=== PATIENT | female | born 1945 | race Two or more races ===

== ENCOUNTER 2016-07-13 00:54 | Emergency (ER) | payer OTHER ==
[2016-07-13 01:06] VITALS: BMI 33.8
[2016-07-13] MEDS ORDERED: VALSARTAN 40 MG TABLET (FP) PO ONE (01:26)
--- NOTE | 2016-07-13 01:29 | PDOC ---
History of Present Illness - General History Source: Patient Exam Limitations: No Limitations - History of Present Illness Initial Comments: 07/13/16 01:42 The patient is a 70 year old female, with a significant past medical history of AFib(on metoprolol and eliquis), hypertension, hyperlipidemia, non-insulin dependent diabetes mellitus, rheumatoid arthritis, and lupus, who presents to the emergency department complaining of dizziness since earlier today. The patient reports her blood pressure has been fluctuating for several days, because she is missing one of her hypertension medications. 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 She states she returned to her PCP, who prescribed her a second medication, which again was not covered by her insurance. The patient reports she is otherwise compliant with her other medications. The patient reports a decrease in appetite. She reports chest tightness and palpitations, but denies diaphoresis or shortness of breath. The patient reports warmness to her feet bilaterally. The patient states she lives at home alone. The patient denies any fever, chills, cough, or headache. The patient denies any nausea, vomiting, diarrhea, constipation, or changes in urination patterns. Allergies: None reported. Past Surgical History: Tubal ligation. Social History: Non-smoker. Denies alcohol or drug use. <Radha Quiroz - Last Filed: 07/13/16 01:44> <Radha Edwards - Last Filed: 07/13/16 23:36> - General Stated Complaint: BLOOD PRESSURE Time Seen by Provider: 07/13/16 01:11 Past History <Radha Quiroz - Last Filed: 07/13/16 01:44> - Past Medical History Cardiac Disorders: Yes (palpitations) Diabetes: Yes HTN: Yes Hypercholesterolemia: Yes - Surgical History Abdominal Surgery: Yes (TUBAL LIGATION) - Immunization History Td Vaccination: Yes Immunization Up to Date: Yes - Psycho/Social/Smoking Cessation Hx Anxiety: No Suicidal Ideation: No Smoking Status: No Smoking History: Never smoked Years of Tobacco Use: 0 Have you smoked in the past 12 months: No Number of Cigarettes Smoked Daily: 0 Cigars Per Day: 0 Hx Alcohol Use: No Drug/Substance Use Hx: No Substance Use Type: None Hx Substance Use Treatment: No <Radha Edwards - Last Filed: 07/13/16 23:36> - Past Medical History Allergies/Adverse Reactions: Allergies Allergy/AdvReac Type Severity Reaction Status Date / Time No Known Allergies Allergy Verified 07/13/16 01:03 Home Medications: Ambulatory Orders Acetaminophen [Tylenol .Extra-Strength -] 500 mg PO Q8H PRN 10/03/15 Albuterol Sulfate Inhaler - [Ventolin HFA Inhaler -] 1 - 2 inh PO QID 10/03/15 Apixaban [Eliquis] 5 mg PO BID 10/03/15 Atorvastatin Ca [Lipitor] 20 mg PO DAILY 10/03/15 Folic Acid 1 mg PO DAILY 10/03/15 Hydrochlorothiazide [Hctz -] 25 mg PO DAILY 10/03/15 Metoprolol Succinate [Toprol Xl] 100 mg PO DAILY 10/03/15 Propafenone HCl [Rythmol Sr] 225 mg PO BID 10/03/15 Sitagliptin Phos/Metformin HCl [Janumet 50-1,000 mg Tablet] 1 each PO BID Fluticasone Prop 0.05% Nasal [Flonase -] 1 - 2 spray NS DAILY 07/13/16 Hypromellose 0.5% Opth Soln [Artificial Tears] 1 drop OU TID 07/13/16 Meclizine HCl [Antivert -] 25 mg PO QID #32 tablet 07/13/16 Meclizine HCl [Antivert -] 25 mg PO TID PRN #20 tablet 07/13/16 Methotrexate [Mexate -] 50 mg IM Q7D 07/13/16 Prednisone 5 mg PO DAILY 07/13/16 Ranitidine [Zantac -] 150 mg PO BID 07/13/16 Valsartan [Diovan] 160 mg PO DAILY #30 tablet 07/13/16 Review of Systems - Review of Systems Able to Perform ROS?: Yes Comments:: 07/13/16 01:42 GENERAL/CONSTITUTIONAL: No fever or chills. No weakness. HEAD, EYES, EARS, NOSE AND THROAT: No change in vision. No ear pain or discharge. No sore throat. CARDIOVASCULAR: +Chest tightness, +palpitations. No shortness of breath. RESPIRATORY: No cough, wheezing, or hemoptysis. GASTROINTESTINAL: No nausea, vomiting, diarrhea or constipation. GENITOURINARY: No dysuria, frequency, or change in urination. MUSCULOSKELETAL: No joint or muscle swelling or pain. No neck or back pain. SKIN: No rash NEUROLOGIC: +Dizziness. No headache, vertigo, loss of consciousness, or change in strength/sensation. ENDOCRINE: +Decreased appetite. No increased thirst. No abnormal weight change. HEMATOLOGIC/LYMPHATIC: No anemia, easy bleeding, or history of blood clots. ALLERGIC/IMMUNOLOGIC: No hives or skin allergy. <Radha Quiroz - Last Filed: 07/13/16 01:44> *Physical Exam - Vital Signs Last Vital Signs Temp Pulse Resp BP Pulse Ox 98.3 F 83 18 170/81 99 07/13/16 01:00 07/13/16 01:00 07/13/16 01:00 07/13/16 01:00 07/13/16 01:00 - Physical Exam Comments: 07/13/16 01:42 GENERAL: Awake, alert, and fully oriented, in no acute distress HEAD: No signs of trauma EYES: PERRLA, EOMI, sclera anicteric, conjunctiva clear ENT: Auricles normal inspection, hearing grossly normal, nares patent, oropharynx clear without exudates. Moist mucosa NECK: Normal ROM, supple, no lymphadenopathy, JVD, or masses LUNGS: Breath sounds equal, clear to auscultation bilaterally. No wheezes, and no crackles HEART: Atrial fibrillation. Regular rhythm, normal S1 and S2, no murmurs, rubs or gallops ABDOMEN: Soft, nontender, normoactive bowel sounds. No guarding, no rebound. No masses EXTREMITIES: Normal range of motion, no edema. No clubbing or cyanosis. No cords, erythema, or tenderness NEUROLOGICAL: Cranial nerves II through XII grossly intact. Normal speech, normal gait SKIN: Warm, Dry, normal turgor, no rashes or lesions noted. <Radha Quiroz - Last Filed: 07/13/16 01:44> - Vital Signs Last Vital Signs Temp Pulse Resp BP Pulse Ox 98.3 F 83 18 170/81 99 07/13/16 01:00 07/13/16 01:00 07/13/16 01:00 07/13/16 01:00 07/13/16 01:00 <Radha Edwards - Last Filed: 07/13/16 23:36> ED Treatment Course - Medications Given in the ED: ED Medications Discontinued Medications Generic Name Dose Route Start Last Admin Trade Name Mine PRN Reason Stop Dose Admin Valsartan 160 mg 07/13/16 01:31 07/13/16 01:33 Diovan - PO 07/13/16 01:32 160 mg ONCE ONE Administration <Radha Quiroz - Last Filed: 07/13/16 01:44> - LABORATORY CBC & Chemistry Diagram: 07/13/16 04:40 07/13/16 06:00 <Radha Edwards - Last Filed: 07/13/16 23:36> Medical Decision Making - Medical Decision Making 07/13/16 23:24 Pt comes with dizziness. She states that her BP is high because she ran out of one of her meds. Her PMD switched her to another medication however her health insurance wouldn't cover it; another med was prescribed, but he health insurance wouldn't cover that either. Pt has a normal exam. She has a normal EKG and normal labs and cardiac enzymes. She will be discharged home; awaiting her family to pick her up. <Radha Edwards - Last Filed: 07/13/16 23:36> *DC/Admit/Observation/Transfer - Attestations Scribe Attestion: 07/13/16 01:43 Documentation prepared by Radha Quiroz, acting as medical information specialist for Radha Edwards MD. <Radha Quiroz - Last Filed: 07/13/16 01:44> - Discharge Dispostion Admit: No <Radha Edwards - Last Filed: 07/13/16 23:36> Diagnosis at time of Disposition: Nausea, Dizziness - Discharge Dispostion Disposition: HOME Condition at time of disposition: Improved - Prescriptions Prescriptions: Meclizine HCl [Antivert -] 25 mg PO TID PRN #20 tablet PRN Reason: Vertigo Meclizine HCl [Antivert -] 25 mg PO QID #32 tablet Valsartan [Diovan] 160 mg PO DAILY #30 tablet - Referrals Referrals: Arun Roberson MD [Staff Physician] - - Patient Instructions Printed Discharge Instructions: Combating Dizziness in Older Adults, DI for Nausea -- Adult, DI for Vertigo
[2016-07-13] MEDS ORDERED: VALSARTAN 160 MG TABLET (UD) PO ONE (01:31)
[2016-07-13] MEDS ORDERED: VALSARTAN 80 MG TABLET (UD) ONE (01:40)
[2016-07-13] MEDS ORDERED: MAG HYDROX/AL HYDROX/SIMETH 30 ML UNIT-DOSE CUP PO ONE (03:58)
[2016-07-13] MEDS ORDERED: FAMOTIDINE 20 MG/50 ML IVPB 50 ML IVPB ONE ×2 (03:58→04:42)
[2016-07-13] MEDS ORDERED: MAG HYDROX/AL HYDROX/SIMETH 30 ML UNIT-DOSE CUP ONE (04:24)
[2016-07-13 05:09] LABS: BASOPHIL 0.6 % (0-2.0); MCH 31.7 pg (25.7-33.7); MCHC 33.5 g/dl (32.0-36.0); MEAN CELL VOLUME 94.5 fl (80-96); MEAN PLT VOLUME 6.6 fl (7.5-11.1); NEUTROPHILS 53.9 % (42.8-82.8); PLATELET COUNT 278 K/MM3 (134-434); RDW 17.2 % (11.6-15.6); WHITE BLOOD COUNT 7.5 K/mm3 (4.0-10.0)
[2016-07-13 06:45] LABS: ALBUMIN 3.4 g/dl (3.4-5.0); ANION GAP 12 (8-16); BILIRUBIN,TOTAL 0.2 mg/dL (0.2-1.0); CALCIUM 8.6 mg/dL (8.5-10.1); CO2 27 mmol/L (21-32); CREATININE 0.7 mg/dL (0.55-1.02); GLUCOSE,RANDOM 98 mg/dL (74-106); SGOT/AST 13 U/L (15-37); SGPT/ALT 27 U/L (12-78); TOT PROT 6.6 g/dl (6.4-8.2)
[2016-07-13 06:47] LABS: ALK PHOS 85 U/L (45-117); TROPONIN I < 0.02 ng/ml (0.00-0.05)
[2016-07-13] MEDS ORDERED: METOCLOPRAMIDE HCL INJECTION 10 MG/2 ML VIAL IVPUSH ONE (07:40)
[2016-07-13] MEDS ORDERED: MECLIZINE HCL 25 MG TABLET (FP) PO ONE (07:40)
[2016-07-13] MEDS ORDERED: MECLIZINE HCL 25 MG TABLET (FP) ONE (07:47)
[2016-07-13] MEDS ORDERED: METOCLOPRAMIDE HCL INJECTION 10 MG/2 ML VIAL ONE (07:47)
[2016-07-13 08:04] VITALS: TEMP 98.1
--- NOTE | 2016-07-13 09:24 | PDOC ---
*Physical Exam - Vital Signs Last Vital Signs Temp Pulse Resp BP Pulse Ox 98.1 F 72 18 146/78 98 07/13/16 08:01 07/13/16 08:01 07/13/16 08:01 07/13/16 08:01 07/13/16 08:01 ED Treatment Course - LABORATORY CBC & Chemistry Diagram: 07/13/16 04:40 07/13/16 06:00 - ADDITIONAL ORDERS Additional order review: Laboratory Results 07/13/16 07/13/16 07/13/16 06:00 05:40 04:40 Sodium 134 L Cancelled Cancelled Potassium 3.8 Cancelled Cancelled Chloride 95 L Cancelled Cancelled Carbon Dioxide 27 Cancelled Cancelled Anion Gap 12 Cancelled Cancelled BUN 11 Cancelled Cancelled Creatinine 0.7 Cancelled Cancelled Creat Clearance w eGFR > 60 Cancelled Cancelled Random Glucose 98 D Cancelled Cancelled Calcium 8.6 Cancelled Cancelled Total Bilirubin 0.2 D Cancelled Cancelled AST 13 L D Cancelled Cancelled ALT 27 D Cancelled Cancelled Alkaline Phosphatase 85 Cancelled Cancelled Creatine Kinase 43 Cancelled Cancelled Troponin I < 0.02 Cancelled Cancelled Total Protein 6.6 Cancelled Cancelled Albumin 3.4 Cancelled Cancelled 07/13/16 04:40 RBC 3.93 MCV 94.5 MCHC 33.5 RDW 17.2 H MPV 6.6 L Neutrophils % 53.9 Lymphocytes % 30.6 Monocytes % 12.9 H Eosinophils % 2.0 D Basophils % 0.6 - Medications Given in the ED: ED Medications Discontinued Medications Generic Name Dose Route Start Last Admin Trade Name Mine PRN Reason Stop Dose Admin Al Hydroxide/Mg Hydroxide 30 ml 07/13/16 03:58 07/13/16 04:32 Mylanta Oral Suspension - PO 07/13/16 03:59 30 ml ONCE ONE Administration Famotidine/Sodium Chloride 50 mls @ 100 mls/hr 07/13/16 03:58 07/13/16 04:40 Pepcid 20 Mg Premixed Ivpb - IVPB 07/13/16 04:27 100 mls/hr ONCE ONE Administration Meclizine HCl 25 mg 07/13/16 07:40 07/13/16 07:54 Antivert - PO 07/13/16 07:41 25 mg ONCE ONE Administration Metoclopramide HCl 10 mg 07/13/16 07:40 07/13/16 07:54 Reglan Injection - IVPUSH 07/13/16 07:41 10 mg ONCE ONE Administration Valsartan 40 mg 07/13/16 01:26 07/13/16 01:54 Diovan - PO 07/13/16 01:27 Not Given ONCE ONE Valsartan 160 mg 07/13/16 01:31 07/13/16 01:33 Diovan - PO 07/13/16 01:32 160 mg ONCE ONE Administration Medical Decision Making - Medical Decision Making 07/13/16 09:23 pt still feeling dizzy and nauseus when i reassessed her at 7am - pt was given meclizine and zofran and feels significantly better. pt states she has a hx of vertigo, but doesnt have her meclizine. will send an rx to her pharmacy will have pt fu with pmd and neurology return precautions were discussed I discussed the physical exam findings, ancillary test results and final diagnoses with the patient. I answered all of the patient's questions. The patient was satisfied with the care received and felt comfortable with the discharge plan and treatment plan. The patient will call their primary care physician within 24 hours to arrange follow-up and will return to the Emergency Department with any new, persistent or worsening symptoms. *DC/Admit/Observation/Transfer Diagnosis at time of Disposition: Nausea, Dizziness - Discharge Dispostion Disposition: HOME Condition at time of disposition: Improved - Prescriptions Prescriptions: Meclizine HCl [Antivert -] 25 mg PO TID PRN #20 tablet PRN Reason: Vertigo Meclizine HCl [Antivert -] 25 mg PO QID #32 tablet Valsartan [Diovan] 160 mg PO DAILY #30 tablet - Referrals Referrals: Arun Roberson MD [Staff Physician] - - Patient Instructions Printed Discharge Instructions: Combating Dizziness in Older Adults, DI for Vertigo, DI for Nausea -- Adult - Post Discharge Activity
[2016-07-13 09:48] VITALS: BP 144/64; PULSE 74
--- NOTE | 2016-07-13 14:43 | EKG ---
Test Reason : Blood Pressure : / mmHG Vent. Rate : 069 BPM Atrial Rate : 069 BPM P-R Int : 224 ms QRS Dur : 092 ms QT Int : 390 ms P-R-T Axes : 050 009 051 degrees QTc Int : 417 ms SINUS RHYTHM WITH SINUS ARRHYTHMIA WITH 1ST DEGREE A-V BLOCK MODERATE VOLTAGE CRITERIA FOR LVH, MAY BE NORMAL VARIANT NONSPECIFIC T WAVE ABNORMALITY ABNORMAL ECG WHEN COMPARED WITH ECG OF 03-OCT-2015 07:41, NO SIGNIFICANT CHANGE WAS FOUND Confirmed by HOWARD NUÑEZ MD ([id number]) on 07/13/2016 2:43:06 PM Referred By: Confirmed By:HOWARD NUÑEZ MD
== END 2016-07-13 09:48 | disposition home or self-care (01) ==
LOC: JER 00:54
PROC: 3E033GC Introduction of Other Therapeutic Substance into Peripheral Vein, Percutaneous Approach (ICD-10-PCS; principal; 2016-07-13)
DX: R42 Dizziness and giddiness (principal); R11.0 Nausea
CPT/HCPCS: 36415; 71020-TC; 80053; 82550; 84484; 85025; 93005; 93010; 96365; 96375; 99285-25

== ENCOUNTER 2016-09-13 16:05 | Observation (INO) | payer OTHER ==
[2016-09-13] MEDS ORDERED: ASPIRIN 81 MG CHEWABLE TABLETS PO ONE (16:43)
[2016-09-13] MEDS ORDERED: ASPIRIN 81 MG CHEWABLE TABLETS ONE (16:48)
[2016-09-13 16:58] LABS: BASOPHIL 0.7 % (0-2.0); EOSINOPHIL 1.7 % (0-4.5); MCH 31.2 pg (25.7-33.7); MCHC 33.1 g/dl (32.0-36.0); MEAN CELL VOLUME 94.3 fl (80-96); MEAN PLT VOLUME 7.2 fl (7.5-11.1); NEUTROPHILS 54.2 % (42.8-82.8); PLATELET COUNT 323 K/MM3 (134-434); RDW 16.8 % (11.6-15.6); WHITE BLOOD COUNT 7.3 K/mm3 (4.0-10.0)
[2016-09-13 17:22] LABS: INR 1.12 (0.82-1.09); PROTHROMBIN TIME (PATIENT) 12.4 SEC (9.98-11.88)
[2016-09-13 17:31] LABS: ALBUMIN 3.8 g/dl (3.4-5.0); ANION GAP 17 (8-16); BILIRUBIN,TOTAL 0.3 mg/dL (0.2-1.0); CALCIUM 9.1 mg/dL (8.5-10.1); CO2 24 mmol/L (21-32); COCKROFT - GAULT 101.7365; CREATININE 0.7 mg/dL (0.55-1.02); GLUCOSE,RANDOM 115 mg/dL (74-106); SGPT/ALT 37 U/L (12-78); TOT PROT 7.3 g/dl (6.4-8.2)
[2016-09-13 17:34] LABS: ALK PHOS 108 U/L (45-117); TROPONIN I < 0.02 ng/ml (0.00-0.05)
--- NOTE | 2016-09-13 17:39 | PDOC ---
History of Present Illness <Chuy Ortega - Last Filed: 09/13/16 19:03> - General History Source: Patient Exam Limitations: No Limitations <Sarbjit Davis - Last Filed: 09/16/16 07:31> - General Chief Complaint: Chest Pain Stated Complaint: Blood Pressure Problem Time Seen by Provider: 09/13/16 16:27 - History of Present Illness Initial Comments: 09/13/16 17:40 71y F hx of htn, hl, dm, palpitations,presents to the ED with complaing of chest pain, shortness of breath intermittently for the past 5 days. Pt endorses the sypmtoms when she is moving around/ambulating. The pain is subseternal, nonradiating. Pt deneis any current pain. Pt also endorses feeling mild headache and dizziness. {t denies any diaphoresis, orthopnea, fver/chills, cough, diarrhea, melena, dysuria. Allergies: None Past surgical history: Tubal ligation Social history: She denies alcohol, tobacco and drug use PCP - Dr. Henry Flores Set Staff Fitter - Dr. Sidra Butler (Sarbjit Davis) Past History <Chuy Ortega - Last Filed: 09/13/16 19:03> - Past Medical History Cardiac Disorders: Yes (palpitations) Diabetes: Yes HTN: Yes Hypercholesterolemia: Yes - Surgical History Abdominal Surgery: Yes (TUBAL LIGATION) - Immunization History Td Vaccination: Yes Immunization Up to Date: Yes - Psycho/Social/Smoking Cessation Hx Anxiety: No Suicidal Ideation: No Smoking Status: No Smoking History: Former smoker Years of Tobacco Use: 0 Have you smoked in the past 12 months: No Number of Cigarettes Smoked Daily: 0 Cigars Per Day: 0 Information on smoking cessation initiated: No Hx Alcohol Use: No Drug/Substance Use Hx: No Substance Use Type: None Hx Substance Use Treatment: No <Sarbjit Davis - Last Filed: 09/16/16 07:31> - Past Medical History Allergies/Adverse Reactions: Allergies Allergy/AdvReac Type Severity Reaction Status Date / Time No Known Allergies Allergy Verified 09/13/16 16:14 Home Medications: Ambulatory Orders Acetaminophen [Tylenol .Extra-Strength -] 500 mg PO Q8H PRN 10/03/15 Albuterol Sulfate Inhaler - [Ventolin HFA Inhaler -] 1 - 2 inh PO QID 10/03/15 Apixaban [Eliquis] 5 mg PO BID 10/03/15 Atorvastatin Ca [Lipitor] 20 mg PO DAILY 10/03/15 Folic Acid 1 mg PO DAILY 10/03/15 Hydrochlorothiazide [Hctz -] 25 mg PO DAILY 10/03/15 Metoprolol Succinate [Toprol Xl] 100 mg PO BID 10/03/15 Propafenone HCl [Rythmol Sr] 225 mg PO BID 10/03/15 Sitagliptin Phos/Metformin HCl [Janumet 50-1,000 mg Tablet] 1 each PO BID Fluticasone Prop 0.05% Nasal [Flonase -] 1 - 2 spray NS DAILY 07/13/16 Hypromellose 0.5% Opth Soln [Artificial Tears] 1 drop OU TID 07/13/16 Ranitidine [Zantac -] 150 mg PO BID 07/13/16 Valsartan [Diovan] 160 mg PO DAILY #30 tablet 07/13/16 Meclizine HCl [Antivert -] 25 mg PO TID 09/13/16 Methotrexate Sodium/Pf [Methotrexate 50 mg/2 ml Vial] 25 mg IJ Q7D 09/13/16 Cardiac Specific PMH - Complaint Specific PMHX Abdominal Aortic Aneurysm: No Cardiac Arrhythmia: No Cardiac Stent: No Pacemaker: No Pulmonary Embolus: No Valvular Heart Disease: No Peripheral Vascular Disease: No <Sarbjit Davis - Last Filed: 09/16/16 07:31> Review of Systems <Chuy Ortega - Last Filed: 09/13/16 19:03> - Review of Systems Able to Perform ROS?: Yes <Sarbjit Davis - Last Filed: 09/16/16 07:31> - Review of Systems Comments:: 09/13/16 18:49 Constitutional - no reported Fever, Chills, HEENT: no reported vision changes, sore throat Respiratory: no reported cough, hemoptysis Cardiac: +chest pain, sob,light headedness, no reported palpitations, leg swelling Abd/GI: no reported abd pain, nausea, vomiting, blood per rectum, melena, diarrhea : no reported dysuria, frequency, discharge Musculskelatal - no reported back pain, joint swelling skin - no reported bruising, erythema, rash neurological: +headache, no reported numbness, focal weakness, tingling, ataxia , hematologic: no reported anemia, easy bruising, easy bleeding (Sarbjit Davis) *Physical Exam <Chuy Ortega - Last Filed: 09/13/16 19:03> <Sarbjit Davis - Last Filed: 09/16/16 07:31> - Vital Signs Last Vital Signs Temp Pulse Resp BP Pulse Ox 97.6 F 72 18 152/71 95 09/16/16 06:00 09/16/16 06:00 09/16/16 06:00 09/16/16 06:00 09/15/16 21:00 - Physical Exam Comments: 09/13/16 18:50 GENERAL: The patient is awake, alert, and fully oriented, Nontoxic - in no acute distress. HEAD: Normocephalic, atraumatic. EYES: extraocular movements intact, sclera anicteric, conjunctiva clear. ENT: Normal voice, Moist mucous membranes. NECK: Normal range of motion, supple LUNGS: Breath sounds equal, clear to auscultation bilaterally. No wheezes, no rhonchi, no rales. HEART: Regular rate and rhythm, normal S1 and S2 without murmur, rub or gallop. ABDOMEN: Soft, nontender, normoactive bowel sounds. No guarding, no rebound. . No CVA tenderness EXTREMITIES: Normal range of motion, no edema. No clubbing or cyanosis. No cords, erythema, or tenderness. NEUROLOGICAL: No facial assymetry, Normal speech, PSYCH: Normal mood, normal affect. SKIN: Warm, Dry, normal turgor, (Sarbjit Davis) Heart Score/ECG Review <Chuy Ortega - Last Filed: 09/13/16 19:03> - History History: Slightly suspicious - Electrocardiogram EKG: Non specific repolarization disturbance - Age Age: >/= 65 - Risk Factors Risk Factors Heart Score: Yes Hx Hypercholesterolemia, Yes Hx Hypertension, Yes Hx Diabetes Based on the list above the patient has:: >/=3 risk factors or Hx atherosclerotic disease - Troponin Troponin: </= normal limit - Score Heart Score - Total: 5 <Sarbjit Davis - Last Filed: 09/16/16 07:31> - ECG Impressions Comment:: 09/13/16 18:50 Twelve-lead EKG was performed and reviewed by me. There is normal sinus rhythm with a normal rate. Rate of 78 The axis is normal. First degree AV block Nonspecific T wave abnormality (Sarbjit Davis) ED Treatment Course - LABORATORY CBC & Chemistry Diagram: 09/13/16 16:45 09/13/16 16:45 <Chuy Ortega - Last Filed: 09/13/16 19:03> - LABORATORY CBC & Chemistry Diagram: 09/14/16 05:00 09/15/16 06:15 <RyanSarbjit - Last Filed: 09/16/16 07:31> - ADDITIONAL ORDERS Additional order review: 09/13/16 16:45 RBC 3.81 MCV 94.3 MCHC 33.1 RDW 16.8 H MPV 7.2 L Neutrophils % 54.2 Lymphocytes % 30.8 Monocytes % 12.6 H Eosinophils % 1.7 Basophils % 0.7 - RADIOLOGY Radiology Studies Ordered: Category Date Time Status CHEST X-RAY PORTABLE* [RAD] Stat Radiology 09/13/16 16:43 Completed Radiograph Interpretation: 09/13/16 19:04 EXAM#: TYPE/EXAM: RESULT: [id number] RAD/CHEST X-RAY PORTABLE* Shortness of breath. Portable chest x-ray semierect Since prior chest x-ray dated 07/13/2016, the cardiac silhouette remains slightly enlarged with mild unfolding of the aortic arch, mild elevation of the right hemidiaphragm and mild hilar increased lung markings. No focal infiltrates identified. Mediastinum and visualized osseous structures appear intact Impression: No significant interval change or acute lung disease is present Reported By: Chanda Guajardo MD 09/13/16 [id number] (Chuy Ortega) - Medications Given in the ED: ED Medications Discontinued Medications Generic Name Dose Route Start Last Admin Trade Name Freq PRN Reason Stop Dose Admin Aspirin 162 mg 09/13/16 16:43 09/13/16 16:51 Asa - PO 09/13/16 16:44 162 mg ONCE ONE Administration Non-Formulary Medication 1 each 09/13/16 22:00 09/13/16 23:31 Sitagliptin Phos/Metformin Hcl [Janumet 50-1,000 Mg Tablet] PO Not Given BID [facility] Medical Decision Making <Chuy Ortega - Last Filed: 09/13/16 19:03> <Sarbjit Davis - Last Filed: 09/16/16 07:31> - Medical Decision Making 09/13/16 17:39 71y F hx of htn, hl, dm, presents with intermitent cp x 5 days associated with some sob, lightheadedness pts exam unremarkable ekg unchnged from prior trop neg x 1 HEART score 5 will observe the pt for further risk stratification of ACS 09/13/16 20:[address] graham will observe in telemetry Case discussed in detail with admitting physician including history, physical exam and ancillary studies. Admitting physician has assumed care for the patient, will follow all pending diagnostics and will complete the evaluation and treatment. (Sarbjit Davis) *DC/Admit/Observation/Transfer <Chuy Ortega - Last Filed: 09/13/16 19:03> - Discharge Dispostion Admit: Yes <Sarbjit Davis - Last Filed: 09/16/16 07:31> Diagnosis at time of Disposition: Chest pain Qualifiers: Chest pain type: unspecified Qualified Code(s): R07.9 - Chest pain, unspecified - Referrals - Attestations Scribe Attestion: Documentation prepared by Chuy Ortega, acting as adjunct faculty for medical terminology for Sarbjit Davis MD. (Chuy Ortega)
[2016-09-13 17:57] LABS: SGOT/AST 26 U/L (15-37)
[2016-09-13 21:35] LABS: URINE APPEARANCE CLEAR; URINE BILIRUBIN NEGATIVE (NEGATIVE); URINE BLOOD 1+ (NEGATIVE); URINE COLOR STRAW; URINE GLUCOSE (UA) NEGATIVE (NEGATIVE); URINE KETONE NEGATIVE (NEGATIVE); URINE LEUK ESTERASE NEGATIVE (NEGATIVE); URINE NITRITE NEGATIVE (NEGATIVE); URINE PROTEIN NEGATIVE (NEGATIVE); URINE UROBILINOGEN NEGATIVE E.U./dl (0.2-1.0)
[2016-09-13 21:36] LABS: URINE BACTERIA RARE /hpf (NONE SEEN); URINE MUCUS RARE; URINE RBC 1 /hpf (0-3); URINE WBC <1 /hpf (3-5)
--- NOTE | 2016-09-13 21:54 | HP ---
CHIEF COMPLAINT: Intermittent chest pain and shortness of breath for 5 days PCP: Henry Flores Credit Control Officer: Dr. Sidra Butler HISTORY OF PRESENT ILLNESS: This is a 71 year old pashto speaking woman with h /o HTN, HLD, NIDDM, vertigo and PAF who presents with on and off sub-sternal chest pain over the past 5 days. The pain has quick onset to a level of 8 out of 10 lasting for "15 seconds to 2 minutes" then resolving without intervention. The patient denies any precipitating factors with onset, but is reproducible with light palpation. Pain is associated with nausea but she denies vomiting. She reports a dry non-productive cough for 1 week. She reports global headache with dizziness which she states is similar in nature to her vertigo and is relieved with meclizine. ER course was notable for: (1) Chest pain (2) Shortness of breath (3) Trop #1 <0.02 Recent Travel: denies PAST MEDICAL HISTORY: HTN, HLD, NIDDM, vertigo and ?arrythmia PAST SURGICAL HISTORY: tubal ligation Social History: Smoking: denies Alcohol: denies Drugs: denies Allergies No Known Allergies Allergy (Verified 09/13/16 16:14) HOME MEDICATIONS: Home Medications 3 Medication Instructions Recorded Acetaminophen [Tylenol 500 mg PO Q8H PRN 10/03/15 .Extra-Strength -] Albuterol Sulfate Inhaler - 1 - 2 inh PO QID 10/03/15 [Ventolin HFA Inhaler -] Apixaban [Eliquis] 5 mg PO BID 10/03/15 Atorvastatin Ca [Lipitor] 20 mg PO DAILY 10/03/15 Folic Acid 1 mg PO DAILY 10/03/15 Hydrochlorothiazide [Hctz -] 25 mg PO DAILY 10/03/15 Metoprolol Succinate [Toprol Xl] 100 mg PO BID 10/03/15 Propafenone HCl [Rythmol Sr] 225 mg PO BID 10/03/15 Sitagliptin Phos/Metformin HCl 1 each PO BID 10/03/15 [Janumet 50-1,000 mg Tablet] Fluticasone Prop 0.05% Nasal 1 - 2 spray NS DAILY 07/13/16 [Flonase -] Hypromellose 0.5% Opth Soln 1 drop OU TID 07/13/16 [Artificial Tears] Ranitidine [Zantac -] 150 mg PO BID 07/13/16 Valsartan [Diovan] 160 mg PO DAILY #30 tablet 07/13/16 Meclizine HCl [Antivert -] 25 mg PO TID 09/13/16 Methotrexate Sodium/Pf 25 mg IJ Q7D 09/13/16 [Methotrexate 50 mg/2 ml Vial] REVIEW OF SYSTEMS CONSTITUTIONAL: Absent: fever, chills, diaphoresis, generalized weakness, malaise, loss of appetite, weight change HEENT: rhinorrhea Absent: nasal congestion, throat pain, throat swelling, difficulty swallowing, mouth swelling, ear pain, eye pain, visual changes CARDIOVASCULAR: chest pain Absent: syncope, palpitations, irregular heart rate, lightheadedness, peripheral edema RESPIRATORY: dry non-productive cough for 1 week, shortness of breath Absent: dyspnea with exertion, orthopnea, wheezing, stridor, hemoptysis GASTROINTESTINAL: nausea Absent: abdominal pain, abdominal distension, vomiting, diarrhea, constipation, melena, hematochezia GENITOURINARY: Absent: dysuria, frequency, urgency, hesitancy, hematuria, flank pain, genital pain MUSCULOSKELETAL: Absent: myalgia, arthralgia, joint swelling, back pain, neck pain SKIN: Absent: rash, itching, pallor HEMATOLOGIC/IMMUNOLOGIC: Absent: easy bleeding, easy bruising, lymphadenopathy, frequent infections ENDOCRINE: Absent: unexplained weight gain, unexplained weight loss, heat intolerance, cold intolerance NEUROLOGIC: headache, dizziness Absent: focal weakness or paresthesias, unsteady gait, seizure, mental status changes, bladder or bowel incontinence PSYCHIATRIC: Absent: anxiety, depression, suicidal or homicidal ideation, hallucinations. PHYSICAL EXAMINATION Vital Signs - 24 hr 3 09/13/16 09/13/16 09/13/16 16:15 17:17 17:51 Temperature 98.3 F Pulse Rate 77 Pulse Rate [ 76 Apical] Respiratory 20 17 Rate Blood Pressure 179/84 Blood Pressure [Left Arm] Blood Pressure 154/76 [Right Arm] O2 Sat by Pulse 100 100 100 Oximetry (%) 3 09/13/16 19:10 Temperature 98.2 F Pulse Rate Pulse Rate [ 75 Apical] Respiratory 16 Rate Blood Pressure Blood Pressure 147/74 [Left Arm] Blood Pressure [Right Arm] O2 Sat by Pulse 99 Oximetry (%) GENERAL: Awake, alert, and fully oriented, in no acute distress. HEAD: Normal with no signs of trauma. EYES: Pupils equal, round and reactive to light, extraocular movements intact, sclera anicteric, conjunctiva clear. No lid lag. EARS, NOSE, THROAT: Ears normal, nares patent, oropharynx clear without exudates. Moist mucous membranes. Inflamed nasal turbinates. Cobblestoning present in oropharynx. NECK: Normal range of motion, supple without lymphadenopathy, JVD, or masses. LUNGS: Breath sounds equal, clear to auscultation bilaterally. No wheezes, and no crackles. No accessory muscle use. HEART: Regular rate and rhythm, normal S1 and S2 without murmur, rub or gallop. ABDOMEN: Soft, nontender, not distended, normoactive bowel sounds, no guarding, no rebound, no masses. No hepatomegaly or splenomegaly. MUSCULOSKELETAL: Normal range of motion at all joints. No bony deformities or tenderness. No CVA tenderness. UPPER EXTREMITIES: 2+ pulses, warm, well-perfused. No cyanosis. No clubbing. No peripheral edema. LOWER EXTREMITIES: 2+ pulses, warm, well-perfused. No calf tenderness. No peripheral edema. NEUROLOGICAL: Cranial nerves II-XII intact. Normal speech. Normal gait. PSYCHIATRIC: Cooperative. Good eye contact. Appropriate mood and affect. SKIN: Warm, dry, normal turgor, no rashes or lesions noted, normal capillary refill. Laboratory Results - last 24 hr 3 09/13/16 09/13/16 09/13/16 16:45 16:45 16:45 WBC 7.3 RBC 3.81 Hgb 11.9 Hct 35.9 MCV 94.3 MCHC 33.1 RDW 16.8 H Plt Count 323 MPV 7.2 L Neutrophils % 54.2 Lymphocytes % 30.8 Monocytes % 12.6 H Eosinophils % 1.7 Basophils % 0.7 INR 1.12 Sodium Potassium Chloride Carbon Dioxide Anion Gap BUN Creatinine Creat Clearance w eGFR Random Glucose Calcium Total Bilirubin AST ALT Alkaline Phosphatase Creatine Kinase Troponin I B-Natriuretic Peptide Total Protein Albumin Urine Color Urine Appearance Urine pH Urine Protein Urine Glucose (UA) Urine Ketones Urine Blood Urine Nitrite Urine Bilirubin Urine Urobilinogen Ur Leukocyte Esterase Urine RBC Urine WBC Ur Epithelial Cells Urine Bacteria Urine Mucus Blood Type O NEGATIVE Antibody Screen Negative 3 09/13/16 09/13/16 16:45 17:42 WBC RBC Hgb Hct MCV MCHC RDW Plt Count MPV Neutrophils % Lymphocytes % Monocytes % Eosinophils % Basophils % INR Sodium 132 L Potassium 4.5 Chloride 91 L Carbon Dioxide 24 Anion Gap 17 H BUN 7 D Creatinine 0.7 Creat Clearance w eGFR > 60 Random Glucose 115 H Calcium 9.1 Total Bilirubin 0.3 D AST 26 D ALT 37 D Alkaline Phosphatase 108 D Creatine Kinase 76 Troponin I < 0.02 B-Natriuretic Peptide 15.44 Total Protein 7.3 Albumin 3.8 Urine Color Straw Urine Appearance Clear Urine pH 6.0 Urine Protein Negative Urine Glucose (UA) Negative Urine Ketones Negative Urine Blood 1+ H Urine Nitrite Negative Urine Bilirubin Negative Urine Urobilinogen Negative Ur Leukocyte Esterase Negative Urine RBC 1 Urine WBC <1 Ur Epithelial Cells Rare Urine Bacteria Rare Urine Mucus Rare Blood Type Antibody Screen ASSESSMENT/PLAN: A: This is a 71 year old Lithuanian speaking woman with h/o HTN, HLD, NIDDM, vertigo and PAF who presents with on and off sub-sternal chest pain over the past 5 days. The pain has quick onset to a level of 8 out of 10 lasting for "15 seconds to 2 minutes" then resolving without intervention. The patient denies any precipitating factors with onset, but is reproducible with light palpation. Pain is associated with nausea but she denies vomiting. EKG- SR with 1 degree AV block. HEART Score-5. She reports a dry non-productive cough for 1 week. She reports global headache with dizziness which she states is similar in nature to her vertigo and is relieved with meclizine. P: ACS -serial troponin -ASA 81mg qd -telemetry monitoring HTN -continue home HCTZ, Toprol XL, Diovan Vertigo -continue home meclizine NIDDM -FS QACHS -continue home Janumet hyperlipidemia -continue home atorvastatin PAF -continue propafenone, Eliquis GI ppx -Zantac 150mg qd F/E/N -diabetic/low NA diet Dispo: This patient needs observation at present. Code Status: FULL Visit type - Emergency Visit Emergency Visit: Yes ED Registration Date: 09/13/16 Care time: The patient presented to the Emergency Department on the above date and was hospitalized for further evaluation of their emergent condition. - New Patient This patient is new to me today: Yes Date on this admission: 09/14/16 - Critical Care Critical Care patient: No
[2016-09-13] MEDS ORDERED: ALBUTEROL SO4 6.7 GM HFA INHALER IH PRN ×2 (21:58→22:13)
[2016-09-13] MEDS ORDERED: PROPAFENONE HCL 225 MG PO SCH (22:00)
[2016-09-13] MEDS ORDERED: PATIENT'S OWN MEDICATION (NON-FORMULARY) (Sitagliptin Phos/Metformin Hcl [Janumet 50-1,000 PO SCH (22:00)
[2016-09-13] MEDS: MECLIZINE HCL 25 MG TABLET (FP) PO SCH (23:29)
[2016-09-13] MEDS: ATORVASTATIN CA 20 MG TABLET (FP) PO SCH (23:29)
[2016-09-13] MEDS: METOPROLOL SUCCINATE 100 MG TAB.SR.24H (FP) PO SCH (23:29)
[2016-09-13] MEDS: APIXABAN 5 MG TABLET PO SCH (23:29)
[2016-09-13] MEDS: RANITIDINE HCL 150 MG TABLET (FP) PO SCH (23:29)
[2016-09-14] LABS: TROPONIN I < 0.02 ng/ml (0.00-0.05)
[2016-09-14 02:38] VITALS: BMI 34.0
[2016-09-14 06:04] LABS: BASOPHIL 0.7 % (0-2.0); EOSINOPHIL 1.5 % (0-4.5); MCH 30.9 pg (25.7-33.7); MCHC 32.9 g/dl (32.0-36.0); MEAN CELL VOLUME 93.8 fl (80-96); NEUTROPHILS 53.4 % (42.8-82.8); PLATELET COUNT 299 K/MM3 (134-434); RDW 17.3 % (11.6-15.6); WHITE BLOOD COUNT 6.4 K/mm3 (4.0-10.0)
[2016-09-14] MEDS: metFORMIN HCL 500 MG TABLET (FP) PO SCH ×2 (06:23→17:25)
[2016-09-14] MEDS: MECLIZINE HCL 25 MG TABLET (FP) PO SCH ×3 (06:23→21:28)
[2016-09-14] MEDS: sitaGLIPtin PHOSPHATE 50 MG TABLET PO SCH ×2 (06:23→17:25)
[2016-09-14 06:38] LABS: ANION GAP 12 (8-16); CALCIUM 8.9 mg/dL (8.5-10.1); CO2 25 mmol/L (21-32); COCKROFT - GAULT 89.9725; CREATININE 0.8 mg/dL (0.55-1.02); GLUCOSE,RANDOM 109 mg/dL (74-106); TROPONIN I < 0.02 ng/ml (0.00-0.05)
--- NOTE | 2016-09-14 08:40 | CON.CARD ---
Consult Consult Specialty:: Cardiology Referred by:: Diaz Reason for Consultation:: JERNIGAN and chest pain - History of Present Illness Chief Complaint: JERNIGAN and chest tightness History of Present Illness: 71F with HTN, non-obstructive CAD, DM, PAF, diastolic dysfx, HTN, RA, reported SLE diagnosed on skin biopsy admitted with dry cough, JERNIGAN and substernal chest pressure x 1-2 days. Denies palps Denies fever or chills No edema. On Eliquis chronically for PAF. Had cath 2014 at [place] which was non-obstructive (by report and review old chart ). Multiple negative stress tests here 2013, 2014. Cardiac enzymes are negative x3 and Tele has shown NSR. - History Source History Provided By: Patient (in [place]ots[place]) - Past Medical History Cardio/Vascular: Yes: AFIB, CAD (non-obs CAD on cardiac cath 2012), HTN, Hyperlipdemia ...: No Rheumatology: Yes: Lupus (reports SLE on skin biopsy of face several years ago) , Rheumatoid Arthritis Endocrine: Yes: Diabetes Mellitus - Past Surgical History Past Surgical History: Yes: None - Alcohol/Substance Use Hx Alcohol Use: No History of Substance Use: reports: None - Smoking History Smoking history: Former smoker Have you smoked in the past 12 months: No Aproximately how many cigarettes per day: 0 - Social History ADL: Independent History of Recent Travel: No Home Medications - Allergies Allergies/Adverse Reactions: Allergies Allergy/AdvReac Type Severity Reaction Status Date / Time No Known Allergies Allergy Verified 09/13/16 16:14 - Home Medications Home Medications: Ambulatory Orders Acetaminophen [Tylenol .Extra-Strength -] 500 mg PO Q8H PRN 10/03/15 Albuterol Sulfate Inhaler - [Ventolin HFA Inhaler -] 1 - 2 inh PO QID 10/03/15 Apixaban [Eliquis] 5 mg PO BID 10/03/15 Atorvastatin Ca [Lipitor] 20 mg PO DAILY 10/03/15 Folic Acid 1 mg PO DAILY 10/03/15 Hydrochlorothiazide [Hctz -] 25 mg PO DAILY 10/03/15 Metoprolol Succinate [Toprol Xl] 100 mg PO BID 10/03/15 Propafenone HCl [Rythmol Sr] 225 mg PO BID 10/03/15 Sitagliptin Phos/Metformin HCl [Janumet 50-1,000 mg Tablet] 1 each PO BID Fluticasone Prop 0.05% Nasal [Flonase -] 1 - 2 spray NS DAILY 07/13/16 Hypromellose 0.5% Opth Soln [Artificial Tears] 1 drop OU TID 07/13/16 Ranitidine [Zantac -] 150 mg PO BID 07/13/16 Valsartan [Diovan] 160 mg PO DAILY #30 tablet 07/13/16 Meclizine HCl [Antivert -] 25 mg PO TID 09/13/16 Methotrexate Sodium/Pf [Methotrexate 50 mg/2 ml Vial] 25 mg IJ Q7D 09/13/16 Family Disease History - Family Disease History Family Disease History: Heart Disease: Father (heart problem, not clear) Review of Systems Findings/Remarks: see HPI - Review of Systems HENT: denies: No Symptoms, Difficult Swallowing, Ear Discharge, Ear Pain, Epistaxis, Gingival Bleeding, Hearing Loss, Mouth Swelling, Nasal Congestion, Ocular Prosthesis, Throat Pain, Toothache, Ringing in Ears, Other Cardiovascular: reports: Chest Pain, Shortness of Breath Respiratory: reports: Exercise Intolerance, SOB on Exertion Genitourinary: denies: No Symptoms, Burning, Discharge, Dysuria, Flank Pain, Frequency, Hematuria, Incontinence, Lesions, Menses, Pain, Testicular Mass, Testicular Pain, Testicular Swelling, Urgency, Vaginal Bleeding, Other Musculoskeletal: denies: No Symptoms, Back Pain, Crepitus, Decreased ROM, Extremity Pain, Joint Pain, Joint Swelling, Muscle Pain, Muscle Cramps, Muscle Weakness, Other Integumentary: denies: No Symptoms, Blister, Bruising, Change in Color, Eczema, Erythema, Incision, Lesions, Lump, Pallor, Pruritis, Rash, Wound, Other Neurological: denies: No Symptoms, Change in LOC, Change in Speech, Confusion, Dizziness, Headache, Incoordination, Numbness, Parasthesia, Pre-Existing Deficit , Seizure, Syncope, Tremors, Unsteady Gait, Weakness, Other Endocrine: denies: No Symptoms, Excessive Sweating, Flushing, Increased Hunger, Increased Thirst, Intolerance to Cold, Intolerance to Heat, Unexplained Weight Gain, Unexplained Weight Loss, Other Psychiatric: denies: No Symptoms, Altered Sleep Pattern, Anxiety, Depression, Hallucinations, Panic, Paranoia, Suicidal, Other - Risk Factors Known Risk Factors: Yes: Diabetes Mellitus, Hypercholesterolemia, Hypertension Vital Signs: Vital Signs Temperature 97.8 F 09/14/16 05:00 Pulse Rate 78 09/14/16 05:00 Respiratory Rate 20 09/14/16 05:00 Blood Pressure 142/65 09/14/16 05:00 O2 Sat by Pulse Oximetry (%) 100 09/14/16 05:00 Constitutional: Yes: No Distress, Calm Eyes: Yes: Conjunctiva Clear, EOM Intact HENT: Yes: Atraumatic, Normocephalic Neck: Yes: Supple, Trachea Midline Respiratory: Yes: CTA Bilaterally (no wheezing or rales) Gastrointestinal: Yes: Soft, Abdomen, Obese Cardiovascular: Yes: Regular Rate and Rhythm JVD: No Carotid Bruit: No PMI: Non-Displaced Heart Sounds: Yes: S1, S2 (RRR, no murmurs) Musculoskeletal: Yes: WNL Extremities: Yes: WNL Peripheral Pulses WNL: Yes Neurological: Yes: Alert, Oriented ...Motor Strength: WNL Psychiatric: Yes: Alert, Oriented - Other Data Labs, Other Data: CBC, BMP 09/14/16 05:00 09/14/16 05:00 INR, PTT INR 1.12 (0.82-1.09) 09/13/16 16:45 Troponin, BNP 09/13/16 09/14/16 23:00 05:00 Troponin I < 0.02 < 0.02 Troponin, BNP 09/13/16 09/14/16 23:00 05:00 Troponin I < 0.02 < 0.02 Laboratory Tests 03/26/14 03/27/14 03/27/14 07:30 06:00 06:00 WBC 7.3 Hgb 11.1 Hct Plt Count 267 D-Dimer < 200 Sodium Potassium 4.0 BUN 16 D Creatinine 0.7 Creatine Kinase Troponin I Total LDL Cholesterol 61 Urine pH Urine Blood Urine Nitrite Urine Bilirubin Urine Urobilinogen Ur Leukocyte Esterase Urine RBC Urine WBC 09/13/16 09/13/16 09/13/16 16:45 17:42 23:00 WBC Hgb Hct Plt Count D-Dimer Sodium Potassium BUN Creatinine Creatine Kinase 76 Troponin I < 0.02 < 0.02 Total LDL Cholesterol Urine pH 6.0 Urine Blood 1+ H Urine Nitrite Negative Urine Bilirubin Negative Urine Urobilinogen Negative Ur Leukocyte Esterase Negative Urine RBC 1 Urine WBC <1 09/14/16 09/14/16 05:00 05:00 WBC 6.4 Hgb Hct 35.3 Plt Count 299 D-Dimer Sodium 134 L Potassium 4.4 BUN 8 Creatinine 0.8 Creatine Kinase Troponin I < 0.02 Total LDL Cholesterol Urine pH Urine Blood Urine Nitrite Urine Bilirubin Urine Urobilinogen Ur Leukocyte Esterase Urine RBC Urine WBC NSR 78bpm, 1st degree AV block NSST changes Echo: Pending Stress Echo: Report Reviewed Prior Cardiac Procedures: Cardiac Catheterization (non-obstructive 2014) Ejection Fraction %: LVEF > or = 40 % Imaging - Results Chest X-ray: Report Reviewed, Image Reviewed EKG: Image Reviewed Problem List - Problems (1) Dyspnea Assessment/Plan: -differential includes diastolic dysfunction, PAF w/ RVR, COPD, ILD due to RA/ SLE -repeat echo to assess LV and check for PHTN -Tele -Pulmonary evaluation Code(s): R06.00 - DYSPNEA, UNSPECIFIED Qualifiers: Dyspnea type: dyspnea on exertion Qualified Code(s): R06.09 - Other forms of dyspnea (2) Chest pain of uncertain etiology Assessment/Plan: -History of non-obstuctive CAD and several normal stress tests, last 2 years ago -Cardiac enzymes now negative -Echo to assess pericardium, r/o effusion -To repeat stress MIBI on Friday -ASA 81mg daily Code(s): R07.89 - OTHER CHEST PAIN (3) CAD (coronary artery disease) Assessment/Plan: -reports non-obstx CAD several years ago on cath at [place] -Would try to obtain report if possible -ASA daily -Tele -To repeat stress test Code(s): I25.10 - ATHSCL HEART DISEASE OF [place] CORONARY ARTERY W/O ANG PCTRS Qualifiers: Coronary Disease-Associated Artery/Lesion type: [place] artery [place] vs. transplanted heart: [place] heart Associated angina: without angina Qualified Code(s): I25.10 - Atherosclerotic heart disease of [place] coronary artery without angina pectoris (4) Atrial fibrillation Assessment/Plan: -In sinus -Continue Eliquis -Continue metoprolol and propafenone -Tele Code(s): I48.91 - UNSPECIFIED ATRIAL FIBRILLATION (5) Rheumatoid arthritis Assessment/Plan: -Pulmonary eval to assess for COPD vs ILD vs bronchitis/URI Code(s): M06.9 - RHEUMATOID ARTHRITIS, UNSPECIFIED (6) Lupus Assessment/Plan: -Echo to assess for PHTN, Pulmonary eval as above Code(s): M32.9 - SYSTEMIC LUPUS ERYTHEMATOSUS, UNSPECIFIED Qualifiers: Systemic lupus erythematosus type: other Systemic lupus erythematosus organ involvement: unspecified Qualified Code(s): M32.8 - Other forms of systemic lupus erythematosus
[2016-09-14] MEDS: ASPIRIN COATED 81 MG TABLET.EC PO SCH (09:59)
[2016-09-14] MEDS: APIXABAN 5 MG TABLET PO SCH ×2 (09:59→21:28)
[2016-09-14] MEDS: FOLIC ACID 1 MG TABLET (FP) PO SCH (09:59)
[2016-09-14] MEDS: METOPROLOL SUCCINATE 100 MG TAB.SR.24H (FP) PO SCH ×2 (09:59→21:28)
[2016-09-14] MEDS: RANITIDINE HCL 150 MG TABLET (FP) PO SCH ×2 (09:59→21:28)
[2016-09-14] MEDS: HYDROCHLOROTHIAZIDE 25 MG TABLET (FP) PO SCH (09:59)
[2016-09-14] MEDS: VALSARTAN 160 MG TABLET (UD) PO SCH (09:59)
--- NOTE | 2016-09-14 12:02 | CON.PULM ---
Consult Consult Specialty:: PULMONARY Referred by:: Dr. Thacker Reason for Consultation:: chest pain, cough - History of Present Illness Chief Complaint: chest pain History of Present Illness: 71yo female with h/o HTN, DM, paroxysmal atrial fibrillation, rheumatoid arthritis, SLE via skin biopsy, CAD who presents with chest pain x 5 days. She states the symptoms started with the weather change. Chest pain described as pressure like nonradiating. Also with nonproductive cough but no wheezing. She is a remote smoker, denies any history of asthma or COPD. She is on anticoagulation for her PAF which she is compliant with. - History Source History Provided By: Patient, Medical Record Limitations to Obtaining History: Language Barrier - Past Medical History Cardio/Vascular: Yes: AFIB, CAD (non-obs CAD on cardiac cath 2012), HTN, Hyperlipdemia ...: No Rheumatology: Yes: Lupus (reports SLE on skin biopsy of face several years ago) , Rheumatoid Arthritis Endocrine: Yes: Diabetes Mellitus - Past Surgical History Past Surgical History: Yes: None - Alcohol/Substance Use Hx Alcohol Use: No History of Substance Use: reports: None - Smoking History Smoking history: Former smoker Have you smoked in the past 12 months: No Aproximately how many cigarettes per day: 0 - Social History ADL: Independent History of Recent Travel: No Home Medications - Allergies Allergies/Adverse Reactions: Allergies Allergy/AdvReac Type Severity Reaction Status Date / Time No Known Allergies Allergy Verified 09/13/16 16:14 - Home Medications Home Medications: Ambulatory Orders Acetaminophen [Tylenol .Extra-Strength -] 500 mg PO Q8H PRN 10/03/15 Albuterol Sulfate Inhaler - [Ventolin HFA Inhaler -] 1 - 2 inh PO QID 10/03/15 Apixaban [Eliquis] 5 mg PO BID 10/03/15 Atorvastatin Ca [Lipitor] 20 mg PO DAILY 10/03/15 Folic Acid 1 mg PO DAILY 10/03/15 Hydrochlorothiazide [Hctz -] 25 mg PO DAILY 10/03/15 Metoprolol Succinate [Toprol Xl] 100 mg PO BID 10/03/15 Propafenone HCl [Rythmol Sr] 225 mg PO BID 10/03/15 Sitagliptin Phos/Metformin HCl [Janumet 50-1,000 mg Tablet] 1 each PO BID Fluticasone Prop 0.05% Nasal [Flonase -] 1 - 2 spray NS DAILY 07/13/16 Hypromellose 0.5% Opth Soln [Artificial Tears] 1 drop OU TID 07/13/16 Ranitidine [Zantac -] 150 mg PO BID 07/13/16 Valsartan [Diovan] 160 mg PO DAILY #30 tablet 07/13/16 Meclizine HCl [Antivert -] 25 mg PO TID 09/13/16 Methotrexate Sodium/Pf [Methotrexate 50 mg/2 ml Vial] 25 mg IJ Q7D 09/13/16 Family Disease History - Family Disease History Family Disease History: Heart Disease: Father (heart problem, not clear) Review of Systems - Review of Systems Constitutional: reports: Weakness. denies: Chills, Fever Eyes: denies: Recent Change in Vision HENT: denies: Nasal Congestion, Throat Pain Neck: denies: Stiffness, Tenderness Cardiovascular: reports: Chest Pain, Shortness of Breath. denies: Edema, Palpitations Respiratory: reports: Cough. denies: Hemoptysis, Wheezing Gastrointestinal: denies: Abdominal Pain, Nausea, Vomiting Genitourinary: denies: Dysuria, Hematuria Neurological: denies: Dizziness, Headache Physical Exam Vital Sings: Vital Signs Temperature 97.8 F 09/14/16 05:00 Pulse Rate 78 09/14/16 05:00 Respiratory Rate 20 09/14/16 05:00 Blood Pressure 142/65 09/14/16 05:00 O2 Sat by Pulse Oximetry (%) 100 09/14/16 05:00 Constitutional: Yes: No Distress, Calm Eyes: Yes: Conjunctiva Clear, EOM Intact HENT: Yes: Atraumatic, Normocephalic Neck: Yes: Supple, Trachea Midline Cardiovascular: Yes: Regular Rate and Rhythm Respiratory: Yes: Regular, CTA Bilaterally ...Clubbing: No Gastrointestinal: Yes: Normal Bowel Sounds, Soft. No: Tenderness Edema: No Neurological: Yes: Alert, Oriented Labs: CBC, BMP 09/14/16 05:00 09/14/16 05:00 Imaging - Results Chest X-ray: Report Reviewed, Image Reviewed (no acute infiltrates) Problem List - Problems (1) CAD (coronary artery disease) Code(s): I25.10 - ATHSCL HEART DISEASE OF [place] CORONARY ARTERY W/O ANG PCTRS Qualifiers: Coronary Disease-Associated Artery/Lesion type: [place] artery [place] vs. transplanted heart: [place] heart Associated angina: without angina Qualified Code(s): I25.10 - Atherosclerotic heart disease of [place] coronary artery without angina pectoris (2) Chest pain Code(s): R07.9 - CHEST PAIN, UNSPECIFIED Qualifiers: Chest pain type: unspecified Qualified Code(s): R07.9 - Chest pain, unspecified (3) Lupus Code(s): M32.9 - SYSTEMIC LUPUS ERYTHEMATOSUS, UNSPECIFIED Qualifiers: Systemic lupus erythematosus type: other Systemic lupus erythematosus organ involvement: unspecified Qualified Code(s): M32.8 - Other forms of systemic lupus erythematosus (4) DM Diabetes mellitus type 2 Code(s): E11.9 - TYPE 2 DIABETES MELLITUS WITHOUT COMPLICATIONS (5) Hyperlipidemia Code(s): E78.5 - HYPERLIPIDEMIA, UNSPECIFIED (6) Hypertension Code(s): I10 - ESSENTIAL (PRIMARY) HYPERTENSION (7) PAF (paroxysmal atrial fibrillation) Code(s): I48.0 - PAROXYSMAL ATRIAL FIBRILLATION (8) Rheumatoid arthritis Code(s): M06.9 - RHEUMATOID ARTHRITIS, UNSPECIFIED Assessment/Plan Chest Pain CAD Paroxysmal Atrial Fibrillation h/o Lupus h/o Rheumatoid Arthritis Remote Smoker - lung exam clear and CXR with mild hilar fullness, will get CT chest noncontrast as pt with history of SLE and RA which are associated with interstitial lung diseases - PE less likely as pt compliant with her anticoagulation - cardiac work up in progress - f/u echocardiogram to assess LVEF, RVSP Thank you for this consult Fabian Osei MD
--- NOTE | 2016-09-14 16:35 | PN ---
Progress Note (short form) - Note Progress Note: Subjective: The patient was seen and examined at the bedside she has no complaints at this time. Current Medications Generic Name Dose Route Start Last Admin Trade Name Freq PRN Reason Stop Dose Admin Acetaminophen 500 mg 09/13/16 21:58 Tylenol - PO Q8H PRN PAIN Albuterol Sulfate 2 puff 09/13/16 21:58 Ventolin Hfa Inhaler - IH Q6H PRN WHEEZING Albuterol Sulfate 1 puff 09/13/16 22:13 Ventolin Hfa Inhaler - IH Q6H PRN WHEEZING Apixaban 5 mg 09/13/16 22:00 09/14/16 09:59 Eliquis - PO 5 mg BID BHARATHI Administration Aspirin 81 mg 09/14/16 10:00 09/14/16 09:59 Ecotrin - PO 81 mg DAILY BHARATHI Administration Atorvastatin Calcium 20 mg 09/13/16 22:00 09/13/16 23:29 Lipitor - PO 20 mg HS BHARATHI Administration Folic Acid 1 mg 09/14/16 10:00 09/14/16 09:59 Folic Acid - PO 1 mg DAILY BHARATHI Administration Hydrochlorothiazide 25 mg 09/14/16 10:00 09/14/16 09:59 Hctz - PO 25 mg DAILY BHARATHI Administration Meclizine HCl 25 mg 09/13/16 22:00 09/14/16 06:23 Antivert - PO 25 mg TID BHARATHI Administration Metformin HCl 1,000 mg 09/14/16 07:00 09/14/16 06:23 Glucophage - PO 1,000 mg BIDI BHARATHI Administration Metoprolol Succinate 100 mg 09/13/16 22:00 09/14/16 09:59 Toprol Xl - PO 100 mg BID BHARATHI Administration Non-Formulary Medication 1 drop 09/13/16 22:00 Hypromellose 0.5% Opth Soln [Artificial Tears] OU TID BHARATHI Non-Formulary Medication 225 mg 09/13/16 22:00 Propafenone Hcl [Rythmol Sr] PO BID BHARATHI Ranitidine HCl 150 mg 09/13/16 22:00 09/14/16 09:59 Zantac - PO 150 mg BID BHARATHI Administration Sitagliptin Phosphate 50 mg 09/14/16 07:00 09/14/16 06:23 Januvia - PO 50 mg BIDI BHARATHI Administration Valsartan 160 mg 09/14/16 10:00 09/14/16 09:59 Diovan - PO 160 mg DAILY BHARATHI Administration Objective: Vital Signs Period Temp Pulse Resp BP Sys/Grady Pulse Ox Last 24 Hr 97.8 F-98.2 F 74-78 16-20 108-154/64-76 99-100 Physical Exam: General: NAD, A&Ox3 Lungs: CTA bilaterally Heart: RRR, S1S2 Abd: Soft, non-tender, non-distended. Normoactive bowel sounds Ext: Warm, well-perfused. 2+ DP/PT bilaterally Neuro: CN 1-12 intact CBCD WBC 6.4 K/mm3 (4.0-10.0) 09/14/16 05:00 RBC 3.76 M/mm3 (3.60-5.2) 09/14/16 05:00 Hgb 11.6 GM/dL (10.7-15.3) 09/14/16 05:00 Hct 35.3 % (32.4-45.2) 09/14/16 05:00 MCV 93.8 fl (80-96) 09/14/16 05:00 MCHC 32.9 g/dl (32.0-36.0) 09/14/16 05:00 RDW 17.3 % (11.6-15.6) H 09/14/16 05:00 Plt Count 299 K/MM3 (134-434) 09/14/16 05:00 MPV 7.0 fl (7.5-11.1) L 09/14/16 05:00 CMP Sodium 134 mmol/L (136-145) L 09/14/16 05:00 Potassium 4.4 mmol/L (3.5-5.1) 09/14/16 05:00 Chloride 97 mmol/L (98-107) L 09/14/16 05:00 Carbon Dioxide 25 mmol/L (21-32) 09/14/16 05:00 Anion Gap 12 (8-16) 09/14/16 05:00 BUN 8 mg/dL (7-18) 09/14/16 05:00 Creatinine 0.8 mg/dL (0.55-1.02) 09/14/16 05:00 Creat Clearance w eGFR > 60 (>60) 09/13/16 16:45 Random Glucose 109 mg/dL (74-106) H 09/14/16 05:00 Calcium 8.9 mg/dL (8.5-10.1) 09/14/16 05:00 Total Bilirubin 0.3 mg/dL (0.2-1.0) D 09/13/16 16:45 AST 26 U/L (15-37) D 09/13/16 16:45 ALT 37 U/L (12-78) D 09/13/16 16:45 Alkaline Phosphatase 108 U/L (45-117) D 09/13/16 16:45 Total Protein 7.3 g/dl (6.4-8.2) 09/13/16 16:45 Albumin 3.8 g/dl (3.4-5.0) 09/13/16 16:45 CARDIAC ENZYMES Creatine Kinase 56 IU/L (26-192) 09/13/16 23:00 Troponin I < 0.02 ng/ml (0.00-0.05) 09/14/16 05:00 Assessment: This is a 71 year old female with PMHx of HTN, non-obstructive CAD, DM, paroxysmal a.fib (on Eliquis), diastolic dysfunction, RA, SLE (on skin biopsy), who presented to the ED with dry cough, dyspnea on exertion, and substernal chest pressure x1-2 days. Plan: 1) Cardiology: Chest pressure - Continue cardiac monitoring - Trop x3 negative - F/u ECHO - F/u stress MIBI Friday - Attempt to obtain cath report from [facility] CAD - Hx of non-obstructive CAD on cardiac cath at [facility] 2015 - ASA daily HTN - Continue Diovan - Continue Hctz - Continue Toprol XL Paroxysmal A.fib - Currently in sinus rhythm - Continue Eliquis - Appreciate cardiology consult 2) Pulmonary: Dyspnea - ECHO to assess for pulmonary HTN - F/u chest CT to assess for interstitial lung disease - Duonebs prn - Will need outpatient PFTs - Appreciate pulmonary consult 3) Immuno: RA, lupus - F/u chest CT 4) Endocrine: DM - Continue home medications - BGM ACHS - ISS ACHS 5) F/E/N: - Sodium controlled, diabetic diet - Monitor electrolytes 6) Prophylaxis: - On Eliquis 7) Dispo: - Once condition improves CODE STATUS: FULL CODE Visit type - Emergency Visit Emergency Visit: Yes ED Registration Date: 09/13/16 Care time: The patient presented to the Emergency Department on the above date and was hospitalized for further evaluation of their emergent condition. - New Patient This patient is new to me today: Yes Date on this admission: 09/15/16 - Critical Care Critical Care patient: No
[2016-09-14] MEDS: ACETAMINOPHEN 500 MG TABLET (FP) PO PRN (17:31)
[2016-09-14] MEDS: ATORVASTATIN CA 20 MG TABLET (FP) PO SCH (21:28)
[2016-09-15] MEDS: MECLIZINE HCL 25 MG TABLET (FP) PO SCH ×3 (06:34→21:19)
--- NOTE | 2016-09-15 08:31 | PN ---
Progress Note, Physician Chief Complaint: no complaints in NSR - Current Medication List Current Medications: Active Medications Acetaminophen (Tylenol -) 500 mg PO Q8H PRN PRN Reason: PAIN Last Admin: 09/14/16 17:31 Dose: 500 mg Albuterol Sulfate (Ventolin Hfa Inhaler -) 2 puff IH Q6H PRN PRN Reason: WHEEZING Albuterol Sulfate (Ventolin Hfa Inhaler -) 1 puff IH Q6H PRN PRN Reason: WHEEZING Apixaban (Eliquis -) 5 mg PO BID [facility] Last Admin: 09/14/16 21:28 Dose: 5 mg Aspirin (Ecotrin -) 81 mg PO DAILY [facility] Last Admin: 09/14/16 09:59 Dose: 81 mg Atorvastatin Calcium (Lipitor -) 20 mg PO HS [facility] Last Admin: 09/14/16 21:28 Dose: 20 mg Folic Acid (Folic Acid -) 1 mg PO DAILY [facility] Last Admin: 09/14/16 09:59 Dose: 1 mg Hydrochlorothiazide (Hctz -) 25 mg PO DAILY [facility] Last Admin: 09/14/16 09:59 Dose: 25 mg Meclizine HCl (Antivert -) 25 mg PO TID [facility] Last Admin: 09/15/16 06:34 Dose: 25 mg Metformin HCl (Glucophage -) 1,000 mg PO BIDI [facility] Last Admin: 09/14/16 17:25 Dose: 1,000 mg Metoprolol Succinate (Toprol Xl -) 100 mg PO BID [facility] Last Admin: 09/14/16 21:28 Dose: 100 mg Non-Formulary Medication (Hypromellose 0.5% Opth Soln [Artificial Tears]) 1 drop OU TID [facility] Non-Formulary Medication (Propafenone Hcl [Rythmol Sr]) 225 mg PO BID [facility] Ranitidine HCl (Zantac -) 150 mg PO BID [facility] Last Admin: 09/14/16 21:28 Dose: 150 mg Sitagliptin Phosphate (Januvia -) 50 mg PO BIDI [facility] Last Admin: 09/14/16 17:25 Dose: 50 mg Valsartan (Diovan -) 160 mg PO DAILY [facility] Last Admin: 09/14/16 09:59 Dose: 160 mg - Objective Vital Signs: Vital Signs Temperature 97.8 F 09/15/16 06:00 Pulse Rate 70 09/15/16 06:00 Respiratory Rate 20 09/15/16 06:00 Blood Pressure 123/59 09/15/16 06:00 O2 Sat by Pulse Oximetry (%) 100 09/14/16 22:00 Constitutional: Yes: No Distress, Calm Eyes: Yes: Conjunctiva Clear, EOM Intact Neck: Yes: Supple Cardiovascular: Yes: Regular Rate and Rhythm Respiratory: Yes: CTA Bilaterally Gastrointestinal: Yes: Soft, Abdomen, Obese Edema: No Neurological: Yes: Alert, Oriented Labs: CBC, BMP 09/14/16 05:00 09/15/16 06:15 INR, PTT INR 1.12 (0.82-1.09) 09/13/16 16:45 Laboratory Tests 09/13/16 09/14/16 09/14/16 23:00 05:00 05:00 WBC 6.4 Hct 35.3 Plt Count 299 Sodium Potassium BUN Creatinine Troponin I < 0.02 < 0.02 09/15/16 06:15 WBC Hct Plt Count Sodium 135 L Potassium 4.5 BUN 12 D Creatinine 0.6 D Troponin I - ....Imaging EKG: Image Reviewed Problem List - Problems (1) Dyspnea Code(s): R06.00 - DYSPNEA, UNSPECIFIED Qualifiers: Dyspnea type: dyspnea on exertion Qualified Code(s): R06.09 - Other forms of dyspnea (2) Chest pain of uncertain etiology Code(s): R07.89 - OTHER CHEST PAIN (3) CAD (coronary artery disease) Code(s): I25.10 - ATHSCL HEART DISEASE OF [place] CORONARY ARTERY W/O ANG PCTRS Qualifiers: Coronary Disease-Associated Artery/Lesion type: [place] artery [place] vs. transplanted heart: [place] heart Associated angina: without angina Qualified Code(s): I25.10 - Atherosclerotic heart disease of [place] coronary artery without angina pectoris (4) Atrial fibrillation Code(s): I48.91 - UNSPECIFIED ATRIAL FIBRILLATION (5) Rheumatoid arthritis Code(s): M06.9 - RHEUMATOID ARTHRITIS, UNSPECIFIED (6) Lupus Code(s): M32.9 - SYSTEMIC LUPUS ERYTHEMATOSUS, UNSPECIFIED Qualifiers: Systemic lupus erythematosus type: other Systemic lupus erythematosus organ involvement: unspecified Qualified Code(s): M32.8 - Other forms of systemic lupus erythematosus Assessment/Plan Problem List - Problems (1) Dyspnea Assessment/Plan: -differential includes diastolic dysfunction, PAF w/ RVR, COPD, ILD due to RA/ SLE -repeat echo to assess LV and check for PHTN -Tele for 24 more hours then d/c if remains NSR -Pulmonary evaluation appreciated, await Chest CT result Code(s): R06.00 - DYSPNEA, UNSPECIFIED Qualifiers: Dyspnea type: dyspnea on exertion Qualified Code(s): R06.09 - Other forms of dyspnea (2) Chest pain of uncertain etiology Assessment/Plan: -History of non-obstuctive CAD and several normal stress tests, last 2 years ago -Cardiac enzymes negative -Echo to assess pericardium, r/o effusion -To repeat stress MIBI on Friday and if normal, can be discharged from CV standpoint. -ASA 81mg daily Code(s): R07.89 - OTHER CHEST PAIN (3) CAD (coronary artery disease) Assessment/Plan: -reports non-obstx CAD several years ago on cath at [place] -Would try to obtain report if possible -ASA daily -Tele -To repeat stress test as above. Code(s): I25.10 - ATHSCL HEART DISEASE OF [place] CORONARY ARTERY W/O ANG PCTRS Qualifiers: Coronary Disease-Associated Artery/Lesion type: redding artery [place] vs. transplanted heart: redding heart Associated angina: without angina Qualified Code(s): I25.10 - Atherosclerotic heart disease of [place] coronary artery without angina pectoris (4) Atrial fibrillation Assessment/Plan: -In sinus -Continue Eliquis -Continue metoprolol and propafenone -Tele for 24 more hours, can be d/c'd in AM if remains NSR Code(s): I48.91 - UNSPECIFIED ATRIAL FIBRILLATION (5) Rheumatoid arthritis Assessment/Plan: -Pulmonary eval to assess for COPD vs ILD vs bronchitis/URI: chest CT pending Code(s): M06.9 - RHEUMATOID ARTHRITIS, UNSPECIFIED (6) Lupus Assessment/Plan: -Echo to assess for PHTN, Pulmonary eval as above Code(s): M32.9 - SYSTEMIC LUPUS ERYTHEMATOSUS, UNSPECIFIED Qualifiers: Systemic lupus erythematosus type: other Systemic lupus erythematosus organ involvement: unspecified Qualified Code(s): M32.8 - Other forms of systemic lupus erythematosus
[2016-09-15] MEDS: sitaGLIPtin PHOSPHATE 50 MG TABLET PO SCH ×2 (08:45→17:10)
[2016-09-15] MEDS: APIXABAN 5 MG TABLET PO SCH ×2 (09:12→21:19)
[2016-09-15] MEDS: METOPROLOL SUCCINATE 100 MG TAB.SR.24H (FP) PO SCH ×2 (09:12→21:19)
[2016-09-15] MEDS: metFORMIN HCL 500 MG TABLET (FP) PO SCH ×2 (09:12→17:10)
[2016-09-15] MEDS: HYDROCHLOROTHIAZIDE 25 MG TABLET (FP) PO SCH (09:12)
[2016-09-15] MEDS: ASPIRIN COATED 81 MG TABLET.EC PO SCH (09:12)
[2016-09-15] MEDS: RANITIDINE HCL 150 MG TABLET (FP) PO SCH ×2 (09:12→21:19)
[2016-09-15] MEDS: VALSARTAN 160 MG TABLET (UD) PO SCH (09:12)
[2016-09-15] MEDS: FOLIC ACID 1 MG TABLET (FP) PO SCH (09:12)
--- NOTE | 2016-09-15 12:54 | PN ---
Progress Note (short form) - Note Progress Note: PULMONARY Denies chest pain. Some shortness of breath. CT chest done yesterday showing mild emphysematous changes but without evidence of interstitial lung disease. Last Vital Signs Temp Pulse Resp BP Pulse Ox 98.1 F 78 20 132/63 100 09/15/16 10:00 09/15/16 10:00 09/15/16 10:00 09/15/16 10:00 09/15/16 10:00 Gen: NAD at rest Heart: RRR Lung: distant breath sounds Abd: soft, nontender Ext: no edema CBC, BMP 09/14/16 05:00 09/15/16 06:15 Active Medications Acetaminophen (Tylenol -) 500 mg PO Q8H PRN PRN Reason: PAIN Last Admin: 09/14/16 17:31 Dose: 500 mg Albuterol Sulfate (Ventolin Hfa Inhaler -) 2 puff IH Q6H PRN PRN Reason: WHEEZING Albuterol Sulfate (Ventolin Hfa Inhaler -) 1 puff IH Q6H PRN PRN Reason: WHEEZING Apixaban (Eliquis -) 5 mg PO BID [facility] Last Admin: 09/15/16 09:12 Dose: 5 mg Aspirin (Ecotrin -) 81 mg PO DAILY [facility] Last Admin: 09/15/16 09:12 Dose: 81 mg Atorvastatin Calcium (Lipitor -) 20 mg PO HS [facility] Last Admin: 09/14/16 21:28 Dose: 20 mg Folic Acid (Folic Acid -) 1 mg PO DAILY [facility] Last Admin: 09/15/16 09:12 Dose: 1 mg Hydrochlorothiazide (Hctz -) 25 mg PO DAILY [facility] Last Admin: 09/15/16 09:12 Dose: 25 mg Meclizine HCl (Antivert -) 25 mg PO TID [facility] Last Admin: 09/15/16 06:34 Dose: 25 mg Metformin HCl (Glucophage -) 1,000 mg PO BIDI [facility] Last Admin: 09/15/16 09:12 Dose: 1,000 mg Metoprolol Succinate (Toprol Xl -) 100 mg PO BID [facility] Last Admin: 09/15/16 09:12 Dose: 100 mg Non-Formulary Medication (Hypromellose 0.5% Opth Soln [Artificial Tears]) 1 drop OU TID [facility] Non-Formulary Medication (Propafenone Hcl [Rythmol Sr]) 225 mg PO BID [facility] Ranitidine HCl (Zantac -) 150 mg PO BID [facility] Last Admin: 09/15/16 09:12 Dose: 150 mg Sitagliptin Phosphate (Januvia -) 50 mg PO BIDI [facility] Last Admin: 09/15/16 08:45 Dose: 50 mg Valsartan (Diovan -) 160 mg PO DAILY [facility] Last Admin: 09/15/16 09:12 Dose: 160 mg A/P Chest Pain resolved CAD Paroxysmal Atrial Fibrillation h/o Lupus h/o Rheumatoid Arthritis Remote Smoker - cardiac work up in progress - f/u echocardiogram to assess LVEF, RVSP - will start trial of nebulized bronchodilators - outpt PFTs Problem List - Problems (1) CAD (coronary artery disease) Code(s): I25.10 - ATHSCL HEART DISEASE OF [place] CORONARY ARTERY W/O ANG PCTRS Qualifiers: Coronary Disease-Associated Artery/Lesion type: [place] artery [place] vs. transplanted heart: [place] heart Associated angina: without angina Qualified Code(s): I25.10 - Atherosclerotic heart disease of [place] coronary artery without angina pectoris (2) Chest pain Code(s): R07.9 - CHEST PAIN, UNSPECIFIED Qualifiers: Chest pain type: unspecified Qualified Code(s): R07.9 - Chest pain, unspecified (3) Lupus Code(s): M32.9 - SYSTEMIC LUPUS ERYTHEMATOSUS, UNSPECIFIED Qualifiers: Systemic lupus erythematosus type: other Systemic lupus erythematosus organ involvement: unspecified Qualified Code(s): M32.8 - Other forms of systemic lupus erythematosus (4) DM Diabetes mellitus type 2 Code(s): E11.9 - TYPE 2 DIABETES MELLITUS WITHOUT COMPLICATIONS (5) Hyperlipidemia Code(s): E78.5 - HYPERLIPIDEMIA, UNSPECIFIED (6) Hypertension Code(s): I10 - ESSENTIAL (PRIMARY) HYPERTENSION (7) PAF (paroxysmal atrial fibrillation) Code(s): I48.0 - PAROXYSMAL ATRIAL FIBRILLATION (8) Rheumatoid arthritis Code(s): M06.9 - RHEUMATOID ARTHRITIS, UNSPECIFIED
[2016-09-15] MEDS: ALBUTEROL SO4 2.5/IPRATROPIUM 0.5 INH SOL 3 ML VIAL.NEB. NEB SCH ×2 (13:48→22:49)
[2016-09-15] MEDS: ARTIFICIAL TEARS (POLYVINYL ALCOHOL 1.4%) OPTH DROPS OU SCH ×4 (14:50→21:23)
--- NOTE | 2016-09-15 16:05 | PN ---
Progress Note (short form) - Note Progress Note: Subjective: The patient was seen and examined at the bedside she has no complaints at this time. Current Medications Generic Name Dose Route Start Last Admin Trade Name Mine PRN Reason Stop Dose Admin Acetaminophen 500 mg 09/13/16 21:58 09/14/16 17:31 Tylenol - PO 500 mg Q8H PRN Administration PAIN Albuterol Sulfate 2 puff 09/13/16 21:58 Ventolin Hfa Inhaler - IH Q6H PRN WHEEZING Albuterol/Ipratropium 1 amp 09/15/16 14:00 09/15/16 13:48 Duoneb - NEB 1 amp TIDR BHARATHI Administration Apixaban 5 mg 09/13/16 22:00 09/15/16 09:12 Eliquis - PO 5 mg BID BHARATHI Administration Artificial Tears 1 drop 09/13/16 22:00 09/15/16 14:50 Artificial Tears OU 1 drop TID BHARATHI Administration Aspirin 81 mg 09/14/16 10:00 09/15/16 09:12 Ecotrin - PO 81 mg DAILY BHARATHI Administration Atorvastatin Calcium 20 mg 09/13/16 22:00 09/14/16 21:28 Lipitor - PO 20 mg HS BHARATHI Administration Folic Acid 1 mg 09/14/16 10:00 09/15/16 09:12 Folic Acid - PO 1 mg DAILY BHARATHI Administration Hydrochlorothiazide 25 mg 09/14/16 10:00 09/15/16 09:12 Hctz - PO 25 mg DAILY BHARATHI Administration Meclizine HCl 25 mg 09/13/16 22:00 09/15/16 14:40 Antivert - PO 25 mg TID BHARATHI Administration Metformin HCl 1,000 mg 09/14/16 07:00 09/15/16 09:12 Glucophage - PO 1,000 mg BIDI BHARATHI Administration Metoprolol Succinate 100 mg 09/13/16 22:00 09/15/16 09:12 Toprol Xl - PO 100 mg BID BHARATHI Administration Non-Formulary Medication 225 mg 09/13/16 22:00 Propafenone Hcl [Rythmol Sr] PO BID BHARATHI Ranitidine HCl 150 mg 09/13/16 22:00 09/15/16 09:12 Zantac - PO 150 mg BID BHARATHI Administration Sitagliptin Phosphate 50 mg 09/14/16 07:00 09/15/16 08:45 Januvia - PO 50 mg BIDI BHARATHI Administration Valsartan 160 mg 09/14/16 10:00 09/15/16 09:12 Diovan - PO 160 mg DAILY BHARATHI Administration Objective: Vital Signs Period Temp Pulse Resp BP Sys/Grady Pulse Ox Last 24 Hr 97.8 F-98.1 F 70-79 18-20 116-150/58-76 100-100 Physical Exam: General: NAD, A&Ox3 Lungs: CTA bilaterally Heart: RRR, S1S2 Abd: Soft, non-tender, non-distended. Normoactive bowel sounds Ext: Warm, well-perfused. 2+ DP/PT bilaterally Neuro: CN 1-12 intact CBCD WBC 6.4 K/mm3 (4.0-10.0) 09/14/16 05:00 RBC 3.76 M/mm3 (3.60-5.2) 09/14/16 05:00 Hgb 11.6 GM/dL (10.7-15.3) 09/14/16 05:00 Hct 35.3 % (32.4-45.2) 09/14/16 05:00 MCV 93.8 fl (80-96) 09/14/16 05:00 MCHC 32.9 g/dl (32.0-36.0) 09/14/16 05:00 RDW 17.3 % (11.6-15.6) H 09/14/16 05:00 Plt Count 299 K/MM3 (134-434) 09/14/16 05:00 MPV 7.0 fl (7.5-11.1) L 09/14/16 05:00 CMP Sodium 135 mmol/L (136-145) L 09/15/16 06:15 Potassium 4.5 mmol/L (3.5-5.1) 09/15/16 06:15 Chloride 96 mmol/L (98-107) L 09/15/16 06:15 Carbon Dioxide 30 mmol/L (21-32) 09/15/16 06:15 Anion Gap 9 (8-16) 09/15/16 06:15 BUN 12 mg/dL (7-18) D 09/15/16 06:15 Creatinine 0.6 mg/dL (0.55-1.02) D 09/15/16 06:15 Creat Clearance w eGFR > 60 (>60) 09/13/16 16:45 Random Glucose 89 mg/dL (74-106) 09/15/16 06:15 Calcium 8.8 mg/dL (8.5-10.1) 09/15/16 06:15 Total Bilirubin 0.3 mg/dL (0.2-1.0) D 09/13/16 16:45 AST 26 U/L (15-37) D 09/13/16 16:45 ALT 37 U/L (12-78) D 09/13/16 16:45 Alkaline Phosphatase 108 U/L (45-117) D 09/13/16 16:45 Total Protein 7.3 g/dl (6.4-8.2) 09/13/16 16:45 Albumin 3.8 g/dl (3.4-5.0) 09/13/16 16:45 CARDIAC ENZYMES Creatine Kinase 56 IU/L (26-192) 09/13/16 23:00 Troponin I < 0.02 ng/ml (0.00-0.05) 09/14/16 05:00 Assessment: This is a 71 year old female with PMHx of HTN, non-obstructive CAD, DM, paroxysmal a.fib (on Eliquis), diastolic dysfunction, RA, SLE (on skin biopsy), who presented to the ED with dry cough, dyspnea on exertion, and substernal chest pressure x1-2 days. Plan: 1) Cardiology: Chest pressure - Trop x3 negative - F/u ECHO - F/u stress MIBI Friday - Attempt to obtain cath report from [facility] CAD - Hx of non-obstructive CAD on cardiac cath at [facility] 2015 - ASA daily HTN - Continue Diovan - Continue Hctz - Continue Toprol XL Paroxysmal A.fib - Currently in sinus rhythm - Continue Eliquis - Per cards, can d/c tele tomorrow if remains in NSR - Appreciate cardiology consult 2) Pulmonary: Dyspnea - ECHO to assess for pulmonary HTN - CT chest with mild emphysematous changes, without evidence of interstitial lung disease - Duonebs prn - Will need outpatient PFTs - Appreciate pulmonary consult 3) Immuno: RA, lupus - Chest CT as above 4) Endocrine: DM - Continue home medications - BGM ACHS - ISS ACHS 5) F/E/N: - Sodium controlled, diabetic diet - Monitor electrolytes 6) Prophylaxis: - On Eliquis 7) Dispo: - Once condition improves CODE STATUS: FULL CODE Visit type - Emergency Visit Emergency Visit: Yes ED Registration Date: 09/13/16 Care time: The patient presented to the Emergency Department on the above date and was hospitalized for further evaluation of their emergent condition. - New Patient This patient is new to me today: No - Critical Care Critical Care patient: No
[2016-09-15] MEDS: ACETAMINOPHEN 500 MG TABLET (FP) PO PRN (17:08)
[2016-09-15] MEDS ORDERED: MAG HYDROX/AL HYDROX/SIMETH 30 ML UNIT-DOSE CUP PO PRN (19:09)
[2016-09-15] MEDS: ATORVASTATIN CA 20 MG TABLET (FP) PO SCH (21:19)
[2016-09-16] MEDS: metFORMIN HCL 500 MG TABLET (FP) PO SCH (06:09)
[2016-09-16] MEDS: sitaGLIPtin PHOSPHATE 50 MG TABLET PO SCH (06:09)
[2016-09-16] MEDS: MECLIZINE HCL 25 MG TABLET (FP) PO SCH ×2 (06:09→16:25)
[2016-09-16] MEDS: ARTIFICIAL TEARS (POLYVINYL ALCOHOL 1.4%) OPTH DROPS OU SCH ×2 (06:10→13:39)
[2016-09-16] MEDS: ALBUTEROL SO4 2.5/IPRATROPIUM 0.5 INH SOL 3 ML VIAL.NEB. NEB SCH ×2 (06:59→14:19)
[2016-09-16 08:40] VITALS: BP 137/77; PULSE 80; TEMP 98.2
[2016-09-16] MEDS: METOPROLOL SUCCINATE 100 MG TAB.SR.24H (FP) PO SCH (08:40)
[2016-09-16] MEDS: VALSARTAN 160 MG TABLET (UD) PO SCH (08:40)
[2016-09-16] MEDS: APIXABAN 5 MG TABLET PO SCH (08:40)
[2016-09-16] MEDS ORDERED: DEXTROSE 5% IVPB ONE (10:30)
[2016-09-16] MEDS ORDERED: WATER IVPB ONE (10:30)
[2016-09-16] MEDS ORDERED: DIPYRIDAMOLE STRESS TEST IVPB ONE (10:30)
--- NOTE | 2016-09-16 10:55 | PN ---
Progress Note, Physician History of Present Illness: seen and examined today in nad. no overnight events. no new complaints. - Current Medication List Current Medications: Active Medications Acetaminophen (Tylenol -) 500 mg PO Q8H PRN PRN Reason: PAIN Last Admin: 09/15/16 17:08 Dose: 500 mg Al Hydroxide/Mg Hydroxide (Mylanta Oral Suspension -) 30 ml PO Q6H PRN PRN Reason: DYSPEPSIA Albuterol Sulfate (Ventolin Hfa Inhaler -) 2 puff IH Q6H PRN PRN Reason: WHEEZING Albuterol/Ipratropium (Duoneb -) 1 amp NEB TIDR [facility] Last Admin: 09/16/16 06:59 Dose: Not Given Apixaban (Eliquis -) 5 mg PO BID [facility] Last Admin: 09/15/16 21:19 Dose: 5 mg Artificial Tears (Artificial Tears) 1 drop OU TID [facility] Last Admin: 09/16/16 06:10 Dose: 1 drop Aspirin (Ecotrin -) 81 mg PO DAILY [facility] Last Admin: 09/15/16 09:12 Dose: 81 mg Atorvastatin Calcium (Lipitor -) 20 mg PO HS [facility] Last Admin: 09/15/16 21:19 Dose: 20 mg Folic Acid (Folic Acid -) 1 mg PO DAILY [facility] Last Admin: 09/15/16 09:12 Dose: 1 mg Hydrochlorothiazide (Hctz -) 25 mg PO DAILY [facility] Last Admin: 09/15/16 09:12 Dose: 25 mg Meclizine HCl (Antivert -) 25 mg PO TID [facility] Last Admin: 09/16/16 06:09 Dose: Not Given Metformin HCl (Glucophage -) 1,000 mg PO BIDI [facility] Last Admin: 09/16/16 06:09 Dose: Not Given Metoprolol Succinate (Toprol Xl -) 100 mg PO BID [facility] Last Admin: 09/15/16 21:19 Dose: 100 mg Non-Formulary Medication (Propafenone Hcl [Rythmol Sr]) 225 mg PO BID [facility] Ranitidine HCl (Zantac -) 150 mg PO BID [facility] Last Admin: 09/15/16 21:19 Dose: 150 mg Sitagliptin Phosphate (Januvia -) 50 mg PO BIDI [facility] Last Admin: 09/16/16 06:09 Dose: Not Given Valsartan (Diovan -) 160 mg PO DAILY [facility] Last Admin: 09/15/16 09:12 Dose: 160 mg - Objective Vital Signs: Vital Signs Temperature 98.2 F 09/16/16 08:39 Pulse Rate 80 09/16/16 08:39 Respiratory Rate 18 09/16/16 08:40 Blood Pressure 137/77 09/16/16 08:39 O2 Sat by Pulse Oximetry (%) 95 09/16/16 08:40 Constitutional: Yes: No Distress, Calm, Obese Eyes: Yes: Conjunctiva Clear, EOM Intact, PERRL HENT: Yes: Atraumatic, Normocephalic Neck: Yes: Supple, Trachea Midline Cardiovascular: Yes: Regular Rate and Rhythm, S1, S2. No: Bradycardia, Tachycardia, Pulse Irregular, Bruit, JVD, Gallop, Murmur, Rub, S3, S4, Varicosities Respiratory: Yes: Regular, CTA Bilaterally. No: Rales, Rhonchi, Wheezes Gastrointestinal: Yes: Normal Bowel Sounds, Soft. No: Distention, Tenderness Musculoskeletal: Yes: WNL Extremities: Yes: WNL Edema: No Peripheral Pulses WNL: Yes Peripheral Pulses: Left Doralis Pedis: 2+, Right Dorsalis Pedis: 2+ Integumentary: Yes: WNL Neurological: Yes: Alert, Oriented, Cran Nerves II-XII Intact Psychiatric: Yes: Alert, Oriented Labs: CBC, BMP 09/14/16 05:00 09/15/16 06:15 INR, PTT INR 1.12 (0.82-1.09) 09/13/16 16:45 - ....Imaging Chest X-ray: Report Reviewed, Image Reviewed EKG: Report Reviewed, Image Reviewed Other: Report Reviewed, Image Reviewed (tele-nsr, no events) Assessment/Plan SOB-multiple possible etiologies including diastolic CHF, PAF w/ RVR, COPD, ILD due to RA/SLE -echo reviewed, normal LV systolic function, Grade I diastolic dysfunction, mild MR, mod TR, mild PAH, no pericardial effusion -no events on tele overnight, has remained NSR -pt overall euvolemic on exam, does not require diuresis at this point -f/up nuclear stress test today, if no sig ischemia pt would be acceptable for discharge home -Pulmonary evaluated and chest CT done-nonspecific Chest pain-atypical -H/o non-obstructive CAD (cardiac cath [facility] [place] several years ago) and normal stress tests in the past, last 2 years ago -Cardiac enzymes wnl -Echo as above, no sig abnormalities -f/up nuclear stress test today, if no sig ischemia pt would be acceptable for discharge home -ASA 81mg daily Atrial fibrillation-paroxysmal -has remained in NSR here -Cont Eliquis -Cont metoprolol and propafenone -ok to dc tele at this point -outpatient f/up Rheumatoid arthritis and Lupus -Pulm f/up to assess for COPD vs ILD vs bronchitis/URI -CT chest reported -mild PAH on echo
--- NOTE | 2016-09-16 12:54 | EKG ---
Test Reason : Blood Pressure : / mmHG Vent. Rate : 078 BPM Atrial Rate : 078 BPM P-R Int : 218 ms QRS Dur : 092 ms QT Int : 394 ms P-R-T Axes : 054 012 056 degrees QTc Int : 449 ms SINUS RHYTHM WITH SINUS ARRHYTHMIA WITH 1ST DEGREE A-V BLOCK NONSPECIFIC T WAVE ABNORMALITY ABNORMAL ECG WHEN COMPARED WITH ECG OF 13-JUL-2016 02:32, NO SIGNIFICANT CHANGE WAS FOUND Confirmed by COURT MULLINS, MIRANDA ([id number]) on 09/16/2016 12:53:56 PM Referred By: Confirmed By:MIRANDA YUN MD
[2016-09-16] MEDS: ASPIRIN COATED 81 MG TABLET.EC PO SCH (13:34)
[2016-09-16] MEDS: HYDROCHLOROTHIAZIDE 25 MG TABLET (FP) PO SCH (13:34)
[2016-09-16] MEDS: FOLIC ACID 1 MG TABLET (FP) PO SCH (13:34)
[2016-09-16] MEDS: RANITIDINE HCL 150 MG TABLET (FP) PO SCH (13:34)
--- NOTE | 2016-09-16 16:59 | DS ---
Physical Exam: SUBJECTIVE: Patient seen and examined at bedside. Has no complaints. Feels well. Denies chest pain. OBJECTIVE: Vital Signs Period Temp Pulse Resp BP Sys/Grady Pulse Ox Last 24 Hr 97.6 F-98.9 F 72-82 18-20 118-152/58-88 95-95 PHYSICAL EXAM GENERAL: The patient is awake, alert, and fully oriented, in no acute distress. LUNGS: Breath sounds equal, clear to auscultation bilaterally, no wheezes, no crackles, no accessory muscle use. HEART: Regular rate and rhythm, S1, S2 without murmur, rub or gallop. ABDOMEN: Soft, nontender, nondistended, normoactive bowel sounds, no guarding, no rebound, no hepatosplenomegaly, no masses. EXTREMITIES: 2+ pulses, warm, well-perfused, no edema. NEUROLOGICAL: Cranial nerves II through XII grossly intact. Normal speech, gait not observed. CBCD WBC 6.4 K/mm3 (4.0-10.0) 09/14/16 05:00 RBC 3.76 M/mm3 (3.60-5.2) 09/14/16 05:00 Hgb 11.6 GM/dL (10.7-15.3) 09/14/16 05:00 Hct 35.3 % (32.4-45.2) 09/14/16 05:00 MCV 93.8 fl (80-96) 09/14/16 05:00 MCHC 32.9 g/dl (32.0-36.0) 09/14/16 05:00 RDW 17.3 % (11.6-15.6) H 09/14/16 05:00 Plt Count 299 K/MM3 (134-434) 09/14/16 05:00 MPV 7.0 fl (7.5-11.1) L 09/14/16 05:00 CMP Sodium 135 mmol/L (136-145) L 09/15/16 06:15 Potassium 4.5 mmol/L (3.5-5.1) 09/15/16 06:15 Chloride 96 mmol/L (98-107) L 09/15/16 06:15 Carbon Dioxide 30 mmol/L (21-32) 09/15/16 06:15 Anion Gap 9 (8-16) 09/15/16 06:15 BUN 12 mg/dL (7-18) D 09/15/16 06:15 Creatinine 0.6 mg/dL (0.55-1.02) D 09/15/16 06:15 Creat Clearance w eGFR > 60 (>60) 09/13/16 16:45 Calcium 8.8 mg/dL (8.5-10.1) 09/15/16 06:15 Total Bilirubin 0.3 mg/dL (0.2-1.0) D 09/13/16 16:45 AST 26 U/L (15-37) D 09/13/16 16:45 ALT 37 U/L (12-78) D 09/13/16 16:45 Alkaline Phosphatase 108 U/L (45-117) D 09/13/16 16:45 Total Protein 7.3 g/dl (6.4-8.2) 09/13/16 16:45 Albumin 3.8 g/dl (3.4-5.0) 09/13/16 16:45 HOSPITAL COURSE: Date of Admission:09/13/16 Date of Discharge: 09/16/16 71 year-old female with PMHx of HTN, non-obstructive CAD, DM, paroxysmal a.fib ( on Eliquis), diastolic dysfunction, RA, SLE (on skin biopsy), who presented to the ED with dry cough, dyspnea on exertion, and substernal chest pressure x1-2 days. Chest pressure/pain - Trop x3 negative - Echo: LV systolic function normal, Grade I diastolic dysfunction; RV normal; mild MR, moderate TR, mild pHTN, mild PI; according to reading municipal services manager possible echodensity on aortic valve; discussed with Dr. Phoenix, he has reviewed, does not think significant finding, no signs or symptoms of endocarditis - Stress MIBI negative study - ASA daily HTN - BP well-controlled - continued Diovan, HCTZ, Toprol XL Paroxysmal A.fib - remained in sinus rhythm during hospital stay - continued metoprolol and propafenone - Continued Eliquis Dyspnea - CT chest showed mild emphysematous changes, without evidence of interstitial lung disease - Duonebs prn - Will need outpatient PFTs RA, lupus - Chest CT as above NIDDM - Continued home medications - [facility] ACHS - ISS ACHS Minutes to complete discharge: 35 Discharge Summary Reason For Visit: CHEST PAIN Current Active Problems Atrial fibrillation (Acute) CAD (coronary artery disease) (Acute) Chest pain (Acute) Chest pain of uncertain etiology (Acute) Dyspnea (Acute) Lupus (Acute) Condition: Improved - Instructions Diet, Activity, Other Instructions: You should take a baby aspirin (81mg) every day. A prescription has been sent to your pharmacy if you need it. You should follow up with your primary care provider and with your municipal services manager within 1-2 weeks of your discharge. Return to the emergency department for any new or worsening symptoms. Referrals: Henry Flores MD [Primary Care Provider] - Apollo Thacker MD [Staff Physician] - Disposition: HOME - Home Medications Comprehensive Discharge Medication List: Ambulatory Orders Acetaminophen [Tylenol .Extra-Strength -] 500 mg PO Q8H PRN 10/03/15 Albuterol Sulfate Inhaler - [Ventolin HFA Inhaler -] 1 - 2 inh PO QID 10/03/15 Apixaban [Eliquis] 5 mg PO BID 10/03/15 Atorvastatin Ca [Lipitor] 20 mg PO DAILY 10/03/15 Folic Acid 1 mg PO DAILY 10/03/15 Hydrochlorothiazide [Hctz -] 25 mg PO DAILY 10/03/15 Metoprolol Succinate [Toprol Xl] 100 mg PO BID 10/03/15 Propafenone HCl [Rythmol Sr] 225 mg PO BID 10/03/15 Sitagliptin Phos/Metformin HCl [Janumet 50-1,000 mg Tablet] 1 each PO BID Fluticasone Prop 0.05% Nasal [Flonase -] 1 - 2 spray NS DAILY 07/13/16 Hypromellose 0.5% Opth Soln [Artificial Tears] 1 drop OU TID 07/13/16 Ranitidine [Zantac -] 150 mg PO BID 07/13/16 Valsartan [Diovan] 160 mg PO DAILY #30 tablet 07/13/16 Meclizine HCl [Antivert -] 25 mg PO TID 09/13/16 Methotrexate Sodium/Pf [Methotrexate 50 mg/2 ml Vial] 25 mg IJ Q7D 09/13/16 Aspirin Coated [Ecotrin -] 81 mg PO DAILY #30 tab 09/16/16 This patient is new to me today: Yes Date on this admission: 09/17/16 Emergency Visit: Yes ED Registration Date: 09/13/16 Care time: The patient presented to the Emergency Department on the above date and was hospitalized for further evaluation of their emergent condition. Critical Care patient: No - Discharge Referral Referred to [facility] No
== END 2016-09-16 17:45 | disposition home or self-care (01) ==
LOC: JER 16:05 → JERBED 19:29 → J4S 22:04
PROVIDERS: ADMIT Internal Medicine; ATTEND Nurse Practitioner Acute Care
PROC: 3E033GC Introduction of Other Therapeutic Substance into Peripheral Vein, Percutaneous Approach (ICD-10-PCS; principal; 2016-09-13)
PROC: 3E0F7GC Introduction of Other Therapeutic Substance into Respiratory Tract, Via Natural or Artificial Opening (ICD-10-PCS; 2016-09-13)
DX: R07.89 Other chest pain (principal); I48.0 Paroxysmal atrial fibrillation; I10 Essential (primary) hypertension; I25.10 Atherosclerotic heart disease of native coronary artery without angina pectoris; R06.00 Dyspnea, unspecified; E78.5 Hyperlipidemia, unspecified; E11.9 Type 2 diabetes mellitus without complications; R00.2 Palpitations; M06.9 Rheumatoid arthritis, unspecified; M32.9 Systemic lupus erythematosus, unspecified; Z79.01 Long term (current) use of anticoagulants; Z79.82 Long term (current) use of aspirin; Z87.891 Personal history of nicotine dependence
CPT/HCPCS: 36415; 71010-TC; 71250-TC; 78452-TC; 80048; 80053; 81003; 81015; 82550; 83880; 84484; 85025; 85610; 86850; 86900; 86901; 93005; 93010; 93017; 93306-TC; 94640; 99285-25; A9502; G0378; J1245

== ENCOUNTER 2017-02-09 04:46 | Emergency (ER) | payer OTHER ==
[2017-02-09 05:31] VITALS: BP 148/77; PULSE 79; TEMP 98.3; BMI 31.8
--- NOTE | 2017-02-09 05:40 | PDOC ---
History of Present Illness - General Chief Complaint: Blood Pressure Problem Stated Complaint: HTN Time Seen by Provider: 02/09/17 05:22 History Source: Patient Exam Limitations: No Limitations - History of Present Illness Initial Comments: 02/09/17 07:17 The patient is a 71 year old female with a significant past medical history of HTN, AFIB, CAD, HLD, DM who presents to the ED with complaints of feeling unwell including symptoms of generalized weakness, lightheadedness. She states she checked her blood pressure and it was 175/104 and she called EMS. The pt also endorses a mild cough for the past several days associated with chest tg= itness whenshe is coughing. the pt denies and exertional cp/sob, diaphoresis. Denies fever or chills. Denies nausea, vomiting, or diarrhea. Denies shortness of breath. Denies dysuria or change in urinary output. Denies any other symptoms. she is currently asypmtomatic Past History - Past Medical History Allergies/Adverse Reactions: Allergies Allergy/AdvReac Type Severity Reaction Status Date / Time No Known Allergies Allergy Verified 02/09/17 05:27 Home Medications: Ambulatory Orders Acetaminophen [Tylenol .Extra-Strength -] 500 mg PO Q8H PRN 10/03/15 Albuterol Sulfate Inhaler - [Ventolin HFA Inhaler -] 1 - 2 inh PO QID 10/03/15 Apixaban [Eliquis] 5 mg PO BID 10/03/15 Atorvastatin Ca [Lipitor] 20 mg PO DAILY 10/03/15 Folic Acid 1 mg PO DAILY 10/03/15 Metoprolol Succinate [Toprol Xl] 100 mg PO DAILY 10/03/15 Propafenone HCl [Rythmol Sr] 225 mg PO BID 10/03/15 Sitagliptin Phos/Metformin HCl [Janumet 50-1,000 mg Tablet] 1 each PO BID Fluticasone Prop 0.05% Nasal [Flonase -] 1 - 2 spray NS DAILY 07/13/16 Hypromellose 0.5% Opth Soln [Artificial Tears] 1 drop OU TID 07/13/16 Ranitidine [Zantac -] 150 mg PO BID 07/13/16 Valsartan [Diovan] 160 mg PO DAILY #30 tablet 03/11/17 Meclizine HCl [Antivert -] 25 mg PO TID 09/13/16 Methotrexate Sodium/Pf [Methotrexate 50 mg/2 ml Vial] 25 mg IJ Q7D 09/13/16 Aspirin Coated [Ecotrin -] 81 mg PO DAILY #30 tab 09/16/16 Calcium Carbonate/Vitamin D3 [Calcium 600 + Vit D Tablet] 1 each PO DAILY Furosemide [Lasix -] 20 mg PO BID 02/09/17 Anemia: No Asthma: No Cancer: No Cardiac Disorders: Yes (palpitations) CVA: No COPD: No CHF: No Dementia: No Diabetes: Yes GI Disorders: No Disorders: No HTN: Yes Hypercholesterolemia: Yes Liver Disease: No Seizures: No Thyroid Disease: No Other medical history: Osteoporosis, vertigo - Surgical History Abdominal Surgery: Yes (TUBAL LIGATION) Appendectomy: No Cardiac Surgery: No Cholecystectomy: No Lung Surgery: No Neurologic Surgery: No Orthopedic Surgery: No - Immunization History Td Vaccination: Yes Immunization Up to Date: Yes - Suicide/Smoking/Psychosocial Hx Smoking Status: No Smoking History: Never smoked Years of Tobacco Use: 0 Have you smoked in the past 12 months: No Number of Cigarettes Smoked Daily: 0 Cigars Per Day: 0 Information on smoking cessation initiated: No Hx Alcohol Use: No Drug/Substance Use Hx: No Substance Use Type: None Hx Substance Use Treatment: No Review of Systems - Review of Systems Able to Perform ROS?: Yes Comments:: 02/09/17 07:18 CONSTITUTIONAL: + generalized weakness No reported: Fever, Chills, Diaphoresis, Malaise, Loss of Appetite HEENT: No reported: Rhinorrhea, Nasal Congestion, Throat Pain, Throat Swelling, Difficulty Swallowing, Mouth Swelling, Ear Pain, Eye Pain, Visual Changes CARDIOVASCULAR: + chest pain, palpitations No reported: Syncope, Irregular Heart Rate, Lightheadedness, Peripheral Edema RESPIRATORY: + cough No reported: Shortness of Breath, SOB with Exertion, Orthopnea, Wheezing, Stridor, Hemoptysis GASTROINTESTINAL: + nausea No reported: Abdominal pain, Abdominal Distension, Vomiting, Diarrhea, Constipation, Melena, Hematochezia GENITOURINARY: No reported: Dysuria, Frequency, Urgency, Hesitancy, Flank Pain, Genital Pain MUSCULOSKELETAL: No reported: Myalgia, Arthralgia, Joint Swelling, Back pain, Neck Pain SKIN: No reported: Rash, Itching, Pallor HEMEATOLOGIC/IMMUNOLOGIC: No reported: Easy Bleeding, Easy Bruising, Lymphadenopathy, Frequent infections ENDOCRINE: No reported: Unexplained Weight Gain, Unexplained Weight Loss, Heat Intolerance , Cold Intolerance NEUROLOGIC: + lightheadedness No reported: Headache, Focal Weakness, Paresthesias, Vertigo, Unsteady Gait, Seizure, Mental Status Changes, Incontinence PSYCHIATRIC: No reported: Anxiety, Depression *Physical Exam - Vital Signs Last Vital Signs Temp Pulse Resp BP Pulse Ox 98.3 F 79 18 148/77 100 02/09/17 05:27 02/09/17 05:27 02/09/17 05:27 02/09/17 05:27 02/09/17 05:27 - Physical Exam Comments: 02/09/17 07:18 GENERAL: The patient is awake, alert, and fully oriented, Nontoxic - in no acute distress, obese. HEAD: Normocephalic, atraumatic. EYES: extraocular movements intact, sclera anicteric, conjunctiva clear. ENT: Normal voice, Moist mucous membranes. NECK: Normal range of motion, supple LUNGS: Breath sounds equal, clear to auscultation bilaterally. No wheezes, no rhonchi, no rales. HEART: Regular rate and rhythm, without murmur, rub or gallop. ABDOMEN: Soft, nontender, normoactive bowel sounds. No guarding, no rebound.No CVA tenderness EXTREMITIES: Normal range of motion, no edema. No clubbing or cyanosis. No cords, erythema, or tenderness. NEUROLOGICAL: No facial assymetry, Normal speech, PSYCH: Normal mood, normal affect. SKIN: Warm, Dry, normal turgor, Heart Score/ECG Review - ECG Impressions Comment:: 02/09/17 06:40 Twelve-lead EKG was performed and reviewed by me. There is normal sinus rhythm with a normal rate. Rate of 73 The axis is normal. CO interval of 220 There is normal R wave progression There are no ST or T wave abnormalities. ED Treatment Course - LABORATORY CBC & Chemistry Diagram: 02/09/17 06:00 02/09/17 06:00 Medical Decision Making - Medical Decision Making suspect the pts symptoms are secondary to anxiety about her bp labs, xray are all negative ekg unremarakble pt feeling asypmtomatic pt was discharged to fu with pmd I discussed the physical exam findings, ancillary test results and final diagnoses with the patient. I answered all of the patient's questions. The patient was satisfied with the care received and felt comfortable with the discharge plan and treatment plan. The patient will call their primary care physician within 24 hours to arrange follow-up and will return to the Emergency Department with any new, persistent or worsening symptoms. A portion of this note was documented by scribe services under my direction. I have reviewed the details of the note, within reason, and agree with the documentation with the following case summary and management plan written by me *DC/Admit/Observation/Transfer Diagnosis at time of Disposition: Hypertension Qualifiers: Hypertension type: essential hypertension Qualified Code(s): I10 - Essential ( primary) hypertension - Discharge Dispostion Admit: No - Referrals Referrals: Henry Flores MD [Primary Care Provider] - - Patient Instructions Printed Discharge Instructions: DI for High Blood Pressure Additional Instructions: Vuelva al departamento de emergencia inmediatamente con CUALQUIER nuevo, persistente o empeorando sntomas. Debe llamar y hacer el seguimiento con bailey mdico maana para phill evaluacin ms detallada de owen sntomas. Los resultados fueron discutidos con usted. Por favor , asegrese de que bailey mdico revise los resultados de bailey evaluacin de emergencia. Si usted tuvo alguna radiografa erickson bailey visita, fue jade preliminarmente por m mismo, un radilogo lo revisar y si hay algn hallazgo adicional le llamaremos. Return to the emergency department immediately with ANY new, persistent or worsening symptoms. You MUST call and follow up with your doctor tomorrow for further evaluation of your symptoms. Results were discussed with you. Please make sure your doctor reviews the results of your emergency evaluation. If you had any xrays during your visit, it was read preliminarily by myself, a Radiologist will review it and if there are any additional findings we will call you. Print Language: WALLISIAN
[2017-02-09] MEDS ORDERED: ASPIRIN 81 MG CHEWABLE TABLETS PO ONE (05:41)
[2017-02-09] MEDS ORDERED: ASPIRIN 81 MG CHEWABLE TABLETS ONE (05:47)
[2017-02-09 06:09] LABS: BASOPHIL 1.3 % (0-2.0); EOSINOPHIL 4.9 % (0-4.5); MCH 30.3 pg (25.7-33.7); MCHC 32.6 g/dl (32.0-36.0); MEAN CELL VOLUME 92.9 fl (80-96); NEUTROPHILS 56.6 % (42.8-82.8); PLATELET COUNT 299 K/MM3 (134-434); RDW 16.7 % (11.6-15.6); WHITE BLOOD COUNT 6.2 K/mm3 (4.0-10.0)
[2017-02-09 06:23] LABS: INR 1.18 (0.82-1.09)
[2017-02-09 06:32] LABS: ALBUMIN 3.8 g/dl (3.4-5.0); ANION GAP 8 (8-16); BILIRUBIN,TOTAL 0.2 mg/dL (0.2-1.0); CALCIUM 9.3 mg/dL (8.5-10.1); CO2 29 mmol/L (21-32); CREATININE 0.9 mg/dL (0.55-1.02); GLUCOSE,RANDOM 112 mg/dL (74-106); SGOT/AST 27 U/L (15-37); SGPT/ALT 35 U/L (12-78); TOT PROT 7.4 g/dl (6.4-8.2)
[2017-02-09 06:34] LABS: ALK PHOS 112 U/L (45-117); CPK 76 IU/L (26-192); TROPONIN I < 0.02 ng/ml (0.00-0.05)
--- NOTE | 2017-02-09 15:46 | EKG ---
Test Reason : Blood Pressure : / mmHG Vent. Rate : 073 BPM Atrial Rate : 073 BPM P-R Int : 220 ms QRS Dur : 082 ms QT Int : 396 ms P-R-T Axes : 060 005 034 degrees QTc Int : 436 ms SINUS RHYTHM WITH APCs VS SINUS ARRTHYMIA WITH 1ST DEGREE A-V BLOCK MODERATE VOLTAGE CRITERIA FOR LVH, MAY BE NORMAL VARIANT BORDERLINE ECG WHEN COMPARED WITH ECG OF 13-SEP-2016 16:17, T WAVES ARE NOW UPRIGHT IN V2-V3 CLINICAL CORRELATION IS RECOMMENDED Confirmed by ARNOLD GREEN MD ([id number]) on 02/09/2017 3:45:52 PM Referred By: Confirmed By:ARNOLD GREEN MD
== END 2017-02-09 07:30 | disposition home or self-care (01) ==
LOC: JER 04:46
DX: I10 Essential (primary) hypertension (principal); I48.91 Unspecified atrial fibrillation; I25.10 Atherosclerotic heart disease of native coronary artery without angina pectoris; E78.5 Hyperlipidemia, unspecified; E11.9 Type 2 diabetes mellitus without complications; M81.0 Age-related osteoporosis without current pathological fracture; Z79.01 Long term (current) use of anticoagulants; Z79.82 Long term (current) use of aspirin; Z79.84 Long term (current) use of oral hypoglycemic drugs
CPT/HCPCS: 36415; 71010-TC; 80053; 84484; 85025; 85610; 93005; 93010; 99283-25

== ENCOUNTER 2018-03-04 07:11 | Observation (INO) | payer OTHER ==
[2018-03-04 07:58] VITALS: BMI 32.8
--- NOTE | 2018-03-04 08:32 | PDOC ---
History of Present Illness - General History Source: Patient, Chief Technologist Used Exam Limitations: No Limitations - History of Present Illness Initial Comments: 03/04/18 09:55 The patient is a 72 year old female, with a significant PMH of diabetes, HTN and HDL, who presents to the emergency department via EMS with coughing and congestion for the past 9 days. The patient states she was prescribed antibiotic from her PCP for 5 days (currently on her 3rd day) but symptoms worsened today. The patient states this morning she felt diaphoretic when she went to use the bathroom. She states she went back to bed and found herself on the floor when she woke up. The patient denies shortness of breath, headache and dizziness. Denies fever, chills, nausea, vomit, diarrhea and constipation. Denies dysuria, frequency, urgency and hematuria. Allergies: NKDA Past surgical history: Tubal Ligation Social history: None reported PCP: Henry Flores <Nikolai Baumann - Last Filed: 03/04/18 09:59> <Jeremy Barr - Last Filed: 03/04/18 16:07> - General Chief Complaint: Injury Stated Complaint: FALL,CHEST PAIN Time Seen by Provider: 03/04/18 08:31 Past History <Nikolai Baumann - Last Filed: 03/04/18 09:59> - Past Medical History Anemia: No Asthma: No Cancer: No Cardiac Disorders: Yes (palpitations) CVA: No COPD: No CHF: No Dementia: No Diabetes: Yes GI Disorders: No Disorders: No HTN: Yes Hypercholesterolemia: Yes Liver Disease: No Seizures: No Thyroid Disease: No - Surgical History Abdominal Surgery: Yes (TUBAL LIGATION) Appendectomy: No Cardiac Surgery: No Cholecystectomy: No Lung Surgery: No Neurologic Surgery: No Orthopedic Surgery: No - Immunization History Td Vaccination: Yes Immunization Up to Date: Yes - Suicide/Smoking/Psychosocial Hx Smoking Status: No Smoking History: Never smoked Years of Tobacco Use: 0 Have you smoked in the past 12 months: No Number of Cigarettes Smoked Daily: 0 Cigars Per Day: 0 Information on smoking cessation initiated: No Hx Alcohol Use: No Drug/Substance Use Hx: No Substance Use Type: None Hx Substance Use Treatment: No <Jeremy Barr - Last Filed: 03/04/18 16:07> - Past Medical History Allergies/Adverse Reactions: Allergies Allergy/AdvReac Type Severity Reaction Status Date / Time No Known Allergies Allergy Verified 03/04/18 07:53 Home Medications: Ambulatory Orders Acetaminophen [Tylenol .Extra-Strength -] 500 mg PO Q8H PRN 10/03/15 Albuterol Sulfate Inhaler - [Ventolin HFA Inhaler -] 1 - 2 inh PO QID 10/03/15 Apixaban [Eliquis] 5 mg PO BID 10/03/15 Atorvastatin Ca [Lipitor] 20 mg PO HS 10/03/15 Folic Acid 1 mg PO DAILY 10/03/15 Metoprolol Succinate [Toprol Xl] 100 mg PO DAILY 10/03/15 Hypromellose 0.5% Opth Soln [Artificial Tears] 1 drop OU TID 07/13/16 Ranitidine [Zantac -] 150 mg PO BID 07/13/16 Meclizine HCl [Antivert -] 25 mg PO TID 09/13/16 Methotrexate Sodium/Pf [Methotrexate 50 mg/2 ml Vial] 25 mg IJ WE 09/13/16 Calcium Carbonate/Vitamin D3 [Calcium 600 + Vit D Tablet] 1 each PO DAILY Furosemide [Lasix -] 20 mg PO DAILY 02/09/17 Aspirin Coated [Ecotrin -] 81 mg PO HS 03/04/18 Metformin HCl [Metformin HCl ER] 1,000 mg PO BID 03/04/18 Sitagliptin Phosphate [Januvia] 100 mg PO DAILY 03/04/18 Review of Systems - Review of Systems Able to Perform ROS?: Yes Comments:: 03/04/18 09:55 CONSTITUTIONAL: No fever, no chills, no fatigue EYES: No visual changes ENT: No ear pain, no sore throat CARDIOVASCULAR: No chest pain, no palpitations RESPIRATORY:+cough, +congestion GI: No abdominal pain, no nausea, no vomiting, no constipation, no diarrhea GENITOURINARY: No dysuria, no frequency, no hematuria MUSKULOSKELETAL: No back pain, no joint pain, no myalgias SKIN: No rash NEURO: No headache <Nikolai Baumann - Last Filed: 03/04/18 09:59> *Physical Exam - Vital Signs Last Vital Signs Temp Pulse Resp BP Pulse Ox 97.6 F 67 16 157/87 98 03/04/18 07:11 03/04/18 07:11 03/04/18 07:11 03/04/18 07:11 03/04/18 07:45 - Physical Exam Comments: 03/04/18 09:55 CONSTITUTIONAL: Well-appearing; well-nourished; in no apparent distress HEAD: Normocephalic; atraumatic EYES: PERRL; EOM intact ENMT: External appears normal; normal oropharynx NECK: Supple; non-tender; no cervical lymphadenopathy CARD: Normal S1, S2; no murmurs, rubs, or gallops RESP: +diffuse rhonchi ABD: Soft, non-distended; non-tender; no palpable organomegaly, no palpable hernias EXT: Normal ROM in all four extremities; non-tender to palpation; distal pulses intact SKIN: Warm, dry, no rash NEURO: No focal neurological deficiencies. <Nikolai Baumann - Last Filed: 03/04/18 09:59> - Vital Signs Last Vital Signs Temp Pulse Resp BP Pulse Ox 97.6 F 67 16 157/87 100 03/04/18 07:11 03/04/18 07:11 03/04/18 07:11 03/04/18 07:11 03/04/18 07:11 <Jeremy Barr - Last Filed: 03/04/18 16:07> ED Treatment Course - LABORATORY CBC & Chemistry Diagram: 03/04/18 10:25 03/04/18 10:25 <Jeremy Barr - Last Filed: 03/04/18 16:07> Medical Decision Making - Medical Decision Making 03/04/18 16:05 Patient is a 2-year-old female with history of diabetes, hypertension and hyperlipidemia presents to the ER after an unwitnessed syncopal episode. In the ER, patient is awake and alert, hemodynamically stable, without focal neurological deficits. EKG shows no evidence of acute ischemia, first-degree AV block is noted as well as LVH. Chest x-ray revealed no evidence of cardiomegaly. CT of head shows no evidence of acute intracranial pathology. He sees/CMP within normal limit. I suspect patient's syncope is likely related to dehydration and persistent acute bronchitis symptoms which were treated with a 5 days course of Zithromax. Patient is received IV fluids with mild improvement in level of her symptoms. Will place on telemetry of for further evaluation. <Jeremy Barr - Last Filed: 03/04/18 16:07> *DC/Admit/Observation/Transfer - Attestations Scribe Attestion: 03/04/18 09:56 Documentation prepared by Nikolai Baumann, acting as medical billing and coding instructor for Jeremy Barr MD. <Nikolai Baumann - Last Filed: 03/04/18 09:59> - Discharge Dispostion Decision to Admit order: Yes - Attestations Physician Attestion: 03/04/18 16:04 The documentation was prepared by the scribe under my direct supervision. I have reviewed the documentation which correctly represents the findings, medical decision-making and critical action taken by me. <eJremy Barr - Last Filed: 03/04/18 16:07> Diagnosis at time of Disposition: Syncope Qualifiers: Syncope type: unspecified Qualified Code(s): R55 - Syncope and collapse - Discharge Dispostion Condition at time of disposition: Fair - Referrals Referrals: Henry Flores MD [Primary Care Provider] - - Patient Instructions - Post Discharge Activity
[2018-03-04] MEDS ORDERED: SODIUM CHLORIDE 500 ML IV STA ×2 (09:00→14:53)
[2018-03-04 10:39] LABS: BASO % 0.8 % (0-2.0); EOS % 0.6 % (0-4.5); HEMATOCRIT 34.7 % (32.4-45.2); HEMOGLOBIN 11.2 GM/dL (10.7-15.3); MCH 28.8 pg (25.7-33.7); MCHC 32.3 g/dl (32.0-36.0); MEAN PLT VOLUME 7.1 fl (7.5-11.1); MONO % 10.8 % (3.8-10.2); NEUT % 50.8 % (42.8-82.8); PLATELET COUNT 290 K/MM3 (134-434); RDW 18.6 % (11.6-15.6); WHITE BLOOD COUNT 6.3 K/mm3 (4.0-10.0)
[2018-03-04 10:41] LABS: URINE APPEARANCE CLEAR; URINE BILIRUBIN NEGATIVE (<2.0 mg/dL); URINE COLOR LTYELLOW; URINE GLUCOSE (UA) NEGATIVE (NEGATIVE); URINE KETONE NEGATIVE (NEGATIVE); URINE LEUK ESTERASE NEGATIVE (NEGATIVE); URINE NITRITE NEGATIVE (NEGATIVE); URINE PROTEIN 1+ (NEGATIVE); URINE UROBILINOGEN NEGATIVE mg/dL (0.2-1.0)
[2018-03-04 10:43] LABS: EPI CELLS RARE /HPF (FEW); URINE HYALINE CAST 1 /lpf; URINE MUCUS RARE
[2018-03-04 10:50] LABS: INR 1.12 (0.83-1.09); PROTHROMBIN TIME (PATIENT) 13.2 SEC (9.7-13.0)
--- NOTE | 2018-03-04 11:31 | EKG ---
Test Reason : Blood Pressure : / mmHG Vent. Rate : 075 BPM Atrial Rate : 075 BPM P-R Int : 224 ms QRS Dur : 086 ms QT Int : 408 ms P-R-T Axes : 047 003 043 degrees QTc Int : 455 ms SINUS RHYTHM WITH SINUS ARRHYTHMIA WITH 1ST DEGREE A-V BLOCK MODERATE VOLTAGE CRITERIA FOR LVH, MAY BE NORMAL VARIANT NONSPECIFIC T WAVE ABNORMALITY ABNORMAL ECG WHEN COMPARED WITH ECG OF 09-FEB-2017 06:18, NO SIGNIFICANT CHANGE WAS FOUND Confirmed by RAYO HUMPHRIES MD ([id number]) on 03/04/2018 11:31:40 AM Referred By: Confirmed By:RAYO HUMPHRIES MD
[2018-03-04 11:41] LABS: ALBUMIN 4.1 g/dl (3.4-5.0); ALK PHOS 101 U/L (45-117); ANION GAP 10 MMOL/L (8-16); BILIRUBIN,TOTAL 0.5 mg/dL (0.2-1); BLOOD UREA NITROGEN 11 mg/dL (7-18); CALCIUM 9.3 mg/dL (8.5-10.1); CHLORIDE 99 mmol/L (98-107); CO2 26 mmol/L (21-32); CREATININE 0.7 mg/dL (0.55-1.3); GLUCOSE,RANDOM 114 mg/dL (74-106); POTASSIUM 5.7 mmol/L (3.5-5.1); SGOT/AST 43 U/L (15-37); SGPT/ALT 33 U/L (13-61); SODIUM 135 mmol/L (136-145)
[2018-03-04] MEDS ORDERED: ALBUTEROL SO4 2.5/IPRATROPIUM 0.5 INH SOL 3 ML VIAL.NEB. NEB ONE ×2 (14:47→14:53)
--- NOTE | 2018-03-04 15:40 | HP ---
CHIEF COMPLAINT: syncope, weakness PCP: Dr. Flores, not on staff HISTORY OF PRESENT ILLNESS: Patient is a 72 year old female with a significant past medical history of hypertension, HLD, dm II, non-obstructive CAD, paroxysmal a.fib (on Eliquis) diastolic dysfunction, RA, lupus, obstructive sleep apnea. She presents to the ED via EMS for general malaise, coughing with congestion, fatigue and syncope. She was prescribed Zithromax by her PCP for her symptoms and took the antibiotic as prescribed (currently on her 3rd day) but symptoms worsen today. She reports that today at 0630a.m. she ambulated to the bathroom and when she returned to her room, she slipped and "blacked out". When she woke up she found her self on the floor. She has a life alert button but when she tried to press it, it did not activate. She does not recall if she felt lightheaded prior to the fall or if she felt dizzy. After she got up she tested her blood sugar and reports it as being normal, but does not recall what the reading was. She recalls very little on the events of the fall at home and she lives alone. The patient denies shortness of breath, headache and dizziness. Denies fever, chills, nausea, vomit, diarrhea and constipation. Denies dysuria, frequency, urgency and hematuria. ER course was notable for: (1) ekg: sinus arrythmia, aV block (2) (3) Recent Travel: PAST MEDICAL HISTORY: Hypertension Non-obstructive CAD Hyperlipidemia Paroxysmal atrial fibrillation PVCs Diastolic dysfunction Type 2 diabetes mellitus Rheumatoid arthritis Lupus Obstructive sleep apnea PAST SURGICAL HISTORY: Social History: Smoking: denies Alcohol: denies Drugs: denies Family History: Allergies No Known Allergies Allergy (Verified 03/04/18 07:53) HOME MEDICATIONS: Home Medications Medication Instructions Recorded Acetaminophen [Tylenol 500 mg PO Q8H PRN 10/03/15 .Extra-Strength -] Albuterol Sulfate Inhaler - 1 - 2 inh PO QID 10/03/15 [Ventolin HFA Inhaler -] Apixaban [Eliquis] 5 mg PO BID 10/03/15 Atorvastatin Ca [Lipitor] 20 mg PO HS 10/03/15 Folic Acid 1 mg PO DAILY 10/03/15 Metoprolol Succinate [Toprol Xl] 100 mg PO DAILY 10/03/15 Hypromellose 0.5% Opth Soln 1 drop OU TID 07/13/16 [Artificial Tears] Ranitidine [Zantac -] 150 mg PO BID 07/13/16 Meclizine HCl [Antivert -] 25 mg PO TID 09/13/16 Methotrexate Sodium/Pf 25 mg IJ WE 09/13/16 [Methotrexate 50 mg/2 ml Vial] Calcium Carbonate/Vitamin D3 1 each PO DAILY 02/09/17 [Calcium 600 + Vit D Tablet] Furosemide [Lasix -] 20 mg PO DAILY 02/09/17 Aspirin Coated [Ecotrin -] 81 mg PO HS 03/04/18 Metformin HCl [Metformin HCl ER] 1,000 mg PO BID 03/04/18 Sitagliptin Phosphate [Januvia] 100 mg PO DAILY 03/04/18 PHYSICAL EXAMINATION Vital Signs - 24 hr 03/04/18 03/04/18 03/04/18 07:11 07:30 07:45 Temperature 97.6 F Pulse Rate 67 Pulse Rate [ 78 Apical] Respiratory 16 21 H Rate Blood Pressure 157/87 Blood Pressure 157/87 [Right Arm] O2 Sat by Pulse 100 99 98 Oximetry (%) 03/04/18 03/04/18 03/04/18 08:00 08:30 09:00 Temperature Pulse Rate Pulse Rate [ 78 77 80 Apical] Respiratory 21 H 18 19 Rate Blood Pressure Blood Pressure 137/75 138/69 139/70 [Right Arm] O2 Sat by Pulse 96 96 100 Oximetry (%) 03/04/18 03/04/18 09:30 14:00 Temperature Pulse Rate Pulse Rate [ 79 92 H Apical] Respiratory 20 18 Rate Blood Pressure Blood Pressure 131/71 131/67 [Right Arm] O2 Sat by Pulse 99 97 Oximetry (%) GENERAL: Awake, alert, and fully oriented, in no acute distress. HEAD: Normal with no signs of trauma. EYES: Pupils equal, round and reactive to light, extraocular movements intact, sclera anicteric, conjunctiva clear. No lid lag. EARS, NOSE, THROAT: Ears normal, nares patent, oropharynx clear without exudates. Moist mucous membranes. NECK: Normal range of motion, supple without lymphadenopathy, JVD, or masses. LUNGS: congestion on bilateral lungs, Right > left. HEART: Regular rate and rhythm ABDOMEN: Soft, nontender, not distended, normoactive bowel sounds, no guarding, no rebound, no masses. No hepatomegaly or splenomegaly. MUSCULOSKELETAL: Normal range of motion at all joints. No bony deformities or tenderness. No CVA tenderness. UPPER EXTREMITIES: No peripheral edema. LOWER EXTREMITIES: No peripheral edema. NEUROLOGICAL: Normal speech. walks with cane. PSYCHIATRIC: Cooperative. Good eye contact. Appropriate mood and affect. SKIN: Warm, dry, normal turgor, no rashes or lesions noted, normal capillary refill. Laboratory Results - last 24 hr 03/04/18 03/04/18 03/04/18 09:00 10:25 10:25 WBC 6.3 RBC 3.90 Hgb 11.2 Hct 34.7 MCV 89.0 MCH 28.8 MCHC 32.3 RDW 18.6 H Plt Count 290 MPV 7.1 L Absolute Neuts (auto) 3.2 Neutrophils % 50.8 Lymphocytes % 37.0 D Monocytes % 10.8 H Eosinophils % 0.6 D Basophils % 0.8 Nucleated RBC % 0 PT with INR 13.20 H INR 1.12 H Sodium Potassium Chloride Carbon Dioxide Anion Gap BUN Creatinine Creat Clearance w eGFR Random Glucose Calcium Total Bilirubin AST ALT Alkaline Phosphatase Creatine Kinase Troponin I Total Protein Albumin Urine Color Ltyellow Urine Appearance Clear Urine pH 6.0 Ur Specific [place] 1.013 Urine Protein 1+ H Urine Glucose (UA) Negative Urine Ketones Negative Urine Blood Negative Urine Nitrite Negative Urine Bilirubin Negative Urine Urobilinogen Negative Ur Leukocyte Esterase Negative Urine WBC (Auto) 1 Urine RBC (Auto) <1 Ur Epithelial Cells Rare Hyaline Casts 1 Urine Mucus Rare 03/04/18 10:25 WBC RBC Hgb Hct MCV MCH MCHC RDW Plt Count MPV Absolute Neuts (auto) Neutrophils % Lymphocytes % Monocytes % Eosinophils % Basophils % Nucleated RBC % PT with INR INR Sodium 135 L Potassium 5.7 H Chloride 99 Carbon Dioxide 26 Anion Gap 10 BUN 11 Creatinine 0.7 Creat Clearance w eGFR > 60 Random Glucose 114 H Calcium 9.3 Total Bilirubin 0.5 AST 43 H ALT 33 Alkaline Phosphatase 101 Creatine Kinase 118 Troponin I < 0.02 Total Protein 8.0 Albumin 4.1 Urine Color Urine Appearance Urine pH Ur Specific [place] Urine Protein Urine Glucose (UA) Urine Ketones Urine Blood Urine Nitrite Urine Bilirubin Urine Urobilinogen Ur Leukocyte Esterase Urine WBC (Auto) Urine RBC (Auto) Ur Epithelial Cells Hyaline Casts Urine Mucus ASSESSMENT/PLAN: Patient is a 72 year old female with a significant past medical history of hypertension, HLD, dm II, non-obstructive CAD, paroxysmal a.fib (on Eliquis) diastolic dysfunction, RA, lupus, obstructive sleep apnea. She presents to the ED via EMS for general malaise, coughing with congestion, fatigue and syncope. ----- syncope with collapse URI HLD Hypertension dm II, non-obstructive CAD paroxysmal a.fib (on Eliquis) diastolic dysfunction RA lupus obstructive sleep apnea ------ Neuro: Syncope, s/p fall Possible vasovagal episode. Monitor vitals, labs. orthostatics. Patient reports to have LOC loss. Multiple causes of syncope: orthostatic, hypoglycemia, ACS, possible infection. Will order: - carotid doppler - echo - bgms ac/hs - lipid panel - hma1c - orthostatics - pancultured in ED. Fall No signs of injury or rhahabo, cpk stable. Physical therapy ordered Patient ambulates with a cane Fall risk Endocrine: Diabetes: bgms ac/hs, Novolog SS Card: Proxysymal afib. On eliquis. Rate controlled on metoprolol. Monitor on tele. Trend troponins. echo ordered. Cardiology consulted. Hypertension: controlled. continue home medications. Diastolic dysfunction. monitor intake and output. will order bnp. Pulm: Obstructive sleep apnea Possible URI Congested on exam. rule out for influenza/flu. No signs of infection but has rales on bilateral lungs R>L. Recently on antibiotics. Will start antibiotics and consulted pulm. for further recommendations. fen PO adequate monitor electrolytes low salt diet prophy on eliquis full code Visit type - Emergency Visit Emergency Visit: Yes ED Registration Date: 03/04/18 Care time: The patient presented to the Emergency Department on the above date and was hospitalized for further evaluation of their emergent condition. - New Patient This patient is new to me today: Yes Date on this admission: 03/04/18 - Critical Care Critical Care patient: No
[2018-03-04] MEDS ORDERED: SODIUM CHLORIDE 1,000 ML IV SCH ×2 (19:30→21:30)
[2018-03-04] MEDS ORDERED: INSULIN (NOVOLOG) ASPART 100 UNITS/ML 10ML VIAL ONE (21:19)
[2018-03-04] MEDS: ASPIRIN COATED 81 MG TABLET.EC PO SCH (21:29)
[2018-03-04] MEDS: MECLIZINE HCL 25 MG TABLET (FP) PO SCH (21:29)
[2018-03-04] MEDS: APIXABAN 5 MG TABLET PO SCH (21:29)
[2018-03-04] MEDS: INSULIN SLIDING SCALE (NOVOLOG) 1 VIAL SQ SCH (21:29)
[2018-03-04] MEDS: ALBUTEROL SO4 2.5/IPRATROPIUM 0.5 INH SOL 3 ML VIAL.NEB. NEB PRN (21:30)
[2018-03-04] MEDS: ATORVASTATIN CA 20 MG TABLET (FP) PO SCH (21:32)
[2018-03-05] MEDS: INSULIN SLIDING SCALE (NOVOLOG) 1 VIAL SQ SCH ×4 (06:18→21:34)
[2018-03-05] MEDS: MECLIZINE HCL 25 MG TABLET (FP) PO SCH ×3 (06:24→21:33)
[2018-03-05] MEDS: sitaGLIPtin PHOSPHATE 100 MG TABLET (FP) PO SCH (06:24)
[2018-03-05] MEDS: ALBUTEROL SO4 2.5/IPRATROPIUM 0.5 INH SOL 3 ML VIAL.NEB. NEB PRN (06:55)
[2018-03-05] MEDS ORDERED: AZITHROMYCIN IVPB 500 MG/250 ML BAG IVPB SCH (10:00)
--- NOTE | 2018-03-05 10:03 | CONSULT ---
Consultation: REQUESTING PROVIDER: MELITA Masterson CONSULT REQUEST: We have been asked to medically evaluate this patient for Pulmonology Evaluation. HISTORY OF PRESENT ILLNESS: 72 yo Female with PMH HTN, HLD, paroxysmal a-fib on Eliquis, Diastolic CHF, RA, Lupus, LUISITO, admitted with complaint of malaise, cough productive for white sputum, and syncopal episode/fall. She states that yesterday she fell and passed out. She is unable to give many specific details about the incident. She states that she checked her blood sugar at home which was normal. She denies any fevers, though she does state chills which are present in her legs which come and go. Pt states she has history of sleep apnea and has a machine that she uses at home. She does not know the settings of the machine. REVIEW OF SYSTEMS: CONSTITUTIONAL: malaise, Absent: fever, chills, diaphoresis, generalized weakness, loss of appetite, weight change HEENT: Absent: rhinorrhea, nasal congestion, throat pain, throat swelling, difficulty swallowing, mouth swelling, ear pain, eye pain, visual changes CARDIOVASCULAR: syncope Absent: chest pain, , palpitations, irregular heart rate, lightheadedness, peripheral edema RESPIRATORY: cough Absent:, shortness of breath, dyspnea with exertion, orthopnea, wheezing, stridor, hemoptysis GASTROINTESTINAL: Absent: abdominal pain, abdominal distension, nausea, vomiting, diarrhea, constipation, melena, hematochezia GENITOURINARY: Absent: dysuria, frequency, urgency, hesitancy, hematuria, flank pain, genital pain MUSCULOSKELETAL: Absent: myalgia, arthralgia, joint swelling, back pain, neck pain SKIN: Absent: rash, itching, pallor HEMATOLOGIC/IMMUNOLOGIC: Absent: easy bleeding, easy bruising, lymphadenopathy, frequent infections ENDOCRINE: Absent: unexplained weight gain, unexplained weight loss, heat intolerance, cold intolerance NEUROLOGIC: Absent: headache, focal weakness or paresthesias, dizziness, unsteady gait, seizure, mental status changes, bladder or bowel incontinence PSYCHIATRIC: Absent: anxiety, depression, suicidal or homicidal ideation, hallucinations. PHYSICAL EXAMINATION Vital Signs - 24 hr 03/04/18 03/04/18 03/04/18 14:00 16:07 18:56 Temperature Pulse Rate Pulse Rate [ 92 H 86 Apical] Pulse Rate [ Left side Sitting] Pulse Rate [ Left side Standing] Pulse Rate [ Left side Supine] Respiratory 18 18 Rate Blood Pressure Blood Pressure [Left side Sitting] Blood Pressure [Left side Standing] Blood Pressure [Left side Supine] Blood Pressure 131/67 129/65 [Right Arm] O2 Sat by Pulse 97 97 98 Oximetry (%) 03/04/18 03/05/18 03/05/18 21:07 02:00 06:00 Temperature 99 F 98.8 F 98 F Pulse Rate 97 H 79 73 Pulse Rate [ Apical] Pulse Rate [ Left side Sitting] Pulse Rate [ Left side Standing] Pulse Rate [ Left side Supine] Respiratory 18 18 18 Rate Blood Pressure 133/77 122/65 144/78 Blood Pressure [Left side Sitting] Blood Pressure [Left side Standing] Blood Pressure [Left side Supine] Blood Pressure [Right Arm] O2 Sat by Pulse Oximetry (%) 03/05/18 03/05/18 08:25 08:35 Temperature 98.1 F Pulse Rate 73 Pulse Rate [ Apical] Pulse Rate [ 73 Left side Sitting] Pulse Rate [ 81 Left side Standing] Pulse Rate [ 74 Left side Supine] Respiratory 18 Rate Blood Pressure 150/71 Blood Pressure 150/71 [Left side Sitting] Blood Pressure 138/75 [Left side Standing] Blood Pressure 148/73 [Left side Supine] Blood Pressure [Right Arm] O2 Sat by Pulse Oximetry (%) GENERAL: A&O, no acute distress HEAD: Normocephalic, atraumatic. EYES: PERRL, no scleral icterus EARS, NOSE, THROAT: oropharynx clear without exudates. Moist mucous membranes. NECK: supple without lymphadenopathy LUNGS: CTA b/l, no crackles or wheezes HEART: Regular rate and rhythm, normal S1 and S2 without murmur ABDOMEN: Soft, nontender to palpation, normoactive bowel sounds Laboratory Results - last 24 hr 03/04/18 03/04/18 03/04/18 09:00 10:25 10:25 WBC 6.3 RBC 3.90 Hgb 11.2 Hct 34.7 MCV 89.0 MCH 28.8 MCHC 32.3 RDW 18.6 H Plt Count 290 MPV 7.1 L Absolute Neuts (auto) 3.2 Neutrophils % 50.8 Lymphocytes % 37.0 D Monocytes % 10.8 H Eosinophils % 0.6 D Basophils % 0.8 Nucleated RBC % 0 PT with INR 13.20 H INR 1.12 H Sodium Potassium Chloride Carbon Dioxide Anion Gap BUN Creatinine Creat Clearance w eGFR POC Glucometer Random Glucose Calcium Total Bilirubin AST ALT Alkaline Phosphatase Creatine Kinase Troponin I B-Natriuretic Peptide Total Protein Albumin Urine Color Ltyellow Urine Appearance Clear Urine pH 6.0 Ur Specific [place] 1.013 Urine Protein 1+ H Urine Glucose (UA) Negative Urine Ketones Negative Urine Blood Negative Urine Nitrite Negative Urine Bilirubin Negative Urine Urobilinogen Negative Ur Leukocyte Esterase Negative Urine WBC (Auto) 1 Urine RBC (Auto) <1 Ur Epithelial Cells Rare Hyaline Casts 1 Urine Mucus Rare 03/04/18 03/04/18 03/04/18 10:25 20:00 20:00 WBC RBC Hgb Hct MCV MCH MCHC RDW Plt Count MPV Absolute Neuts (auto) Neutrophils % Lymphocytes % Monocytes % Eosinophils % Basophils % Nucleated RBC % PT with INR INR Sodium 135 L Potassium 5.7 H 4.3 Chloride 99 Carbon Dioxide 26 Anion Gap 10 BUN 11 Creatinine 0.7 Creat Clearance w eGFR > 60 POC Glucometer Random Glucose 114 H Calcium 9.3 Total Bilirubin 0.5 AST 43 H ALT 33 Alkaline Phosphatase 101 Creatine Kinase 118 Troponin I < 0.02 < 0.02 B-Natriuretic Peptide Total Protein 8.0 Albumin 4.1 Urine Color Urine Appearance Urine pH Ur Specific [place] Urine Protein Urine Glucose (UA) Urine Ketones Urine Blood Urine Nitrite Urine Bilirubin Urine Urobilinogen Ur Leukocyte Esterase Urine WBC (Auto) Urine RBC (Auto) Ur Epithelial Cells Hyaline Casts Urine Mucus 03/04/18 03/04/18 03/04/18 20:00 21:11 21:30 WBC RBC Hgb Hct MCV MCH MCHC RDW Plt Count MPV Absolute Neuts (auto) Neutrophils % Lymphocytes % Monocytes % Eosinophils % Basophils % Nucleated RBC % PT with INR INR Sodium Potassium Chloride Carbon Dioxide Anion Gap BUN Creatinine Creat Clearance w eGFR POC Glucometer 168 Random Glucose Calcium Total Bilirubin AST ALT Alkaline Phosphatase Creatine Kinase 74 Troponin I B-Natriuretic Peptide 11.9 Total Protein Albumin Urine Color Urine Appearance Urine pH Ur Specific [place] Urine Protein Urine Glucose (UA) Urine Ketones Urine Blood Urine Nitrite Urine Bilirubin Urine Urobilinogen Ur Leukocyte Esterase Urine WBC (Auto) Urine RBC (Auto) Ur Epithelial Cells Hyaline Casts Urine Mucus 03/05/18 05:36 WBC RBC Hgb Hct MCV MCH MCHC RDW Plt Count MPV Absolute Neuts (auto) Neutrophils % Lymphocytes % Monocytes % Eosinophils % Basophils % Nucleated RBC % PT with INR INR Sodium Potassium Chloride Carbon Dioxide Anion Gap BUN Creatinine Creat Clearance w eGFR POC Glucometer 112 Random Glucose Calcium Total Bilirubin AST ALT Alkaline Phosphatase Creatine Kinase Troponin I B-Natriuretic Peptide Total Protein Albumin Urine Color Urine Appearance Urine pH Ur Specific [place] Urine Protein Urine Glucose (UA) Urine Ketones Urine Blood Urine Nitrite Urine Bilirubin Urine Urobilinogen Ur Leukocyte Esterase Urine WBC (Auto) Urine RBC (Auto) Ur Epithelial Cells Hyaline Casts Urine Mucus Active Medications Generic Name Dose Route Start Last Admin Trade Name Freq PRN Reason Stop Dose Admin Albuterol/Ipratropium 1 amp 03/04/18 21:23 03/05/18 06:55 Duoneb - NEB 1 amp Q6H PRN Administration SHORTNESS OF BREATH Apixaban 5 mg 03/04/18 22:00 03/04/18 21:29 Eliquis - PO 5 mg BID BHARATHI Administration Aspirin 81 mg 03/04/18 22:00 03/04/18 21:29 Ecotrin - PO 81 mg HS BHARATHI Administration Atorvastatin Calcium 20 mg 03/04/18 22:00 03/04/18 21:32 Lipitor - PO 20 mg HS BHARATHI Administration Furosemide 20 mg 03/05/18 10:00 Lasix - PO DAILY [facility] Azithromycin 500 mg in 250 mls @ 250 mls/hr 03/05/18 10:00 Zithromax 500mg Ivpb (Pre-Docked) IVPB DAILY [facility] Sodium Chloride 1,000 mls @ 50 mls/hr 03/04/18 21:30 03/04/18 21:30 Normal Saline - IV 03/05/18 21:27 50 mls/hr ASDIR BHARATHI Administration Insulin Aspart 1 vial 03/04/18 22:00 03/05/18 06:18 Novolog Vial Sliding Scale - SQ Not Given ACHS [facility] Protocol Meclizine HCl 25 mg 03/04/18 22:00 03/05/18 06:24 Antivert - PO 25 mg TID BHARATHI Administration Metoprolol Succinate 100 mg 03/05/18 10:00 Toprol Xl - PO DAILY BHARATHI Sitagliptin Phosphate 100 mg 03/05/18 07:00 03/05/18 06:24 Januvia - PO 100 mg 0700 BHARATHI Administration ASSESSMENT/PLAN: 72 yo Female with PMH HTN, HLD, paroxysmal a-fib on Eliquis, Diastolic CHF, RA, Lupus, LUISITO, admitted with complaint of malaise, cough productive for white sputum, and syncopal episode/fall. Cough productive for white/yellow sputum -likely Viral URI vs Bronchitis -Flu swab negative -CXR noted without any signs of infiltrate or blunted angles -DuoNebs PRN -Azithromycin 500 mg IV Day 4, continue for one more day, total 5 day course LUISITO -Pt with known history of LUISITO as outpatient, uses CPAP at night -Does not know her settings -Instructed her to have her personal machine brought in for use at night -Should follow up with her outpatient sleep management on DC Fall/Syncope -Possibly due to dehydration vs infection -CK normal, no concern for rhabdo at this time -Head CT negative for acute fracture or bleed -Carotid Doppler -consider ECHO -Cardiology consulted -BGM normal as per patient NIDDM -BGMs -Insulin sliding scale -Januvia 100 mg PO Daily Paroxysmal A-fib -Rate controlled on Toprol XL 100 mg PO Daily -Eliquis 5 mg PO BID Diastolic CHF -Grade I diastolic dysfxn on ECHO in 2017 -Currently stable on home Lasix 20 mg PO -Not acutely fluid overloaded at this time DVT Prophylaxis -Eliquis 5 mg PO BID FEN -Fluids: NS @ 50 cc/hr -Electrolytes: Monitor and correct as needed -Nutrition: Diabetic Diet Dispo: We will continue to follow the patient. Thank you for this consultative opportunity. Visit type - Emergency Visit Emergency Visit: Yes ED Registration Date: 03/04/18 Care time: The patient presented to the Emergency Department on the above date and was hospitalized for further evaluation of their emergent condition. - New Patient This patient is new to me today: Yes Date on this admission: 03/05/18 - Critical Care Critical Care patient: No
[2018-03-05 10:10] LABS: BASO % 0.4 % (0-2.0); EOS % 0.9 % (0-4.5); HEMATOCRIT 31.6 % (32.4-45.2); HEMOGLOBIN 9.9 GM/dL (10.7-15.3); LYMPH % 36.2 % (8-40); MCH 28.2 pg (25.7-33.7); MCHC 31.5 g/dl (32.0-36.0); MEAN CELL VOLUME 89.5 fl (80-96); MEAN PLT VOLUME 6.6 fl (7.5-11.1); MONO % 10.3 % (3.8-10.2); NEUT % 52.2 % (42.8-82.8); PLATELET COUNT 272 K/MM3 (134-434); RBC 3.53 M/mm3 (3.60-5.2); RDW 18.6 % (11.6-15.6); WHITE BLOOD COUNT 7.1 K/mm3 (4.0-10.0)
[2018-03-05] MEDS: FUROSEMIDE 20 MG TABLET (FP) PO SCH (10:30)
[2018-03-05] MEDS: APIXABAN 5 MG TABLET PO SCH ×2 (10:30→21:33)
[2018-03-05 10:37] LABS: ALBUMIN 3.6 g/dl (3.4-5.0); ALK PHOS 98 U/L (45-117); ANION GAP 11 MMOL/L (8-16); BILIRUBIN,TOTAL 0.3 mg/dL (0.2-1); BLOOD UREA NITROGEN 12 mg/dL (7-18); CHLORIDE 104 mmol/L (98-107); CHOLESTEROL 79 mg/dL (50-200); CO2 24 mmol/L (21-32); CREATININE 0.7 mg/dL (0.55-1.3); GLUCOSE,RANDOM 193 mg/dL (74-106); HDL CHOLESTEROL 38 mg/dL (40-60); MAGNESIUM 1.9 mg/dL (1.8-2.4); SGOT/AST 19 U/L (15-37); SGPT/ALT 25 U/L (13-61); SODIUM 138 mmol/L (136-145); TOT PROT 6.9 g/dl (6.4-8.2); TRIGLYCERIDES 85 mg/dL (0-150)
--- NOTE | 2018-03-05 12:25 | ECHO ---
Name: ASAD SANDERS Exam:Adult Echocardiogram Study Date: 03/05/2018 08:42 AM Age: 72 yrs Reason For Study: SYNCOPE Height: 63 in Weight: 185 lb BSA: 1.9 m2 MMode/2D Measurements & Calculations IVSd: 0.91 cm Ao root diam: 2.5 cm LVIDd: 4.3 cm LA dimension: 3.3 cm LVIDs: 2.8 cm LVPWd: 0.87 cm EDV(Teich): 84.3 ml TAPSE: 2.3 cm ESV(Teich): 29.4 ml RV S Ravi: 10.9 cm/sec Doppler Measurements & Calculations MV E max ravi: 54.8 cm/sec Ao V2 max: 159.6 cm/sec MV A max ravi: 71.1 cm/sec Ao max P.2 mmHg MV E/A: 0.77 MV dec time: 0.18 sec LV V1 max P.3 mmHg TR max ravi: 240.5 cm/sec LV V1 max: 103.7 cm/sec TR max P.2 mmHg PI end-d ravi: 91.8 cm/sec Med Peak E' Ravi: 5.8 cm/sec Med E/e': 9.5 Lat Peak E' Ravi: 8.0 cm/sec Lat E/e': 6.8 Procedure A complete two-dimensional transthoracic echocardiogram was performed (2D, M-mode, Doppler and color flow Doppler). Left Ventricle The left ventricular size, thickness and function are normal. The left ventricular ejection fraction is normal. Ejection Fraction = 60-65%. The left ventricular wall motion is normal. Right Ventricle The right ventricle is normal in size and function. Atria Normal left and right atrial size and function. Mitral Valve There is no mitral regurgitation noted. Tricuspid Valve There is moderate tricuspid regurgitation. Right ventricular systolic pressure is normal. Aortic Valve The aortic valve is trileaflet. No hemodynamically significant valvular aortic stenosis. No aortic regurgitation is present. Pulmonic Valve Trace pulmonic valvular regurgitation. Great Vessels The aortic root is normal size. Pericardium/Pleura There is no pericardial effusion. Interpretation Summary The left ventricular size, thickness and function are normal The right ventricle is normal in size and function. There is moderate tricuspid regurgitation. Trace pulmonic valvular regurgitation. MD Lisandro Brito 03/05/2018 12:24 PM
[2018-03-05 13:56] LABS: URINE APPEARANCE CLEAR; URINE BILIRUBIN NEGATIVE (<2.0 mg/dL); URINE COLOR STRAW; URINE GLUCOSE (UA) NEGATIVE (NEGATIVE); URINE KETONE NEGATIVE (NEGATIVE); URINE LEUK ESTERASE TRACE (NEGATIVE); URINE NITRITE NEGATIVE (NEGATIVE); URINE PROTEIN NEGATIVE (NEGATIVE); URINE UROBILINOGEN NEGATIVE mg/dL (0.2-1.0)
[2018-03-05 13:59] LABS: EPI CELLS RARE /HPF (FEW); URINE MUCUS RARE
--- NOTE | 2018-03-05 14:00 | CON.CARD ---
Consult Consult Specialty:: Cardiology Referred by:: ronald fallon Reason for Consultation:: lethargy. afib - History of Present Illness Chief Complaint: lethargy History of Present Illness: 72 year old female with a pmhx of htn, hld, dm, nonobs CAD (last NST 09/13/16 no ischemia), paroxysmal afib on apixaban, chronic diastolic dysfunction, RA, lupus , and LUISITO presenting with lethargy. As per patient and family, has had a cough and phlegm last several days and was prescribed azithromycin by PMD. Symptoms worsened and felt more lethargic. Reports this morning when returning from bathroom she slipped and fell. Unclear if LOC. Recalls little of the event. Decreased PO intake recently. No f/c/s. No n/v/d. EKG: sinus rhythm at 75bpm, pr 224ms, sinus arrhythmia, lvh with nonspecific t wave abnormalities Echocardiogram 03/05/18: normal LVEF and moderate TR CT head no acute m/s/b. - History Source History Provided By: Patient, Family Member, Medical Record - Past Medical History Cardio/Vascular: Yes: AFIB, CAD (non-obs CAD on cardiac cath 2012), HTN, Hyperlipdemia ...: No Rheumatology: Yes: Lupus (reports SLE on skin biopsy of face several years ago) , Rheumatoid Arthritis Endocrine: Yes: Diabetes Mellitus - Past Surgical History Past Surgical History: Yes: None - Alcohol/Substance Use Hx Alcohol Use: No History of Substance Use: reports: None - Smoking History Smoking history: Never smoked Have you smoked in the past 12 months: No Aproximately how many cigarettes per day: 0 - Social History ADL: Independent History of Recent Travel: No Home Medications - Allergies Allergies/Adverse Reactions: Allergies Allergy/AdvReac Type Severity Reaction Status Date / Time No Known Allergies Allergy Verified 03/04/18 07:53 - Home Medications Home Medications: Ambulatory Orders Acetaminophen [Tylenol .Extra-Strength -] 500 mg PO Q8H PRN 10/03/15 Albuterol Sulfate Inhaler - [Ventolin HFA Inhaler -] 1 - 2 inh PO QID 10/03/15 Apixaban [Eliquis] 5 mg PO BID 10/03/15 Atorvastatin Ca [Lipitor] 20 mg PO HS 10/03/15 Folic Acid 1 mg PO DAILY 10/03/15 Metoprolol Succinate [Toprol Xl] 100 mg PO DAILY 10/03/15 Hypromellose 0.5% Opth Soln [Artificial Tears] 1 drop OU TID 07/13/16 Ranitidine [Zantac -] 150 mg PO BID 07/13/16 Meclizine HCl [Antivert -] 25 mg PO TID 09/13/16 Methotrexate Sodium/Pf [Methotrexate 50 mg/2 ml Vial] 25 mg IJ WE 09/13/16 Calcium Carbonate/Vitamin D3 [Calcium 600 + Vit D Tablet] 1 each PO DAILY Furosemide [Lasix -] 20 mg PO DAILY 02/09/17 Aspirin Coated [Ecotrin -] 81 mg PO HS 03/04/18 Metformin HCl [Metformin HCl ER] 1,000 mg PO BID 03/04/18 Sitagliptin Phosphate [Januvia] 100 mg PO DAILY 03/04/18 Family Disease History - Family Disease History Family Disease History: Heart Disease: Father (heart problem, not clear) Vital Signs: Vital Signs Temperature 98.1 F 03/05/18 08:25 Pulse Rate 73 03/05/18 08:35 Respiratory Rate 18 03/05/18 08:25 Blood Pressure 150/71 03/05/18 08:35 O2 Sat by Pulse Oximetry (%) 99 03/05/18 09:00 Constitutional: Yes: No Distress Neck: Yes: Supple Respiratory: Yes: CTA Bilaterally Gastrointestinal: Yes: Normal Bowel Sounds, Soft Cardiovascular: Yes: Regular Rate and Rhythm JVD: No Carotid Bruit: No PMI: Non-Displaced Heart Sounds: Yes: S1, S2 Murmur: No: Systolic Murmur Edema: No - Other Data Labs, Other Data: CBC, BMP 03/05/18 09:50 03/05/18 09:50 INR, PTT INR 1.12 (0.83-1.09) H 03/04/18 10:25 Troponin, BNP 03/04/18 03/04/18 20:00 21:30 Troponin I < 0.02 B-Natriuretic Peptide 11.9 Troponin, BNP 03/04/18 03/04/18 20:00 21:30 Troponin I < 0.02 B-Natriuretic Peptide 11.9 Imaging - Results Chest X-ray: Report Reviewed EKG: Image Reviewed Problem List - Problems (1) Atrial fibrillation Code(s): I48.91 - UNSPECIFIED ATRIAL FIBRILLATION Assessment/Plan 72 year old female with a pmhx of htn, hld, dm, nonobs CAD (last NST 09/13/16 no ischemia), paroxysmal afib on apixaban, chronic diastolic dysfunction, RA, lupus , and LUISITO presenting with lethargy. As per patient and family, has had a cough and phlegm last several days and was prescribed azithromycin by PMD. Symptoms worsened and felt more lethargic. Reports this morning when returning from bathroom she slipped and fell. Unclear if LOC. Recalls little of the event. Decreased PO intake recently. No f/c/s. No n/v/d. EKG: sinus rhythm at 75bpm, pr 224ms, sinus arrhythmia, lvh with nonspecific t wave abnormalities Echocardiogram 03/05/18: normal LVEF and moderate TR CT head no acute m/s/b. 1) Afib with ?syncope -unclear if true syncope event Symptoms this past week unlikely to be related to cardiac condition. Likely pulmonary process/possible viral/dehydration On abx as per primary team. -No hypotension and HR wnl during admission/ER stay EKG no acute events and sinus rhythm. Echo with normal LVEF and no significant valve disease. Continue home apixaban and metoprolol. H/h dropped but possibly due to s/p IVF' s would monitor. Monitor on tele for 24 hours.
--- NOTE | 2018-03-05 14:31 | PN ---
Teaching Attending Note Name of Resident: Jose Antonio Yu ATTENDING PHYSICIAN STATEMENT I saw and evaluated the patient. I reviewed the resident's note and discussed the case with the resident. I agree with the resident's findings and plan as documented. SUBJECTIVE: In brief. 72 F, HTN, HLD, Paroxysmal AFib on Eliquis, Diastolic CHF, RA, Lupus , and LUISITO on CPAP QHS (details of severity and CPAP are not known to the patient ). Few days of viral type illness. as apparently taking Zithromax at home x 4 days. Admitted via the ER due to near syncopal episode / fall. Details are limited and non-specific. No recent travel history or sick contacts. CT: (2017): mild emphysema / chronic appearing infiltrates/ atelectatic changes at the lung bases Intake & Output 03/02/18 03/03/18 03/04/18 03/05/18 23:59 23:59 23:59 23:59 Intake Total 620 1220 Balance 620 1220 Weight 185 lb 0.01 oz Last Vital Signs Temp Pulse Resp BP Pulse Ox 98.1 F 73 18 150/71 99 03/05/18 08:25 03/05/18 08:35 03/05/18 08:25 03/05/18 08:35 03/05/18 09:00 Active Medications Albuterol/Ipratropium (Duoneb -) 1 amp NEB Q6H PRN PRN Reason: SHORTNESS OF BREATH Last Admin: 03/05/18 06:55 Dose: 1 amp Apixaban (Eliquis -) 5 mg PO BID [facility] Last Admin: 03/05/18 10:30 Dose: 5 mg Aspirin (Ecotrin -) 81 mg PO HS [facility] Last Admin: 03/04/18 21:29 Dose: 81 mg Atorvastatin Calcium (Lipitor -) 20 mg PO HS [facility] Last Admin: 03/04/18 21:32 Dose: 20 mg Furosemide (Lasix -) 20 mg PO DAILY [facility] Last Admin: 03/05/18 10:30 Dose: 20 mg Azithromycin (Zithromax 500mg Ivpb (Pre-Docked)) 500 mg in 250 mls @ 250 mls/ hr IVPB DAILY [facility] Last Admin: 03/05/18 10:30 Dose: 250 mls/hr Insulin Aspart (Novolog Vial Sliding Scale -) 1 vial SQ ACHS [facility]; Protocol Last Admin: 03/05/18 11:31 Dose: 2 units Meclizine HCl (Antivert -) 25 mg PO TID [facility] Last Admin: 03/05/18 13:48 Dose: 25 mg Metoprolol Succinate (Toprol Xl -) 100 mg PO DAILY [facility] Last Admin: 03/05/18 10:30 Dose: 100 mg Sitagliptin Phosphate (Januvia -) 100 mg PO 0700 [facility] Last Admin: 03/05/18 06:24 Dose: 100 mg PHYSICAL EXAMINATION GENERAL: Awake and alert, NAD HEAD: Normocephalic, atraumatic. EYES: PERRL, no scleral icterus EARS, NOSE, THROAT: oropharynx clear without exudates. Moist mucous membranes. NECK: supple without lymphadenopathy LUNGS: Clear to auscultation HEART: Regular rate and rhythm, normal S1 and S2 without murmur ABDOMEN: Soft, nontender to palpation, normoactive bowel sounds EXT: No edema [place]ARE CASTER: Non-focal Laboratory Results - last 24 hr 03/04/18 03/04/18 03/04/18 09:00 10:25 10:25 WBC 6.3 RBC 3.90 Hgb 11.2 Hct 34.7 MCV 89.0 MCH 28.8 MCHC 32.3 RDW 18.6 H Plt Count 290 MPV 7.1 L Absolute Neuts (auto) 3.2 Neutrophils % 50.8 Lymphocytes % 37.0 D Monocytes % 10.8 H Eosinophils % 0.6 D Basophils % 0.8 Nucleated RBC % 0 PT with INR 13.20 H INR 1.12 H Sodium Potassium Chloride Carbon Dioxide Anion Gap BUN Creatinine Creat Clearance w eGFR POC Glucometer Random Glucose Calcium Total Bilirubin AST ALT Alkaline Phosphatase Creatine Kinase Troponin I B-Natriuretic Peptide Total Protein Albumin Urine Color Ltyellow Urine Appearance Clear Urine pH 6.0 Ur Specific [place] 1.013 Urine Protein 1+ H Urine Glucose (UA) Negative Urine Ketones Negative Urine Blood Negative Urine Nitrite Negative Urine Bilirubin Negative Urine Urobilinogen Negative Ur Leukocyte Esterase Negative Urine WBC (Auto) 1 Urine RBC (Auto) <1 Ur Epithelial Cells Rare Hyaline Casts 1 Urine Mucus Rare 03/04/18 03/04/18 03/04/18 10:25 20:00 20:00 WBC RBC Hgb Hct MCV MCH MCHC RDW Plt Count MPV Absolute Neuts (auto) Neutrophils % Lymphocytes % Monocytes % Eosinophils % Basophils % Nucleated RBC % PT with INR INR Sodium 135 L Potassium 5.7 H 4.3 Chloride 99 Carbon Dioxide 26 Anion Gap 10 BUN 11 Creatinine 0.7 Creat Clearance w eGFR > 60 POC Glucometer Random Glucose 114 H Calcium 9.3 Total Bilirubin 0.5 AST 43 H ALT 33 Alkaline Phosphatase 101 Creatine Kinase 118 Troponin I < 0.02 < 0.02 B-Natriuretic Peptide Total Protein 8.0 Albumin 4.1 Urine Color Urine Appearance Urine pH Ur Specific [place] Urine Protein Urine Glucose (UA) Urine Ketones Urine Blood Urine Nitrite Urine Bilirubin Urine Urobilinogen Ur Leukocyte Esterase Urine WBC (Auto) Urine RBC (Auto) Ur Epithelial Cells Hyaline Casts Urine Mucus 03/04/18 03/04/18 03/04/18 20:00 21:11 21:30 WBC RBC Hgb Hct MCV MCH MCHC RDW Plt Count MPV Absolute Neuts (auto) Neutrophils % Lymphocytes % Monocytes % Eosinophils % Basophils % Nucleated RBC % PT with INR INR Sodium Potassium Chloride Carbon Dioxide Anion Gap BUN Creatinine Creat Clearance w eGFR POC Glucometer 168 Random Glucose Calcium Total Bilirubin AST ALT Alkaline Phosphatase Creatine Kinase 74 Troponin I B-Natriuretic Peptide 11.9 Total Protein Albumin Urine Color Urine Appearance Urine pH Ur Specific [place] Urine Protein Urine Glucose (UA) Urine Ketones Urine Blood Urine Nitrite Urine Bilirubin Urine Urobilinogen Ur Leukocyte Esterase Urine WBC (Auto) Urine RBC (Auto) Ur Epithelial Cells Hyaline Casts Urine Mucus 03/05/18 05:36 WBC RBC Hgb Hct MCV MCH MCHC RDW Plt Count MPV Absolute Neuts (auto) Neutrophils % Lymphocytes % Monocytes % Eosinophils % Basophils % Nucleated RBC % PT with INR INR Sodium Potassium Chloride Carbon Dioxide Anion Gap BUN Creatinine Creat Clearance w eGFR POC Glucometer 112 Random Glucose Calcium Total Bilirubin AST ALT Alkaline Phosphatase Creatine Kinase Troponin I B-Natriuretic Peptide Total Protein Albumin Urine Color Urine Appearance Urine pH Ur Specific [place] Urine Protein Urine Glucose (UA) Urine Ketones Urine Blood Urine Nitrite Urine Bilirubin Urine Urobilinogen Ur Leukocyte Esterase Urine WBC (Auto) Urine RBC (Auto) Ur Epithelial Cells Hyaline Casts Urine Mucus ASSESSMENT/PLAN: Near Syncope: etiology to be determined: Maybe due to Viral Syndrome Resolving Acute Bronchitis Diastolic CHF RA Lupus OSAS on CPAP Would not give more Zmax: should follow EKG: (QTc 455msec) O2 as needed Fall precautions BD [place] PRN No smoking Cardiology consult was called Patient advised to have her family to bring in her own CPAP for use while admitted as she does not know the details of her CPAP settings Will follow Thank you. Dr Yo
--- NOTE | 2018-03-05 16:01 | PN ---
Physical Exam: SUBJECTIVE: Patient seen and examined at the bedside. sitting up eating lunch, in no acute distress. states she is having intermittent dizzines. OBJECTIVE: will start on antivert Vital Signs Period Temp Pulse Resp BP Sys/Grady Pulse Ox Last 24 Hr 98 F-99 F 73-97 18-18 122-150/65-78 97-99 GENERAL: Awake, alert, and fully oriented, in no acute distress. HEAD: Normal with no signs of trauma. EYES: Pupils equal, round and reactive to light, extraocular movements intact, sclera anicteric, conjunctiva clear. No lid lag. EARS, NOSE, THROAT: Ears normal, nares patent, oropharynx clear without exudates. Moist mucous membranes. NECK: Normal range of motion, supple without lymphadenopathy, JVD, or masses. LUNGS: congestion on bilateral lungs, Right > left. HEART: Regular rate and rhythm ABDOMEN: Soft, nontender, not distended, normoactive bowel sounds, no guarding, no rebound, no masses. No hepatomegaly or splenomegaly. MUSCULOSKELETAL: Normal range of motion at all joints. No bony deformities or tenderness. No CVA tenderness. UPPER EXTREMITIES: No peripheral edema. LOWER EXTREMITIES: No peripheral edema. NEUROLOGICAL: Normal speech. walks with cane. PSYCHIATRIC: Cooperative. Good eye contact. Appropriate mood and affect. SKIN: Warm, dry, normal turgor, no rashes or lesions noted, normal capillary refill. Laboratory Results - last 24 hr 03/04/18 03/04/18 03/04/18 20:00 20:00 20:00 WBC RBC Hgb Hct MCV MCH MCHC RDW Plt Count MPV Absolute Neuts (auto) Neutrophils % Lymphocytes % Monocytes % Eosinophils % Basophils % Nucleated RBC % Sodium Potassium 4.3 Chloride Carbon Dioxide Anion Gap BUN Creatinine Creat Clearance w eGFR POC Glucometer Random Glucose Hemoglobin A1c % Calcium Magnesium Total Bilirubin AST ALT Alkaline Phosphatase Creatine Kinase 74 Troponin I < 0.02 B-Natriuretic Peptide Total Protein Albumin Triglycerides Cholesterol Total LDL Cholesterol HDL Cholesterol Urine Color Urine Appearance Urine pH Ur Specific [place] Urine Protein Urine Glucose (UA) Urine Ketones Urine Blood Urine Nitrite Urine Bilirubin Urine Urobilinogen Ur Leukocyte Esterase Urine WBC (Auto) Urine RBC (Auto) Ur Epithelial Cells Urine Mucus 03/04/18 03/04/18 03/05/18 21:11 21:30 05:36 WBC RBC Hgb Hct MCV MCH MCHC RDW Plt Count MPV Absolute Neuts (auto) Neutrophils % Lymphocytes % Monocytes % Eosinophils % Basophils % Nucleated RBC % Sodium Potassium Chloride Carbon Dioxide Anion Gap BUN Creatinine Creat Clearance w eGFR POC Glucometer 168 112 Random Glucose Hemoglobin A1c % Calcium Magnesium Total Bilirubin AST ALT Alkaline Phosphatase Creatine Kinase Troponin I B-Natriuretic Peptide 11.9 Total Protein Albumin Triglycerides Cholesterol Total LDL Cholesterol HDL Cholesterol Urine Color Urine Appearance Urine pH Ur Specific [place] Urine Protein Urine Glucose (UA) Urine Ketones Urine Blood Urine Nitrite Urine Bilirubin Urine Urobilinogen Ur Leukocyte Esterase Urine WBC (Auto) Urine RBC (Auto) Ur Epithelial Cells Urine Mucus 03/05/18 03/05/18 03/05/18 09:50 09:50 09:50 WBC 7.1 RBC 3.53 L Hgb 9.9 L Hct 31.6 L MCV 89.5 MCH 28.2 MCHC 31.5 L RDW 18.6 H Plt Count 272 MPV 6.6 L Absolute Neuts (auto) 3.7 Neutrophils % 52.2 Lymphocytes % 36.2 Monocytes % 10.3 H Eosinophils % 0.9 Basophils % 0.4 Nucleated RBC % 0 Sodium 138 Potassium 4.0 Chloride 104 Carbon Dioxide 24 Anion Gap 11 BUN 12 Creatinine 0.7 Creat Clearance w eGFR > 60 POC Glucometer Random Glucose 193 H Hemoglobin A1c % 7.9 H Calcium 9.0 Magnesium 1.9 Total Bilirubin 0.3 AST 19 ALT 25 Alkaline Phosphatase 98 Creatine Kinase Troponin I B-Natriuretic Peptide Total Protein 6.9 Albumin 3.6 Triglycerides 85 Cholesterol 79 Total LDL Cholesterol 34 HDL Cholesterol 38 L Urine Color Urine Appearance Urine pH Ur Specific [place] Urine Protein Urine Glucose (UA) Urine Ketones Urine Blood Urine Nitrite Urine Bilirubin Urine Urobilinogen Ur Leukocyte Esterase Urine WBC (Auto) Urine RBC (Auto) Ur Epithelial Cells Urine Mucus 03/05/18 03/05/18 11:05 11:30 WBC RBC Hgb Hct MCV MCH MCHC RDW Plt Count MPV Absolute Neuts (auto) Neutrophils % Lymphocytes % Monocytes % Eosinophils % Basophils % Nucleated RBC % Sodium Potassium Chloride Carbon Dioxide Anion Gap BUN Creatinine Creat Clearance w eGFR POC Glucometer 183 Random Glucose Hemoglobin A1c % Calcium Magnesium Total Bilirubin AST ALT Alkaline Phosphatase Creatine Kinase Troponin I B-Natriuretic Peptide Total Protein Albumin Triglycerides Cholesterol Total LDL Cholesterol HDL Cholesterol Urine Color Straw Urine Appearance Clear Urine pH 6.0 Ur Specific [place] 1.006 L Urine Protein Negative Urine Glucose (UA) Negative Urine Ketones Negative Urine Blood Negative Urine Nitrite Negative Urine Bilirubin Negative Urine Urobilinogen Negative Ur Leukocyte Esterase Trace Urine WBC (Auto) 3 Urine RBC (Auto) <1 Ur Epithelial Cells Rare Urine Mucus Rare Active Medications Generic Name Dose Route Start Last Admin Trade Name Mine PRN Reason Stop Dose Admin Albuterol/Ipratropium 1 amp 03/04/18 21:23 03/05/18 06:55 Duoneb - NEB 1 amp Q6H PRN Administration SHORTNESS OF BREATH Apixaban 5 mg 03/04/18 22:00 03/05/18 10:30 Eliquis - PO 5 mg BID BHARATHI Administration Aspirin 81 mg 03/04/18 22:00 03/04/18 21:29 Ecotrin - PO 81 mg HS BHARATHI Administration Atorvastatin Calcium 20 mg 03/04/18 22:00 03/04/18 21:32 Lipitor - PO 20 mg HS BHARATHI Administration Furosemide 20 mg 03/05/18 10:00 03/05/18 10:30 Lasix - PO 20 mg DAILY BHARATHI Administration Insulin Aspart 1 vial 03/04/18 22:00 03/05/18 11:31 Novolog Vial Sliding Scale - SQ 2 units ACHS BHARATHI Administration Protocol Meclizine HCl 25 mg 03/04/18 22:00 03/05/18 13:48 Antivert - PO 25 mg TID BHARATHI Administration Metoprolol Succinate 100 mg 03/05/18 10:00 03/05/18 10:30 Toprol Xl - PO 100 mg DAILY BHARATHI Administration Sitagliptin Phosphate 100 mg 03/05/18 07:00 03/05/18 06:24 Januvia - PO 100 mg 0700 BHARATHI Administration ASSESSMENT/PLAN: Patient is a 72 year old female with a significant past medical history of hypertension, HLD, dm II, non-obstructive CAD, paroxysmal a.fib (on Eliquis) diastolic dysfunction, RA, lupus, obstructive sleep apnea. She presents to the ED via EMS for general malaise, coughing with congestion, fatigue and syncope. ----- syncope with collapse URI HLD Hypertension dm II, non-obstructive CAD paroxysmal a.fib (on Eliquis) diastolic dysfunction RA lupus obstructive sleep apnea ------ Neuro: Syncope, s/p fall Possible vasovagal episode. Head ct negative. denies any other injury, pain. Monitor vitals, labs. orthostatics. Patient reports to have LOC loss. She is not orthostatic, bgms are stable. Troponins negative, Carotid doppler pending. Echo shows moderate TR. Fall No signs of injury or rhahabo, cpk stable. Physical therapy ordered Patient ambulates with a cane Fall risk Endocrine: Diabetes: bgms ac/hs, Novolog SS - bgms stable. Card: Proxysymal afib. On eliquis. Rate controlled on metoprolol. Monitor on tele. Cardiology consulted and following. Hypertension: controlled. continue home medications. not orthostatics on vitals done here. Diastolic dysfunction. monitor intake and output. will order bnp. Pulm: Obstructive sleep apnea Possible URI Congested on exam. ruled out for influenza/flu. No signs of infection but has rales on bilateral lungs R>L. azithomycin d/c by pulm. fen PO adequate monitor electrolytes low salt diet prophy on eliquis full code Visit type - Emergency Visit Emergency Visit: Yes ED Registration Date: 03/04/18 Care time: The patient presented to the Emergency Department on the above date and was hospitalized for further evaluation of their emergent condition. - New Patient This patient is new to me today: No - Critical Care Critical Care patient: No - Discharge Referral Referred to [facility] No
[2018-03-05] MEDS ORDERED: PT OWN MED DRAWER 7, Y5N ONE (21:11)
[2018-03-05] MEDS: ASPIRIN COATED 81 MG TABLET.EC PO SCH (21:33)
[2018-03-05] MEDS: ATORVASTATIN CA 20 MG TABLET (FP) PO SCH (21:33)
[2018-03-06] MEDS: MECLIZINE HCL 25 MG TABLET (FP) PO SCH ×2 (05:50→15:25)
[2018-03-06] MEDS: sitaGLIPtin PHOSPHATE 100 MG TABLET (FP) PO SCH (06:06)
[2018-03-06] MEDS: INSULIN SLIDING SCALE (NOVOLOG) 1 VIAL SQ SCH ×2 (06:06→12:19)
[2018-03-06 07:40] LABS: ALBUMIN 3.6 g/dl (3.4-5.0); ALK PHOS 88 U/L (45-117); ANION GAP 10 MMOL/L (8-16); BILIRUBIN,TOTAL 0.3 mg/dL (0.2-1); BLOOD UREA NITROGEN 13 mg/dL (7-18); CALCIUM 8.9 mg/dL (8.5-10.1); CHLORIDE 104 mmol/L (98-107); CO2 24 mmol/L (21-32); CREATININE 0.8 mg/dL (0.55-1.3); GLUCOSE,RANDOM 138 mg/dL (74-106); MAGNESIUM 2.2 mg/dL (1.8-2.4); POTASSIUM 4.1 mmol/L (3.5-5.1); SGOT/AST 24 U/L (15-37); SGPT/ALT 24 U/L (13-61); SODIUM 139 mmol/L (136-145); TOT PROT 6.9 g/dl (6.4-8.2)
[2018-03-06] MEDS: FUROSEMIDE 20 MG TABLET (FP) PO SCH (09:51)
[2018-03-06] MEDS: APIXABAN 5 MG TABLET PO SCH (09:51)
[2018-03-06 09:53] LABS: BASO % 0.5 % (0-2.0); EOS % 2.7 % (0-4.5); HEMATOCRIT 32.9 % (32.4-45.2); HEMOGLOBIN 10.3 GM/dL (10.7-15.3); LYMPH % 54.4 % (8-40); MCH 28.1 pg (25.7-33.7); MCHC 31.3 g/dl (32.0-36.0); MEAN CELL VOLUME 89.8 fl (80-96); MEAN PLT VOLUME 7.2 fl (7.5-11.1); MONO % 12.9 % (3.8-10.2); NEUT % 29.5 % (42.8-82.8); PLATELET COUNT 328 K/MM3 (134-434); RBC 3.66 M/mm3 (3.60-5.2); RDW 18.9 % (11.6-15.6); WHITE BLOOD COUNT 5.4 K/mm3 (4.0-10.0)
[2018-03-06] MEDS ORDERED: GABAPENTIN 100 MG CAPSULE (FP) PO SCH (10:00)
--- NOTE | 2018-03-06 13:19 | PN ---
Progress Note (short form) - Note Progress Note: PULMONARY NO CP/NO SOB VSS/AFEBRILE ANICTERIC CHEST CLEAR S1S2 SINUS BS+ OBESE NO EDEMA LABS/MEDS/NOTES REVIEWED NL CT BRAIN/NL CAROTIDS/NO INFILTRATE ON CXR STABLE ON ORAL MEDICATION NO OBJECTION TO CONTINUING WORKUP AN OUTPATIENT Renny CHEEK MD
--- NOTE | 2018-03-06 14:38 | DS ---
Physical Exam: SUBJECTIVE: Patient seen and examined OBJECTIVE: Vital Signs Period Temp Pulse Resp BP Sys/Grady Pulse Ox Last 24 Hr 97.6 F-98.3 F 65-82 18-18 118-151/60-88 98-100 PHYSICAL EXAM GENERAL: The patient is awake, alert, and fully oriented, in no acute distress. HEAD: Normal with no signs of trauma. EYES: PERRL, extraocular movements intact, sclera anicteric, conjunctiva clear. ENT: Ears normal, nares patent, oropharynx clear without exudates, moist mucous membranes. NECK: Trachea midline, full range of motion, supple. LUNGS: Breath sounds equal, clear to auscultation bilaterally, no wheezes, no crackles, no accessory muscle use. HEART: Regular rate and rhythm, S1, S2 without murmur, rub or gallop. ABDOMEN: Soft, nontender, nondistended, normoactive bowel sounds, no guarding, no rebound, no hepatosplenomegaly, no masses. EXTREMITIES: 2+ pulses, warm, well-perfused, no edema. NEUROLOGICAL: Cranial nerves II through XII grossly intact. Normal speech, gait not observed. PSYCH: Normal mood, normal affect. SKIN: Warm, dry, normal turgor, no rashes or lesions noted. LABS Laboratory Results - last 24 hr 03/05/18 03/05/18 03/06/18 16:40 21:01 05:16 WBC RBC Hgb Hct MCV MCH MCHC RDW Plt Count MPV Absolute Neuts (auto) Neutrophils % Lymphocytes % Monocytes % Eosinophils % Basophils % Nucleated RBC % Sodium Potassium Chloride Carbon Dioxide Anion Gap BUN Creatinine Creat Clearance w eGFR POC Glucometer 119 121 112 Random Glucose Calcium Magnesium Total Bilirubin AST ALT Alkaline Phosphatase Total Protein Albumin 03/06/18 03/06/18 03/06/18 05:30 05:30 12:17 WBC 5.4 RBC 3.66 Hgb 10.3 L Hct 32.9 MCV 89.8 MCH 28.1 MCHC 31.3 L RDW 18.9 H Plt Count 328 D MPV 7.2 L Absolute Neuts (auto) 1.6 Neutrophils % 29.5 L D Lymphocytes % 54.4 H D Monocytes % 12.9 H Eosinophils % 2.7 D Basophils % 0.5 Nucleated RBC % 0 Sodium 139 Potassium 4.1 Chloride 104 Carbon Dioxide 24 Anion Gap 10 BUN 13 Creatinine 0.8 Creat Clearance w eGFR > 60 POC Glucometer 117 Random Glucose 138 H Calcium 8.9 Magnesium 2.2 Total Bilirubin 0.3 AST 24 ALT 24 Alkaline Phosphatase 88 Total Protein 6.9 Albumin 3.6 HOSPITAL COURSE: Patient is a 72 year old female with a significant past medical history of hypertension, HLD, dm II, non-obstructive CAD, paroxysmal a.fib (on Eliquis) diastolic dysfunction, RA, lupus, obstructive sleep apnea. She presents to the ED via EMS for general malaise, coughing with congestion, fatigue and syncope. Neuro: Syncope, s/p fall. Possible vasovagal episode. Stable ambulation with PT during hospitalization. Head ct negative. denies any other injury, pain. Vitals stable, not orthostatic. Patient denies any further dizziness or lightheadness. Troponins negative Carotid doppler without significant findings, small plaques. Echo shows moderate TR. Fall No signs of injury or rhahabo, cpk stable. Physical therapy ordered Patient ambulates with a cane Fall risk Endocrine: Diabetes: bgms ac/hs, Novolog SS - bgms stable. Card: Proxysymal afib. On eliquis. Rate controlled on metoprolol. Monitor on tele. Patient had 6 runs of vtach today, vitals remained stable. and she remained asymptomatic. continue metoprolol. will need outpatient follow up with cardiology in 2 weeks. She has a cardiolgist Sidra Drew MD whom she will see in 2 weeks. Hypertension: controlled. continue home medications. not orthostatics on vitals done here. Diastolic dysfunction. monitor intake and output. will order bnp. Pulm: Obstructive sleep apnea, has cpap at home. Possible URI. clear lungs, tolerating room air. antibiotics discontinued. Date of Admission:03/04/18 Date of Discharge: 03/06/18 Minutes to complete discharge: 60 Discharge Summary Reason For Visit: SYNOPE Current Active Problems Syncope (Acute) Condition: Improved - Instructions Diet, Activity, Other Instructions: Mrs. Pack: You were admitted after a fall. We will be discharging you home today and recommend the followings. Syncope. Possible vasovagal episode. Your head cat scan was normal and you have no other injury. Please take the antivert if you feel dizzy and get up slowly when going from a sitting position to a standing position. Your blood pressures have been normal. Continue taking the blood pressure medications that you ar currently taking. Please see your dust control engineer in 2 weeks for further workup. Please see your primary care doctor within 3-5 days after discharge for follow up. Continue taking all your home medications, but you no longer need to take the antibiotics. Your lungs are clear and your breathing is improved. New medications: - Neurontin 100mg once per day. this medication will help you with any leg weakness. Please call me with any questions that you may have. Thank you [facility] @ [facility] [phone] Referrals: Henry Flores MD [Primary Care Provider] - Katlyn Whittington MD [Non Staff, Medical] - 2 Weeks Carlos Enrique Phoenix MD [Staff Physician] - 2 Weeks Disposition: HOME - Home Medications Comprehensive Discharge Medication List: Ambulatory Orders Acetaminophen [Tylenol .Extra-Strength -] 500 mg PO Q8H PRN 10/03/15 Albuterol Sulfate Inhaler - [Ventolin HFA Inhaler -] 1 - 2 inh PO QID 10/03/15 Apixaban [Eliquis] 5 mg PO BID 10/03/15 Atorvastatin Ca [Lipitor] 20 mg PO HS 10/03/15 Folic Acid 1 mg PO DAILY 10/03/15 Metoprolol Succinate [Toprol Xl] 100 mg PO DAILY 10/03/15 Hypromellose 0.5% Opth Soln [Artificial Tears] 1 drop OU TID 07/13/16 Ranitidine [Zantac -] 150 mg PO BID 07/13/16 Meclizine HCl [Antivert -] 25 mg PO TID 09/13/16 Methotrexate Sodium/Pf [Methotrexate 50 mg/2 ml Vial] 25 mg IJ WE 09/13/16 Calcium Carbonate/Vitamin D3 [Calcium 600 + Vit D Tablet] 1 each PO DAILY Furosemide [Lasix -] 20 mg PO DAILY 02/09/17 Aspirin Coated [Ecotrin -] 81 mg PO HS 03/04/18 Metformin HCl [Metformin HCl ER] 1,000 mg PO BID 03/04/18 Sitagliptin Phosphate [Januvia] 100 mg PO DAILY 03/04/18 This patient is new to me today: No Emergency Visit: Yes ED Registration Date: 03/04/18 Care time: The patient presented to the Emergency Department on the above date and was hospitalized for further evaluation of their emergent condition. Critical Care patient: No - Discharge Referral Referred to [facility] No
[2018-03-06 15:25] VITALS: BP 130/65; PULSE 75; TEMP 99
--- NOTE | 2018-03-06 15:36 | PN ---
Progress Note, Physician Chief Complaint: The patient appears comfortable, awake and alert. No chest pain, SOB or palpitation. Tele 03/06/2018 sinus rhythm with VPCs and 6 beat NSVT. History of Present Illness: 72 year old female with a PMHx of htn, hld, dm, nonobs CAD (last NST 09/13/16 no ischemia), paroxysmal afib on apixaban, chronic diastolic dysfunction, RA, lupus , and LUISITO presenting with lethargy. EKG: sinus rhythm at 75bpm, pr 224ms, sinus arrhythmia, lvh with nonspecific t wave abnormalities Echocardiogram 03/05/18: normal LVEF and moderate TR CT head no acute m/s/b. Tele 03/06/2018 sinus rhythm with VPCs and 6 beat NSVT. - Current Medication List Current Medications: Active Medications Albuterol/Ipratropium (Duoneb -) 1 amp NEB Q6H PRN PRN Reason: SHORTNESS OF BREATH Last Admin: 03/05/18 06:55 Dose: 1 amp Apixaban (Eliquis -) 5 mg PO BID [facility] Last Admin: 03/06/18 09:51 Dose: 5 mg Aspirin (Ecotrin -) 81 mg PO HS [facility] Last Admin: 03/05/18 21:33 Dose: 81 mg Atorvastatin Calcium (Lipitor -) 20 mg PO HS [facility] Last Admin: 03/05/18 21:33 Dose: 20 mg Furosemide (Lasix -) 20 mg PO DAILY [facility] Last Admin: 03/06/18 09:51 Dose: 20 mg Gabapentin (Neurontin -) 100 mg PO DAILY [facility] Last Admin: 03/06/18 09:51 Dose: 100 mg Insulin Aspart (Novolog Vial Sliding Scale -) 1 vial SQ ACHS [facility]; Protocol Last Admin: 03/06/18 12:19 Dose: Not Given Meclizine HCl (Antivert -) 25 mg PO TID [facility] Last Admin: 03/06/18 15:25 Dose: Not Given Metoprolol Succinate (Toprol Xl -) 100 mg PO DAILY [facility] Last Admin: 03/06/18 09:51 Dose: 100 mg Sitagliptin Phosphate (Januvia -) 100 mg PO 0700 [facility] Last Admin: 03/06/18 06:06 Dose: 100 mg - Objective Vital Signs: Vital Signs Temperature 99 F 03/06/18 14:00 Pulse Rate 75 03/06/18 14:00 Respiratory Rate 20 03/06/18 14:00 Blood Pressure 130/65 03/06/18 14:00 O2 Sat by Pulse Oximetry (%) 98 03/06/18 09:00 General: Well developed. Well nourished. No acute distress. Head: Normocephalic. Atraumatic, Eyes: PERRLA, EOMI. Sclerae anicteric. Conjunctivae clear. Neck: Supple. No JVD. No bruits. Heart: Normal S1, S2: Regular rhythm and rate. No murmur. No gallop or rub. Lungs: Symmetrical air entry. Clear to auscultation. No crackles. No wheezing or rhonchi. Abdomen: Soft. Bowel sound positive. Non tender. No masses. Extremities: No edema. No clubbing or cyanosis. PD 2+, equal bilaterally. Labs: CBC, BMP 03/06/18 05:30 03/06/18 05:30 INR, PTT INR 1.12 (0.83-1.09) H 03/04/18 10:25 Assessment/Plan 72 year old female with a PMHx of htn, hld, dm, nonobs CAD (last NST 09/13/16 no ischemia), paroxysmal afib on apixaban, chronic diastolic dysfunction, RA, lupus , and LUISITO presenting with lethargy. EKG: sinus rhythm at 75bpm, pr 224ms, sinus arrhythmia, lvh with nonspecific t wave abnormalities Echocardiogram 03/05/18: normal LVEF and moderate TR CT head no acute m/s/b. Tele 03/06/2018 sinus rhythm with VPCs and 6 beat NSVT. 1) NSVT: likely asymptomatic. The patient has normal LV systolic function. Continue metoprolol succinate 100 mg daily. Out-pt cardiac follow up with Dr. Phoenix. 2) Paroxysmal afib: She remains in sinus without recurrent afib on tele. Continue metoprolol and eliquis. 3) AMS with ?syncope -unclear if true syncope event Symptoms this past week unlikely to be related to cardiac condition. Likely pulmonary process/possible viral/dehydration On abx as per primary team. -No hypotension and HR wnl during admission/ER stay EKG no acute events and sinus rhythm. Echo with normal LVEF and no significant valve disease. Agree with discharge plan with out-pt cardiac follow up.
== END 2018-03-06 15:48 | disposition home or self-care (01) ==
LOC: JER 07:11 → JERBED 16:07 → J4W 20:40
PROVIDERS: ADMIT Internal Medicine; ATTEND Nurse Practitioner Family
PROC: 3E03329 Introduction of Other Anti-infective into Peripheral Vein, Percutaneous Approach (ICD-10-PCS; principal; 2018-03-04)
PROC: 3E0337Z Introduction of Electrolytic and Water Balance Substance into Peripheral Vein, Percutaneous Approach (ICD-10-PCS; 2018-03-04)
PROC: 3E0F7GC Introduction of Other Therapeutic Substance into Respiratory Tract, Via Natural or Artificial Opening (ICD-10-PCS; 2018-03-04)
DX: R55 Syncope and collapse (principal); I11.0 Hypertensive heart disease with heart failure; E78.5 Hyperlipidemia, unspecified; E11.9 Type 2 diabetes mellitus without complications; I25.10 Atherosclerotic heart disease of native coronary artery without angina pectoris; I48.0 Paroxysmal atrial fibrillation; I50.30 Unspecified diastolic (congestive) heart failure; M06.9 Rheumatoid arthritis, unspecified; M32.9 Systemic lupus erythematosus, unspecified; G47.33 Obstructive sleep apnea (adult) (pediatric); J06.9 Acute upper respiratory infection, unspecified; J20.9 Acute bronchitis, unspecified; R05 Cough; Z99.89 Dependence on other enabling machines and devices; Z98.61 Coronary angioplasty status; Z79.01 Long term (current) use of anticoagulants; Z79.02 Long term (current) use of antithrombotics/antiplatelets; Z79.84 Long term (current) use of oral hypoglycemic drugs; Z79.82 Long term (current) use of aspirin; W19.XXXA Unspecified fall, initial encounter; Y93.9 Activity, unspecified; Y92.9 Unspecified place or not applicable
CPT/HCPCS: 36415; 70450-TC; 71045-TC-FY; 80053; 80061; 81003; 81015; 82550; 82962; 83036; 83721; 83735; 83880; 84132; 84484; 85025; 85610; 87040; 87804; 93005; 93010; 93306-TC; 93880-TC; 94640; 96361; 96374; 97116-GP; 97161-GP; 99285-25; G0378; J7030

== ENCOUNTER 2018-06-30 03:49 | Observation (INO) | payer OTHER ==
--- NOTE | 2018-06-30 03:53 | PDOC ---
Attending Attestation - Resident Resident Name: Kam Benitez - ED Attending Attestation I have performed the following: I have examined & evaluated the patient, The case was reviewed & discussed with the resident, I agree w/resident's findings & plan - HPI HPI: 06/30/18 04:15 72-year-old female arrives via ambulance complaining of chest pressure and hypertension, per EMS patient was given aspirin and sublingual nitroglycerin 3 times prior to arrival with relief. - Physicial Exam PE: 06/30/18 04:16 GENERAL: Awake, in no acute distress HEAD: No signs of trauma EYES: ENT:clear without exudates. Moist mucosa NECK: Normal ROM, LUNGS:. Normal work of breathing. HEART: Regular rate and rhythm, ABDOMEN: Soft, nondistended CHEST WALL: BACK: No midline tenderness. EXTREMITIES:. No erythema, or tenderness NEUROLOGICAL: Alert, SKIN: Warm, Dry - Medical Decision Making 06/30/18 05:19 72-year-old female with hypertension and chest pressure Chest x-ray shows no change from previous Patient is currently in a sinus rhythm at 69 beats per minutes with no acute ST elevations Troponin is within normal limits Patient is pain-free after 3 nitros given by EMS as well as aspirin en route She is anticoagulated, likelihood of pulmonary embolism low Plan for admission for serial enzymes to medical service
--- NOTE | 2018-06-30 03:55 | PDOC ---
History of Present Illness - General Stated Complaint: BLOOD PRESSURE PROBLEM Time Seen by Provider: 06/30/18 03:52 - History of Present Illness Initial Comments: 06/30/18 03:56 72 yo Female with PMH HTN, HLD, paroxysmal a-fib on Eliquis, Diastolic CHF, RA, Lupus, LUISITO, admitted with complaint of chest pain. Upon checking her pressure she saw that it was high and called EMS. During EMS transport she was given 4 baby aspirin and 1 sublingual nitro. She presently complains of pressure over her chest, difficulty breathing around her throat and headache. Past History - Past Medical History Allergies/Adverse Reactions: Allergies Allergy/AdvReac Type Severity Reaction Status Date / Time No Known Allergies Allergy Verified 06/30/18 04:31 Home Medications: Ambulatory Orders Acetaminophen [Tylenol .Extra-Strength -] 500 mg PO Q8H PRN 10/03/15 Albuterol Sulfate Inhaler - [Ventolin HFA Inhaler -] 1 - 2 inh PO QID 10/03/15 Apixaban [Eliquis] 5 mg PO BID 10/03/15 Atorvastatin Ca [Lipitor] 20 mg PO HS 10/03/15 Folic Acid 1 mg PO DAILY 10/03/15 Metoprolol Succinate [Toprol Xl] 100 mg PO DAILY 10/03/15 Hypromellose 0.5% Opth Soln [Artificial Tears] 1 drop OU TID 07/13/16 Ranitidine [Zantac -] 150 mg PO BID 07/13/16 Meclizine HCl [Antivert -] 25 mg PO TID 09/13/16 Methotrexate Sodium/Pf [Methotrexate 50 mg/2 ml Vial] 25 mg IJ WE 09/13/16 Calcium Carbonate/Vitamin D3 [Calcium 600 + Vit D Tablet] 1 each PO DAILY Furosemide [Lasix -] 20 mg PO DAILY 02/09/17 Aspirin Coated [Ecotrin -] 81 mg PO HS 03/04/18 Sitagliptin Phosphate [Januvia] 100 mg PO DAILY 03/04/18 metFORMIN HCL [Metformin ER Osmotic] 1,000 mg PO BID 03/04/18 Gabapentin [Neurontin -] 100 mg PO DAILY #60 capsule 03/06/18 Anemia: No Asthma: No Cancer: No Cardiac Disorders: Yes (palpitations) CVA: No COPD: No CHF: No Dementia: No Diabetes: Yes GI Disorders: No Disorders: No HTN: Yes Hypercholesterolemia: Yes Liver Disease: No Seizures: No Thyroid Disease: No - Surgical History Abdominal Surgery: Yes (TUBAL LIGATION) Appendectomy: No Cardiac Surgery: No Cholecystectomy: No Lung Surgery: No Neurologic Surgery: No Orthopedic Surgery: No - Immunization History Td Vaccination: Yes Immunization Up to Date: Yes - Suicide/Smoking/Psychosocial Hx Smoking Status: No Smoking History: Never smoked Years of Tobacco Use: 0 Have you smoked in the past 12 months: No Number of Cigarettes Smoked Daily: 0 Cigars Per Day: 0 Hx Alcohol Use: No Drug/Substance Use Hx: No Substance Use Type: None Hx Substance Use Treatment: No Cardiac Specific PMH - Complaint Specific PMHX Abdominal Aortic Aneurysm: No Cardiac Arrhythmia: No Cardiac Stent: No Pacemaker: No Pulmonary Embolus: No Valvular Heart Disease: No Peripheral Vascular Disease: No Review of Systems - Review of Systems Able to Perform ROS?: Yes Is the patient limited Belarusian proficient: No Constitutional: No: Symptoms Reported HEENTM: No: Symptoms Reported Respiratory: Yes: See HPI Cardiac (ROS): Yes: See HPI ABD/GI: No: Symptoms Reported : No: Symptoms Reported Musculoskeletal: No: Symptoms Reported Integumentary: No: Symptoms Reported Neurological: No: Symptoms reported All Other Systems: Reviewed and Negative *Physical Exam - Vital Signs Last Vital Signs Temp Pulse Resp BP Pulse Ox 98.0 F 71 18 154/78 100 06/30/18 04:31 06/30/18 05:02 06/30/18 05:02 06/30/18 05:02 06/30/18 05:02 - Physical Exam General Appearance: Yes: Nourished, Appropriately Dressed. No: Apparent Distress HEENT: positive: EOMI, Normal ENT Inspection Respiratory/Chest: positive: Lungs Clear, Normal Breath Sounds. negative: Chest Tender, Respiratory Distress Cardiovascular: positive: Regular Rhythm, Regular Rate, S1, S2 Gastrointestinal/Abdominal: positive: Normal Bowel Sounds, Flat, Soft. negative : Tender Musculoskeletal: positive: Normal Inspection. negative: CVA Tenderness Extremity: positive: Normal Capillary Refill, Normal Inspection Integumentary: positive: Normal Color, Dry, Warm Moderate Sedation - Procedure Monitoring Vital Signs: Procedure Monitoring Vital Signs Temperature 98.0 F 06/30/18 04:31 Pulse Rate 71 06/30/18 05:02 Respiratory Rate 18 06/30/18 05:02 Blood Pressure 154/78 06/30/18 05:02 O2 Sat by Pulse Oximetry (%) 100 06/30/18 05:02 ED Treatment Course - LABORATORY CBC & Chemistry Diagram: 06/30/18 04:10 06/30/18 04:10 - ADDITIONAL ORDERS Additional order review: Laboratory Results 06/30/18 06/30/18 06/30/18 04:10 04:10 04:10 PT with INR INR PTT (Actin FS) Cancelled Sodium 134 L Potassium 4.7 Chloride 100 Carbon Dioxide 26 Anion Gap 8 BUN 11 Creatinine 0.8 Creat Clearance w eGFR > 60 Random Glucose 147 H Calcium 9.5 Magnesium 1.8 Total Bilirubin 0.2 AST 24 ALT 25 Alkaline Phosphatase 105 Creatine Kinase 95 Troponin I < 0.02 Total Protein 7.5 Albumin 3.9 Blood Type O NEGATIVE Antibody Screen Negative 06/30/18 04:10 PT with INR 12.30 INR 1.04 PTT (Actin FS) 29.4 Sodium Potassium Chloride Carbon Dioxide Anion Gap BUN Creatinine Creat Clearance w eGFR Random Glucose Calcium Magnesium Total Bilirubin AST ALT Alkaline Phosphatase Creatine Kinase Troponin I Total Protein Albumin Blood Type Antibody Screen 06/30/18 04:10 RBC 3.59 L MCV 87.7 MCHC 33.3 RDW 18.7 H MPV 7.3 L Neutrophils % 44.7 D Lymphocytes % 40.0 D Monocytes % 12.2 H Eosinophils % 2.1 Basophils % 1.0 - RADIOLOGY Radiology Studies Ordered: Category Date Time Status CHEST X-RAY PORTABLE* [RAD] Stat Radiology 06/30/18 03:54 Taken Medical Decision Making - Medical Decision Making 06/30/18 05:01 72f with chest pain. Acute CHF vs CT vs pneumonia vs PE EKG: Sinus rhythm with 1st degree AV block Will obtain trops, bnp, chest x ray, admit to tele 06/30/18 06:10 All labsWNL CXR unchanged from last. Will admit for atypical chest pain *DC/Admit/Observation/Transfer Diagnosis at time of Disposition: Chest pain - Discharge Dispostion Decision to Admit order: Yes Decision to Admit order Date/Time: Decision to Admit Order Category Date Time Status Decision to Admit to Hospital Routine Admission 06/30/18 06:05 Ordered - Referrals Referrals: Henry Flores MD [Primary Care Provider] - - Patient Instructions - Post Discharge Activity
--- NOTE | 2018-06-30 04:26 | PDOC ---
*DC/Admit/Observation/Transfer Diagnosis at time of Disposition: Chest pain - Referrals - Patient Instructions - Post Discharge Activity Procedures - Additional Procedures Additional Procedures: other Progress: 06/30/18 04:24 Left .20 gauge IV insertion into left EJ. Site cleaned with ChloraPrep, labs drawn from site. Line flushed easily without discomfort. Secured with TegeDerm.
[2018-06-30 04:28] LABS: EOS % 2.1 % (0-4.5); HEMATOCRIT 31.4 % (32.4-45.2); HEMOGLOBIN 10.5 GM/dL (10.7-15.3); MCH 29.2 pg (25.7-33.7); MCHC 33.3 g/dl (32.0-36.0); MEAN CELL VOLUME 87.7 fl (80-96); MEAN PLT VOLUME 7.3 fl (7.5-11.1); MONO % 12.2 % (3.8-10.2); NEUT % 44.7 % (42.8-82.8); PLATELET COUNT 352 K/MM3 (134-434); RBC 3.59 M/mm3 (3.60-5.2); RDW 18.7 % (11.6-15.6); WHITE BLOOD COUNT 8.2 K/mm3 (4.0-10.0)
[2018-06-30 05:14] LABS: GLUCOSE,RANDOM 147 mg/dL (74-106)
[2018-06-30 05:15] LABS: ANION GAP 8 MMOL/L (8-16); BLOOD UREA NITROGEN 11 mg/dL (7-18); CALCIUM 9.5 mg/dL (8.5-10.1); CHLORIDE 100 mmol/L (98-107); CO2 26 mmol/L (21-32); CREATININE 0.8 mg/dL (0.55-1.3); POTASSIUM 4.7 mmol/L (3.5-5.1); SODIUM 134 mmol/L (136-145)
[2018-06-30 05:16] LABS: ALBUMIN 3.9 g/dl (3.4-5.0); ALK PHOS 105 U/L (45-117); BILIRUBIN,TOTAL 0.2 mg/dL (0.2-1); MAGNESIUM 1.8 mg/dL (1.8-2.4); SGOT/AST 24 U/L (15-37); SGPT/ALT 25 U/L (13-61); TOT PROT 7.5 g/dl (6.4-8.2)
[2018-06-30] MEDS: INSULIN SLIDING SCALE (NOVOLOG) 1 VIAL SQ SCH ×3 (06:33→18:47)
--- NOTE | 2018-06-30 06:36 | PN ---
Teaching Attending Note Name of Resident: Karina Anguiano ATTENDING PHYSICIAN STATEMENT I saw and evaluated the patient. I reviewed the resident's note and discussed the case with the resident. I agree with the resident's findings and plan as documented. SUBJECTIVE: Seen and examined; please refer to resident documentation for further historical information. Briefly, this is a 72 y/o female presenting with chest pain since tonight around midnight. It is more of a pressure sensation located substernally and not made beter or worse with anything; resolved when we saw her in the ER. She does have multiple risk factors. Last stress test 2017 was normal; echo done several months ago; no recent lipids/a1c/tsh. She has been seen here by cardiology in the past. Got 3x nitro en route and was still hypertensive to 150s here in ER (home pressure not known prior). She said that she feels some difficulty breathing and headache (but no red flag sx) 10 sys ROS done and negative aside from HPI PMH (nonobs CAD, HTN, HLD, DM, afib on eliquis, chronic diastolic dysfunction, RA, lupus, LUISITO, NSVT hx), PSH, Family hx, Social hx reviewed Medication list reviewed; reconciliation pending OBJECTIVE: VS, labs, imaging reviewed NAD, AAO, resting comfortably in bed NC AT EOMI PERRLA RRR s1/2 no gr, mild systolic murmur noted NT ND +BS CN2-12 wnl, no fnd Normal mood, appropriate behavior EKG reviewed; no new concerning ST-T changes Old echo reviewed; LVEF wnl Prior CV consults reviewed ASSESSMENT AND PLAN: Patient presents with CP/SOB since midnight; initial EKG and troponin are negative. No stress test since 2017. Recent echo reviewed 1) Chest Pain/SOB -Telemetry, trend troponin, consult her boat dispatcher to see if another stress test would be indicated (known hx of nonobstructing CAD). -Monitor fluid status given diastolic dysfunction; sx not bothersome now but if persistent can consider dose IV diuresis 2) P-Aflutter -Continue home meds 3) HTN -continue home meds 4) HLD -Continue home meds 5) DM -Hold PO; SSI while inpatient 6) Hx Lupus -Verify and continue appropriate home meds 7) Hx RA -No flare; verify and continue home meds 8) LUISITO 9) Hx NSVT -Noted on last admit; continuing metoprolol succinate 100mg PO QD
--- NOTE | 2018-06-30 06:41 | HP ---
CHIEF COMPLAINT:chest pain PCP:Dr. Flores HISTORY OF PRESENT ILLNESS: Patient is a 72 year old female with past medical history of HTN, HLD, paroxysmal A-fib on eliquis, diastolic CHF, RA, Lupus, LUISITO, presented with intermittent chest pain since 12am today. Patient reported she has been having intermittent chest pressure for "a while" accompanied by episodes of palpitations that would last for a few minutes. Today, patient's chest pain became more constant, described as left sided chest pressure, nonradiating, but patient is unsure what makes it worse or better. THis was accompanied by palpitations and shortness of breateh. Otherwise, patient denies any fever, chills, headache, nausea, vomiting, abdominal pain, diarrhea, urinary symptoms. Of note, previous echo done 03/05/18 revealed LV/RV normal, with moderate TR and trace NC, EF 60-65%. NST done in 2017 normal. ER course was notable for: (1)Trop <0.02, EKG NSR with no ST-T wave changes (2) (3) Recent Travel:denies PAST MEDICAL HISTORY: HTN HLD paroxysmal A-fib diastolic CHF RA Lupus LUISITO PAST SURGICAL HISTORY: Social History: Smoking:denies Alcohol:denies Drugs: denies Family History: Allergies No Known Allergies Allergy (Verified 06/30/18 04:31) HOME MEDICATIONS: Home Medications Medication Instructions Recorded Acetaminophen [Tylenol 500 mg PO Q8H PRN 10/03/15 .Extra-Strength -] Albuterol Sulfate Inhaler - 1 - 2 inh PO QID 10/03/15 [Ventolin HFA Inhaler -] Apixaban [Eliquis] 5 mg PO BID 10/03/15 Atorvastatin Ca [Lipitor] 20 mg PO HS 10/03/15 Folic Acid 1 mg PO DAILY 10/03/15 Metoprolol Succinate [Toprol Xl] 100 mg PO DAILY 10/03/15 Hypromellose 0.5% Opth Soln 1 drop OU TID 07/13/16 [Artificial Tears] Ranitidine [Zantac -] 150 mg PO BID 07/13/16 Meclizine HCl [Antivert -] 25 mg PO TID 09/13/16 Methotrexate Sodium/Pf 25 mg IJ WE 09/13/16 [Methotrexate 50 mg/2 ml Vial] Calcium Carbonate/Vitamin D3 1 each PO DAILY 02/09/17 [Calcium 600 + Vit D Tablet] Furosemide [Lasix -] 20 mg PO DAILY 02/09/17 Aspirin Coated [Ecotrin -] 81 mg PO HS 03/04/18 Sitagliptin Phosphate [Januvia] 100 mg PO DAILY 03/04/18 metFORMIN HCL [Metformin ER 1,000 mg PO BID 03/04/18 Osmotic] Gabapentin [Neurontin -] 100 mg PO DAILY #60 capsule 03/06/18 REVIEW OF SYSTEMS CONSTITUTIONAL: Absent: fever, chills, diaphoresis, generalized weakness, malaise, loss of appetite, weight change HEENT: Absent: rhinorrhea, nasal congestion, throat pain, throat swelling, difficulty swallowing, mouth swelling, ear pain, eye pain, visual changes CARDIOVASCULAR: Absent: chest pain, syncope, palpitations, irregular heart rate, lightheadedness , peripheral edema RESPIRATORY: Absent: cough, shortness of breath, dyspnea with exertion, orthopnea, wheezing, stridor, hemoptysis GASTROINTESTINAL: Absent: abdominal pain, abdominal distension, nausea, vomiting, diarrhea, constipation, melena, hematochezia GENITOURINARY: Absent: dysuria, frequency, urgency, hesitancy, hematuria, flank pain, genital pain MUSCULOSKELETAL: Absent: myalgia, arthralgia, joint swelling, back pain, neck pain SKIN: Absent: rash, itching, pallor HEMATOLOGIC/IMMUNOLOGIC: Absent: easy bleeding, easy bruising, lymphadenopathy, frequent infections ENDOCRINE: Absent: unexplained weight gain, unexplained weight loss, heat intolerance, cold intolerance NEUROLOGIC: Absent: headache, focal weakness or paresthesias, dizziness, unsteady gait, seizure, mental status changes, bladder or bowel incontinence PSYCHIATRIC: Absent: anxiety, depression, suicidal or homicidal ideation, hallucinations. PHYSICAL EXAMINATION Vital Signs - 24 hr 06/30/18 06/30/18 06/30/18 04:31 04:55 05:02 Temperature 98.0 F Pulse Rate 73 Pulse Rate [ 71 Right] Respiratory 18 18 Rate Blood Pressure 156/100 Blood Pressure 154/78 [Left Arm] O2 Sat by Pulse 100 100 100 Oximetry (%) GENERAL: Awake, alert, and fully oriented, in no acute distress. HEAD: Normal with no signs of trauma. EYES: PERRLA, EOMI, sclera anicteric, conjunctiva clear. EARS, NOSE, THROAT: Ears normal, oropharynx clear without exudates. Moist mucous membranes. NECK: Normal range of motion, supple without lymphadenopathy, JVD, or masses. LUNGS: Breath sounds equal, clear to auscultation bilaterally. HEART: Regular rate and rhythm, normal S1 and S2 without murmur, rub or gallop. ABDOMEN: Soft, nontender, not distended, normoactive bowel sounds. MUSCULOSKELETAL: Normal range of motion at all joints. No CVA tenderness. UPPER EXTREMITIES: 2+ pulses, warm, well-perfused. No peripheral edema. LOWER EXTREMITIES: 2+ pulses, warm, well-perfused. No peripheral edema. NEUROLOGICAL: Cranial nerves II-XII intact. Normal speech. Gait not observed. PSYCHIATRIC: Cooperative. Good eye contact. Appropriate mood and affect. SKIN: Warm, dry, normal turgor, no rashes or lesions. Laboratory Results - last 24 hr 06/30/18 06/30/18 06/30/18 04:10 04:10 04:10 WBC 8.2 RBC 3.59 L Hgb 10.5 L Hct 31.4 L MCV 87.7 MCH 29.2 MCHC 33.3 RDW 18.7 H Plt Count 352 MPV 7.3 L Absolute Neuts (auto) 3.7 Neutrophils % 44.7 D Lymphocytes % 40.0 D Monocytes % 12.2 H Eosinophils % 2.1 Basophils % 1.0 Nucleated RBC % 0 PT with INR 12.30 INR 1.04 PTT (Actin FS) 29.4 Sodium 134 L Potassium 4.7 Chloride 100 Carbon Dioxide 26 Anion Gap 8 BUN 11 Creatinine 0.8 Creat Clearance w eGFR > 60 Random Glucose 147 H Calcium 9.5 Magnesium 1.8 Total Bilirubin 0.2 AST 24 ALT 25 Alkaline Phosphatase 105 Creatine Kinase 95 Troponin I < 0.02 Total Protein 7.5 Albumin 3.9 Blood Type Antibody Screen 06/30/18 06/30/18 04:10 04:10 WBC RBC Hgb Hct MCV MCH MCHC RDW Plt Count MPV Absolute Neuts (auto) Neutrophils % Lymphocytes % Monocytes % Eosinophils % Basophils % Nucleated RBC % PT with INR INR PTT (Actin FS) Cancelled Sodium Potassium Chloride Carbon Dioxide Anion Gap BUN Creatinine Creat Clearance w eGFR Random Glucose Calcium Magnesium Total Bilirubin AST ALT Alkaline Phosphatase Creatine Kinase Troponin I Total Protein Albumin Blood Type O NEGATIVE Antibody Screen Negative ASSESSMENT/PLAN: Patient is a 72 year old female with past medical history of HTN, HLD, paroxysmal A-fib on eliquis, diastolic CHF, RA, Lupus, LUISITO, presented with intermittent chest pain since 12am today. #Chest pain, rule out ACS -Trop <0.02x1, EKG NSR with no ST- T wave changes -will trend trop -Cardiology consulted. -Echo in 03/22 done showed normal LV/RV with EF 60-65% -Stress test in 2016 unremarkable -Will keep patient NPO for possible stress test -Tele monitoring -TSH level ordered -A1c, lipid profile #NIDDM -Hold home metformin and januvia -insulin sliding scale implemented -BGM q6h #HTN -Continue home meds #HLD -Continue Lipitor 40mg daily #Paroxysmal Atrial fibrillation: rate controlled -Continue Metoprolol and eliquis #Diastolic CHF -Continue home meds #LUISITO -Continue CPAP #FEN -Not on any standing fluids -Electrolytes wnl, routine bmp monitoring -NPO for possible stress test #Prophylaxis -On eliquis 5mg BID #Disposition -full code -tele obs Visit type - Emergency Visit Emergency Visit: Yes ED Registration Date: 06/30/18 Care time: The patient presented to the Emergency Department on the above date and was hospitalized for further evaluation of their emergent condition. - New Patient This patient is new to me today: Yes Date on this admission: 07/02/18 - Critical Care Critical Care patient: No
[2018-06-30] MEDS ORDERED: FUROSEMIDE 40 MG TABLET (FP) ONE ×2 (06:57→14:22)
[2018-06-30] MEDS: FUROSEMIDE 20 MG TABLET (FP) PO SCH ×2 (06:59→14:37)
[2018-06-30 07:44] LABS: CHOLESTEROL 122 mg/dL (50-200); HDL CHOLESTEROL 58 mg/dL (40-60); TRIGLYCERIDES 87 mg/dL (0-150)
[2018-06-30 07:54] LABS: N-TERMINAL BNP 16.65 pg/ml (5-125)
--- NOTE | 2018-06-30 10:12 | CON.CARD ---
Consult Consult Specialty:: Cardiology Referred by:: Chris Reason for Consultation:: chest pain - History of Present Illness Chief Complaint: cp History of Present Illness: 72 year old female with a PMHx of htn, hld, dm, nonobs CAD (last NST 09/13/16 no ischemia), paroxysmal afib on apixaban, chronic diastolic dysfunction, RA, lupus , and LUISITO presenting with chest pressure and elevated bp. The pain is pressure like, nonexertional, retrosternal, without radiation, lasted hours, did not change with slntg, no specific exacerbating or alleviating factors. Exercise tolerance is poor ECG showed LVH with nssttw changes (no change). Echocardiogram 03/05/18: normal LVEF and moderate TR - History Source History Provided By: Patient, Medical Record - Past Medical History Cardio/Vascular: Yes: AFIB, CAD (non-obs CAD on cardiac cath 2012), HTN, Hyperlipdemia Rheumatology: Yes: Lupus (reports SLE on skin biopsy of face several years ago) , Rheumatoid Arthritis Endocrine: Yes: Diabetes Mellitus - Past Surgical History Past Surgical History: Yes: None - Alcohol/Substance Use Hx Alcohol Use: No History of Substance Use: reports: None - Smoking History Smoking history: Never smoked Have you smoked in the past 12 months: No Aproximately how many cigarettes per day: 0 - Social History ADL: Independent History of Recent Travel: No Home Medications - Allergies Allergies/Adverse Reactions: Allergies Allergy/AdvReac Type Severity Reaction Status Date / Time No Known Allergies Allergy Verified 06/30/18 04:31 - Home Medications Home Medications: Ambulatory Orders Apixaban [Eliquis] 5 mg PO Q12H 10/03/15 Atorvastatin Ca [Lipitor] 40 mg PO HS 10/03/15 Folic Acid 1 mg PO DAILY 10/03/15 Metoprolol Succinate [Toprol Xl] 100 mg PO DAILY 10/03/15 Ranitidine [Zantac -] 150 mg PO BID 07/13/16 Meclizine HCl [Antivert -] 25 mg PO TID 09/13/16 Calcium Carbonate/Vitamin D3 [Calcium 600 + Vit D Tablet] 1 each PO DAILY Furosemide [Lasix -] 20 mg PO BID 02/09/17 Aspirin Coated [Ecotrin -] 81 mg PO HS 03/04/18 Sitagliptin Phosphate [Januvia] 100 mg PO DAILY 03/04/18 metFORMIN HCL [Metformin ER Osmotic] 1,000 mg PO BID 03/04/18 Gabapentin [Neurontin -] 300 mg PO DAILY 06/30/18 Losartan Potassium 100 mg PO DAILY 06/30/18 Spironolactone 25 mg PO DAILY 06/30/18 Family Disease History - Family Disease History Family Disease History: Heart Disease: Father (heart problem, not clear) Vital Signs: Vital Signs Temperature 98.0 F 06/30/18 04:31 Pulse Rate 71 06/30/18 05:02 Respiratory Rate 18 06/30/18 05:02 Blood Pressure 154/78 06/30/18 05:02 O2 Sat by Pulse Oximetry (%) 100 06/30/18 05:02 Constitutional: Yes: No Distress, Calm Eyes: Yes: Conjunctiva Clear, EOM Intact HENT: Yes: Normocephalic Neck: Yes: Trachea Midline Respiratory: Yes: CTA Bilaterally Gastrointestinal: Yes: Normal Bowel Sounds, Soft Renal/: Yes: WNL Cardiovascular: Yes: Regular Rate and Rhythm JVD: No Carotid Bruit: No PMI: Non-Displaced Heart Sounds: Yes: S1, S2 Murmur: Yes: Systolic Murmur, Grade 2 Edema: No Peripheral Pulses WNL: Yes - Other Data Labs, Other Data: CBC, BMP 06/30/18 04:10 06/30/18 04:10 INR, PTT INR 1.04 (0.83-1.09) 06/30/18 04:10 Troponin, BNP 06/30/18 06/30/18 06/30/18 04:10 06:30 06:30 Troponin I < 0.02 < 0.02 Cancelled B-Natriuretic Peptide 16.65 Troponin, BNP 06/30/18 06/30/18 06/30/18 04:10 06:30 06:30 Troponin I < 0.02 < 0.02 Cancelled B-Natriuretic Peptide 16.65 Imaging - Results Chest X-ray: Report Reviewed EKG: Report Reviewed (nsr lvh) Assessment/Plan 72 year old female with a PMHx of htn, hld, dm, nonobs CAD (last NST 09/13/16 no ischemia), paroxysmal afib on apixaban, chronic diastolic dysfunction, RA, lupus , and LUISITO presenting with chest pressure and elevated bp. The pain is pressure like, nonexertional, retrosternal, without radiation, lasted hours, did not change with slntg, no specific exacerbating or alleviating factors. Exercise tolerance is poor ECG showed LVH with nssttw changes (no change). Echocardiogram 03/05/18: normal LVEF and moderate TR 1. Chronic diastolic CHF -continue lasix and spironolactone -no need for repeat echo -she is euvolemic at present. 2. PAF-Continue Eliquis -she is stable in NSR at present 3. Chest pain -atypical for angina, may represent hypertensive heart disease. -need better BP control. -continue BB -Add ACEI for bp control and NIDDM -no need for inpatient ischemia workup. -observe one day on telemetry. -need op fu when dcd.
[2018-06-30] MEDS ORDERED: APIXABAN 5 MG TABLET PO ONE (10:43)
[2018-06-30] MEDS ORDERED: FOLIC ACID 1 MG TABLET (FP) ONE (10:43)
[2018-06-30] MEDS ORDERED: RANITIDINE HCL 150 MG TABLET (FP) ONE (10:43)
[2018-06-30] MEDS ORDERED: SPIRONOLACTONE 25 MG TABLET (FP) ONE (10:44)
[2018-06-30] MEDS ORDERED: GABAPENTIN 100 MG CAPSULE (FP) ONE (10:44)
[2018-06-30] MEDS: CALCIUM 500MG/VIT-D 200 UNITS COMBO TABLET (FP) PO SCH (10:45)
[2018-06-30] MEDS: FOLIC ACID 1 MG TABLET (FP) PO SCH (10:45)
[2018-06-30] MEDS: GABAPENTIN 300 MG CAPSULE (FP) PO SCH (10:45)
[2018-06-30] MEDS: APIXABAN 5 MG TABLET PO SCH ×2 (10:45→21:45)
[2018-06-30] MEDS: RANITIDINE HCL 150 MG TABLET (FP) PO SCH ×2 (10:46→21:45)
--- NOTE | 2018-06-30 10:47 | EKG ---
Test Reason : Blood Pressure : / mmHG Vent. Rate : 069 BPM Atrial Rate : 069 BPM P-R Int : 220 ms QRS Dur : 084 ms QT Int : 386 ms P-R-T Axes : 055 017 039 degrees QTc Int : 413 ms SINUS RHYTHM WITH 1ST DEGREE A-V BLOCK MINIMAL VOLTAGE CRITERIA FOR LVH, MAY BE NORMAL VARIANT BORDERLINE ECG WHEN COMPARED WITH ECG OF 04-MAR-2018 07:50, NO SIGNIFICANT CHANGE WAS FOUND Confirmed by Kannan Jean MD ([id number]) on 06/30/2018 10:47:18 AM Referred By: Confirmed By:Kannan Jean MD
[2018-06-30] MEDS: SPIRONOLACTONE 25 MG TABLET (FP) PO SCH (10:52)
[2018-06-30] MEDS: LOSARTAN POTASSIUM 50 MG TABLET (FP) PO SCH (11:45)
[2018-06-30] MEDS ORDERED: MECLIZINE HCL 25 MG TABLET (FP) ONE (14:23)
[2018-06-30] MEDS: MECLIZINE HCL 25 MG TABLET (FP) PO SCH ×2 (14:37→21:45)
--- NOTE | 2018-06-30 15:54 | PN ---
Progress Note, Physician Chief Complaint: Ms Pack says she feels weak because she has not eaten today. Denies cp, sob, n/v. - Current Medication List Current Medications: Active Medications Apixaban (Eliquis -) 5 mg PO BID [facility] Last Admin: 06/30/18 10:45 Dose: 5 mg Aspirin (Ecotrin -) 81 mg PO HS [facility] Atorvastatin Calcium (Lipitor -) 40 mg PO HS [facility] Calcium Carbonate/Cholecalciferol (Os-Jagjit 500+D -) 1 tab PO DAILY [facility] Last Admin: 06/30/18 10:45 Dose: Not Given Folic Acid (Folic Acid -) 1 mg PO DAILY [facility] Last Admin: 06/30/18 10:45 Dose: 1 mg Furosemide (Lasix -) 20 mg PO BIDLASIX [facility] Last Admin: 06/30/18 14:37 Dose: 20 mg Gabapentin (Neurontin -) 300 mg PO DAILY [facility] Last Admin: 06/30/18 10:45 Dose: 300 mg Insulin Aspart (Novolog Vial Sliding Scale -) 1 vial SQ Q6HPO [facility]; Protocol Last Admin: 06/30/18 13:15 Dose: Not Given Losartan Potassium (Cozaar -) 100 mg PO DAILY [facility] Last Admin: 06/30/18 11:45 Dose: Not Given Meclizine HCl (Antivert -) 25 mg PO TID [facility] Last Admin: 06/30/18 14:37 Dose: 25 mg Metoprolol Succinate (Toprol Xl -) 100 mg PO DAILY [facility] Last Admin: 06/30/18 10:45 Dose: 100 mg Ranitidine HCl (Zantac -) 150 mg PO BID [facility] Last Admin: 06/30/18 10:46 Dose: 150 mg Spironolactone (Aldactone -) 25 mg PO DAILY [facility] Last Admin: 06/30/18 10:52 Dose: 25 mg - Objective Vital Signs: Vital Signs Temperature 36.7 C 06/30/18 04:31 Pulse Rate 71 06/30/18 05:02 Respiratory Rate 18 06/30/18 05:02 Blood Pressure 154/78 06/30/18 05:02 O2 Sat by Pulse Oximetry (%) 100 06/30/18 05:02 Constitutional: Yes: Well Nourished, No Distress, Calm Cardiovascular: Yes: Regular Rate and Rhythm. No: Gallop, Murmur, Rub Respiratory: Yes: Regular, CTA Bilaterally. No: Rales, Rhonchi, Wheezes Gastrointestinal: Yes: Normal Bowel Sounds, Soft. No: Distention, Tenderness Extremities: Yes: WNL Edema: No Labs: CBC, BMP 06/30/18 04:10 06/30/18 04:10 INR, PTT INR 1.04 (0.83-1.09) 06/30/18 04:10 Problem List - Problems (1) Chest pain Code(s): R07.9 - CHEST PAIN, UNSPECIFIED (2) Atrial fibrillation Code(s): I48.91 - UNSPECIFIED ATRIAL FIBRILLATION (3) CAD (coronary artery disease) Code(s): I25.10 - ATHSCL HEART DISEASE OF [place] CORONARY ARTERY W/O ANG PCTRS Qualifiers: Coronary Disease-Associated Artery/Lesion type: [place] artery [place] vs. transplanted heart: [place] heart Associated angina: without angina Qualified Code(s): I25.10 - Atherosclerotic heart disease of [place] coronary artery without angina pectoris (4) Headache Code(s): R51 - HEADACHE (5) DM Diabetes mellitus type 2 Code(s): E11.9 - TYPE 2 DIABETES MELLITUS WITHOUT COMPLICATIONS (6) Hyperlipidemia Code(s): E78.5 - HYPERLIPIDEMIA, UNSPECIFIED (7) Hypertension Code(s): I10 - ESSENTIAL (PRIMARY) HYPERTENSION Qualifiers: Hypertension type: essential hypertension Qualified Code(s): I10 - Essential (primary) hypertension Assessment/Plan -patient feeling better today -asking for diet, started on diabetic diet -continue current management -cardiology note reviewed -will monitor on telemetry today -if stable, can discharge home tomorrow
[2018-06-30 18:46] VITALS: BMI 32.4
[2018-06-30] MEDS ORDERED: ASPIRIN COATED 81 MG TABLET.EC PO SCH (22:00)
[2018-06-30] MEDS ORDERED: ATORVASTATIN CA 40 MG TABLET (FP) PO SCH (22:00)
[2018-07-01 03:04] LABS: INR 1.08 (0.83-1.09); PROTHROMBIN TIME (PATIENT) 12.8 SEC (9.7-13.0)
[2018-07-01] MEDS: MECLIZINE HCL 25 MG TABLET (FP) PO SCH ×2 (06:16→15:14)
[2018-07-01] MEDS: INSULIN SLIDING SCALE (NOVOLOG) 1 VIAL SQ SCH ×3 (06:16→17:58)
[2018-07-01] MEDS: FUROSEMIDE 20 MG TABLET (FP) PO SCH ×2 (06:16→15:14)
[2018-07-01 06:35] LABS: BASO % 0.8 % (0-2.0); EOS % 2.5 % (0-4.5); HEMATOCRIT 31.5 % (32.4-45.2); HEMOGLOBIN 10.3 GM/dL (10.7-15.3); MCH 28.5 pg (25.7-33.7); MCHC 32.9 g/dl (32.0-36.0); MEAN CELL VOLUME 86.7 fl (80-96); MONO % 13.3 % (3.8-10.2); NEUT % 41.4 % (42.8-82.8); PLATELET COUNT 355 K/MM3 (134-434); RBC 3.63 M/mm3 (3.60-5.2); RDW 19.2 % (11.6-15.6); WHITE BLOOD COUNT 6.1 K/mm3 (4.0-10.0)
[2018-07-01 07:07] LABS: ANION GAP 9 MMOL/L (8-16); BLOOD UREA NITROGEN 18 mg/dL (7-18); CALCIUM 9.5 mg/dL (8.5-10.1); CHLORIDE 102 mmol/L (98-107); CO2 28 mmol/L (21-32); CREATININE 0.9 mg/dL (0.55-1.3); GLUCOSE,RANDOM 135 mg/dL (74-106); MAGNESIUM 2.2 mg/dL (1.8-2.4); PHOSPHOROUS 6.3 mg/dL (2.5-4.9); POTASSIUM 4.3 mmol/L (3.5-5.1); SODIUM 139 mmol/L (136-145)
--- NOTE | 2018-07-01 07:55 | DS ---
Physical Examination Vital Signs: Vital Signs Temperature 97.9 F 07/01/18 02:42 Pulse Rate 77 07/01/18 02:42 Respiratory Rate 18 07/01/18 02:42 Blood Pressure 139/65 07/01/18 02:42 O2 Sat by Pulse Oximetry (%) 100 06/30/18 20:48 Elderly F comfortable remained chest pain free HEENT: MM moist, no anemia, PERRLA EOMI NECK: No JVd No Bruit CHEST: CTA B/L CVS: S1S2 r no m/g/r ABD: No distention, non tender Bs EXT:No edema feet, no calf tenderness [employer]: AOX3 non focal Labs: CBC, BMP 07/01/18 05:30 07/01/18 05:30 Troponin I X3 normal CXR: Normal Discharge Summary Reason For Visit: SHORTNESS OF BREATH,CHEST PAIN OF UNCERTAIN Current Active Problems Chest pain (Acute) Hospital Course: 72 yrs old multiple medical Co-morbidities H/O obesity, HTN< Non obstructive CAD s/p Cath in 2012 and NST in 09/2016 that was reported normal. PAfib, HFpEF last ECHO 03/2018, Dyslipedemia, present with Chest pain with SOB evaluated no new EKG changes, CE X3 normal LDL at target chest pain and symptoms resolved remained hemodynamically stable and symptoms free, no event on tele monitor evaluated and cleared by Cardiology to Dc Home on current meds. Patient has F/ [facility] arrhythmia and CHF clinic last visit a wk ago and she was told to revisit after 1 yr, patient also had a NST at [facility] 1 yr ago that was reported normal. Condition: Fair - Instructions Diet, Activity, Other Instructions: Low Salt Low Cholesterol Wt reduction Referrals: Henry Flores MD [Primary Care Provider] - Disposition: VNS/HOME HEALTH CARE - Home Medications Comprehensive Discharge Medication List: Ambulatory Orders Apixaban [Eliquis] 5 mg PO Q12H 10/03/15 Atorvastatin Ca [Lipitor] 40 mg PO HS 10/03/15 Folic Acid 1 mg PO DAILY 10/03/15 Metoprolol Succinate [Toprol Xl] 100 mg PO DAILY 10/03/15 Ranitidine [Zantac -] 150 mg PO BID 07/13/16 Meclizine HCl [Antivert -] 25 mg PO TID 09/13/16 Calcium Carbonate/Vitamin D3 [Calcium 600 + Vit D Tablet] 1 each PO DAILY Furosemide [Lasix -] 20 mg PO BID 02/09/17 Aspirin Coated [Ecotrin -] 81 mg PO HS 03/04/18 Sitagliptin Phosphate [Januvia] 100 mg PO DAILY 03/04/18 metFORMIN HCL [Metformin ER Osmotic] 1,000 mg PO BID 03/04/18 Gabapentin [Neurontin -] 300 mg PO DAILY 06/30/18 Losartan Potassium 100 mg PO DAILY 06/30/18 Spironolactone 25 mg PO DAILY 06/30/18
[2018-07-01] MEDS: SPIRONOLACTONE 25 MG TABLET (FP) PO SCH (10:25)
[2018-07-01] MEDS: LOSARTAN POTASSIUM 50 MG TABLET (FP) PO SCH (10:26)
[2018-07-01] MEDS: CALCIUM 500MG/VIT-D 200 UNITS COMBO TABLET (FP) PO SCH (10:26)
[2018-07-01] MEDS: GABAPENTIN 300 MG CAPSULE (FP) PO SCH (10:26)
[2018-07-01] MEDS: FOLIC ACID 1 MG TABLET (FP) PO SCH (10:26)
[2018-07-01] MEDS: RANITIDINE HCL 150 MG TABLET (FP) PO SCH (10:26)
[2018-07-01] MEDS: APIXABAN 5 MG TABLET PO SCH (10:26)
[2018-07-01] MEDS ORDERED: PT OWN MED DRAWER 7, Y5N ONE (10:44)
--- NOTE | 2018-07-01 15:18 | PN ---
Progress Note, Physician Chief Complaint: no new complaints tele neg History of Present Illness: 72 year old female with a PMHx of htn, hld, dm, nonobs CAD (last NST 09/13/16 no ischemia), paroxysmal afib on apixaban, chronic diastolic dysfunction, RA, lupus , and LUISITO presenting with chest pressure and elevated bp. The pain is pressure like, nonexertional, retrosternal, without radiation, lasted hours, did not change with slntg, no specific exacerbating or alleviating factors. Exercise tolerance is poor ECG showed LVH with nssttw changes (no change). Echocardiogram 03/05/18: normal LVEF and moderate TR - Current Medication List Current Medications: Active Medications Apixaban (Eliquis -) 5 mg PO BID [facility] Last Admin: 07/01/18 10:26 Dose: 5 mg Aspirin (Ecotrin -) 81 mg PO [facility] Last Admin: 06/30/18 21:45 Dose: 81 mg Atorvastatin Calcium (Lipitor -) 40 mg PO HS [facility] Last Admin: 06/30/18 21:45 Dose: 40 mg Calcium Carbonate/Cholecalciferol (Os-Jagjit 500+D -) 1 tab PO DAILY [facility] Last Admin: 07/01/18 10:26 Dose: 1 tab Folic Acid (Folic Acid -) 1 mg PO DAILY [facility] Last Admin: 07/01/18 10:26 Dose: 1 mg Furosemide (Lasix -) 20 mg PO BIDLASIX [facility] Last Admin: 07/01/18 15:14 Dose: 20 mg Gabapentin (Neurontin -) 300 mg PO DAILY [facility] Last Admin: 07/01/18 10:26 Dose: 300 mg Insulin Aspart (Novolog Vial Sliding Scale -) 1 vial SQ Q6HPO [facility]; Protocol Last Admin: 07/01/18 11:30 Dose: 4 units Losartan Potassium (Cozaar -) 100 mg PO DAILY [facility] Last Admin: 07/01/18 10:26 Dose: 100 mg Meclizine HCl (Antivert -) 25 mg PO TID [facility] Last Admin: 07/01/18 15:14 Dose: 25 mg Metoprolol Succinate (Toprol Xl -) 100 mg PO DAILY [facility] Last Admin: 07/01/18 10:26 Dose: 100 mg Ranitidine HCl (Zantac -) 150 mg PO BID [facility] Last Admin: 07/01/18 10:26 Dose: 150 mg Spironolactone (Aldactone -) 25 mg PO DAILY [facility] Last Admin: 07/01/18 10:25 Dose: 25 mg - Objective Vital Signs: Vital Signs Temperature 98.1 F 07/01/18 09:21 Pulse Rate 88 07/01/18 09:21 Respiratory Rate 18 07/01/18 09:21 Blood Pressure 136/76 07/01/18 09:21 O2 Sat by Pulse Oximetry (%) 98 07/01/18 12:00 Constitutional: Yes: No Distress, Calm Eyes: Yes: Conjunctiva Clear, EOM Intact HENT: Yes: Atraumatic, Pharyngeal Erythema Neck: Yes: Supple Cardiovascular: Yes: Regular Rate and Rhythm Respiratory: Yes: CTA Bilaterally Gastrointestinal: Yes: Normal Bowel Sounds, Soft Extremities: Yes: WNL Edema: No Peripheral Pulses WNL: Yes Labs: CBC, BMP 07/01/18 05:30 07/01/18 05:30 INR, PTT INR 1.08 (0.83-1.09) 06/30/18 04:10 Assessment/Plan 72 year old female with a PMHx of htn, hld, dm, nonobs CAD (last NST 09/13/16 no ischemia), paroxysmal afib on apixaban, chronic diastolic dysfunction, RA, lupus , and LUISITO presenting with chest pressure and elevated bp. The pain is pressure like, nonexertional, retrosternal, without radiation, lasted hours, did not change with slntg, no specific exacerbating or alleviating factors. Exercise tolerance is poor ECG showed LVH with nssttw changes (no change). Echocardiogram 03/05/18: normal LVEF and moderate TR 1. Chronic diastolic CHF -continue lasix and spironolactone -no need for repeat echo -she is euvolemic at present. 2. PAF-Continue Eliquis -she is stable in NSR at present 3. Chest pain -atypical for angina, may represent hypertensive heart disease. -need better BP control. -continue BB -Add ACEI for bp control and NIDDM -no need for inpatient ischemia workup. -dc telemetry -needs op fu when dcd.
[2018-07-01 15:34] VITALS: BP 107/50; PULSE 87; TEMP 98
== END 2018-07-01 18:26 | disposition home health service (06) ==
LOC: JER 03:49 → JERBED 06:05 → J4W 18:02
PROVIDERS: ADMIT Internal Medicine; ATTEND Internal Medicine
PROC: 3E013VG Introduction of Insulin into Subcutaneous Tissue, Percutaneous Approach (ICD-10-PCS; principal; 2018-06-30)
DX: R07.9 Chest pain, unspecified (principal); I11.0 Hypertensive heart disease with heart failure; E78.5 Hyperlipidemia, unspecified; E11.9 Type 2 diabetes mellitus without complications; I48.0 Paroxysmal atrial fibrillation; I50.32 Chronic diastolic (congestive) heart failure; M06.9 Rheumatoid arthritis, unspecified; G47.33 Obstructive sleep apnea (adult) (pediatric); I25.10 Atherosclerotic heart disease of native coronary artery without angina pectoris; Z87.39 Personal history of other diseases of the musculoskeletal system and connective tissue; Z79.01 Long term (current) use of anticoagulants; Z79.84 Long term (current) use of oral hypoglycemic drugs; Z79.82 Long term (current) use of aspirin
CPT/HCPCS: 36415; 71045-TC-FY; 80048; 80053; 80061; 82550; 82962; 83036; 83721; 83735; 83880; 84100; 84443; 84484; 85025; 85610; 85651; 85730; 86140; 86850; 86900; 86901; 87633; 87804; 93005; 93010; 96372; 99285-25; G0378

== ENCOUNTER 2020-01-04 02:21 | Inpatient (IN) | payer OTHER ==
[2020-01-04 02:46] VITALS: BMI 32.9
--- NOTE | 2020-01-04 02:56 | PDOC ---
History of Present Illness - General Chief Complaint: Blood Pressure Problem Stated Complaint: HYPERTENSIVE Time Seen by Provider: 01/04/20 02:49 Past History - Medical History Allergies/Adverse Reactions: Allergies Allergy/AdvReac Type Severity Reaction Status Date / Time No Known Allergies Allergy Verified 06/30/18 04:31 Home Medications: Ambulatory Orders Apixaban [Eliquis] 5 mg PO Q12H 10/03/15 Atorvastatin Ca [Lipitor] 40 mg PO HS 10/03/15 Folic Acid 1 mg PO DAILY 10/03/15 Metoprolol Succinate [Toprol Xl] 100 mg PO DAILY 10/03/15 Ranitidine [Zantac -] 150 mg PO BID 07/13/16 Meclizine HCl [Antivert -] 25 mg PO TID 09/13/16 Calcium Carbonate/Vitamin D3 [Calcium 600 + Vit D Tablet] 1 each PO DAILY 02/09/17 Furosemide [Lasix -] 20 mg PO BID 02/09/17 Aspirin Coated [Ecotrin -] 81 mg PO HS 03/04/18 Sitagliptin Phosphate [Januvia] 100 mg PO DAILY 03/04/18 metFORMIN HCL [Metformin ER Osmotic] 1,000 mg PO BID 03/04/18 Gabapentin [Neurontin -] 300 mg PO DAILY 06/30/18 Losartan Potassium 100 mg PO DAILY 06/30/18 Spironolactone 25 mg PO DAILY 06/30/18 Anemia: No Asthma: No Cancer: No Cardiac Disorders: Yes (Non-obstructive CAD, PAF,) CVA: No COPD: No CHF: (Yes/Chronic diastolic dysfunction) Dementia: No Diabetes: Yes GI Disorders: No Disorders: No HTN: Yes Hypercholesterolemia: Yes Liver Disease: No Seizures: No Thyroid Disease: No - Surgical History Abdominal Surgery: Yes (Tubal Ligation) Appendectomy: No Cardiac Surgery: No Cholecystectomy: No Lung Surgery: No Neurologic Surgery: No Orthopedic Surgery: No - Reproductive History Is Patient Now?: No - Immunization History Td Vaccination: Yes Immunization Up to Date: Yes - Psycho-Social/Smoking History Smoking Status: No Smoking History: Never smoked Years of Tobacco Use: 0 Have you smoked in the past 12 months: No Number of Cigarettes Smoked Daily: 0 Cigars Per Day: 0 - Substance Abuse Hx (Audit-C & DAST Scrn) How often the patient has a drink containing alcohol: Never Score: In Men: 4 or > Positive; In Women: 3 or > Positive: 0 Screen Result (Pos requires Nsg. Audit-10AR): Negative In the last yr the pt used illegal drug/Rx for NonMed reason: No Score: Yes response is considered Positive: 0 Screen Result (Positive result requires Nsg. DAST-10): Negative Cardiac Specific PMH - Complaint Specific PMHX Abdominal Aortic Aneurysm: No Cardiac Arrhythmia: No Cardiac Stent: No Pacemaker: No Pulmonary Embolus: No Valvular Heart Disease: No Peripheral Vascular Disease: No *Physical Exam - Vital Signs Last Vital Signs Temp Pulse Resp BP Pulse Ox 98.9 F 85 17 188/81 H 100 01/04/20 02:36 01/04/20 02:36 01/04/20 02:36 01/04/20 02:36 01/04/20 02:36 Heart Score/ECG Review - History History: Highly suspicious - Electrocardiogram EKG: Non specific repolarization disturbance - Age Age: >/= 65 - Risk Factors Risk Factors Heart Score: Yes Hx Hypercholesterolemia, Yes Hx Hypertension, Yes Hx Obesity - ECG Intrepretation Rhythm: Regular Rhythm - [place]: Left [place] Deviation - P and DC Prolonged DC Interval: 1st Degree Block(>20mils) - ST and T Non Specific ST-T Wave changes: Yes Medical Decision Making - Medical Decision Making 01/04/20 02:55 ACS: dizzy + palpitations + chest discomfort going down the left arm + HDL + HTN + Obesity + ST depression in >1 lead -> workup for ACS
--- NOTE | 2020-01-04 02:58 | PDOC ---
History of Present Illness - General Chief Complaint: Blood Pressure Problem Stated Complaint: HYPERTENSIVE Time Seen by Provider: 01/04/20 02:49 - History of Present Illness Initial Comments: 01/04/20 02:56 74yo Greek-speaking F h/o HDL, HTN, obesity, on eliquis for PAF BIBEMS after activating her medic alert bracelet. She was home with her aid and started to feel palpitations. She took her BP and was hypertensive to 180/110. She activated her medic alert. 2nd BP at home was reported to be 170/90. In the ED she states she is still having palpitations. 01/04/20 03:00 Past History - Medical History Allergies/Adverse Reactions: Allergies Allergy/AdvReac Type Severity Reaction Status Date / Time No Known Allergies Allergy Verified 06/30/18 04:31 Home Medications: Ambulatory Orders Apixaban [Eliquis] 5 mg PO Q12H 10/03/15 Atorvastatin Ca [Lipitor] 80 mg PO HS 10/03/15 Folic Acid 1 mg PO DAILY 10/03/15 Metoprolol Succinate [Toprol Xl] 100 mg PO DAILY 10/03/15 Meclizine HCl [Antivert -] 25 mg PO PRN PRN 09/13/16 Calcium Carbonate/Vitamin D3 [Calcium 600 + Vit D Tablet] 1 each PO DAILY 02/09/17 Furosemide [Lasix -] 20 mg PO BID 02/09/17 Aspirin Coated [Ecotrin -] 81 mg PO DAILY 03/04/18 Sitagliptin Phosphate [Januvia] 100 mg PO DAILY 03/04/18 metFORMIN HCL [Metformin ER Osmotic] 1,000 mg PO BID 03/04/18 Gabapentin [Neurontin -] 300 mg PO DAILY 06/30/18 Spironolactone 25 mg PO DAILY 06/30/18 Amlodipine Besylate [Norvasc -] 2.5 mg PO DAILY #60 tablet 01/04/20 Losartan Potassium [Cozaar -] 100 mg PO DAILY #120 tablet 01/04/20 Magnesium Oxide [Mag-Ox -] 400 mg PO BID #60 tablet 01/04/20 Omeprazole 40 mg PO DAILY 01/04/20 Anemia: No Asthma: No Cancer: No Cardiac Disorders: Yes (Non-obstructive CAD, PAF,) CVA: No COPD: No CHF: (Yes/Chronic diastolic dysfunction) Dementia: No Diabetes: Yes GI Disorders: No Disorders: No HTN: Yes Hypercholesterolemia: Yes Liver Disease: No Seizures: No Thyroid Disease: No - Surgical History Abdominal Surgery: Yes (Tubal Ligation) Appendectomy: No Cardiac Surgery: No Cholecystectomy: No Lung Surgery: No Neurologic Surgery: No Orthopedic Surgery: No - Reproductive History Is Patient Now?: No - Immunization History Td Vaccination: Yes Immunization Up to Date: Yes - Psycho-Social/Smoking History Smoking Status: No Smoking History: Never smoked Years of Tobacco Use: 0 Have you smoked in the past 12 months: No Number of Cigarettes Smoked Daily: 0 Cigars Per Day: 0 - Substance Abuse Hx (Audit-C & DAST Scrn) How often the patient has a drink containing alcohol: Never Score: In Men: 4 or > Positive; In Women: 3 or > Positive: 0 Screen Result (Pos requires Nsg. Audit-10AR): Negative In the last yr the pt used illegal drug/Rx for NonMed reason: No Score: Yes response is considered Positive: 0 Screen Result (Positive result requires Nsg. DAST-10): Negative Cardiac Specific PMH - Complaint Specific PMHX Abdominal Aortic Aneurysm: No Cardiac Arrhythmia: No Cardiac Stent: No Pacemaker: No Pulmonary Embolus: No Valvular Heart Disease: No Peripheral Vascular Disease: No Review of Systems - Review of Systems Able to Perform ROS?: Yes Is the patient limited Dutch proficient: Yes Constitutional: No: Chills, Diaphoresis, Fever HEENTM: No: Blurred Vision, Recent change in vision, Nose Congestion, Tinnitus Respiratory: No: Cough, Shortness of Breath Cardiac (ROS): Yes: Chest Pain, Palpitations. No: Syncope ABD/GI: No: Nausea, Poor Fluid Intake, Vomiting : No: Burning, Dysuria Musculoskeletal: No: Muscle Pain, Muscle Weakness Integumentary: No: See HPI Neurological: No: Headache, Numbness, Seizure, Dizziness Endocrine: No: Unexplained Weight Gain, Unexplained Weight Loss *Physical Exam - Vital Signs Last Vital Signs Temp Pulse Resp BP Pulse Ox 97.6 F 77 18 132/69 99 01/04/20 14:29 01/04/20 14:29 01/04/20 14:29 01/04/20 14:29 01/04/20 14:29 - Physical Exam General Appearance: Yes: Nourished, Appropriately Dressed, Obese. No: Apparent Distress HEENT: positive: EOMI, AVRIL. negative: Pale Conjunctivae, Rhinorrhea Neck: positive: Trachea midline, Normal Thyroid, Supple Respiratory/Chest: positive: Lungs Clear, Normal Breath Sounds. negative: Chest Tender, Respiratory Distress, Accessory Muscle Use, Labored Respiration Cardiovascular: positive: Regular Rhythm, Regular Rate, S1, S2, Other (no pedal edema appreciated) Gastrointestinal/Abdominal: positive: Normal Bowel Sounds, Soft. negative: Pulsatile Mass, Guarding, Tenderness Musculoskeletal: positive: Normal Inspection. negative: CVA Tenderness, Muscle Spasm Extremity: positive: Normal Capillary Refill. negative: Tender Integumentary: positive: Normal Color, Dry, Warm Neurologic: positive: Fully Oriented, Alert, Normal Response Heart Score/ECG Review - ECG Intrepretation Comment:: 01/04/20 04:50 K reported as 7 but grossly hemolyzed. No EKG changes suggestive of hyperKalemia ED Treatment Course - LABORATORY CBC & Chemistry Diagram: 01/04/20 08:49 01/04/20 08:49 - ADDITIONAL ORDERS Additional order review: 01/04/20 03:16 RBC 3.40 L MCV 92.9 MCHC 33.5 RDW 14.5 D MPV 7.3 L - Medications Given in the ED: ED Medications Discontinued Medications Generic Name Dose Route Start Last Admin Trade Name Cosmeq PRN Reason Stop Dose Admin Amlodipine Besylate 5 mg 01/04/20 14:00 01/04/20 14:11 Norvasc - PO 5 mg DAILY BHARATHI Administration Apixaban 5 mg 01/04/20 10:00 01/04/20 09:54 Eliquis - PO 5 mg BID BHARATHI Administration Aspirin 81 mg 01/04/20 10:00 01/04/20 10:20 Ecotrin - PO 81 mg DAILY BHARATHI Administration Furosemide 20 mg 01/04/20 10:23 01/04/20 14:11 Lasix - PO 20 mg BIDLASIX BHARATHI Administration Insulin Aspart 1 vial 01/04/20 11:00 01/04/20 11:04 Novolog Vial Sliding Scale - SQ Not Given ACHS BHARATHI Protocol Losartan Potassium 100 mg 01/04/20 10:00 01/04/20 09:54 Cozaar - PO 100 mg DAILY BHARATHI Administration Magnesium Sulfate 2 gm 01/04/20 10:15 01/04/20 10:20 Magnesium Sulf 2 G/50 Ml Bag IVPB 01/04/20 10:16 2 gm ONCE ONE Administration Metoprolol Succinate 100 mg 01/04/20 14:30 01/04/20 14:50 Toprol Xl - PO 100 mg DAILY BHARATHI Administration Multivitamins/Minerals/Vitamin C 1 tab 01/04/20 10:30 01/04/20 10:43 Tab-A-Vit - PO 1 tab DAILY BHARATHI Administration Spironolactone 25 mg 01/04/20 10:00 01/04/20 10:22 Aldactone - PO 25 mg DAILY BHARATHI Administration Medical Decision Making - Medical Decision Making 01/06/20 13:45 Admit Discharge - Discharge Information Problems reviewed: Yes Clinical Impression/Diagnosis: Heart palpitations, HTN Hypertensive heart disease, Hyperlipidemia, DM Diabetes mellitus type 2, PAF (paroxysmal atrial fibrillation) Condition: Good Disposition: HOME - Admission Yes - Follow up/Referral - Patient Discharge Instructions - Post Discharge Activity
[2020-01-04] MEDS ORDERED: NITROGLYCERIN 0.4MG/SPRAY 4.9 GM BOTTLE TL SCH (03:00)
--- NOTE | 2020-01-04 03:25 | PDOC ---
Attending Attestation - Resident Resident Name: Jose Ramon Rodríguez - ED Attending Attestation I have performed the following: I have examined & evaluated the patient, The case was reviewed & discussed with the resident, I agree w/resident's findings & plan, Exceptions are as noted - HPI HPI: 01/04/20 03:25 74yo [place]araguan-speaking F h/o HDL, HTN, obesity, on eliquis for PAF p/w palpitations and chest discomfort. Took her BP at home and found to be hypertensive which prompted her to activate her medical alert. Currently reporting persistent palpitations. Reports episode of diarrhea yesterday and complaining of nausea but denies any vomiting. - Physicial Exam PE: 01/04/20 03:30 General: well appearing Chest: CTAB, good air entry CVS: + s1 s2, RRR - Medical Decision Making 01/04/20 03:30 74 yo F multiple medical problems here with chest discomfort and palpitations, EKG unchanged from prior however given cardiac history concern for ACS. Plan: -labs -cxr -pain control as needed -admit tele obs This clinical encounter is taking place during a federal and state health care emergency attributable to the novel [place] Virus pandemic. The Field Contact Person of the Department of Health and Human Services has declared, pursuant to the Public Health Service Act 319F-3 (42 U.S.C. 247d-6d), that a covered persons activities related to medical countermeasures against COVID-19 will be immune from liability under Federal and State law. Discharge - Discharge Information Problems reviewed: Yes Clinical Impression/Diagnosis: Heart palpitations, HTN Hypertensive heart disease, Hyperlipidemia, DM Diabetes mellitus type 2, PAF (paroxysmal atrial fibrillation) Condition: Fair - Follow up/Referral - Patient Discharge Instructions - Post Discharge Activity
[2020-01-04 03:57] LABS: HEMATOCRIT 31.6 % (32.4-45.2); HEMOGLOBIN 10.6 GM/dL (10.7-15.3); MCH 31.1 pg (25.7-33.7); MEAN CELL VOLUME 92.9 fl (80-96); WHITE BLOOD COUNT 7.9 K/mm3 (4.0-10.0)
[2020-01-04 03:58] LABS: MCHC 33.5 g/dl (32.0-36.0); MEAN PLT VOLUME 7.3 fl (7.5-11.1); PLATELET COUNT 297 K/MM3 (134-434); RDW 14.5 % (11.6-15.6)
[2020-01-04 04:22] LABS: ALBUMIN 3.9 g/dl (3.4-5.0); BILIRUBIN,TOTAL 0.3 mg/dL (0.2-1); BLOOD UREA NITROGEN 18.3 mg/dL (7-18); CALCIUM 9.1 mg/dL (8.5-10.1); CREATININE 1.2 mg/dL (0.55-1.3); TOT PROT 7.7 g/dl (6.4-8.2)
--- NOTE | 2020-01-04 05:29 | PN ---
Teaching Attending Note Name of Resident: Kelly Browne ATTENDING PHYSICIAN STATEMENT I saw and evaluated the patient. I reviewed the resident's note and discussed the case with the resident. I agree with the resident's findings and plan as documented. SUBJECTIVE: History obtained with help of helpdesk administrator by phone. Please note patient is able to provide limited history. 74yoF with h/o paroxysmal atrial fibrillation on apixaban, chronic diastolic CHF, non-obstructive CAD, RA, lupus, LUISITO, HTN, and HLD who presents with numerous complaints including palpitations, chest pain, and elevated blood pressure. Patient began experiencing lightheadedness, nausea, palpitations, left sided chest pain, and shortness of breath last night and used her medical alert button to call EMS. Reports her blood pressure was very high, in 170s-180s systolic. Endorses good compliance with her medications but is unable to name them and does not have a list with her. Patient has had several admissions in the past with similar symptoms, on chart review Echo 03/2018 showed LVEF 65% and nuclear stress test in 2017 did not show evidence of ischemia. Patient was hypertensive to 188/81 on arrival to the ED. Labs notable for potassium 7, grossly hemolyzed. EKG showed sinus arrhythmia, no ST or T wave changes. Patient ambulated about 10ft while connected to telemetry and complained of palpitations but remained in sinus rhythm with rate in 80s on the monitor. Admitted for further work up and management. OBJECTIVE: Vital Signs (72 hours) 01/04/20 02:36 Temperature 98.9 F Pulse Rate 85 Respiratory 17 Rate Blood Pressure 188/81 H O2 Sat by Pulse 100 Oximetry (%) Exam: Gen: awake, alert, no acute distress HEENT: PERRL CV: RRR, no MRG appreciated. Chest pain reproducible to palpation Resp: Crackles bilateral bases Abd: Soft, NT, ND Ext: No peripheral edema Neuro: CN II-XII grossly intact, ambulates without assistance Laboratory Results - last 24 hr 01/04/20 01/04/20 01/04/20 03:16 03:16 03:16 WBC 7.9 RBC 3.40 L Hgb 10.6 L Hct 31.6 L MCV 92.9 MCH 31.1 MCHC 33.5 RDW 14.5 D Plt Count 297 MPV 7.3 L Sodium 134 L Potassium 7.0 H* Chloride 100 Carbon Dioxide 26 Anion Gap 7 L BUN 18.3 H Creatinine 1.2 Est GFR (CKD-EPI)AfAm 51.92 Est GFR (CKD-EPI)NonAf 44.80 Random Glucose 180 H Calcium 9.1 Total Bilirubin 0.3 AST 74 H ALT 37 Alkaline Phosphatase 102 Creatine Kinase 158 Creatine Kinase Index No Result Required. CK-MB (CK-2) < 1.0 Troponin I < 0.02 Total Protein 7.7 Albumin 3.9 ASSESSMENT AND PLAN: 74yoF with h/o paroxysmal atrial fibrillation on apixaban, non-obstructive CAD, chronic diastolic CHF, RA, lupus, LUISITO, HTN, and HLD who presents with palpitations and elevated blood pressure. Palpitations, chest pain; h/o paroxysmal Afib Chest pain is reproducible, reassuring against cardiac etiology Patient also observed to be in sinus rhythm on telemetry with rate in 80s while complaining of palpitations EKG sinus arrhythmia, no evidence of acute ischemia; initial troponin negative Given h/o afib and non-obstructive CAD will monitor on telemetry and rule out ACS Suspect anxiety may be contributing to symptoms - telemetry - cycle troponin - rpt potassium Hypertensive urgency MAP 117 on arrival to the ED Reports she had taken her home medications yesterday - please confirm home medications with her PCP or pharmacy - previously on losartan 100mg, will give one dose now Chronic diastolic CHF Faint crackles on exam, CXR with mild pulmonary vascular congestion by my read Does not appear overtly hypervolemic Home diuretic dose unknown - confirm home meds, resume diuresis - monitor I/O Chronic, stable: T2DM: Unable to confirm home medications. ISS HLD: continue home meds DVT ppx: continue apixaban
--- NOTE | 2020-01-04 07:09 | HP ---
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 Katlyn Wilkes? HISTORY OF PRESENT ILLNESS: 74yo F with PMHx HTN, HDL, DM, afib on eliquis, diastolic HF, RA, lupus, LUISITO who presents with complaints of high home SBP 170s, intermittent headaches, diffi culties walking, and chest pain/tightness that does not change with rest and does not radiate. 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 Patient also complained of blurry vision and dizziness but denied the sensation that the room is spinning. She said she suffers of vertigo but this dizziness is different. Also endorsed mild nausea and diarrhea but said not today. Denied fevers, runny nose, constipation, dysuria, and urinary frequency. Her main complaint when seen was that she continues to feel lots of palpitations and continues to feel overall bad. She lives alone and called EMS when she started feeling bad. At baseline, she can walk up one flight of steps without issues. ER course was notable for: (1) bilateral lower lobe inspiratory crackles on physical exam (2) AST 74 (3) EKG: sinus arrhythmia with 1st degree AV block (4) CXR: possible perihilar congestion Recent Travel: Went to [place] July - November PAST MEDICAL HISTORY: as per HPI PAST SURGICAL HISTORY: endorsed 3 surgeries but unable to remember exactly. 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 Allergies No Known Allergies Allergy (Verified 06/30/18 04:31) HOME MEDICATIONS: Home Medications Medication Instructions Recorded Apixaban [Eliquis] 5 mg PO Q12H 10/03/15 Atorvastatin Ca [Lipitor] 40 mg PO HS 10/03/15 Folic Acid 1 mg PO DAILY 10/03/15 Metoprolol Succinate [Toprol Xl] 100 mg PO DAILY 10/03/15 Ranitidine [Zantac -] 150 mg PO BID 07/13/16 Meclizine HCl [Antivert -] 25 mg PO TID 09/13/16 Calcium Carbonate/Vitamin D3 1 each PO DAILY 02/09/17 [Calcium 600 + Vit D Tablet] Furosemide [Lasix -] 20 mg PO BID 02/09/17 Aspirin Coated [Ecotrin -] 81 mg PO HS 03/04/18 Sitagliptin Phosphate [Januvia] 100 mg PO DAILY 03/04/18 metFORMIN HCL [Metformin ER 1,000 mg PO BID 03/04/18 Osmotic] Gabapentin [Neurontin -] 300 mg PO DAILY 06/30/18 Losartan Potassium 100 mg PO DAILY 06/30/18 Spironolactone 25 mg PO DAILY 06/30/18 REVIEW OF SYSTEMS as per HPI PHYSICAL EXAMINATION Vital Signs - 24 hr 01/04/20 01/04/20 02:36 06:16 Temperature 98.9 F 98.1 F Pulse Rate 85 Pulse Rate [ 82 Right Apical] Respiratory 17 16 Rate Blood Pressure 188/81 H Blood Pressure 175/79 H [Left Arm] O2 Sat by Pulse 100 99 Oximetry (%) GENERAL: F, appears stated age, AAOx3, in no acute distress. HEAD: Normal with no signs of trauma. EYES: Pupils equal, round and reactive to light, extraocular movements intact, direct and consensual pupillary reflexes intact NECK: muscular tenderness LUNGS: crackles in bilateral lower lung bedolla HEART: unable to appreciate ABDOMEN: Soft, nontender, not distended, mildly decreased bowel sounds MUSCULOSKELETAL: Normal range of motion at all joints given age. No CVA tenderness but endorses paraspinal muscular pain EXTREMITIES: 2+ radial and dorsalis pedis pulses, warm, no peripheral edema NEUROLOGICAL: Cranial nerves grossly II-XII intact. Normal speech. Symmetrical facial movements PSYCHIATRIC: Somewhat cooperative, needs occasional prompting. Limited eye contact SKIN: no rashes or lesions noted Laboratory Results - last 24 hr 01/04/20 01/04/20 01/04/20 03:16 03:16 03:16 WBC 7.9 RBC 3.40 L Hgb 10.6 L Hct 31.6 L MCV 92.9 MCH 31.1 MCHC 33.5 RDW 14.5 D Plt Count 297 MPV 7.3 L Sodium 134 L Potassium 7.0 H* Chloride 100 Carbon Dioxide 26 Anion Gap 7 L BUN 18.3 H Creatinine 1.2 Est GFR (CKD-EPI)AfAm 51.92 Est GFR (CKD-EPI)NonAf 44.80 Random Glucose 180 H Calcium 9.1 Total Bilirubin 0.3 AST 74 H ALT 37 Alkaline Phosphatase 102 Creatine Kinase 158 Creatine Kinase Index No Result Required. CK-MB (CK-2) < 1.0 Troponin I < 0.02 Total Protein 7.7 Albumin 3.9 ASSESSMENT/PLAN: 74yo F with PMHx HTN, HDL, DM, afib on eliquis, diastolic HF, RA, lupus, LUISITO who presents with complaints of high home SBP 170s, intermittent headaches, difficulties walking, and chest pain/tightness that does not change with rest and does not radiate. ED workup remarkable for bilateral lower lobe inspiratory crackles on physical exam, AST 74, EKG: sinus arrhythmia with 1st degree AV block, and CXR: possible perihilar congestion. Patient admitted for management of HTN and monitoring of CP/pressure/palpitations and kidney function. Need med rec as patient does not know her home meds and unable to remember the name of her pharmacy HTN - started 100 losartan for improved BP control (avoid diuretics as current fluid status is unclear) Chest pain/pressure/palpitations: reproducible on palpation, musculoskeletal? - continue monitoring patient, may improve with improved BP control Afib - continuing eliquis FEN - no standing fluids - repeat BMP for proper potassium value (previous was hemolyzed) - diabetic/sodium controlled diet PPX - eliquis Dispo: telemetry Family Medical History Family History: As Documented Visit type - Medication Review Med list reviewed for High Risk Meds patients 65 and older: No - Emergency Visit Emergency Visit: Yes ED Registration Date: 01/04/20 Care time: The patient presented to the Emergency Department on the above date and was hospitalized for further evaluation of their emergent condition. - New Patient This patient is new to me today: Yes Date on this admission: 01/04/20 - Critical Care Critical Care patient: No ATTENDING PHYSICIAN STATEMENT I saw and evaluated the patient. I reviewed the resident's note and discussed the case with the resident. I agree with the resident's findings and plan as documented. SUBJECTIVE: OBJECTIVE: ASSESSMENT AND PLAN:
[2020-01-04] MEDS ORDERED: LOSARTAN POTASSIUM 50 MG TABLET (FP) ONE (08:33)
[2020-01-04] MEDS ORDERED: APIXABAN 5 MG TABLET ONE (08:33)
[2020-01-04 09:08] LABS: BASO % 0.7 % (0-2.0); EOS % 1.6 % (0-4.5); HEMATOCRIT 31.4 % (32.4-45.2); HEMOGLOBIN 10.5 GM/dL (10.7-15.3); LYMPH % 29.9 % (8-40); MCHC 33.4 g/dl (32.0-36.0); MEAN CELL VOLUME 92.9 fl (80-96); MEAN PLT VOLUME 7.1 fl (7.5-11.1); MONO % 11.4 % (3.8-10.2); NEUT % 56.4 % (42.8-82.8); PLATELET COUNT 287 K/MM3 (134-434); RBC 3.38 M/mm3 (3.60-5.2)
[2020-01-04] MEDS ORDERED: SPIRONOLACTONE 25 MG TABLET PO SCH (10:00)
[2020-01-04] MEDS ORDERED: APIXABAN 5 MG TABLET PO SCH (10:00)
[2020-01-04] MEDS ORDERED: PATIENT'S OWN MEDICATION (NON-FORMULARY) (Losartan Potassium [Losartan Potassium] 100 MG) PO SCH (10:00)
[2020-01-04] MEDS ORDERED: LOSARTAN POTASSIUM 50 MG TABLET (FP) PO SCH (10:00)
[2020-01-04] MEDS ORDERED: ASPIRIN COATED 81 MG TABLET.EC PO SCH (10:00)
[2020-01-04 10:02] LABS: ALBUMIN 3.8 g/dl (3.4-5.0); ALK PHOS 94 U/L (45-117); ANION GAP 8 MMOL/L (8-16); BILIRUBIN,TOTAL 0.3 mg/dL (0.2-1); BLOOD UREA NITROGEN 17.3 mg/dL (7-18); CALCIUM 9.5 mg/dL (8.5-10.1); CHLORIDE 104 mmol/L (98-107); CO2 27 mmol/L (21-32); GLUCOSE,RANDOM 126 mg/dL (74-106); MAGNESIUM 1.2 mg/dL (1.8-2.4); PHOSPHOROUS 4.3 mg/dL (2.5-4.9); POTASSIUM 4.2 mmol/L (3.5-5.1); SGOT/AST 19 U/L (15-37); SGPT/ALT 30 U/L (13-61); SODIUM 139 mmol/L (136-145)
--- NOTE | 2020-01-04 10:09 | PN ---
Physical Exam: SUBJECTIVE: Patient seen and examined in the ED awaiting bed assignment. She tells me she still is having chest pressure that feels like her chest is tight. At times she feels short of breath. She lives alone, denies any falls. ambulates with a RW. She is noted to have left arm weakness 4/5 compared to the right 5/5. she has facial symmetry and speech is clear. She was to follow up with road production general manager as an outpatient but had not yet done so due to insurance issues. She now has new insurance ([employer]). She states she is compliant with all medications. She lives alone and uses a RW for ambulation. OBJECTIVE: send for head ct to rule out acute process hypomag - repleted with mag 2gram Patient is a 72 year old female with a significant past medical history of hypertension, HLD, dm II, non-obstructive CAD, paroxysmal a.fib (on Eliquis) diastolic dysfunction, RA, lupus, obstructive sleep apnea. She presents to the ED via EMS for chest pain, shortness of breath and elevated BP. Period Temp Pulse Resp BP Sys/Grady Pulse Ox Last 24 Hr 98.1 F-98.9 F 79-85 16-18 138-188/70-81 99-100 GENERAL: The patient is awake, alert, and fully oriented, in no acute distress. HEAD: Normal with no signs of trauma. EYES: PERRL, extraocular movements intact, sclera anicteric, conjunctiva clear. No ptosis. ENT: Ears normal, nares patent, oropharynx clear without exudates, moist mucous membranes. NECK: Trachea midline, full range of motion, supple. LUNGS: Breath sounds equal, clear to auscultation bilaterally HEART: Regular rate and rhythm ABDOMEN: Soft, nontender, nondistended, normoactive bowel sounds EXTREMITIES: no edema. NEUROLOGICAL: Normal speech, gait not observed. right hand weaker than left, will send for head ct PSYCH: Normal mood, normal affect. SKIN: Warm, dry, normal turgor, no rashes or lesions noted Laboratory Results - last 24 hr 01/04/20 01/04/20 01/04/20 03:16 03:16 03:16 WBC 7.9 RBC 3.40 L Hgb 10.6 L Hct 31.6 L MCV 92.9 MCH 31.1 MCHC 33.5 RDW 14.5 D Plt Count 297 MPV 7.3 L Absolute Neuts (auto) Neutrophils % Lymphocytes % Monocytes % Eosinophils % Basophils % Nucleated RBC % Sodium 134 L Potassium 7.0 H* Chloride 100 Carbon Dioxide 26 Anion Gap 7 L BUN 18.3 H Creatinine 1.2 Est GFR (CKD-EPI)AfAm 51.92 Est GFR (CKD-EPI)NonAf 44.80 POC Glucometer Random Glucose 180 H Calcium 9.1 Phosphorus Magnesium Total Bilirubin 0.3 AST 74 H ALT 37 Alkaline Phosphatase 102 Creatine Kinase 158 Creatine Kinase Index No Result Required. CK-MB (CK-2) < 1.0 Troponin I < 0.02 Total Protein 7.7 Albumin 3.9 01/04/20 01/04/20 01/04/20 08:49 08:49 09:03 WBC 7.0 RBC 3.38 L Hgb 10.5 L Hct 31.4 L MCV 92.9 MCH 31.0 MCHC 33.4 RDW 14.0 Plt Count 287 MPV 7.1 L Absolute Neuts (auto) 4.0 Neutrophils % 56.4 D Lymphocytes % 29.9 D Monocytes % 11.4 H Eosinophils % 1.6 Basophils % 0.7 Nucleated RBC % 0 Sodium 139 Potassium 4.2 Chloride 104 Carbon Dioxide 27 Anion Gap 8 BUN 17.3 Creatinine 1.0 Est GFR (CKD-EPI)AfAm 64.73 Est GFR (CKD-EPI)NonAf 55.85 POC Glucometer 132 Random Glucose 126 H Calcium 9.5 Phosphorus 4.3 Magnesium 1.2 L Total Bilirubin 0.3 AST 19 ALT 30 Alkaline Phosphatase 94 Creatine Kinase Creatine Kinase Index CK-MB (CK-2) Troponin I Total Protein 7.0 Albumin 3.8 Active Medications Generic Name Dose Route Start Last Admin Trade Name Freq PRN Reason Stop Dose Admin Apixaban 5 mg 01/04/20 10:00 01/04/20 09:54 Eliquis - PO 5 mg BID BHARATHI Administration Aspirin 81 mg 01/04/20 10:00 Ecotrin - PO DAILY BHARATHI Atorvastatin Calcium 80 mg 01/04/20 22:00 Lipitor - PO HS BHARATHI Furosemide 20 mg 01/04/20 10:00 Lasix - PO BID BHARATHI Losartan Potassium 100 mg 01/04/20 10:00 01/04/20 09:54 Cozaar - PO 100 mg DAILY [facility] Administration Magnesium Sulfate 2 gm 01/04/20 10:08 Magnesium Sulfate IVPB 01/04/20 10:09 ONCE ONE Nitroglycerin 1 spray 01/04/20 03:00 Nitrolingual [place] - TL 01/06/20 03:01 PRN [facility] Non-Formulary Medication 100 mg 01/04/20 10:00 Losartan Potassium [Losartan Potassium] PO DAILY [facility] Spironolactone 25 mg 01/04/20 10:00 Aldactone - PO DAILY [facility] ASSESSMENT/PLAN: Chest pain troponins are negative, no changes on ekg. patient presented with elevated bp, states compliance of home medications add norvasc 5 for better BP control per cardiology recommendations. patient ruled out for [place] patient is to f/u with her PCP for BP check and follow up shortness of breath, now resolved 100% on room air chest xray with minimal atelactic changes Hypomagnesium given 2 grams of magnesium will add mag 400mg bid - will need levels rechecked with PCP Diabetes On metformin Hypertension Initially elevated, improved with medications. patient states compliance with home medications add amlodopine 5mg on losartan 100mg, Hyperlipidemia on lipitor Afib on eliquis on losartan discharge home with outpatient follow up with cardiology and her PCP. Problem List - Problems (1) Chest pain Code(s): R07.9 - CHEST PAIN, UNSPECIFIED Visit type - Emergency Visit Emergency Visit: Yes ED Registration Date: 01/04/20 Care time: The patient presented to the Emergency Department on the above date and was hospitalized for further evaluation of their emergent condition. - New Patient This patient is new to me today: Yes Date on this admission: 01/04/20 - Critical Care Critical Care patient: No - Discharge Referral Referred to [facility] Med P.C.: No - Medication Review Med list reviewed for High Risk Meds patients 65 and older: Yes
[2020-01-04] MEDS ORDERED: MAGNESIUM SULFATE IN WATER 2 GM/50 ML IVPB IVPB ONE (10:13)
[2020-01-04] MEDS ORDERED: ASPIRIN COATED 81 MG TABLET.EC ONE (10:13)
[2020-01-04] MEDS ORDERED: MAGNESIUM 2GM/50ML STERILE WATER IVPB IVPB ONE (10:15)
[2020-01-04] MEDS ORDERED: SPIRONOLACTONE 25 MG TABLET ONE (10:21)
[2020-01-04] MEDS ORDERED: FUROSEMIDE 40 MG TABLET (FP) ONE ×2 (10:21→14:10)
[2020-01-04] MEDS ORDERED: FUROSEMIDE 20 MG TABLET (FP) PO SCH ×2 (10:23→14:00)
[2020-01-04] MEDS ORDERED: MULTIVITAMINS (DAILY MVI) TABLET (FP) PO SCH (10:30)
--- NOTE | 2020-01-04 10:36 | EKG ---
Test Reason : Blood Pressure : / mmHG Vent. Rate : 085 BPM Atrial Rate : 085 BPM P-R Int : 228 ms QRS Dur : 080 ms QT Int : 352 ms P-R-T Axes : 057 016 075 degrees QTc Int : 418 ms SINUS RHYTHM WITH MARKED SINUS ARRHYTHMIA WITH 1ST DEGREE A-V BLOCK MINIMAL VOLTAGE CRITERIA FOR LVH, MAY BE NORMAL VARIANT BORDERLINE ECG WHEN COMPARED WITH ECG OF 30-JUN-2018 04:15, NO SIGNIFICANT CHANGE WAS FOUND Confirmed by Kannan Jean MD ([id number]) on 01/04/2020 10:36:22 AM Referred By: Confirmed By:Kannan Jean MD
[2020-01-04 10:48] LABS: CHOLESTEROL 123 mg/dL (50-200); HDL CHOLESTEROL 58 mg/dL (40-60); LDL CHOLESTEROL (ONLY SJRH) 47 mg/dL (5-100); TRIGLYCERIDES 178 mg/dL (0-150)
[2020-01-04] MEDS ORDERED: INSULIN SLIDING SCALE (NOVOLOG) 1 VIAL SQ SCH (11:00)
--- NOTE | 2020-01-04 13:37 | CON.CARD ---
Consult Consult Specialty:: Cardiology Referred by:: Preet Reason for Consultation:: Chest pain. Poorly controlled hypertension - History of Present Illness Chief Complaint: Chest pain. Poorly controlled hypertension History of Present Illness: The patient is a 74-year-old female, with a history of diabetes, hypertension, hyperlipidemia, rheumatoid arthritis, obstructive sleep apnea, nonobstructive coronary artery disease, paroxysmal atrial fibrillation on Eliquis, now presenting with shortness of breath, elevated blood pressure and reproducible chest pain. The patient ruled out for myocardial infarction. There is no CHF. She is in sinus rhythm. There are no acute ECG changes. Chest pains are completely reproducible to touch. The patient was supine in no apparent distress at the time of my exam. - History Source History Provided By: Patient, Medical Record Limitations to Obtaining History: No Limitations - Past Medical History Cardio/Vascular: Yes: AFIB, CAD (non-obs CAD on cardiac cath 2012), HTN, Hyperl ipdemia, Other ...: No Rheumatology: Yes: Lupus (reports SLE on skin biopsy of face several years ago), Rheumatoid Arthritis Endocrine: Yes: Diabetes Mellitus - Past Surgical History Past Surgical History: Yes: None - Alcohol/Substance Use Hx Alcohol Use: No History of Substance Use: reports: None - Smoking History Smoking history: Never smoked Have you smoked in the past 12 months: No Aproximately how many cigarettes per day: 0 - Social History ADL: Independent History of Recent Travel: No Home Medications - Allergies Allergies/Adverse Reactions: Allergies Allergy/AdvReac Type Severity Reaction Status Date / Time No Known Allergies Allergy Verified 06/30/18 04:31 - Home Medications Home Medications: Ambulatory Orders Apixaban [Eliquis] 5 mg PO Q12H 10/03/15 Atorvastatin Ca [Lipitor] 80 mg PO HS 10/03/15 Folic Acid 1 mg PO DAILY 10/03/15 Metoprolol Succinate [Toprol Xl] 100 mg PO DAILY 10/03/15 Meclizine HCl [Antivert -] 25 mg PO PRN PRN 09/13/16 Calcium Carbonate/Vitamin D3 [Calcium 600 + Vit D Tablet] 1 each PO DAILY Furosemide [Lasix -] 20 mg PO BID 02/09/17 Aspirin Coated [Ecotrin -] 81 mg PO DAILY 03/04/18 Sitagliptin Phosphate [Januvia] 100 mg PO DAILY 03/04/18 metFORMIN HCL [Metformin ER Osmotic] 1,000 mg PO BID 03/04/18 Gabapentin [Neurontin -] 300 mg PO DAILY 06/30/18 Losartan Potassium 100 mg PO DAILY 06/30/18 Spironolactone 25 mg PO DAILY 06/30/18 Omeprazole 40 mg PO DAILY 01/04/20 Review of Systems - Review of Systems Constitutional: reports: No Symptoms Eyes: reports: No Symptoms HENT: reports: No Symptoms Neck: reports: No Symptoms Cardiovascular: reports: Chest Pain, Shortness of Breath Respiratory: reports: SOB Gastrointestinal: reports: No Symptoms Genitourinary: reports: No Symptoms Breasts: reports: No Symptoms Reported Musculoskeletal: reports: No Symptoms Integumentary: reports: No Symptoms Neurological: reports: No Symptoms Endocrine: reports: No Symptoms Hematology/Lymphatic: reports: No Symptoms Psychiatric: reports: No Symptoms Vital Signs: Vital Signs Temperature 98.1 F 01/04/20 06:16 Pulse Rate 79 01/04/20 08:39 Respiratory Rate 18 01/04/20 08:39 Blood Pressure 138/70 01/04/20 08:39 O2 Sat by Pulse Oximetry (%) 100 01/04/20 08:39 Constitutional: Yes: Well Nourished, No Distress, Calm Eyes: Yes: WNL, Conjunctiva Clear, EOM Intact HENT: Yes: WNL, Atraumatic, Normocephalic Neck: Yes: WNL, Supple, Trachea Midline, Rigid Respiratory: Yes: Regular, CTA Bilaterally Gastrointestinal: Yes: WNL, Normal Bowel Sounds, Soft Renal/: Yes: WNL Cardiovascular: Yes: WNL, Regular Rate and Rhythm, Other (Chest wall pains) JVD: No Carotid Bruit: No PMI: Non-Displaced Heart Sounds: Yes: S1, S2 Murmur: Yes: Systolic Murmur, Grade 2 Musculoskeletal: Yes: WNL Extremities: Yes: WNL Edema: No Peripheral Pulses: 1+ Right Popliteal, 1+ Left Doralis Pedis Neurological: Yes: WNL, Alert, Oriented ...Motor Strength: WNL Psychiatric: Yes: WNL, Alert, Oriented - Other Data Labs, Other Data: CBC, BMP 01/04/20 08:49 01/04/20 08:49 Troponin, BNP 01/04/20 01/04/20 03:16 08:49 Troponin I < 0.02 < 0.02 Troponin, BNP 01/04/20 01/04/20 03:16 08:49 Troponin I < 0.02 < 0.02 Assessment/Plan The patient is a 74-year-old female, with a history of diabetes, hypertension, hyperlipidemia, rheumatoid arthritis, obstructive sleep apnea, nonobstructive coronary artery disease, paroxysmal atrial fibrillation on Eliquis, now presenting with shortness of breath, elevated blood pressure and reproducible chest pain. The patient ruled out for myocardial infarction. There is no CHF. She is in sinus rhythm. There are no acute ECG changes. Chest pains are completely reproducible to touch. The patient was supine in no apparent distress at the time of my examThere is no evidence of ischemia nor acute coronary syndrome. The blood pressure is better controlled. Cardiac markers are normal. No CHF. The patient is in sinus rhythm. No acute ECG changes noted. There is no need for further cardiac work-up at this point. Noncardiac chest pains. With start Norvasc 5 mg daily for better blood pressure control. Continue the other home medications as currently. No need for cardiac monitoring. No need for further cardiac work-up at this point. Please do not hesitate to call us PRN.
[2020-01-04] MEDS ORDERED: amLODIPine BESYLATE 5 MG TABLET (FP) PO SCH (14:00)
[2020-01-04] MEDS ORDERED: amLODIPine BESYLATE 5 MG TABLET (FP) ONE (14:10)
[2020-01-04 14:13] VITALS: BP 132/69
[2020-01-04 14:30] VITALS: PULSE 77; TEMP 97.6
--- NOTE | 2020-01-04 14:35 | DS ---
Physical Exam: SUBJECTIVE: Patient seen and examined in the ED awaiting bed assignment. She tells me she still is having chest pressure that feels like her chest is tight. At times she feels short of breath. She lives alone, denies any falls. ambulates with a RW. She is noted to have left arm weakness 4/5 compared to the right 5/5. she has facial symmetry and speech is clear. She was to follow up with puller over as an outpatient but had not yet done so due to insurance issues. She now has new insurance ([employer]). She states she is compliant with all medications. She lives alone and uses a RW for ambulation. OBJECTIVE: send for head ct to rule out acute process hypomag - repleted with mag 2gram Patient is a 72 year old female with a significant past medical history of hypertension, HLD, dm II, non-obstructive CAD, paroxysmal a.fib (on Eliquis) diastolic dysfunction, RA, lupus, obstructive sleep apnea. She presents to the ED via EMS for chest pain, shortness of breath and elevated BP. Vital Signs Period Temp Pulse Resp BP Sys/Grady Pulse Ox Last 24 Hr 97.6 F-98.9 F 72-85 16-18 132-188/69-81 99-100 PHYSICAL EXAM GENERAL: The patient is awake, alert, and fully oriented, in no acute distress. HEAD: Normal with no signs of trauma. EYES: PERRL, extraocular movements intact, sclera anicteric, conjunctiva clear. No ptosis. ENT: Ears normal, nares patent, oropharynx clear without exudates, moist mucous membranes. NECK: Trachea midline, full range of motion, supple. LUNGS: Breath sounds equal, clear to auscultation bilaterally HEART: Regular rate and rhythm ABDOMEN: Soft, nontender, nondistended, normoactive bowel sounds EXTREMITIES: no edema. NEUROLOGICAL: Normal speech, gait not observed. right hand weaker than left, will send for head ct PSYCH: Normal mood, normal affect. SKIN: Warm, dry, normal turgor, no rashes or lesions noted LABS Laboratory Results - last 24 hr 01/04/20 01/04/20 01/04/20 03:16 03:16 03:16 WBC 7.9 RBC 3.40 L Hgb 10.6 L Hct 31.6 L MCV 92.9 MCH 31.1 MCHC 33.5 RDW 14.5 D Plt Count 297 MPV 7.3 L Absolute Neuts (auto) Neutrophils % Lymphocytes % Monocytes % Eosinophils % Basophils % Nucleated RBC % Sodium 134 L Potassium 7.0 H* Chloride 100 Carbon Dioxide 26 Anion Gap 7 L BUN 18.3 H Creatinine 1.2 Est GFR (CKD-EPI)AfAm 51.92 Est GFR (CKD-EPI)NonAf 44.80 POC Glucometer Random Glucose 180 H Calcium 9.1 Phosphorus Magnesium Total Bilirubin 0.3 AST 74 H ALT 37 Alkaline Phosphatase 102 Creatine Kinase 158 Creatine Kinase Index No Result Required. CK-MB (CK-2) < 1.0 Troponin I < 0.02 Total Protein 7.7 Albumin 3.9 Triglycerides Cholesterol Total LDL Cholesterol HDL Cholesterol 01/04/20 01/04/20 01/04/20 08:49 08:49 09:03 WBC 7.0 RBC 3.38 L Hgb 10.5 L Hct 31.4 L MCV 92.9 MCH 31.0 MCHC 33.4 RDW 14.0 Plt Count 287 MPV 7.1 L Absolute Neuts (auto) 4.0 Neutrophils % 56.4 D Lymphocytes % 29.9 D Monocytes % 11.4 H Eosinophils % 1.6 Basophils % 0.7 Nucleated RBC % 0 Sodium 139 Potassium 4.2 Chloride 104 Carbon Dioxide 27 Anion Gap 8 BUN 17.3 Creatinine 1.0 Est GFR (CKD-EPI)AfAm 64.73 Est GFR (CKD-EPI)NonAf 55.85 POC Glucometer 132 Random Glucose 126 H Calcium 9.5 Phosphorus 4.3 Magnesium 1.2 L Total Bilirubin 0.3 AST 19 ALT 30 Alkaline Phosphatase 94 Creatine Kinase 55 Creatine Kinase Index CK-MB (CK-2) Troponin I < 0.02 Total Protein 7.0 Albumin 3.8 Triglycerides 178 H Cholesterol 123 Total LDL Cholesterol 47 HDL Cholesterol 58 HOSPITAL COURSE: Date of Admission:01/04/20 Date of Discharge: 01/04/20 Chest pain troponins are negative, no changes on ekg. patient presented with elevated bp, states compliance of home medications add norvasc 5 for better BP control per cardiology recommendations. patient ruled out for [place] patient is to f/u with her PCP for BP check and follow up shortness of breath, now resolved 100% on room air chest xray with minimal atelactic changes Hypomagnesium given 2 grams of magnesium will add mag 400mg bid - will need levels rechecked with PCP Diabetes On metformin Hypertension Initially elevated, improved with medications. patient states compliance with home medications add amlodopine 5mg on losartan 100mg, Hyperlipidemia on lipitor Afib on eliquis on losartan discharge home with outpatient follow up with cardiology and her PCP. Minutes to complete discharge: 60 Discharge Summary Problems reviewed: Yes Reason For Visit: CHEST PAIN Current Active Problems Chest pain (Acute) Heart palpitations (Acute) HTN Hypertensive heart disease (Chronic) Hyperlipidemia (Chronic) PAF (paroxysmal atrial fibrillation) (Chronic) Condition: Good - Instructions Diet, Activity, Other Instructions: Mrs Pack: You will be sent home today. Your cardiac workup is negative: CONTINUE ALL YOUR HOME MEDICATIONS: START Magnesium 400mg at 8am and 8pm for LOW magnesium levels in your blood START Norvasc (Amlodopine 2.5mg) ONCE per day - This will help control your blood pressure Please follow up with your primary care doctor so that they can check your blood pressure on the new medication. Please make an appointment with Dr. Phoenix (Be[employer]). Thank you Referrals: Henry Flores MD [Primary Care Provider] - Carlos Enrique Phoenix MD [Staff Physician] - Disposition: HOME - Home Medications Comprehensive Discharge Medication List: Ambulatory Orders Apixaban [Eliquis] 5 mg PO Q12H 10/03/15 Atorvastatin Ca [Lipitor] 80 mg PO HS 10/03/15 Folic Acid 1 mg PO DAILY 10/03/15 Metoprolol Succinate [Toprol Xl] 100 mg PO DAILY 10/03/15 Meclizine HCl [Antivert -] 25 mg PO PRN PRN 09/13/16 Calcium Carbonate/Vitamin D3 [Calcium 600 + Vit D Tablet] 1 each PO DAILY 02/09/17 Furosemide [Lasix -] 20 mg PO BID 02/09/17 Aspirin Coated [Ecotrin -] 81 mg PO DAILY 03/04/18 Sitagliptin Phosphate [Januvia] 100 mg PO DAILY 03/04/18 metFORMIN HCL [Metformin ER Osmotic] 1,000 mg PO BID 03/04/18 Gabapentin [Neurontin -] 300 mg PO DAILY 06/30/18 Spironolactone 25 mg PO DAILY 06/30/18 Amlodipine Besylate [Norvasc -] 2.5 mg PO DAILY #60 tablet 01/04/20 Losartan Potassium [Cozaar -] 100 mg PO DAILY #120 tablet 01/04/20 Magnesium Oxide [Mag-Ox -] 400 mg PO BID #60 tablet 01/04/20 Omeprazole 40 mg PO DAILY 01/04/20 Problem List - Problems (1) Chest pain Code(s): R07.9 - CHEST PAIN, UNSPECIFIED This patient is new to me today: Yes Date on this admission: 01/04/20 Emergency Visit: Yes ED Registration Date: 01/04/20 Care time: The patient presented to the Emergency Department on the above date and was hospitalized for further evaluation of their emergent condition. Critical Care patient: No - Discharge Referral Referred to [facility] Med P.C.: No
[2020-01-04] MEDS ORDERED: MAGNESIUM OXIDE 400 MG TABLET (FP) PO SCH (22:00)
[2020-01-04] MEDS ORDERED: ATORVASTATIN CA 40 MG TABLET (FP) PO SCH (22:00)
[2020-01-05] MEDS ORDERED: amLODIPine BESYLATE 2.5 MG TABLET (FP) PO SCH (10:00)
== END 2020-01-04 14:39 | disposition home or self-care (01) | DRG 305 ==
LOC: JER 02:21 → JERBED 04:52 → OBSVTOIN 07:00
PROVIDERS: ADMIT Internal Medicine; ATTEND Nurse Practitioner Family
DX: I16.0 Hypertensive urgency (principal); I50.32 Chronic diastolic (congestive) heart failure; R07.89 Other chest pain; I25.10 Atherosclerotic heart disease of native coronary artery without angina pectoris; I11.0 Hypertensive heart disease with heart failure; M32.9 Systemic lupus erythematosus, unspecified; E78.5 Hyperlipidemia, unspecified; M06.9 Rheumatoid arthritis, unspecified; G47.33 Obstructive sleep apnea (adult) (pediatric); R51 Headache; I44.0 Atrioventricular block, first degree; E11.9 Type 2 diabetes mellitus without complications; I48.0 Paroxysmal atrial fibrillation; E83.42 Hypomagnesemia
CPT/HCPCS: 36415; 70450-TC; 71045-TC-FY; 80053; 80061; 82550; 82553; 82962; 83721; 83735; 84100; 84484; 85025; 85027; 93005; 93010; 99285-25; G0378; U0003

== ENCOUNTER 2021-01-04 14:53 | Observation (INO) | payer OTHER ==
[2021-01-04] MEDS ORDERED: ACETAMINOPHEN 325 MG TABLET (FP) PO ONE (15:25)
[2021-01-04] MEDS ORDERED: ACETAMINOPHEN 325 MG TABLET (FP) ONE (16:12)
[2021-01-04 17:43] LABS: BASO % 0.6 % (0-2.0); EOS % 1.4 % (0-4.5); HEMATOCRIT 35.5 % (32.4-45.2); LYMPH % 15.2 % (8-40); MCH 32.5 pg (25.7-33.7); MCHC 33.7 g/dl (32.0-36.0); MEAN CELL VOLUME 96.3 fl (80-96); MONO % 5.8 % (3.8-10.2); PLATELET COUNT 305 10^3/uL (134-434); RBC 3.68 M/mm3 (3.60-5.2); RDW 15.9 % (11.6-15.6); WHITE BLOOD COUNT 8.2 K/mm3 (4.0-10.0)
[2021-01-04 18:01] LABS: INR 1.22 (0.83-1.09); PROTHROMBIN TIME (PATIENT) 14.9 SEC (9.7-13.0)
[2021-01-04 18:03] LABS: ACTIVATED PTT 32.4 SECONDS (25.2-36.5)
[2021-01-04 18:07] LABS: CHLORIDE 99 mmol/L (98-107); SODIUM 134 mmol/L (136-145)
[2021-01-04 18:09] LABS: ALBUMIN 4.5 g/dl (3.4-5.0); ANION GAP 8 MMOL/L (8-16); CALCIUM 9.9 mg/dL (8.5-10.1); CO2 27 mmol/L (21-32); GLUCOSE,RANDOM 136 mg/dL (74-106)
[2021-01-04 18:10] LABS: BLOOD UREA NITROGEN 26.3 mg/dL (7-18)
[2021-01-04 18:13] LABS: CREATININE 1.3 mg/dL (0.55-1.3); SGOT/AST 34 U/L (15-37); SGPT/ALT 32 U/L (13-61)
[2021-01-04 18:14] LABS: BILIRUBIN,TOTAL 0.3 mg/dL (0.2-1); TOT PROT 8.4 g/dl (6.4-8.2)
[2021-01-04 18:16] LABS: ALK PHOS 111 U/L (45-117)
[2021-01-04 19:08] LABS: PH,URINE 5.5 (5.0-8.0); URINE APPEARANCE CLEAR; URINE BILIRUBIN NEGATIVE (NEGATIVE); URINE COLOR YELLOW; URINE GLUCOSE (UA) 3+ (NEGATIVE); URINE KETONE NEGATIVE (NEGATIVE); URINE LEUK ESTERASE NEGATIVE (NEGATIVE); URINE NITRITE NEGATIVE (NEGATIVE); URINE PROTEIN NEGATIVE (NEGATIVE); URINE UROBILINOGEN 0.2 mg/dL (0.2-1.0)
[2021-01-05 08:22] LABS: HEMATOCRIT 34.9 % (32.4-45.2); HEMOGLOBIN 11.8 GM/dL (10.7-15.3); MCH 32.5 pg (25.7-33.7); MCHC 33.8 g/dl (32.0-36.0); MEAN CELL VOLUME 96.2 fl (80-96); MEAN PLT VOLUME 7.1 fl (7.5-11.1); PLATELET COUNT 280 10^3/uL (134-434); RBC 3.63 M/mm3 (3.60-5.2); WHITE BLOOD COUNT 7.3 K/mm3 (4.0-10.0)
[2021-01-05] MEDS: INSULIN SLIDING SCALE (NOVOLOG) 1 VIAL SQ SCH ×4 (08:28→22:45)
[2021-01-05 08:44] LABS: BLOOD UREA NITROGEN 30.4 mg/dL (7-18); CALCIUM 9.6 mg/dL (8.5-10.1)
[2021-01-05 08:45] LABS: MAGNESIUM 2.3 mg/dL (1.8-2.4)
[2021-01-05 08:48] LABS: CREATININE 1.3 mg/dL (0.55-1.3); PHOSPHOROUS 5.1 mg/dL (2.5-4.9)
[2021-01-05 08:51] LABS: CHOLESTEROL 150 mg/dL (50-200)
[2021-01-05 08:52] LABS: TRIGLYCERIDES 144 mg/dL (0-150)
[2021-01-05 08:53] LABS: LDL CHOLESTEROL (ONLY SJRH) 61 mg/dL (5-100)
[2021-01-05 08:54] LABS: HDL CHOLESTEROL 68 mg/dL (40-60)
[2021-01-05] MEDS ORDERED: ASPIRIN COATED 81 MG TABLET.EC ONE (10:45)
[2021-01-05] MEDS ORDERED: FOLIC ACID 1 MG TABLET (FP) ONE (10:46)
[2021-01-05] MEDS ORDERED: MAGNESIUM OXIDE 400 MG TABLET (FP) ONE (10:46)
[2021-01-05] MEDS ORDERED: APIXABAN 5 MG TABLET ONE (10:46)
[2021-01-05] MEDS ORDERED: PANTOPRAZOLE 40 MG TABLET ONE (10:46)
[2021-01-05] MEDS: PANTOPRAZOLE 40 MG TABLET PO SCH (10:55)
[2021-01-05] MEDS: APIXABAN 5 MG TABLET PO SCH ×3 (10:55→22:46)
[2021-01-05] MEDS: FOLIC ACID 1 MG TABLET (FP) PO SCH (10:55)
[2021-01-05] MEDS: ASPIRIN COATED 81 MG TABLET.EC PO SCH (10:55)
[2021-01-05] MEDS: GABAPENTIN 300 MG CAPSULE PO SCH (10:55)
[2021-01-05] MEDS: MAGNESIUM OXIDE 400 MG TABLET (FP) PO SCH ×2 (10:55→22:45)
[2021-01-05] MEDS ORDERED: SODIUM CHLORIDE 1,000 ML IV SCH (11:30)
[2021-01-05 15:08] LABS: PH,URINE 5.5 (5.0-8.0); URINE APPEARANCE CLEAR; URINE BILIRUBIN NEGATIVE (NEGATIVE); URINE COLOR YELLOW; URINE GLUCOSE (UA) 3+ (NEGATIVE); URINE KETONE NEGATIVE (NEGATIVE); URINE LEUK ESTERASE NEGATIVE (NEGATIVE); URINE NITRITE NEGATIVE (NEGATIVE); URINE PROTEIN NEGATIVE (NEGATIVE); URINE UROBILINOGEN 0.2 mg/dL (0.2-1.0)
[2021-01-05 15:16] LABS: URINE UREA NITROGEN 376 mg/dL (350-1000)
[2021-01-05 18:09] VITALS: BMI 29.0
[2021-01-05] MEDS ORDERED: ATORVASTATIN CA 80 MG TABLET (FP) PO SCH (22:00)
[2021-01-06] MEDS: INSULIN SLIDING SCALE (NOVOLOG) 1 VIAL SQ SCH ×2 (06:44→13:09)
[2021-01-06 08:19] LABS: HEMATOCRIT 33.6 % (32.4-45.2); HEMOGLOBIN 11.3 GM/dL (10.7-15.3); MCH 32.6 pg (25.7-33.7); MCHC 33.7 g/dl (32.0-36.0); MEAN CELL VOLUME 96.6 fl (80-96); MEAN PLT VOLUME 7.3 fl (7.5-11.1); PLATELET COUNT 274 10^3/uL (134-434); RBC 3.48 M/mm3 (3.60-5.2); RDW 15.8 % (11.6-15.6); WHITE BLOOD COUNT 5.5 K/mm3 (4.0-10.0)
[2021-01-06 08:44] LABS: ALBUMIN 3.7 g/dl (3.4-5.0); BLOOD UREA NITROGEN 30.3 mg/dL (7-18); CALCIUM 9.1 mg/dL (8.5-10.1); MAGNESIUM 2.3 mg/dL (1.8-2.4)
[2021-01-06 08:47] LABS: CREATININE 1.2 mg/dL (0.55-1.3)
[2021-01-06 08:48] LABS: PHOSPHOROUS 4.4 mg/dL (2.5-4.9)
[2021-01-06 08:49] LABS: BILIRUBIN,TOTAL 0.7 mg/dL (0.2-1); TOT PROT 6.9 g/dl (6.4-8.2)
[2021-01-06] MEDS: MAGNESIUM OXIDE 400 MG TABLET (FP) PO SCH (09:45)
[2021-01-06] MEDS: APIXABAN 5 MG TABLET PO SCH (09:45)
[2021-01-06] MEDS: GABAPENTIN 300 MG CAPSULE PO SCH (09:45)
[2021-01-06] MEDS: ASPIRIN COATED 81 MG TABLET.EC PO SCH (09:45)
[2021-01-06] MEDS: PANTOPRAZOLE 40 MG TABLET PO SCH (09:45)
[2021-01-06] MEDS: FOLIC ACID 1 MG TABLET (FP) PO SCH (09:45)
[2021-01-06 11:08] LABS: ANISOCYTOSIS 0; HELMET CELLS 0; HOWELL-JOLLY BODIES 0; MACROCYTOSIS 0; OVALOCYTE 0; PLATELET ESTIMATE NORMAL; ROULEAU 0; SICKELED CELLS 0; TARGET CELLS 0; TEAR DROP CELLS 0; TOXIC GRANULATION 0
[2021-01-06 15:10] VITALS: BP 133/70; PULSE 78; TEMP 98.5
== END 2021-01-06 15:18 | disposition home or self-care (01) ==
LOC: JER 14:53 → JERBED 15:24 → INTOOBSV 15:24 → J4W 01-05 15:06
PROVIDERS: ADMIT Internal Medicine
PROC: 3E0337Z Introduction of Electrolytic and Water Balance Substance into Peripheral Vein, Percutaneous Approach (ICD-10-PCS; principal; 2021-01-04)
DX: I25.10 Atherosclerotic heart disease of native coronary artery without angina pectoris (principal); E78.5 Hyperlipidemia, unspecified; E11.9 Type 2 diabetes mellitus without complications; I48.91 Unspecified atrial fibrillation; Z79.01 Long term (current) use of anticoagulants; M06.9 Rheumatoid arthritis, unspecified; M32.9 Systemic lupus erythematosus, unspecified; I11.0 Hypertensive heart disease with heart failure; I50.9 Heart failure, unspecified; E78.00 Pure hypercholesterolemia, unspecified; I48.0 Paroxysmal atrial fibrillation; I50.30 Unspecified diastolic (congestive) heart failure; K21.9 Gastro-esophageal reflux disease without esophagitis; R07.89 Other chest pain; R55 Syncope and collapse; R07.9 Chest pain, unspecified; W18.39XA Other fall on same level, initial encounter; Y93.89 Activity, other specified; Y92.89 Other specified places as the place of occurrence of the external cause
CPT/HCPCS: 36415; 70450-TC; 70551-TC; 71045-TC-FY; 72125-TC; 72170-TC-FY; 76775-TC; 76856-TC; 80048; 80053; 80061; 81003; 82550; 82570; 82962; 83690; 83735; 83880; 84100; 84156; 84300; 84443; 84484; 84540; 85025; 85027; 85610; 85730; 87077; 87086; 93005; 93010; 93306-TC; 93880-TC; 95816; 96360; 99285-25; C9803; G0378; U0003; U0005

== ENCOUNTER 2021-07-12 08:14 | Emergency (ER) | payer OTHER ==
[2021-07-12] MEDS ORDERED: ACETAMINOPHEN 325 MG TABLET (FP) PO ONE (08:40)
[2021-07-12 08:48] VITALS: PULSE 70; TEMP 98.1; BMI 30.9
[2021-07-12 09:57] LABS: PH,URINE 6.5 (5.0-8.0); URINE APPEARANCE CLEAR; URINE BILIRUBIN NEGATIVE (NEGATIVE); URINE COLOR YELLOW; URINE GLUCOSE (UA) 3+ (NEGATIVE); URINE KETONE NEGATIVE (NEGATIVE); URINE LEUK ESTERASE NEGATIVE (NEGATIVE); URINE NITRITE NEGATIVE (NEGATIVE); URINE PROTEIN NEGATIVE (NEGATIVE); URINE UROBILINOGEN 0.2 mg/dL (0.2-1.0)
[2021-07-12] MEDS ORDERED: ACETAMINOPHEN 325 MG TABLET (FP) ONE (10:02)
[2021-07-12 11:53] LABS: BASO % 0.8 % (0-2.0); EOS % 2.2 % (0-4.5); HEMATOCRIT 34.7 % (32.4-45.2); HEMOGLOBIN 11.4 GM/dL (10.7-15.3); LYMPH % 28.4 % (8-40); MCH 31.6 pg (25.7-33.7); MEAN CELL VOLUME 95.9 fl (80-96); NEUT % 61.6 % (42.8-82.8); PLATELET COUNT 276 10^3/uL (134-434); RBC 3.62 M/mm3 (3.60-5.2); RDW 15.3 % (11.6-15.6)
[2021-07-12 12:01] LABS: INR 1.1 (0.83-1.09); PROTHROMBIN TIME (PATIENT) 12.7 SEC (9.7-13.0)
[2021-07-12 12:04] LABS: ACTIVATED PTT 33.3 SECONDS (25.2-36.5)
[2021-07-12 12:20] LABS: BLOOD UREA NITROGEN 23.6 mg/dL (7-18); CALCIUM 9.2 mg/dL (8.5-10.1)
[2021-07-12 12:23] LABS: CREATININE 1.1 mg/dL (0.55-1.3)
[2021-07-12 12:25] LABS: BILIRUBIN,TOTAL 0.3 mg/dL (0.2-1); TOT PROT 7.3 g/dl (6.4-8.2)
[2021-07-12 15:13] VITALS: BP 111/57
== END 2021-07-12 16:08 | disposition home or self-care (01) ==
LOC: JER 08:14
DX: R03.0 Elevated blood-pressure reading, without diagnosis of hypertension (principal)
CPT/HCPCS: 36415; 70450-TC; 80053; 81003; 82550; 84443; 84484; 85025; 85610; 85730; 86850; 86900; 86901; 93005; 93010; 99285-25

== ENCOUNTER 2021-09-07 05:13 | Observation (INO) | payer OTHER ==
[2021-09-07] MEDS ORDERED: SUCRALFATE 1 GM TABLET (FP) PO ONE (05:49)
[2021-09-07] MEDS ORDERED: MAG HYDROX/AL HYDROX/SIMETH 30 ML UNIT-DOSE CUP PO ONE (05:49)
[2021-09-07] MEDS ORDERED: ACETAMINOPHEN 1000 MG/100 ML BAG IVPB ONE (05:49)
[2021-09-07] MEDS ORDERED: ONDANSETRON 4 MG/2 ML VIAL IVPUSH ONE (05:49)
[2021-09-07] MEDS ORDERED: FAMOTIDINE 20 MG/50 ML IVPB 20 MG/50 ML MG IVPB ONE (05:49)
[2021-09-07] MEDS ORDERED: ONDANSETRON 4 MG/2 ML VIAL ONE (05:57)
[2021-09-07] MEDS ORDERED: SUCRALFATE 1 GM TABLET (FP) ONE (05:57)
[2021-09-07] MEDS ORDERED: ACETAMINOPHEN INJECTION 100 ML IVPB ONE (05:57)
[2021-09-07] MEDS ORDERED: MAG HYDROX/AL HYDROX/SIMETH 30 ML UNIT-DOSE CUP ONE (05:57)
[2021-09-07] MEDS ORDERED: SODIUM CHLORIDE 0.9% 500 ML INFUS.BAG IV ONE (05:58)
[2021-09-07] MEDS ORDERED: FAMOTIDINE 10 MG/ML VIAL IVPB ONE (05:59)
[2021-09-07 07:32] LABS: BASO % 0.6 % (0-2.0); EOS % 3.1 % (0-4.5); HEMATOCRIT 36.3 % (32.4-45.2); LYMPH % 34.8 % (8-40); MCH 31.5 pg (25.7-33.7); MCHC 33.1 g/dl (32.0-36.0); MEAN CELL VOLUME 95.4 fl (80-96); MEAN PLT VOLUME 6.9 fl (7.5-11.1); MONO % 10.1 % (3.8-10.2); NEUT % 51.4 % (42.8-82.8); PLATELET COUNT 308 10^3/uL (134-434); RDW 15.3 % (11.6-15.6); WHITE BLOOD COUNT 4.4 K/mm3 (4.0-10.0)
[2021-09-07] MEDS ORDERED: BACITRACIN 0.9 GM PACKET ONE (07:51)
[2021-09-07 07:54] LABS: ALBUMIN 4.2 g/dl (3.4-5.0); CALCIUM 9.9 mg/dL (8.5-10.1)
[2021-09-07 07:55] LABS: BLOOD UREA NITROGEN 15.8 mg/dL (7-18); MAGNESIUM 1.6 mg/dL (1.8-2.4)
[2021-09-07 07:57] LABS: CREATININE 0.8 mg/dL (0.55-1.3)
[2021-09-07 07:59] LABS: BILIRUBIN,TOTAL 0.4 mg/dL (0.2-1); TOT PROT 7.8 g/dl (6.4-8.2)
[2021-09-07] MEDS ORDERED: MAGNESIUM SULF 50% (8.12 MEQ/2 ML-1 GM VIAL) IVPB ONE (08:12)
[2021-09-07 08:22] LABS: EPI CELLS 4 /uL (0-25.1); HYALINE CASTS 0 /uL (0-3.1); PH,URINE 7.5 (5.0-8.0); URINE APPEARANCE CLEAR; URINE BACTERIA 12 /uL (0-1359); URINE BILIRUBIN NEGATIVE (NEGATIVE); URINE COLOR YELLOW; URINE GLUCOSE (UA) NEGATIVE (NEGATIVE); URINE KETONE NEGATIVE (NEGATIVE); URINE LEUK ESTERASE TRACE (NEGATIVE); URINE NITRITE NEGATIVE (NEGATIVE); URINE PROTEIN NEGATIVE (NEGATIVE); URINE RBC 5 /uL (0-23.9); URINE UROBILINOGEN 0.2 mg/dL (0.2-1.0); URINE WBC 4 /uL (0-25.8)
[2021-09-07] MEDS ORDERED: MAGNESIUM 1GM/D5W - 1 GM/100 ML IVPB IVPB ONE (08:29)
[2021-09-07] MEDS ORDERED: ASPIRIN 81 MG CHEWABLE TABLETS PO ONE (09:38)
[2021-09-07] MEDS ORDERED: MAG HYDROX/AL HYDROX/SIMETH 30 ML UNIT-DOSE CUP PO PRN (12:55)
[2021-09-07] MEDS ORDERED: SODIUM CHLORIDE 500 ML IV STA (13:26)
[2021-09-07 13:39] VITALS: BMI 32.0
[2021-09-07] MEDS: LOSARTAN POTASSIUM 50 MG TABLET PO SCH (13:57)
[2021-09-07] MEDS: APIXABAN 5 MG TABLET PO SCH ×2 (13:57→21:49)
[2021-09-07] MEDS ORDERED: ATORVASTATIN CA 80 MG TABLET (FP) PO SCH (22:00)
[2021-09-08 05:50] VITALS: TEMP 98.3
[2021-09-08 06:55] LABS: BASO % 0.8 % (0-2.0); EOS % 4.5 % (0-4.5); HEMATOCRIT 33.9 % (32.4-45.2); HEMOGLOBIN 11.3 GM/dL (10.7-15.3); LYMPH % 33.4 % (8-40); MCH 31.9 pg (25.7-33.7); MCHC 33.4 g/dl (32.0-36.0); MEAN CELL VOLUME 95.5 fl (80-96); MEAN PLT VOLUME 6.7 fl (7.5-11.1); MONO % 13.5 % (3.8-10.2); NEUT % 47.8 % (42.8-82.8); PLATELET COUNT 275 10^3/uL (134-434); RBC 3.55 M/mm3 (3.60-5.2); RDW 15.2 % (11.6-15.6); WHITE BLOOD COUNT 4.5 K/mm3 (4.0-10.0)
[2021-09-08 07:17] LABS: MAGNESIUM 2.2 mg/dL (1.8-2.4)
[2021-09-08 07:18] LABS: ALBUMIN 3.7 g/dl (3.4-5.0); CALCIUM 9.2 mg/dL (8.5-10.1)
[2021-09-08 07:20] LABS: BLOOD UREA NITROGEN 11.3 mg/dL (7-18)
[2021-09-08 07:21] LABS: CREATININE 0.8 mg/dL (0.55-1.3)
[2021-09-08 07:23] LABS: TOT PROT 6.3 g/dl (6.4-8.2)
[2021-09-08 07:24] LABS: BILIRUBIN,TOTAL 0.4 mg/dL (0.2-1)
[2021-09-08 08:11] VITALS: BP 122/63; PULSE 71
[2021-09-08] MEDS: APIXABAN 5 MG TABLET PO SCH (09:39)
[2021-09-08] MEDS: LOSARTAN POTASSIUM 50 MG TABLET PO SCH (09:40)
[2021-09-08] MEDS ORDERED: PANTOPRAZOLE 40 MG TABLET PO SCH (10:00)
[2021-09-08] MEDS ORDERED: ASPIRIN COATED 81 MG TABLET.EC PO SCH (10:00)
[2021-09-08] MEDS ORDERED: FOLIC ACID 1 MG TABLET (FP) PO SCH (10:00)
[2021-09-08] MEDS ORDERED: FAMOTIDINE 20 MG TABLET PO SCH (10:00)
[2021-09-08] MEDS ORDERED: SPIRONOLACTONE 25 MG TABLET PO SCH (10:00)
== END 2021-09-08 14:50 | disposition home or self-care (01) ==
LOC: JER 05:13 → UNDOADMOB 09:57 → JERBED 09:57 → OBSVTOIN 11:26 → INTOOBSV 11:26 → J4W 11:36 → UNDOADMOB 11:36 → JERBED 11:36 → J4W 12:58 → JERBED 12:58 → INTOOBSV 13:59 → OBSVTOIN 13:59
PROVIDERS: ADMIT Internal Medicine; ATTEND Nurse Practitioner Acute Care
PROC: 3E033NZ Introduction of Analgesics, Hypnotics, Sedatives into Peripheral Vein, Percutaneous Approach (ICD-10-PCS; principal; 2021-09-07)
PROC: 3E033GC Introduction of Other Therapeutic Substance into Peripheral Vein, Percutaneous Approach (ICD-10-PCS; 2021-09-07)
PROC: 3E0337Z Introduction of Electrolytic and Water Balance Substance into Peripheral Vein, Percutaneous Approach (ICD-10-PCS; 2021-09-07)
DX: I25.10 Atherosclerotic heart disease of native coronary artery without angina pectoris (principal); I11.9 Hypertensive heart disease without heart failure; E78.5 Hyperlipidemia, unspecified; E11.9 Type 2 diabetes mellitus without complications; E66.9 Obesity, unspecified; E87.1 Hypo-osmolality and hyponatremia; Z68.32 Body mass index [BMI] 32.0-32.9, adult; I48.91 Unspecified atrial fibrillation; Z79.01 Long term (current) use of anticoagulants; M32.9 Systemic lupus erythematosus, unspecified; M06.9 Rheumatoid arthritis, unspecified; R07.9 Chest pain, unspecified; R19.7 Diarrhea, unspecified; R63.30 Feeding difficulties, unspecified
CPT/HCPCS: 36415; 71045-TC-FY; 74177-TC; 80053; 80061; 81003; 82436; 82570; 82962; 83036; 83690; 83735; 83930; 83935; 84100; 84133; 84300; 84484; 85025; 87077; 87086; 93005; 93010; 96361; 96365; 96374; 96375; 99285-25; C9803-CS; G0378; U0003; U0005

== ENCOUNTER 2021-09-13 03:09 | Observation (INO) | payer OTHER ==
[2021-09-13] MEDS ORDERED: METOCLOPRAMIDE HCL INJECTION 10 MG/2 ML VIAL IVPB ONE (03:22)
[2021-09-13] MEDS ORDERED: ACETAMINOPHEN 1000 MG/100 ML BAG IVPB ONE (03:22)
[2021-09-13] MEDS ORDERED: METOCLOPRAMIDE HCL INJECTION 10 MG/2 ML VIAL ONE (03:55)
[2021-09-13] MEDS ORDERED: ACETAMINOPHEN INJECTION 100 ML IVPB ONE (03:55)
[2021-09-13 03:57] LABS: BASO % 0.7 % (0-2.0); EOS % 2.6 % (0-4.5); HEMATOCRIT 32.9 % (32.4-45.2); HEMOGLOBIN 11.2 GM/dL (10.7-15.3); LYMPH % 27.5 % (8-40); MCH 32.1 pg (25.7-33.7); MCHC 34.1 g/dl (32.0-36.0); MEAN CELL VOLUME 94.2 fl (80-96); MEAN PLT VOLUME 6.4 fl (7.5-11.1); MONO % 13.6 % (3.8-10.2); NEUT % 55.6 % (42.8-82.8); PLATELET COUNT 271 10^3/uL (134-434); RDW 14.9 % (11.6-15.6); WHITE BLOOD COUNT 6.4 K/mm3 (4.0-10.0)
[2021-09-13 04:16] LABS: CHLORIDE 94 mmol/L (98-107); SODIUM 128 mmol/L (136-145)
[2021-09-13 04:18] LABS: ALBUMIN 3.8 g/dl (3.4-5.0); CALCIUM 9.6 mg/dL (8.5-10.1); CO2 28 mmol/L (21-32); GLUCOSE,RANDOM 125 mg/dL (74-106); LIPASE 157 U/L (73-393)
[2021-09-13 04:19] LABS: BLOOD UREA NITROGEN 15.5 mg/dL (7-18); MAGNESIUM 1.7 mg/dL (1.8-2.4)
[2021-09-13 04:21] LABS: CREATININE 0.8 mg/dL (0.55-1.3); SGPT/ALT 37 U/L (13-61)
[2021-09-13 04:22] LABS: SGOT/AST 46 U/L (15-37)
[2021-09-13 04:23] LABS: BILIRUBIN,TOTAL 0.4 mg/dL (0.2-1); TOT PROT 7.1 g/dl (6.4-8.2)
[2021-09-13 04:24] LABS: ALK PHOS 86 U/L (45-117)
[2021-09-13 04:30] LABS: ANION GAP 7 MMOL/L (8-16)
[2021-09-13] MEDS ORDERED: SODIUM CHLORIDE 0.9% 500 ML INFUS.BAG IV ONE (04:32)
[2021-09-13] MEDS ORDERED: MAGNESIUM 2GM/50ML STERILE WATER IVPB IVPB ONE (07:59)
[2021-09-13] MEDS ORDERED: ONDANSETRON 4 MG/2 ML VIAL IVPUSH PRN (08:09)
[2021-09-13] MEDS ORDERED: MAGNESIUM SULFATE IN WATER 2 GM/50 ML IVPB IVPB ONE (08:11)
[2021-09-13] MEDS ORDERED: NAPROXEN 375 MG TABLET PO PRN (08:11)
[2021-09-13] MEDS ORDERED: ACETAMINOPHEN 325 MG TABLET (FP) PO PRN ×2 (08:12→10:03)
[2021-09-13] MEDS ORDERED: PANTOPRAZOLE SODIUM 40 MG VIAL IVPUSH ONE (08:14)
[2021-09-13 08:24] LABS: URINE APPEARANCE CLEAR; URINE BILIRUBIN NEGATIVE (NEGATIVE); URINE COLOR YELLOW; URINE GLUCOSE (UA) NEGATIVE (NEGATIVE); URINE KETONE NEGATIVE (NEGATIVE); URINE LEUK ESTERASE NEGATIVE (NEGATIVE); URINE NITRITE NEGATIVE (NEGATIVE); URINE PROTEIN NEGATIVE (NEGATIVE); URINE UROBILINOGEN 0.2 mg/dL (0.2-1.0)
[2021-09-13] MEDS ORDERED: PANTOPRAZOLE SODIUM 40 MG VIAL ONE (08:56)
[2021-09-13] MEDS ORDERED: MECLIZINE HCL 25 MG TABLET (FP) PO PRN (09:59)
[2021-09-13] MEDS ORDERED: SODIUM CHLORIDE 1,000 ML IV SCH ×2 (10:00→13:20)
[2021-09-13] MEDS ORDERED: ASPIRIN COATED 81 MG TABLET.EC ONE (10:42)
[2021-09-13] MEDS ORDERED: LOSARTAN POTASSIUM 50 MG TABLET ONE (10:42)
[2021-09-13] MEDS ORDERED: FOLIC ACID 1 MG TABLET (FP) ONE (10:42)
[2021-09-13] MEDS ORDERED: GABAPENTIN 300 MG CAPSULE ONE (10:43)
[2021-09-13] MEDS ORDERED: APIXABAN 5 MG TABLET ONE (10:45)
[2021-09-13] MEDS ORDERED: MECLIZINE HCL 25 MG TABLET (FP) ONE (10:52)
[2021-09-13] MEDS: FOLIC ACID 1 MG TABLET (FP) PO SCH (11:00)
[2021-09-13] MEDS: LOSARTAN POTASSIUM 50 MG TABLET PO SCH (11:00)
[2021-09-13] MEDS: APIXABAN 5 MG TABLET PO SCH (11:00)
[2021-09-13] MEDS: ASPIRIN COATED 81 MG TABLET.EC PO SCH (11:00)
[2021-09-13] MEDS: GABAPENTIN 100 MG CAPSULE PO SCH (11:00)
[2021-09-13] MEDS: CALCIUM 500MG/VIT-D 200 UNITS COMBO TABLET (FP) PO SCH (11:00)
[2021-09-13] MEDS: INSULIN SLIDING SCALE (NOVOLOG) 1 VIAL SQ SCH ×2 (11:16→16:21)
[2021-09-13 11:58] LABS: BLOOD UREA NITROGEN 14.7 mg/dL (7-18); CALCIUM 9.4 mg/dL (8.5-10.1)
[2021-09-13 12:02] LABS: CREATININE 0.8 mg/dL (0.55-1.3)
[2021-09-14] MEDS: APIXABAN 5 MG TABLET PO SCH ×3 (03:31→22:03)
[2021-09-14] MEDS: ATORVASTATIN CA 20 MG TABLET (FP) PO SCH ×2 (03:32→22:03)
[2021-09-14] MEDS: SPIRONOLACTONE 25 MG TABLET PO SCH ×2 (03:32→09:51)
[2021-09-14] MEDS: INSULIN SLIDING SCALE (NOVOLOG) 1 VIAL SQ SCH ×5 (04:51→22:04)
[2021-09-14 07:47] VITALS: BMI 33.3
[2021-09-14] MEDS: GABAPENTIN 100 MG CAPSULE PO SCH (09:50)
[2021-09-14] MEDS: ASPIRIN COATED 81 MG TABLET.EC PO SCH (09:50)
[2021-09-14] MEDS: FOLIC ACID 1 MG TABLET (FP) PO SCH (09:51)
[2021-09-14] MEDS: LOSARTAN POTASSIUM 50 MG TABLET PO SCH (09:51)
[2021-09-14] MEDS: PANTOPRAZOLE 40 MG TABLET PO SCH (09:51)
[2021-09-14] MEDS: CALCIUM 500MG/VIT-D 200 UNITS COMBO TABLET (FP) PO SCH (09:51)
[2021-09-14] MEDS ORDERED: PANTOPRAZOLE SODIUM 40 MG VIAL IVPUSH SCH (10:00)
[2021-09-14] MEDS ORDERED: ACETAMINOPHEN/CAFFEINE/BUTALBITAL 1 TAB PO ONE (10:57)
[2021-09-14 11:44] LABS: BASO % 0.7 % (0-2.0); HEMATOCRIT 35.9 % (32.4-45.2); HEMOGLOBIN 11.7 GM/dL (10.7-15.3); LYMPH % 21.3 % (8-40); MCH 31.2 pg (25.7-33.7); MCHC 32.5 g/dl (32.0-36.0); MEAN CELL VOLUME 95.9 fl (80-96); MEAN PLT VOLUME 6.6 fl (7.5-11.1); MONO % 5.5 % (3.8-10.2); NEUT % 68.5 % (42.8-82.8); PLATELET COUNT 297 10^3/uL (134-434); RBC 3.74 M/mm3 (3.60-5.2); RDW 15.3 % (11.6-15.6); WHITE BLOOD COUNT 7.2 K/mm3 (4.0-10.0)
[2021-09-14 12:42] LABS: ALBUMIN 4.1 g/dl (3.4-5.0); BLOOD UREA NITROGEN 18.9 mg/dL (7-18); CALCIUM 9.7 mg/dL (8.5-10.1); MAGNESIUM 2.3 mg/dL (1.8-2.4)
[2021-09-14 12:45] LABS: PHOSPHOROUS 3.4 mg/dL (2.5-4.9)
[2021-09-14 12:47] LABS: BILIRUBIN,TOTAL 0.3 mg/dL (0.2-1); TOT PROT 7.3 g/dl (6.4-8.2)
[2021-09-14] MEDS ORDERED: ACETAMINOPHEN/CAFFEINE/BUTALBITAL 1 TAB PO PRN (15:51)
[2021-09-15] MEDS: INSULIN SLIDING SCALE (NOVOLOG) 1 VIAL SQ SCH ×2 (06:04→12:14)
[2021-09-15 06:28] VITALS: PULSE 70
[2021-09-15 06:54] LABS: BASO % 0.8 % (0-2.0); EOS % 5.6 % (0-4.5); HEMATOCRIT 32.3 % (32.4-45.2); HEMOGLOBIN 10.8 GM/dL (10.7-15.3); LYMPH % 40.9 % (8-40); MCHC 33.4 g/dl (32.0-36.0); MEAN CELL VOLUME 95.7 fl (80-96); MEAN PLT VOLUME 6.7 fl (7.5-11.1); NEUT % 38.7 % (42.8-82.8); PLATELET COUNT 268 10^3/uL (134-434); RBC 3.38 M/mm3 (3.60-5.2); RDW 15.3 % (11.6-15.6); WHITE BLOOD COUNT 5.1 K/mm3 (4.0-10.0)
[2021-09-15 07:35] LABS: ALBUMIN 3.8 g/dl (3.4-5.0); CALCIUM 9.5 mg/dL (8.5-10.1)
[2021-09-15 07:36] LABS: MAGNESIUM 2.2 mg/dL (1.8-2.4)
[2021-09-15 07:39] LABS: BILIRUBIN,TOTAL 0.5 mg/dL (0.2-1); TOT PROT 6.6 g/dl (6.4-8.2)
[2021-09-15] MEDS: ASPIRIN COATED 81 MG TABLET.EC PO SCH (09:35)
[2021-09-15] MEDS: GABAPENTIN 100 MG CAPSULE PO SCH (09:35)
[2021-09-15] MEDS: APIXABAN 5 MG TABLET PO SCH (09:35)
[2021-09-15] MEDS: LOSARTAN POTASSIUM 50 MG TABLET PO SCH (09:36)
[2021-09-15] MEDS: FOLIC ACID 1 MG TABLET (FP) PO SCH (09:36)
[2021-09-15] MEDS: CALCIUM 500MG/VIT-D 200 UNITS COMBO TABLET (FP) PO SCH (09:36)
[2021-09-15] MEDS: PANTOPRAZOLE 40 MG TABLET PO SCH (09:36)
[2021-09-15 10:03] VITALS: BP 122/52; TEMP 98
[2021-09-15] MEDS ORDERED: MECLIZINE HCL 25 MG TABLET (FP) PO ONE (13:46)
[2021-09-15] MEDS ORDERED: MECLIZINE HCL 12.5 MG TABLET PO SCH (22:00)
== END 2021-09-15 15:00 | disposition home or self-care (01) ==
LOC: JER 03:09 → JERBED 05:19 → J4W 21:51
PROVIDERS: ADMIT Internal Medicine; ATTEND Nurse Practitioner Family
PROC: 3E033NZ Introduction of Analgesics, Hypnotics, Sedatives into Peripheral Vein, Percutaneous Approach (ICD-10-PCS; principal; 2021-09-13)
PROC: 3E033GC Introduction of Other Therapeutic Substance into Peripheral Vein, Percutaneous Approach (ICD-10-PCS; 2021-09-13)
PROC: 3E0337Z Introduction of Electrolytic and Water Balance Substance into Peripheral Vein, Percutaneous Approach (ICD-10-PCS; 2021-09-13)
DX: I25.10 Atherosclerotic heart disease of native coronary artery without angina pectoris (principal); I11.9 Hypertensive heart disease without heart failure; I48.0 Paroxysmal atrial fibrillation; K21.9 Gastro-esophageal reflux disease without esophagitis; E78.00 Pure hypercholesterolemia, unspecified; E66.9 Obesity, unspecified; Z68.33 Body mass index [BMI] 33.0-33.9, adult
CPT/HCPCS: 36415; 70450-TC; 71045-TC-FY; 80048; 80053; 81003; 82962; 83690; 83735; 83930; 83935; 84100; 84132; 84484; 85025; 87077; 87086; 93005; 93010; 96361; 96374; 96375; 97116-GP; 97161-GP; 99285-25; C9803-CS; G0378; U0003; U0005

== ENCOUNTER 2021-11-08 04:33 | Observation (INO) | payer OTHER ==
[2021-11-08 06:01] LABS: BASO % 0.6 % (0-2.0); HEMATOCRIT 31.1 % (32.4-45.2); HEMOGLOBIN 10.6 GM/dL (10.7-15.3); LYMPH % 33.5 % (8-40); MCH 32.7 pg (25.7-33.7); MCHC 34.1 g/dl (32.0-36.0); MEAN PLT VOLUME 6.4 fl (7.5-11.1); MONO % 13.9 % (3.8-10.2); PLATELET COUNT 267 10^3/uL (134-434); RBC 3.24 M/mm3 (3.60-5.2); RDW 15.2 % (11.6-15.6); WHITE BLOOD COUNT 4.6 K/mm3 (4.0-10.0)
[2021-11-08 06:09] LABS: INR 1.03 (0.83-1.09); PROTHROMBIN TIME (PATIENT) 11.9 SEC (9.7-13.0)
[2021-11-08] MEDS ORDERED: METOCLOPRAMIDE HCL INJECTION 10 MG/2 ML VIAL IVPB ONE (06:09)
[2021-11-08 06:11] LABS: ACTIVATED PTT 32.5 SECONDS (25.2-36.5)
[2021-11-08 06:22] LABS: BLOOD UREA NITROGEN 14.7 mg/dL (7-18); CALCIUM 9.5 mg/dL (8.5-10.1)
[2021-11-08 06:23] LABS: ALBUMIN 4.2 g/dl (3.4-5.0)
[2021-11-08 06:26] LABS: CREATININE 0.8 mg/dL (0.55-1.3)
[2021-11-08 06:27] LABS: BILIRUBIN,TOTAL 0.3 mg/dL (0.2-1); TOT PROT 7.2 g/dl (6.4-8.2)
[2021-11-08] MEDS ORDERED: METOCLOPRAMIDE HCL INJECTION 10 MG/2 ML VIAL ONE (07:02)
[2021-11-08 08:45] LABS: EPI CELLS 23 /uL (0-25.1); HYALINE CASTS 0 /uL (0-3.1); PH,URINE 6.5 (5.0-8.0); URINE APPEARANCE CLOUDY; URINE BACTERIA 236 /uL (0-1359); URINE BILIRUBIN NEGATIVE (NEGATIVE); URINE COLOR YELLOW; URINE GLUCOSE (UA) NEGATIVE (NEGATIVE); URINE KETONE NEGATIVE (NEGATIVE); URINE LEUK ESTERASE 1+ (NEGATIVE); URINE NITRITE NEGATIVE (NEGATIVE); URINE PROTEIN NEGATIVE (NEGATIVE); URINE RBC 4 /uL (0-23.9); URINE UROBILINOGEN 0.2 mg/dL (0.2-1.0); URINE WBC 45 /uL (0-25.8)
[2021-11-08] MEDS ORDERED: APIXABAN 5 MG TABLET ONE (12:29)
[2021-11-08] MEDS: APIXABAN 5 MG TABLET PO SCH (12:47)
[2021-11-08] MEDS ORDERED: guaiFENesin 200 MG/10 ML 10 ML UNIT-DOSE CUPS PO PRN (13:14)
[2021-11-08] MEDS ORDERED: BENZOCAINE/MENTH/CETYLPYRD CL 1 EACH LOZENGE MM PRN (13:14)
[2021-11-08 13:26] LABS: CHOLESTEROL 102 mg/dL (50-200)
[2021-11-08 13:27] LABS: TRIGLYCERIDES 67 mg/dL (0-150)
[2021-11-08 13:28] LABS: LDL CHOLESTEROL (ONLY SJRH) 32 mg/dL (5-100)
[2021-11-08 13:31] LABS: HDL CHOLESTEROL 63 mg/dL (40-60)
[2021-11-08] MEDS ORDERED: FUROSEMIDE 20 MG TABLET (FP) ONE (14:03)
[2021-11-08] MEDS ORDERED: guaiFENesin 200 MG/10 ML 10 ML UNIT-DOSE CUPS ONE (14:03)
[2021-11-08] MEDS ORDERED: CEFTRIAXONE 1 GM/50 ML BAG ONE (14:03)
[2021-11-08] MEDS ORDERED: guaiFENesin 200 MG/10 ML 10 ML UNIT-DOSE CUPS PO ONE (14:15)
[2021-11-08] MEDS: CEFTRIAXONE 1 GM in DEXTROSE 5%-WATER - 50 ML IVPB SCH (14:47)
[2021-11-08] MEDS: FUROSEMIDE 20 MG TABLET (FP) PO SCH (14:47)
[2021-11-08] MEDS ORDERED: ACETAMINOPHEN/CAFFEINE/BUTALBITAL 1 TAB PO PRN (22:00)
[2021-11-09] MEDS ORDERED: ATORVASTATIN CA 80 MG TABLET (FP) ONE (01:44)
[2021-11-09] MEDS ORDERED: APIXABAN 5 MG TABLET ONE ×2 (01:44→12:16)
[2021-11-09] MEDS: APIXABAN 5 MG TABLET PO SCH ×2 (01:59→12:26)
[2021-11-09] MEDS: ATORVASTATIN CA 80 MG TABLET (FP) PO SCH ×2 (01:59→21:01)
[2021-11-09] MEDS ORDERED: ACETAMINOPHEN/CAFFEINE/BUTALBITAL 1 TAB ONE (06:17)
[2021-11-09] MEDS ORDERED: FUROSEMIDE 20 MG TABLET (FP) ONE ×2 (06:17→14:16)
[2021-11-09] MEDS: FUROSEMIDE 20 MG TABLET (FP) PO SCH ×2 (06:27→14:18)
[2021-11-09] MEDS ORDERED: sitaGLIPtin PHOSPHATE 50 MG TABLET ONE (08:15)
[2021-11-09] MEDS ORDERED: ASPIRIN COATED 81 MG TABLET.EC ONE (09:37)
[2021-11-09] MEDS ORDERED: PANTOPRAZOLE 40 MG TABLET PO ONE (09:37)
[2021-11-09 09:38] LABS: BASO % 0.7 % (0-2.0); EOS % 3.1 % (0-4.5); HEMATOCRIT 33.4 % (32.4-45.2); HEMOGLOBIN 11.3 GM/dL (10.7-15.3); MCH 32.1 pg (25.7-33.7); MCHC 33.8 g/dl (32.0-36.0); MEAN CELL VOLUME 94.8 fl (80-96); MEAN PLT VOLUME 6.6 fl (7.5-11.1); MONO % 13.7 % (3.8-10.2); NEUT % 49.5 % (42.8-82.8); PLATELET COUNT 302 10^3/uL (134-434); RBC 3.53 M/mm3 (3.60-5.2); RDW 15.1 % (11.6-15.6); WHITE BLOOD COUNT 6.1 K/mm3 (4.0-10.0)
[2021-11-09] MEDS ORDERED: hydrALAZINE HCL 10 MG TABLET ONE (09:38)
[2021-11-09] MEDS ORDERED: LOSARTAN POTASSIUM 50 MG TABLET ONE (09:38)
[2021-11-09] MEDS ORDERED: MAGNESIUM OXIDE 400 MG TABLET (FP) ONE (09:38)
[2021-11-09] MEDS ORDERED: GABAPENTIN 300 MG CAPSULE ONE (09:39)
[2021-11-09] MEDS ORDERED: CEFTRIAXONE 1 GM/50 ML BAG ONE (09:39)
[2021-11-09] MEDS ORDERED: SPIRONOLACTONE 25 MG TABLET ONE (09:39)
[2021-11-09] MEDS ORDERED: PATIENT'S OWN MEDICATION (NON-FORMULARY) (Empagliflozin 25 MG Tablet) PO SCH (10:00)
[2021-11-09] MEDS: MAGNESIUM OXIDE 400 MG TABLET (FP) PO SCH (10:01)
[2021-11-09] MEDS: PANTOPRAZOLE 40 MG TABLET PO SCH (10:01)
[2021-11-09] MEDS: hydrALAZINE HCL 10 MG TABLET PO SCH (10:01)
[2021-11-09] MEDS: ASPIRIN COATED 81 MG TABLET.EC PO SCH (10:01)
[2021-11-09] MEDS: CEFTRIAXONE 1 GM in DEXTROSE 5%-WATER - 50 ML IVPB SCH (10:01)
[2021-11-09] MEDS: LOSARTAN POTASSIUM 50 MG TABLET PO SCH (10:01)
[2021-11-09] MEDS: SPIRONOLACTONE 25 MG TABLET PO SCH (10:01)
[2021-11-09] MEDS: GABAPENTIN 300 MG CAPSULE PO SCH (10:01)
[2021-11-09 10:09] LABS: ALBUMIN 4.6 g/dl (3.4-5.0); CALCIUM 9.8 mg/dL (8.5-10.1)
[2021-11-09 10:12] LABS: CREATININE 0.9 mg/dL (0.55-1.3)
[2021-11-09 10:14] LABS: BILIRUBIN,TOTAL 0.4 mg/dL (0.2-1); TOT PROT 7.8 g/dl (6.4-8.2)
[2021-11-09 14:46] LABS: URINE APPEARANCE CLEAR; URINE BILIRUBIN NEGATIVE (NEGATIVE); URINE COLOR YELLOW; URINE GLUCOSE (UA) NEGATIVE (NEGATIVE); URINE KETONE NEGATIVE (NEGATIVE); URINE LEUK ESTERASE NEGATIVE (NEGATIVE); URINE NITRITE NEGATIVE (NEGATIVE); URINE PROTEIN NEGATIVE (NEGATIVE); URINE UROBILINOGEN 0.2 mg/dL (0.2-1.0)
[2021-11-09 19:55] VITALS: BMI 31.8
[2021-11-10] MEDS: APIXABAN 5 MG TABLET PO SCH (00:25)
[2021-11-10] MEDS: FUROSEMIDE 20 MG TABLET (FP) PO SCH ×2 (06:01→14:27)
[2021-11-10 07:29] LABS: BASO % 0.8 % (0-2.0); EOS % 3.3 % (0-4.5); HEMATOCRIT 30.8 % (32.4-45.2); HEMOGLOBIN 10.5 GM/dL (10.7-15.3); LYMPH % 25.7 % (8-40); MCH 32.6 pg (25.7-33.7); MCHC 34.2 g/dl (32.0-36.0); MEAN CELL VOLUME 95.2 fl (80-96); MEAN PLT VOLUME 6.2 fl (7.5-11.1); MONO % 17.6 % (3.8-10.2); NEUT % 52.6 % (42.8-82.8); PLATELET COUNT 253 10^3/uL (134-434); RBC 3.23 M/mm3 (3.60-5.2); RDW 15.3 % (11.6-15.6); WHITE BLOOD COUNT 5.4 K/mm3 (4.0-10.0)
[2021-11-10 07:46] LABS: CALCIUM 9.3 mg/dL (8.5-10.1)
[2021-11-10 07:47] LABS: MAGNESIUM 1.9 mg/dL (1.8-2.4)
[2021-11-10 07:50] LABS: PHOSPHOROUS 5.8 mg/dL (2.5-4.9)
[2021-11-10] MEDS ORDERED: cefTRIAXone SODIUM 1 GM VIAL ONE (08:14)
[2021-11-10] MEDS: SPIRONOLACTONE 25 MG TABLET PO SCH (09:57)
[2021-11-10] MEDS: GABAPENTIN 300 MG CAPSULE PO SCH (09:57)
[2021-11-10] MEDS: CEFTRIAXONE 1 GM in DEXTROSE 5%-WATER - 50 ML IVPB SCH (09:57)
[2021-11-10] MEDS: LOSARTAN POTASSIUM 50 MG TABLET PO SCH (09:57)
[2021-11-10] MEDS: hydrALAZINE HCL 10 MG TABLET PO SCH (09:57)
[2021-11-10] MEDS: ASPIRIN COATED 81 MG TABLET.EC PO SCH (09:57)
[2021-11-10] MEDS: PANTOPRAZOLE 40 MG TABLET PO SCH (09:57)
[2021-11-10] MEDS: MAGNESIUM OXIDE 400 MG TABLET (FP) PO SCH (09:57)
[2021-11-10] MEDS ORDERED: APIXABAN 5 MG TABLET PO SCH (10:00)
[2021-11-10 15:42] VITALS: BP 128/74; PULSE 72; TEMP 98.2
== END 2021-11-10 16:48 | disposition home or self-care (01) ==
LOC: JER 04:33 → JERBED 09:55 → J4W 11-09 16:32
PROVIDERS: ADMIT Internal Medicine; ATTEND Internal Medicine
PROC: 3E03329 Introduction of Other Anti-infective into Peripheral Vein, Percutaneous Approach (ICD-10-PCS; principal; 2021-11-08)
PROC: 3E033GC Introduction of Other Therapeutic Substance into Peripheral Vein, Percutaneous Approach (ICD-10-PCS; 2021-11-08)
DX: I25.10 Atherosclerotic heart disease of native coronary artery without angina pectoris (principal); I11.0 Hypertensive heart disease with heart failure; E11.9 Type 2 diabetes mellitus without complications; M06.9 Rheumatoid arthritis, unspecified; E78.5 Hyperlipidemia, unspecified; I48.91 Unspecified atrial fibrillation; Z79.01 Long term (current) use of anticoagulants; M32.9 Systemic lupus erythematosus, unspecified; R11.0 Nausea; E66.9 Obesity, unspecified; Z68.32 Body mass index [BMI] 32.0-32.9, adult
CPT/HCPCS: 0241U-QW; 36415; 70450-TC; 71045-TC-FY; 71275-TC; 74174-TC; 80048; 80053; 80061; 81003; 82550; 82962; 83036; 83735; 84100; 84443; 84484; 85025; 85379; 85610; 85651; 85730; 86140; 87077; 87086; 87899; 93005; 93010; 94010; 96365; 96375; 99285-25; C9803-CS; G0378; Q9967; U0003; U0005

== ENCOUNTER 2022-03-14 02:03 | Observation (INO) | payer OTHER ==
[2022-03-14 03:07] LABS: BASO % 0.7 % (0-2.0); EOS % 2.5 % (0-4.5); HEMATOCRIT 32.7 % (32.4-45.2); HEMOGLOBIN 10.9 GM/dL (10.7-15.3); LYMPH % 27.9 % (8-40); MCH 32.3 pg (25.7-33.7); MCHC 33.3 g/dl (32.0-36.0); MEAN CELL VOLUME 97.1 fl (80-96); MEAN PLT VOLUME 6.8 fl (7.5-11.1); MONO % 9.1 % (3.8-10.2); NEUT % 59.8 % (42.8-82.8); PLATELET COUNT 294 10^3/uL (134-434); RBC 3.37 M/mm3 (3.60-5.2); RDW 15.2 % (11.6-15.6); WHITE BLOOD COUNT 5.7 K/mm3 (4.0-10.0)
[2022-03-14 03:27] LABS: ALBUMIN 3.6 g/dl (3.4-5.0); CALCIUM 9.2 mg/dL (8.5-10.1)
[2022-03-14 03:28] LABS: BLOOD UREA NITROGEN 13.2 mg/dL (7-18)
[2022-03-14 03:31] LABS: BILIRUBIN,TOTAL 0.4 mg/dL (0.2-1); TOT PROT 6.6 g/dl (6.4-8.2)
[2022-03-14 04:04] LABS: LACTIC ACID 3.8 mmol/L (0.4-2.0)
[2022-03-14 04:11] LABS: PH,URINE 6.5 (5.0-8.0); URINE APPEARANCE CLEAR; URINE BILIRUBIN NEGATIVE (NEGATIVE); URINE COLOR YELLOW; URINE GLUCOSE (UA) NEGATIVE (NEGATIVE); URINE KETONE NEGATIVE (NEGATIVE); URINE LEUK ESTERASE NEGATIVE (NEGATIVE); URINE NITRITE NEGATIVE (NEGATIVE); URINE PROTEIN NEGATIVE (NEGATIVE); URINE UROBILINOGEN 0.2 mg/dL (0.2-1.0)
[2022-03-14] MEDS ORDERED: LACTATED RINGERS SOLUTION 1000 ML INFUS.BAG IV ONE (04:16)
[2022-03-14] MEDS ORDERED: PIPERACILLIN/TAZOB 3.375 GM 3.375 GM in DEXTROSE 5%-WATER - 50 ML IVPB ONE (04:32)
[2022-03-14] MEDS ORDERED: VANCOMYCIN 1 GM in D5W (PRE-DOCKED) 1,000 MG/250 ML IVPB ONE (04:32)
[2022-03-14] MEDS ORDERED: ACETAMINOPHEN 325 MG TABLET (FP) PO PRN (05:10)
[2022-03-14] MEDS ORDERED: PIPERACILLIN/TAZOB 3.375 GM 3.375 GM/50 ML BAG IVPB ONE (05:15)
[2022-03-14] MEDS ORDERED: APIXABAN 5 MG TABLET PO SCH (05:15)
[2022-03-14] MEDS ORDERED: VANCOMYCIN/WATER FOR INJ (PEG) 1,000 MG/200 ML BAG IVPB ONE (05:15)
[2022-03-14 08:23] LABS: LACTIC ACID 2.5 mmol/L (0.4-2.0)
[2022-03-14] MEDS: INSULIN SLIDING SCALE (NOVOLOG) 1 VIAL SQ SCH ×4 (09:00→22:25)
[2022-03-14] MEDS ORDERED: PANTOPRAZOLE 40 MG TABLET PO ONE (11:49)
[2022-03-14] MEDS ORDERED: LOSARTAN POTASSIUM 50 MG TABLET ONE (11:49)
[2022-03-14] MEDS ORDERED: hydrALAZINE HCL 10 MG TABLET ONE (11:49)
[2022-03-14] MEDS ORDERED: FAMOTIDINE 20 MG TABLET ONE (11:49)
[2022-03-14] MEDS ORDERED: FOLIC ACID 1 MG TABLET (FP) ONE (11:49)
[2022-03-14] MEDS ORDERED: METOPROLOL TARTRATE 50 MG TABLET (FP) ONE (11:49)
[2022-03-14] MEDS ORDERED: ASPIRIN 81 MG CHEWABLE TABLETS ONE (11:50)
[2022-03-14] MEDS ORDERED: GABAPENTIN 300 MG CAPSULE ONE (11:50)
[2022-03-14] MEDS ORDERED: ENOXAPARIN NA (PORCINE) 40 MG/0.4 ML DISP.SYRIN SQ ONE (11:50)
[2022-03-14] MEDS ORDERED: SPIRONOLACTONE 25 MG TABLET ONE (11:50)
[2022-03-14] MEDS ORDERED: amLODIPine BESYLATE 2.5 MG TABLET (FP) ONE (11:50)
[2022-03-14] MEDS: ENOXAPARIN NA (PORCINE) 40 MG/0.4 ML DISP.SYRIN SQ SCH (12:03)
[2022-03-14] MEDS: FOLIC ACID 1 MG TABLET (FP) PO SCH (12:03)
[2022-03-14] MEDS: FAMOTIDINE 20 MG TABLET PO SCH (12:03)
[2022-03-14] MEDS: LOSARTAN POTASSIUM 50 MG TABLET PO SCH (12:03)
[2022-03-14] MEDS: ASPIRIN COATED 81 MG TABLET.EC PO SCH (12:03)
[2022-03-14] MEDS: hydrALAZINE HCL 10 MG TABLET PO SCH ×2 (12:03→22:06)
[2022-03-14] MEDS: GABAPENTIN 300 MG CAPSULE PO SCH (12:03)
[2022-03-14] MEDS: amLODIPine BESYLATE 5 MG TABLET (FP) PO SCH (12:03)
[2022-03-14] MEDS: PANTOPRAZOLE 40 MG TABLET PO SCH (12:03)
[2022-03-14] MEDS: SPIRONOLACTONE 25 MG TABLET PO SCH (12:03)
[2022-03-14] MEDS: LACTATED RINGERS SOLUTION 1,000 ML/1,000 ML INFUS.BAG IV SCH ×2 (13:57→22:43)
[2022-03-14] MEDS ORDERED: ATORVASTATIN CA 80 MG TABLET (FP) PO SCH (22:00)
[2022-03-15 00:47] VITALS: BMI 32.3
[2022-03-15] MEDS: INSULIN SLIDING SCALE (NOVOLOG) 1 VIAL SQ SCH ×2 (06:55→12:19)
[2022-03-15 08:37] LABS: BASO % 0.9 % (0-2.0); EOS % 3.4 % (0-4.5); HEMATOCRIT 32.7 % (32.4-45.2); HEMOGLOBIN 10.8 GM/dL (10.7-15.3); LYMPH % 35.4 % (8-40); MCH 32.1 pg (25.7-33.7); MCHC 33.1 g/dl (32.0-36.0); MEAN PLT VOLUME 7.1 fl (7.5-11.1); MONO % 12.1 % (3.8-10.2); NEUT % 48.2 % (42.8-82.8); PLATELET COUNT 311 10^3/uL (134-434); RBC 3.37 M/mm3 (3.60-5.2); RDW 14.9 % (11.6-15.6); WHITE BLOOD COUNT 5.6 K/mm3 (4.0-10.0)
[2022-03-15 08:55] LABS: ALBUMIN 3.6 g/dl (3.4-5.0); BLOOD UREA NITROGEN 23.2 mg/dL (7-18); CALCIUM 9.8 mg/dL (8.5-10.1); MAGNESIUM 1.3 mg/dL (1.8-2.4)
[2022-03-15 08:59] LABS: CREATININE 1.1 mg/dL (0.55-1.3); PHOSPHOROUS 5.1 mg/dL (2.5-4.9)
[2022-03-15 09:01] LABS: BILIRUBIN,TOTAL 0.3 mg/dL (0.2-1); TOT PROT 6.5 g/dl (6.4-8.2)
[2022-03-15] MEDS: ENOXAPARIN NA (PORCINE) 40 MG/0.4 ML DISP.SYRIN SQ SCH (09:47)
[2022-03-15] MEDS: FOLIC ACID 1 MG TABLET (FP) PO SCH (09:48)
[2022-03-15] MEDS: FAMOTIDINE 20 MG TABLET PO SCH (09:48)
[2022-03-15] MEDS: SPIRONOLACTONE 25 MG TABLET PO SCH (09:48)
[2022-03-15] MEDS: amLODIPine BESYLATE 5 MG TABLET (FP) PO SCH (09:48)
[2022-03-15] MEDS: GABAPENTIN 300 MG CAPSULE PO SCH (09:50)
[2022-03-15] MEDS: PANTOPRAZOLE 40 MG TABLET PO SCH (09:50)
[2022-03-15] MEDS: ASPIRIN COATED 81 MG TABLET.EC PO SCH (09:50)
[2022-03-15] MEDS: hydrALAZINE HCL 10 MG TABLET PO SCH (09:51)
[2022-03-15] MEDS: LOSARTAN POTASSIUM 50 MG TABLET PO SCH (09:53)
[2022-03-15 13:48] VITALS: BP 117/61; PULSE 80; RESP 18; TEMP 97.7
== END 2022-03-15 17:19 | disposition home or self-care (01) ==
LOC: JER 02:03 → UNDOADMOB 04:43 → INTOOBSV 04:43 → JERBED 04:43 → J4W 21:22 → JERBED 03-15 09:37
PROVIDERS: ADMIT Family Medicine
PROC: 3E03329 Introduction of Other Anti-infective into Peripheral Vein, Percutaneous Approach (ICD-10-PCS; principal; 2022-03-15)
PROC: 3E013VG Introduction of Insulin into Subcutaneous Tissue, Percutaneous Approach (ICD-10-PCS; 2022-03-15)
PROC: 3E013GC Introduction of Other Therapeutic Substance into Subcutaneous Tissue, Percutaneous Approach (ICD-10-PCS; 2022-03-15)
PROC: 3E0337Z Introduction of Electrolytic and Water Balance Substance into Peripheral Vein, Percutaneous Approach (ICD-10-PCS; 2022-03-15)
DX: R00.2 Palpitations (principal); I48.0 Paroxysmal atrial fibrillation; R50.9 Fever, unspecified; E87.20 Acidosis, unspecified; I11.0 Hypertensive heart disease with heart failure; I50.9 Heart failure, unspecified; E11.9 Type 2 diabetes mellitus without complications; E78.5 Hyperlipidemia, unspecified; M06.9 Rheumatoid arthritis, unspecified; I25.10 Atherosclerotic heart disease of native coronary artery without angina pectoris; K21.9 Gastro-esophageal reflux disease without esophagitis; M32.9 Systemic lupus erythematosus, unspecified
CPT/HCPCS: 36415; 71045-TC-FY; 80053; 80061; 81003; 82550; 82962; 83605; 83735; 84100; 84439; 84443; 84484; 85025; 87040; 87086; 87899; 93005; 93010; 93306-TC; 96365; 96372; 96375; 99285-25; C9803-CS; G0378; U0003; U0005

== ENCOUNTER 2022-07-23 17:50 | Inpatient (IN) | payer OTHER ==
[2022-07-23] MEDS ORDERED: ACETAMINOPHEN 1000 MG/100 ML BAG IVPB ONE (19:03)
[2022-07-23] MEDS ORDERED: MAG HYDROX/AL HYDROX/SIMETH 30 ML UNIT-DOSE CUP PO ONE (19:03)
[2022-07-23] MEDS ORDERED: FAMOTIDINE 20 MG/50 ML IVPB 20 MG/50 ML MG IVPB ONE ×2 (19:03→19:12)
[2022-07-23] MEDS ORDERED: MAG HYDROX/AL HYDROX/SIMETH 30 ML UNIT-DOSE CUP ONE (19:12)
[2022-07-23] MEDS ORDERED: ACETAMINOPHEN INJECTION 100 ML IVPB ONE (19:12)
[2022-07-23 19:45] LABS: BASO % 0.5 % (0-2.0); EOS % 1.5 % (0-4.5); HEMATOCRIT 30.7 % (32.4-45.2); HEMOGLOBIN 10.2 GM/dL (10.7-15.3); LYMPH % 33.9 % (8-40); MCH 31.5 pg (25.7-33.7); MCHC 33.3 g/dl (32.0-36.0); MEAN CELL VOLUME 94.6 fl (80-96); MEAN PLT VOLUME 6.5 fl (7.5-11.1); MONO % 12.1 % (3.8-10.2); PLATELET COUNT 271 10^3/uL (134-434); RBC 3.24 M/mm3 (3.60-5.2); WHITE BLOOD COUNT 5.4 K/mm3 (4.0-10.0)
[2022-07-23 19:49] LABS: INR 1.16 (0.83-1.09); PROTHROMBIN TIME (PATIENT) 13.4 SEC (9.7-13.0)
[2022-07-23 20:03] LABS: CALCIUM 9.1 mg/dL (8.5-10.1)
[2022-07-23 20:04] LABS: ALBUMIN 3.9 g/dl (3.4-5.0); BLOOD UREA NITROGEN 9.2 mg/dL (7-18)
[2022-07-23 20:06] LABS: CREATININE 0.8 mg/dL (0.55-1.3)
[2022-07-23 20:08] LABS: BILIRUBIN,TOTAL 0.3 mg/dL (0.2-1); TOT PROT 7.1 g/dl (6.4-8.2)
[2022-07-23] MEDS ORDERED: SODIUM CHLORIDE 0.9% 500 ML INFUS.BAG IV ONE (20:13)
[2022-07-23 22:12] LABS: EPI CELLS 3 /uL (0-25.1); HYALINE CASTS 0 /uL (0-3.1); URINE APPEARANCE CLEAR; URINE BACTERIA 31 /uL (0-1359); URINE BILIRUBIN NEGATIVE (NEGATIVE); URINE COLOR YELLOW; URINE GLUCOSE (UA) NEGATIVE (NEGATIVE); URINE KETONE NEGATIVE (NEGATIVE); URINE LEUK ESTERASE 1+ (NEGATIVE); URINE NITRITE NEGATIVE (NEGATIVE); URINE PROTEIN NEGATIVE (NEGATIVE); URINE RBC 5 /uL (0-23.9); URINE UROBILINOGEN 0.2 mg/dL (0.2-1.0); URINE WBC 9 /uL (0-25.8)
[2022-07-23 22:44] LABS: CREATININE, URINE RANDOM < 13.0 mg/dL (30-150)
[2022-07-23] MEDS ORDERED: SIMETHICONE 80 MG TAB.CHEW (FP) PO PRN (23:29)
[2022-07-23] MEDS ORDERED: SODIUM CHLORIDE 1,000 ML IV SCH (23:30)
[2022-07-24] MEDS ORDERED: MAG HYDROX/AL HYDROX/SIMETH 30 ML UNIT-DOSE CUP PO PRN (03:32)
[2022-07-24] MEDS: INSULIN SLIDING SCALE (NOVOLOG) 1 VIAL SQ SCH ×4 (06:23→22:07)
[2022-07-24 07:50] VITALS: BMI 31.8
[2022-07-24 08:04] LABS: CALCIUM 9.4 mg/dL (8.5-10.1)
[2022-07-24 08:05] LABS: MAGNESIUM 1.4 mg/dL (1.8-2.4)
[2022-07-24 08:07] LABS: BLOOD UREA NITROGEN 10.5 mg/dL (7-18)
[2022-07-24 08:08] LABS: CREATININE 0.9 mg/dL (0.55-1.3)
[2022-07-24 08:09] LABS: TOT PROT 6.8 g/dl (6.4-8.2)
[2022-07-24 08:10] LABS: PHOSPHOROUS 3.5 mg/dL (2.5-4.9)
[2022-07-24 08:11] LABS: BILIRUBIN,TOTAL 0.4 mg/dL (0.2-1)
[2022-07-24 08:14] LABS: EOS % 2.8 % (0-4.5); HEMATOCRIT 31.7 % (32.4-45.2); HEMOGLOBIN 10.8 GM/dL (10.7-15.3); LYMPH % 37.3 % (8-40); MEAN CELL VOLUME 94.1 fl (80-96); MEAN PLT VOLUME 6.6 fl (7.5-11.1); MONO % 15.5 % (3.8-10.2); NEUT % 43.4 % (42.8-82.8); PLATELET COUNT 268 10^3/uL (134-434); RBC 3.37 M/mm3 (3.60-5.2); WHITE BLOOD COUNT 4.5 K/mm3 (4.0-10.0)
[2022-07-24] MEDS ORDERED: MAGNESIUM SULF 50% (8.12 MEQ/2 ML-1 GM VIAL) IVPB ONE (08:45)
[2022-07-24] MEDS: SODIUM ZIRCONIUM CYCLOSILICATE (LOKELMA) 5 GM PACKET PO SCH (09:32)
[2022-07-24] MEDS: GABAPENTIN 300 MG CAPSULE PO SCH (09:32)
[2022-07-24] MEDS: SIMETHICONE 80 MG TAB.CHEW (FP) PO SCH ×4 (09:32→22:08)
[2022-07-24] MEDS: ASPIRIN COATED 81 MG TABLET.EC PO SCH (09:32)
[2022-07-24] MEDS: FERROUS SO4 325 MG TABLET (FP) PO SCH (09:32)
[2022-07-24] MEDS: FOLIC ACID 1 MG TABLET (FP) PO SCH (09:32)
[2022-07-24] MEDS: APIXABAN 5 MG TABLET PO SCH ×3 (09:32→22:08)
[2022-07-24] MEDS ORDERED: [UNRECOGNIZED DRUG - OTHER] SQ SCH (10:00)
[2022-07-24] MEDS ORDERED: METHOTREXATE SQ SCH (10:00)
[2022-07-24] MEDS ORDERED: PANTOPRAZOLE 40 MG TABLET PO SCH (10:00)
[2022-07-24] MEDS: FAMOTIDINE 20 MG TABLET PO SCH (11:38)
[2022-07-24] MEDS ORDERED: DEXTROSE 5%-0.45% SALINE 1,000 ML IV SCH (14:45)
[2022-07-24] MEDS ORDERED: ATORVASTATIN CA 80 MG TABLET (FP) PO SCH (22:00)
[2022-07-25] MEDS: INSULIN SLIDING SCALE (NOVOLOG) 1 VIAL SQ SCH ×2 (06:23→12:08)
[2022-07-25 08:13] LABS: HEMATOCRIT 32.2 % (32.4-45.2); MCH 31.8 pg (25.7-33.7); MEAN CELL VOLUME 93.6 fl (80-96); MEAN PLT VOLUME 6.6 fl (7.5-11.1); PLATELET COUNT 314 10^3/uL (134-434); RBC 3.44 M/mm3 (3.60-5.2); RDW 15.3 % (11.6-15.6); WHITE BLOOD COUNT 4.5 K/mm3 (4.0-10.0)
[2022-07-25 08:30] LABS: ALBUMIN 4.1 g/dl (3.4-5.0); BLOOD UREA NITROGEN 13.3 mg/dL (7-18); CALCIUM 9.6 mg/dL (8.5-10.1)
[2022-07-25 08:33] LABS: CREATININE 0.9 mg/dL (0.55-1.3)
[2022-07-25 08:35] LABS: BILIRUBIN,TOTAL 0.5 mg/dL (0.2-1); TOT PROT 7.3 g/dl (6.4-8.2)
[2022-07-25 09:54] VITALS: BP 138/59; PULSE 68; RESP 22; TEMP 98
[2022-07-25] MEDS ORDERED: SODIUM CHLORIDE 1 GM TABLET PO ONE (10:05)
[2022-07-25] MEDS: ASPIRIN COATED 81 MG TABLET.EC PO SCH (10:22)
[2022-07-25] MEDS: SIMETHICONE 80 MG TAB.CHEW (FP) PO SCH ×2 (10:23→13:36)
[2022-07-25] MEDS: SODIUM ZIRCONIUM CYCLOSILICATE (LOKELMA) 5 GM PACKET PO SCH (10:23)
[2022-07-25] MEDS: APIXABAN 5 MG TABLET PO SCH (10:23)
[2022-07-25] MEDS: FOLIC ACID 1 MG TABLET (FP) PO SCH (10:23)
[2022-07-25] MEDS: GABAPENTIN 300 MG CAPSULE PO SCH (10:23)
[2022-07-25] MEDS: FERROUS SO4 325 MG TABLET (FP) PO SCH (10:23)
[2022-07-25] MEDS: FAMOTIDINE 20 MG TABLET PO SCH (10:23)
[2022-07-25] MEDS ORDERED: CEFUROXIME AXETIL 250 MG TABLET PO ONE (12:40)
== END 2022-07-25 15:25 | disposition home or self-care (01) | DRG 641 ==
LOC: JER 17:50 → JERBED 21:09 → OBSVTOIN 21:09 → J4W 07-24 04:08
PROVIDERS: ADMIT Internal Medicine; ATTEND Internal Medicine
DX: E87.1 Hypo-osmolality and hyponatremia (principal); N39.0 Urinary tract infection, site not specified; I25.10 Atherosclerotic heart disease of native coronary artery without angina pectoris; I48.91 Unspecified atrial fibrillation; E11.9 Type 2 diabetes mellitus without complications; E78.5 Hyperlipidemia, unspecified; M32.8 Other forms of systemic lupus erythematosus; M06.9 Rheumatoid arthritis, unspecified; K21.9 Gastro-esophageal reflux disease without esophagitis; I48.0 Paroxysmal atrial fibrillation; I44.0 Atrioventricular block, first degree; D64.9 Anemia, unspecified; R11.0 Nausea; R19.7 Diarrhea, unspecified; B96.20 Unspecified Escherichia coli [E. coli] as the cause of diseases classified elsewhere; B95.1 Streptococcus, group B, as the cause of diseases classified elsewhere; R07.89 Other chest pain; E87.5 Hyperkalemia; I11.0 Hypertensive heart disease with heart failure; I50.9 Heart failure, unspecified
CPT/HCPCS: 0241U-QW; 36415; 71046-TC-FY; 80053; 80061; 81003; 82436; 82570; 82962; 83036; 83690; 83735; 83935; 84100; 84133; 84300; 84439; 84443; 84479; 84481; 84484; 84540; 85025; 85027; 85610; 85730; 87077; 87086; 87186; 93005; 93010; 97116-GP; 97162-GP; 99285-25

== ENCOUNTER 2022-10-14 11:45 | Observation (INO) | payer OTHER ==
[2022-10-14 12:12] VITALS: BMI 33.5
[2022-10-14] MEDS ORDERED: SODIUM CHLORIDE 1,000 ML IV SCH (12:30)
[2022-10-14 13:46] LABS: BASO % 0.6 % (0-2.0); EOS % 1.9 % (0-4.5); HEMATOCRIT 34.3 % (32.4-45.2); HEMOGLOBIN 11.3 GM/dL (10.7-15.3); LYMPH % 27.4 % (8-40); MEAN CELL VOLUME 93.7 fl (80-96); MEAN PLT VOLUME 7.1 fl (7.5-11.1); MONO % 12.6 % (3.8-10.2); NEUT % 57.5 % (42.8-82.8); PLATELET COUNT 288 10^3/uL (134-434); RBC 3.66 M/mm3 (3.60-5.2); RDW 14.4 % (11.6-15.6); WHITE BLOOD COUNT 5.4 K/mm3 (4.0-10.0)
[2022-10-14 14:14] LABS: CHLORIDE 100 mmol/L (98-107); SODIUM 134 mmol/L (136-145)
[2022-10-14 14:15] LABS: INR 1.42 (0.83-1.09); PROTHROMBIN TIME (PATIENT) 16.4 SEC (9.7-13.0)
[2022-10-14 14:17] LABS: ACTIVATED PTT 30.2 SECONDS (25.2-36.5); CALCIUM 9.6 mg/dL (8.5-10.1); CO2 26 mmol/L (21-32)
[2022-10-14 14:18] LABS: ALBUMIN 3.9 g/dl (3.4-5.0)
[2022-10-14 14:19] LABS: BLOOD UREA NITROGEN 11.4 mg/dL (7-18); GLUCOSE,RANDOM 91 mg/dL (74-106)
[2022-10-14 14:21] LABS: CREATININE 0.8 mg/dL (0.55-1.3); SGOT/AST 47 U/L (15-37)
[2022-10-14 14:22] LABS: CHOLESTEROL 103 mg/dL (50-200); TOT PROT 7.2 g/dl (6.4-8.2)
[2022-10-14 14:23] LABS: LDL CHOLESTEROL (ONLY SJRH) 31 mg/dL (5-100)
[2022-10-14 14:25] LABS: ALK PHOS 80 U/L (45-117); HDL CHOLESTEROL 64 mg/dL (40-60)
[2022-10-14 14:28] LABS: ANION GAP 8 MMOL/L (8-16); BILIRUBIN,TOTAL 0.4 mg/dL (0.2-1); POTASSIUM 6.2 mmol/L (3.5-5.1); SGPT/ALT 35 U/L (13-61)
[2022-10-14 15:39] LABS: EPI CELLS 5 /uL (0-25.1); HYALINE CASTS 0 /uL (0-3.1); URINE APPEARANCE CLEAR; URINE BACTERIA 23 /uL (0-1359); URINE BILIRUBIN NEGATIVE (NEGATIVE); URINE COLOR YELLOW; URINE GLUCOSE (UA) NEGATIVE (NEGATIVE); URINE KETONE NEGATIVE (NEGATIVE); URINE LEUK ESTERASE TRACE (NEGATIVE); URINE NITRITE NEGATIVE (NEGATIVE); URINE PROTEIN NEGATIVE (NEGATIVE); URINE RBC 11 /uL (0-23.9); URINE UROBILINOGEN 0.2 mg/dL (0.2-1.0); URINE WBC 5 /uL (0-25.8)
[2022-10-14 15:54] LABS: BLOOD UREA NITROGEN 10.4 mg/dL (7-18); CALCIUM 9.8 mg/dL (8.5-10.1)
[2022-10-14] MEDS ORDERED: ACETAMINOPHEN 325 MG TABLET (FP) PO PRN (15:56)
[2022-10-14 15:57] LABS: CREATININE 0.8 mg/dL (0.55-1.3)
[2022-10-14] MEDS ORDERED: ACETAMINOPHEN 325 MG TABLET (FP) ONE (19:16)
[2022-10-14] MEDS: APIXABAN 5 MG TABLET PO SCH (22:06)
[2022-10-14] MEDS: ATORVASTATIN CA 80 MG TABLET (FP) PO SCH (22:06)
[2022-10-15 08:11] LABS: BASO % 0.8 % (0-2.0); EOS % 2.2 % (0-4.5); HEMATOCRIT 32.9 % (32.4-45.2); LYMPH % 35.8 % (8-40); MCH 31.5 pg (25.7-33.7); MCHC 33.6 g/dl (32.0-36.0); MEAN CELL VOLUME 93.7 fl (80-96); MEAN PLT VOLUME 6.6 fl (7.5-11.1); MONO % 12.6 % (3.8-10.2); NEUT % 48.6 % (42.8-82.8); PLATELET COUNT 261 10^3/uL (134-434); RBC 3.51 M/mm3 (3.60-5.2); RDW 14.7 % (11.6-15.6); WHITE BLOOD COUNT 5.1 K/mm3 (4.0-10.0)
[2022-10-15 08:21] LABS: POTASSIUM 4.7 mmol/L (3.5-5.1)
[2022-10-15 08:23] LABS: CALCIUM 9.7 mg/dL (8.5-10.1)
[2022-10-15 08:24] LABS: BLOOD UREA NITROGEN 14.3 mg/dL (7-18)
[2022-10-15 08:27] LABS: CREATININE 0.9 mg/dL (0.55-1.3)
[2022-10-15] MEDS: LOSARTAN POTASSIUM 50 MG TABLET PO SCH (09:35)
[2022-10-15] MEDS: FERROUS SO4 325 MG TABLET (FP) PO SCH (09:35)
[2022-10-15] MEDS: MAGNESIUM OXIDE 400 MG TABLET (FP) PO SCH (09:35)
[2022-10-15] MEDS: PANTOPRAZOLE 40 MG TABLET PO SCH (09:35)
[2022-10-15] MEDS: amLODIPine BESYLATE 2.5 MG TABLET (FP) PO SCH (09:35)
[2022-10-15] MEDS: APIXABAN 5 MG TABLET PO SCH ×2 (09:36→21:26)
[2022-10-15] MEDS: FOLIC ACID 1 MG TABLET (FP) PO SCH (09:36)
[2022-10-15] MEDS: GABAPENTIN 300 MG CAPSULE PO SCH (09:36)
[2022-10-15] MEDS: ASPIRIN COATED 81 MG TABLET.EC PO SCH (09:36)
[2022-10-15] MEDS ORDERED: INSULIN (NOVOLOG) ASPART 100 UNITS/ML 10ML VIAL ONE (16:28)
[2022-10-15] MEDS: INSULIN SLIDING SCALE (NOVOLOG) 1 VIAL SQ SCH ×2 (16:44→21:26)
[2022-10-15] MEDS: ATORVASTATIN CA 80 MG TABLET (FP) PO SCH (21:26)
[2022-10-16] MEDS: INSULIN SLIDING SCALE (NOVOLOG) 1 VIAL SQ SCH ×2 (06:39→11:41)
[2022-10-16] MEDS: MAGNESIUM OXIDE 400 MG TABLET (FP) PO SCH (10:03)
[2022-10-16] MEDS: LOSARTAN POTASSIUM 50 MG TABLET PO SCH (10:03)
[2022-10-16] MEDS: APIXABAN 5 MG TABLET PO SCH (10:03)
[2022-10-16] MEDS: FERROUS SO4 325 MG TABLET (FP) PO SCH (10:03)
[2022-10-16] MEDS: GABAPENTIN 300 MG CAPSULE PO SCH (10:03)
[2022-10-16] MEDS: PANTOPRAZOLE 40 MG TABLET PO SCH (10:03)
[2022-10-16] MEDS: ASPIRIN COATED 81 MG TABLET.EC PO SCH (10:04)
[2022-10-16] MEDS: FOLIC ACID 1 MG TABLET (FP) PO SCH (10:04)
[2022-10-16] MEDS: amLODIPine BESYLATE 2.5 MG TABLET (FP) PO SCH (10:04)
[2022-10-16 12:03] VITALS: BP 120/50; PULSE 71; RESP 18; TEMP 98.5
== END 2022-10-16 15:06 | disposition home or self-care (01) ==
LOC: JER 11:45 → JERBED 14:53 → J4W 19:25
PROVIDERS: ADMIT Internal Medicine; ATTEND Internal Medicine
DX: I25.10 Atherosclerotic heart disease of native coronary artery without angina pectoris (principal); I48.0 Paroxysmal atrial fibrillation; I11.9 Hypertensive heart disease without heart failure; E78.5 Hyperlipidemia, unspecified; M06.9 Rheumatoid arthritis, unspecified; M32.9 Systemic lupus erythematosus, unspecified; E11.9 Type 2 diabetes mellitus without complications; Z79.01 Long term (current) use of anticoagulants; I25.2 Old myocardial infarction
CPT/HCPCS: 0241U-QW; 36415; 70450-TC; 70551-TC; 71045-TC-FY; 80048; 80053; 80061; 81003; 82550; 82962; 83036; 84484; 85025; 85610; 85730; 86850; 86900; 86901; 93005; 93010; 93306-TC; 93880-TC; 97116-GP; 97161-GP; 99285-25; G0378

== ENCOUNTER 2023-08-18 12:12 | Observation (INO) | payer OTHER ==
[2023-08-18 14:08] LABS: BASO % 0.5 % (0-2.0); EOS % 1.9 % (0-4.5); HEMATOCRIT 35.9 % (32.4-45.2); HEMOGLOBIN 11.6 GM/dL (10.7-15.3); MCH 30.7 pg (25.7-33.7); MCHC 32.4 g/dl (32.0-36.0); MEAN CELL VOLUME 94.8 fl (80-96); MEAN PLT VOLUME 6.8 fl (7.5-11.1); MONO % 10.3 % (3.8-10.2); NEUT % 51.3 % (42.8-82.8); PLATELET COUNT 293 10^3/uL (134-434); RBC 3.79 M/mm3 (3.60-5.2); RDW 15.9 % (11.6-15.6)
[2023-08-18 14:29] LABS: ACTIVATED PTT 32.8 SECONDS (25.2-36.5); INR 1.31 (0.83-1.09); PROTHROMBIN TIME (PATIENT) 15.2 SEC (9.7-13.0)
[2023-08-18 14:32] LABS: POTASSIUM 4.5 mmol/L (3.5-5.1)
[2023-08-18 14:34] LABS: CALCIUM 10.1 mg/dL (8.5-10.1)
[2023-08-18 14:35] LABS: ALBUMIN 4.1 g/dl (3.4-5.0); BLOOD UREA NITROGEN 17.6 mg/dL (7-18)
[2023-08-18 14:38] LABS: CREATININE 0.8 mg/dL (0.55-1.3)
[2023-08-18 14:39] LABS: BILIRUBIN,TOTAL 0.2 mg/dL (0.2-1); TOT PROT 7.4 g/dl (6.4-8.2)
[2023-08-18 14:43] LABS: N-TERMINAL BNP 54.9 pg/ml (5-450)
[2023-08-18] MEDS ORDERED: FAMOTIDINE 20 MG/50 ML IVPB 20 MG/50 ML MG IVPB ONE (16:26)
[2023-08-18] MEDS: FAMOTIDINE 20 MG/50 ML IVPB 20 MG/50 ML MG IVPB ONE (16:26)
[2023-08-18] MEDS ORDERED: ACETAMINOPHEN INJECTION 100 ML IVPB ONE (16:27)
[2023-08-18] MEDS: ACETAMINOPHEN 1000 MG/100 ML BAG IVPB ONE (16:27)
[2023-08-18] MEDS: APIXABAN 5 MG TABLET PO SCH (21:32)
[2023-08-18] MEDS: ATORVASTATIN CA 80 MG TABLET (FP) PO SCH (21:32)
[2023-08-18 23:41] VITALS: BMI 34.7
[2023-08-19] MEDS: INSULIN ASPART SLIDING SCALE (NOVOLOG) 1 VIAL SQ SCH (06:03)
[2023-08-19 07:10] LABS: HEMATOCRIT 36.6 % (32.4-45.2); MCH 30.9 pg (25.7-33.7); MCHC 32.8 g/dl (32.0-36.0); MEAN CELL VOLUME 94.3 fl (80-96); PLATELET COUNT 281 10^3/uL (134-434); RBC 3.88 M/mm3 (3.60-5.2); RDW 15.6 % (11.6-15.6); WHITE BLOOD COUNT 5.6 K/mm3 (4.0-10.0)
[2023-08-19 07:39] LABS: POTASSIUM 4.2 mmol/L (3.5-5.1)
[2023-08-19 07:42] LABS: ALBUMIN 4.3 g/dl (3.4-5.0)
[2023-08-19 07:43] LABS: BLOOD UREA NITROGEN 18.2 mg/dL (7-18); MAGNESIUM 1.4 mg/dL (1.8-2.4)
[2023-08-19 07:44] LABS: CALCIUM 10.2 mg/dL (8.5-10.1)
[2023-08-19 07:46] LABS: PHOSPHOROUS 5.3 mg/dL (2.5-4.9)
[2023-08-19 07:48] LABS: BILIRUBIN,TOTAL 0.5 mg/dL (0.2-1); CREATININE 0.9 mg/dL (0.55-1.3); TOT PROT 7.7 g/dl (6.4-8.2)
[2023-08-19] MEDS ORDERED: REGADENOSON 0.4 MG/5 ML PRE-FILLED SYRINGE IVPUSH ONE (11:07)
[2023-08-19] MEDS: REGADENOSON 0.4 MG/5 ML PRE-FILLED SYRINGE IVPUSH ONE (11:15)
[2023-08-19] MEDS: PANTOPRAZOLE 40 MG TABLET PO SCH (12:25)
[2023-08-19] MEDS: GABAPENTIN 300 MG CAPSULE PO SCH (12:25)
[2023-08-19] MEDS: FUROSEMIDE 20 MG TABLET (FP) PO SCH (12:25)
[2023-08-19] MEDS: amLODIPine BESYLATE 2.5 MG TABLET (FP) PO SCH (12:25)
[2023-08-19] MEDS: LOSARTAN POTASSIUM 50 MG TABLET PO SCH (12:25)
[2023-08-19] MEDS: ASPIRIN COATED 81 MG TABLET.EC PO SCH (12:25)
[2023-08-19] MEDS: MAGNESIUM SULFATE IN WATER 2 GM/50 ML IVPB IVPB ONE (12:51)
[2023-08-20 07:13] LABS: BASO % 0.7 % (0-2.0); EOS % 3.4 % (0-4.5); HEMOGLOBIN 11.1 GM/dL (10.7-15.3); LYMPH % 33.2 % (8-40); MCH 31.6 pg (25.7-33.7); MCHC 33.7 g/dl (32.0-36.0); MEAN CELL VOLUME 93.8 fl (80-96); MEAN PLT VOLUME 6.8 fl (7.5-11.1); MONO % 13.8 % (3.8-10.2); NEUT % 48.9 % (42.8-82.8); PLATELET COUNT 271 10^3/uL (134-434); RBC 3.52 M/mm3 (3.60-5.2); RDW 15.4 % (11.6-15.6); WHITE BLOOD COUNT 5.2 K/mm3 (4.0-10.0)
[2023-08-20 07:18] LABS: CALCIUM 9.2 mg/dL (8.5-10.1)
[2023-08-20 07:19] LABS: BLOOD UREA NITROGEN 20.4 mg/dL (7-18); MAGNESIUM 1.8 mg/dL (1.8-2.4)
[2023-08-20 07:22] LABS: CREATININE 0.9 mg/dL (0.55-1.3)
[2023-08-20 08:45] VITALS: BP 118/68; PULSE 68; RESP 16; TEMP 97.9
== END 2023-08-20 14:52 | disposition home or self-care (01) ==
LOC: JER 12:12 → JERBED 15:26 → J4W 20:23
PROVIDERS: ADMIT Internal Medicine; ATTEND Internal Medicine
PROC: 3E033NZ Introduction of Analgesics, Hypnotics, Sedatives into Peripheral Vein, Percutaneous Approach (ICD-10-PCS; principal; 2023-08-18)
PROC: 3E033GC Introduction of Other Therapeutic Substance into Peripheral Vein, Percutaneous Approach (ICD-10-PCS; 2023-08-18)
DX: I48.0 Paroxysmal atrial fibrillation (principal); I25.10 Atherosclerotic heart disease of native coronary artery without angina pectoris; I11.0 Hypertensive heart disease with heart failure; R00.2 Palpitations; I25.2 Old myocardial infarction; Z90.79 Acquired absence of other genital organ(s); R07.89 Other chest pain; E78.5 Hyperlipidemia, unspecified; E11.9 Type 2 diabetes mellitus without complications; M06.9 Rheumatoid arthritis, unspecified; I50.30 Unspecified diastolic (congestive) heart failure; G47.33 Obstructive sleep apnea (adult) (pediatric); R01.1 Cardiac murmur, unspecified; Z79.01 Long term (current) use of anticoagulants
CPT/HCPCS: 36415; 70450-TC; 71045-TC-FY; 78452-TC; 80048; 80053; 82962; 83036; 83735; 83880; 84100; 84443; 84484; 85025; 85027; 85610; 85730; 93005; 93010; 93017; 93306-TC; 96365; 96367; 96375; 97116-GP; 99285-25; A9502; G0378; J0131; J2785

== ENCOUNTER 2023-08-29 13:19 | Inpatient (IN) | payer OTHER ==
[2023-08-29 13:39] VITALS: RESP 18
[2023-08-29] MEDS ORDERED: ACETAMINOPHEN 325 MG TABLET (FP) ONE (14:57)
[2023-08-29 15:02] LABS: BASO % 0.7 % (0-2.0); EOS % 1.9 % (0-4.5); HEMATOCRIT 35.8 % (32.4-45.2); HEMOGLOBIN 11.7 GM/dL (10.7-15.3); LYMPH % 38.8 % (8-40); MCH 30.7 pg (25.7-33.7); MCHC 32.7 g/dl (32.0-36.0); MEAN CELL VOLUME 93.7 fl (80-96); MEAN PLT VOLUME 6.8 fl (7.5-11.1); MONO % 10.6 % (3.8-10.2); PLATELET COUNT 304 10^3/uL (134-434); RBC 3.82 M/mm3 (3.60-5.2); RDW 15.2 % (11.6-15.6); WHITE BLOOD COUNT 4.8 K/mm3 (4.0-10.0)
[2023-08-29 15:08] LABS: INR 1.44 (0.83-1.09); PROTHROMBIN TIME (PATIENT) 16.1 SEC (9.7-13.0)
[2023-08-29 15:11] LABS: ACTIVATED PTT 37.3 SECONDS (25.2-36.5)
[2023-08-29] MEDS: ACETAMINOPHEN 500 MG TABLET (FP) PO ONE (15:14)
[2023-08-29 15:19] LABS: POTASSIUM 4.8 mmol/L (3.5-5.1)
[2023-08-29 15:22] LABS: CALCIUM 9.9 mg/dL (8.5-10.1); MAGNESIUM 1.5 mg/dL (1.8-2.4)
[2023-08-29 15:23] LABS: BLOOD UREA NITROGEN 17.5 mg/dL (7-18)
[2023-08-29 15:25] LABS: CREATININE 0.9 mg/dL (0.55-1.3)
[2023-08-29 15:26] LABS: BILIRUBIN,TOTAL 0.3 mg/dL (0.2-1); TOT PROT 7.4 g/dl (6.4-8.2)
[2023-08-29 15:30] LABS: N-TERMINAL BNP 31.1 pg/ml (5-450)
[2023-08-29] MEDS ORDERED: MAGNESIUM SULFATE IN WATER 2 GM/50 ML IVPB IVPB ONE (17:26)
[2023-08-29] MEDS: MAGNESIUM SULFATE IN WATER 2 GM/50 ML IVPB IVPB ONE (18:02)
[2023-08-29] MEDS ORDERED: PIPERACILLIN/TAZOB 4.5 GM 4.5 GM/100 ML BAG IVPB ONE (19:56)
[2023-08-29] MEDS: PIPERACILLIN/TAZOB 4.5 GM 4.5 GM in DEXTROSE 5%-WATER 100 ML IVPB ONE (20:23)
[2023-08-29 23:19] VITALS: BMI 30.7
[2023-08-30 08:22] LABS: HEMOGLOBIN 11.6 GM/dL (10.7-15.3); MCH 31.4 pg (25.7-33.7); MEAN CELL VOLUME 92.3 fl (80-96); MEAN PLT VOLUME 7.1 fl (7.5-11.1); PLATELET COUNT 296 10^3/uL (134-434); RBC 3.68 M/mm3 (3.60-5.2); WHITE BLOOD COUNT 4.9 K/mm3 (4.0-10.0)
[2023-08-30 08:38] LABS: POTASSIUM 4.4 mmol/L (3.5-5.1)
[2023-08-30 08:47] LABS: BLOOD UREA NITROGEN 16.4 mg/dL (7-18); CALCIUM 9.9 mg/dL (8.5-10.1); MAGNESIUM 2.2 mg/dL (1.8-2.4)
[2023-08-30 08:50] LABS: CREATININE 0.9 mg/dL (0.55-1.3); PHOSPHOROUS 5.2 mg/dL (2.5-4.9)
[2023-08-30 08:52] LABS: BILIRUBIN,TOTAL 0.5 mg/dL (0.2-1); TOT PROT 7.2 g/dl (6.4-8.2)
[2023-08-30] MEDS: FUROSEMIDE 20 MG TABLET (FP) PO SCH (10:36)
[2023-08-30] MEDS: APIXABAN 5 MG TABLET PO SCH (10:36)
[2023-08-30] MEDS: LOSARTAN POTASSIUM 50 MG TABLET PO SCH (10:37)
[2023-08-30] MEDS: GABAPENTIN 300 MG CAPSULE PO SCH (10:37)
[2023-08-30] MEDS: AZITHROMYCIN IVPB 500 MG in DEXTROSE 5%-WATER - 250 ML IVPB ONE (11:59)
[2023-08-30] MEDS: VANCOMYCIN 1,000 MG in DEXTROSE 5%-WATER - 250 ML IVPB ONE (11:59)
[2023-08-30] MEDS ORDERED: INSULIN ASPART SLIDING SCALE (NOVOLOG) 1 VIAL SQ SCH (16:30)
[2023-08-30] MEDS: INSULIN ASPART SLIDING SCALE (NOVOLOG) 1 VIAL SQ SCH (17:18)
[2023-08-30 17:32] VITALS: BP 112/60; PULSE 60; TEMP 98
[2023-08-30] MEDS ORDERED: ATORVASTATIN CA 80 MG TABLET (FP) PO SCH (22:00)
== END 2023-08-30 18:05 | disposition home or self-care (01) | DRG 204 ==
LOC: JER 13:19 → JERBED 17:42 → J4W 21:04
PROVIDERS: ADMIT Internal Medicine; ATTEND Internal Medicine
DX: R06.02 Shortness of breath (principal); I48.20 Chronic atrial fibrillation, unspecified; I25.10 Atherosclerotic heart disease of native coronary artery without angina pectoris; G43.909 Migraine, unspecified, not intractable, without status migrainosus; E11.9 Type 2 diabetes mellitus without complications; R07.89 Other chest pain; R00.2 Palpitations; G47.33 Obstructive sleep apnea (adult) (pediatric); M06.9 Rheumatoid arthritis, unspecified; E78.5 Hyperlipidemia, unspecified; K21.9 Gastro-esophageal reflux disease without esophagitis; R00.0 Tachycardia, unspecified
CPT/HCPCS: 0241U-QW; 36415; 71045-TC-FY; 71046-TC-FY; 80053; 82962; 83735; 83880; 84100; 84484; 85025; 85027; 85379; 85610; 85730; 93005; 93010; 99285-25

== ENCOUNTER 2024-01-27 12:35 | Emergency (ER) | payer OTHER ==
[2024-01-27 13:10] VITALS: BP 129/75; PULSE 76; RESP 18; TEMP 98.6; BMI 30.8
[2024-01-27 14:15] LABS: BASO % 0.6 % (0-2.0); EOS % 1.9 % (0-4.5); HEMATOCRIT 35.3 % (32.4-45.2); HEMOGLOBIN 11.4 GM/dL (10.7-15.3); LYMPH % 29.6 % (8-40); MCH 31.2 pg (25.7-33.7); MCHC 32.2 g/dl (32.0-36.0); MEAN CELL VOLUME 96.8 fl (80-96); MEAN PLT VOLUME 6.8 fl (7.5-11.1); MONO % 13.2 % (3.8-10.2); NEUT % 54.7 % (42.8-82.8); PLATELET COUNT 267 10^3/uL (134-434); RBC 3.65 M/mm3 (3.60-5.2); RDW 16.3 % (11.6-15.6); WHITE BLOOD COUNT 6.1 K/mm3 (4.0-10.0)
[2024-01-27 14:23] LABS: INR 1.32 (0.83-1.09); PROTHROMBIN TIME (PATIENT) 15.1 SEC (9.7-13.0)
[2024-01-27 14:26] LABS: ACTIVATED PTT 37.7 SECONDS (25.2-36.5)
[2024-01-27 14:36] LABS: POTASSIUM 5.5 mmol/L (3.5-5.1)
[2024-01-27 14:38] LABS: CALCIUM 9.6 mg/dL (8.5-10.1)
[2024-01-27 14:39] LABS: ALBUMIN 4.1 g/dl (3.4-5.0); BLOOD UREA NITROGEN 17.3 mg/dL (7-18); MAGNESIUM 1.4 mg/dL (1.8-2.4)
[2024-01-27 14:44] LABS: BILIRUBIN,TOTAL 0.4 mg/dL (0.2-1); TOT PROT 7.5 g/dl (6.4-8.2)
[2024-01-27 14:48] LABS: N-TERMINAL BNP 31.5 pg/ml (5-450)
== END 2024-01-27 15:03 | disposition home or self-care (01) ==
LOC: JER 12:35
DX: J47.9 Bronchiectasis, uncomplicated (principal); R05.9 Cough, unspecified; Z20.822 Contact with and (suspected) exposure to COVID-19
CPT/HCPCS: 0241U-QW; 36415; 71046-TC-FY; 80053; 82550; 83735; 83880; 84484; 85025; 85610; 85730; 93005; 93010; 99285-25

== ENCOUNTER 2024-05-11 21:09 | Observation (INO) | payer OTHER ==
[2024-05-11] MEDS: ACETAMINOPHEN 1000 MG/100 ML BAG IVPB ONE (22:02)
[2024-05-11 22:32] LABS: BASO % 0.3 % (0-2.0); HEMATOCRIT 36.1 % (32.4-45.2); HEMOGLOBIN 11.7 GM/dL (10.7-15.3); LYMPH % 10.6 % (8-40); MCH 31.3 pg (25.7-33.7); MCHC 32.5 g/dl (32.0-36.0); MEAN CELL VOLUME 96.4 fl (80-96); MEAN PLT VOLUME 6.8 fl (7.5-11.1); MONO % 2.4 % (3.8-10.2); NEUT % 86.7 % (42.8-82.8); PLATELET COUNT 318 10^3/uL (134-434); RBC 3.74 M/mm3 (3.60-5.2); RDW 15.7 % (11.6-15.6)
[2024-05-11 22:43] LABS: INR 1.08 (0.83-1.09); PROTHROMBIN TIME (PATIENT) 12.4 SEC (9.7-13.0)
[2024-05-11 22:46] LABS: ACTIVATED PTT 35.8 SECONDS (25.2-36.5)
[2024-05-11 22:56] LABS: CALCIUM 9.6 mg/dL (8.5-10.1)
[2024-05-11 22:57] LABS: ALBUMIN 4.1 g/dl (3.4-5.0); BLOOD UREA NITROGEN 19.9 mg/dL (7-18); MAGNESIUM 1.5 mg/dL (1.8-2.4)
[2024-05-11 23:00] LABS: CREATININE 1.5 mg/dL (0.55-1.3)
[2024-05-11 23:01] LABS: BILIRUBIN,TOTAL 0.3 mg/dL (0.2-1); TOT PROT 7.6 g/dl (6.4-8.2)
[2024-05-12] MEDS: LACTATED RINGERS SOLUTION 1000 ML INFUS.BAG IV ONE (01:04)
[2024-05-12] MEDS: MAGNESIUM SULF 50% (8.12 MEQ/2 ML-1 GM VIAL) IVPB ONE (01:17)
[2024-05-12] MEDS: ASPIRIN 325 MG TABLET PO ONE (02:46)
[2024-05-12] MEDS: INSULIN ASPART SLIDING SCALE (NOVOLOG) 1 VIAL SQ SCH (07:32)
[2024-05-12 08:06] LABS: MCH 31.6 pg (25.7-33.7); MCHC 32.4 g/dl (32.0-36.0); MEAN CELL VOLUME 97.7 fl (80-96); MEAN PLT VOLUME 6.7 fl (7.5-11.1); PLATELET COUNT 286 10^3/uL (134-434); RBC 3.48 M/mm3 (3.60-5.2); RDW 15.8 % (11.6-15.6); WHITE BLOOD COUNT 6.7 K/mm3 (4.0-10.0)
[2024-05-12 08:13] LABS: POTASSIUM 4.8 mmol/L (3.5-5.1)
[2024-05-12 08:23] LABS: BLOOD UREA NITROGEN 21.4 mg/dL (7-18)
[2024-05-12 08:24] LABS: ALBUMIN 3.6 g/dl (3.4-5.0); CALCIUM 9.1 mg/dL (8.5-10.1); MAGNESIUM 2.2 mg/dL (1.8-2.4)
[2024-05-12 08:27] LABS: PHOSPHOROUS 3.1 mg/dL (2.5-4.9)
[2024-05-12 08:28] LABS: BILIRUBIN,TOTAL 0.4 mg/dL (0.2-1); TOT PROT 6.6 g/dl (6.4-8.2)
[2024-05-12] MEDS ORDERED: FUROSEMIDE 20 MG TABLET (FP) PO SCH (10:00)
[2024-05-12] MEDS ORDERED: SPIRONOLACTONE 25 MG TABLET PO SCH (10:00)
[2024-05-12] MEDS: amLODIPine BESYLATE 2.5 MG TABLET (FP) PO SCH (10:11)
[2024-05-12] MEDS: APIXABAN 5 MG TABLET PO SCH (10:11)
[2024-05-12] MEDS: GABAPENTIN 300 MG CAPSULE PO SCH (10:11)
[2024-05-12] MEDS: SACUBITRIL/VALSARTAN 97 MG-103 MG TABLET PO SCH (10:11)
[2024-05-12] MEDS: ASPIRIN COATED 81 MG TABLET.EC PO SCH (10:11)
[2024-05-12] MEDS: ATORVASTATIN CA 80 MG TABLET (FP) PO SCH (21:51)
[2024-05-12] MEDS: ACETAMINOPHEN 325 MG TABLET (FP) PO ONE (22:42)
[2024-05-13 07:58] LABS: CHOLESTEROL 130 mg/dL (50-200)
[2024-05-13 07:59] LABS: LDL CHOLESTEROL (ONLY SJRH) 46 mg/dL (5-100)
[2024-05-13 08:01] LABS: HDL CHOLESTEROL 82 mg/dL (40-60)
[2024-05-13 11:42] VITALS: BMI 32.8
[2024-05-13 13:42] VITALS: TEMP 98.6
[2024-05-13 15:35] VITALS: BP 116/63; PULSE 64; RESP 18
== END 2024-05-13 17:31 | disposition home or self-care (01) ==
LOC: JER 21:09 → UNDOADMOB 05-12 01:26 → JERBED 05-12 01:26 → INTOOBSV 05-12 01:26 → JERBED 05-12 14:23 → J4W 05-12 15:49
PROVIDERS: ADMIT Internal Medicine; ATTEND Internal Medicine
PROC: 3E033GC Introduction of Other Therapeutic Substance into Peripheral Vein, Percutaneous Approach (ICD-10-PCS; principal; 2024-05-12)
PROC: 3E0337Z Introduction of Electrolytic and Water Balance Substance into Peripheral Vein, Percutaneous Approach (ICD-10-PCS; 2024-05-12)
DX: R55 Syncope and collapse (principal); R00.2 Palpitations; R07.89 Other chest pain; I16.0 Hypertensive urgency; I10 Essential (primary) hypertension; I48.91 Unspecified atrial fibrillation; E11.9 Type 2 diabetes mellitus without complications; E78.5 Hyperlipidemia, unspecified; I25.10 Atherosclerotic heart disease of native coronary artery without angina pectoris; M06.9 Rheumatoid arthritis, unspecified; G47.33 Obstructive sleep apnea (adult) (pediatric); K21.9 Gastro-esophageal reflux disease without esophagitis; L93.1 Subacute cutaneous lupus erythematosus; N17.9 Acute kidney failure, unspecified; K31.89 Other diseases of stomach and duodenum; Z99.89 Dependence on other enabling machines and devices; Z79.01 Long term (current) use of anticoagulants; Z79.84 Long term (current) use of oral hypoglycemic drugs
CPT/HCPCS: 0241U-QW; 36415; 71045-TC-FY; 71275-TC; 74174-TC; 80053; 80061; 82962; 83036; 83690; 83735; 84100; 84484; 85025; 85027; 85610; 85730; 86850; 86900; 86901; 93005; 93010; 93306-TC; 96374; 97116-GP; 97161-GP; 99285-25; G0378

== ENCOUNTER 2024-08-31 13:39 | Observation (INO) | payer OTHER ==
[2024-08-31 13:57] VITALS: BMI 29.4
[2024-08-31] MEDS ORDERED: ASPIRIN 81 MG CHEWABLE TABLETS ONE (14:53)
[2024-08-31] MEDS: ASPIRIN 81 MG CHEWABLE TABLETS PO ONE (14:56)
[2024-08-31 15:08] LABS: HEMATOCRIT 35.1 % (34.1-44.9); HEMOGLOBIN 11.2 g/dL (11.2-15.7); MCHC 31.9 g/dl (32.2-35.5); MEAN CELL VOLUME 94.6 fl (79.4-94.8); MEAN PLT VOLUME 8.7 fl (9.4-12.3); PLATELET COUNT 384 x10^3/uL (182-369); RDW 15.4 % (12.4-16.6)
[2024-08-31 15:14] LABS: INR 1.19 (0.83-1.09)
[2024-08-31 15:16] LABS: ACTIVATED PTT 29.2 SECONDS (25.2-36.5)
[2024-08-31 15:26] LABS: POTASSIUM 4.7 mmol/L (3.5-5.1)
[2024-08-31 15:28] LABS: CALCIUM 9.2 mg/dL (8.5-10.1)
[2024-08-31 15:29] LABS: ALBUMIN 3.3 g/dl (3.4-5.0); BLOOD UREA NITROGEN 20.1 mg/dL (7-18); MAGNESIUM 1.6 mg/dL (1.8-2.4)
[2024-08-31 15:32] LABS: CREATININE 0.9 mg/dL (0.55-1.3)
[2024-08-31 15:33] LABS: BILIRUBIN,TOTAL 0.3 mg/dL (0.2-1); TOT PROT 6.4 g/dl (6.4-8.2)
[2024-08-31 15:37] LABS: N-TERMINAL BNP 31.8 pg/ml (5-450)
[2024-08-31] MEDS: MAGNESIUM CL 64 MG TABLET.SA PO ONE (18:24)
[2024-09-01] MEDS ORDERED: PATIENT'S OWN MEDICATION (NON-FORMULARY) (Albuterol Sulfate [Proair Respiclick] 90 MCG Aer IH SCH (02:30)
[2024-09-01] MEDS ORDERED: ACETAMINOPHEN 325 MG TABLET (FP) PO SCH (02:30)
[2024-09-01] MEDS: FUROSEMIDE 20 MG TABLET (FP) PO SCH (06:17)
[2024-09-01] MEDS ORDERED: ACETAMINOPHEN 325 MG TABLET (FP) PO PRN (06:27)
[2024-09-01 06:43] LABS: HEMATOCRIT 36.2 % (34.1-44.9); HEMOGLOBIN 11.4 g/dL (11.2-15.7); MCHC 31.5 g/dl (32.2-35.5); MEAN PLT VOLUME 8.9 fl (9.4-12.3); PLATELET COUNT 358 x10^3/uL (182-369); RDW 15.2 % (12.4-16.6)
[2024-09-01 07:06] LABS: POTASSIUM 4.2 mmol/L (3.5-5.1)
[2024-09-01 07:09] LABS: CALCIUM 10.1 mg/dL (8.5-10.1)
[2024-09-01 07:10] LABS: ALBUMIN 3.4 g/dl (3.4-5.0); BLOOD UREA NITROGEN 17.1 mg/dL (7-18); MAGNESIUM 1.7 mg/dL (1.8-2.4)
[2024-09-01 07:13] LABS: CREATININE 0.9 mg/dL (0.55-1.3)
[2024-09-01 07:15] LABS: BILIRUBIN,TOTAL 0.4 mg/dL (0.2-1); TOT PROT 6.5 g/dl (6.4-8.2)
[2024-09-01] MEDS: ALBUTEROL SO4 2.5/IPRATROPIUM 0.5 INH SOL 3 ML VIAL.NEB. NEB SCH (07:45)
[2024-09-01] MEDS ORDERED: [UNRECOGNIZED DRUG - OTHER] PO SCH (10:00)
[2024-09-01] MEDS ORDERED: ERTAPENEM SODIUM 1 GM in SODIUM CHLORIDE 50 ML IVPB SCH (10:00)
[2024-09-01] MEDS: MAGNESIUM OXIDE 400 MG TABLET (FP) PO ONE (11:21)
[2024-09-01] MEDS: APIXABAN 5 MG TABLET PO SCH (11:22)
[2024-09-01] MEDS: ASPIRIN COATED 81 MG TABLET.EC PO SCH (11:22)
[2024-09-01] MEDS: SACUBITRIL/VALSARTAN 97 MG-103 MG TABLET PO SCH (11:22)
[2024-09-01] MEDS: GABAPENTIN 300 MG CAPSULE PO SCH (11:22)
[2024-09-01] MEDS: PANTOPRAZOLE 40 MG TABLET PO SCH (11:22)
[2024-09-01] MEDS: FOLIC ACID 1 MG TABLET (FP) PO SCH (11:23)
[2024-09-01] MEDS: LIDOCAINE 4% PATCH TP SCH (11:23)
[2024-09-01] MEDS: SPIRONOLACTONE 25 MG TABLET PO SCH (11:23)
[2024-09-01] MEDS: predniSONE 20 MG TABLET (UD) PO SCH (11:26)
[2024-09-01] MEDS: MAGNESIUM OXIDE 400 MG TABLET (FP) PO SCH (14:28)
[2024-09-01 14:57] VITALS: RESP 18
[2024-09-01] MEDS ORDERED: MAGNESIUM CL 64 MG TABLET.SA PO ONE (15:58)
[2024-09-01] MEDS: methylPREDNISolone NA SUCC 40 MG/1 ML VIAL IVPUSH SCH (18:49)
[2024-09-01] MEDS: LIDOCAINE PATCH REMOVAL MC SCH (21:37)
[2024-09-01] MEDS: ATORVASTATIN CA 80 MG TABLET (FP) PO SCH (21:37)
[2024-09-02 06:36] LABS: ABSOLUTE IMMATURE GRANULOCYTES 0.17 x10^3/uL (0.0-0.031); BASOPHILS # 0.02 x10^3/uL (0.01-0.08); HEMATOCRIT 35.6 % (34.1-44.9); HEMOGLOBIN 11.7 g/dL (11.2-15.7); MCHC 32.9 g/dl (32.2-35.5); MEAN CELL VOLUME 91.5 fl (79.4-94.8); MEAN PLT VOLUME 8.9 fl (9.4-12.3); MONOCYTE # 0.18 x10^3/uL (0.24-0.86); MONOCYTE % 2.4 % (4.7-12.5); PLATELET COUNT 385 x10^3/uL (182-369)
[2024-09-02 06:55] LABS: POTASSIUM 4.8 mmol/L (3.5-5.1)
[2024-09-02 07:00] LABS: CALCIUM 10.2 mg/dL (8.5-10.1)
[2024-09-02 07:01] LABS: ALBUMIN 3.6 g/dl (3.4-5.0); BLOOD UREA NITROGEN 26.5 mg/dL (7-18)
[2024-09-02 07:06] LABS: BILIRUBIN,TOTAL 0.4 mg/dL (0.2-1)
[2024-09-02 11:50] VITALS: TEMP 98.1
[2024-09-02 13:49] VITALS: BP 128/60; PULSE 83
[2024-09-04 19:06] LABS: CYCLIC CITRULLINE PEPTIDE AB 7 units (0-19)
== END 2024-09-02 18:26 | disposition home or self-care (01) ==
LOC: JER 13:39 → JERBED 23:52 → J4S 09-01 02:37
PROVIDERS: ADMIT Internal Medicine
PROC: 3E033GC Introduction of Other Therapeutic Substance into Peripheral Vein, Percutaneous Approach (ICD-10-PCS; principal; 2024-08-31)
DX: J84.9 Interstitial pulmonary disease, unspecified (principal); I48.0 Paroxysmal atrial fibrillation; R07.89 Other chest pain; I25.10 Atherosclerotic heart disease of native coronary artery without angina pectoris; L93.1 Subacute cutaneous lupus erythematosus; I10 Essential (primary) hypertension; E78.5 Hyperlipidemia, unspecified; Z79.01 Long term (current) use of anticoagulants; M06.9 Rheumatoid arthritis, unspecified; G47.33 Obstructive sleep apnea (adult) (pediatric); Z99.81 Dependence on supplemental oxygen; D64.89 Other specified anemias
CPT/HCPCS: 0241U-QW; 36415; 71045-TC-FY; 71275-TC; 80053; 82550; 82962; 83735; 83880; 84484; 85025; 85027; 85610; 85651; 85730; 86038; 86140; 86160; 86200; 86225; 86431; 93005; 93010; 94640; 96374; 97116-GP; 97161-GP; 99285-25; G0378; Q9967